=== PATIENT | female | born 1970 | race Caucasian/White ===

== ENCOUNTER 2020-05-24 06:12 | Outpatient (REF) | payer OTHER, SELFPAY ==
[2020-05-24 07:44] LABS: Thyroid Stimulating Hormone 0.57 mIU/mL (0.32-4.0)
== END 2020-05-24 06:13 | disposition home or self-care (01) ==
LOC: HO.LAB 06:12
PROVIDERS: PCP Internal Medicine; Visit Provider Internal Medicine
DX: F32.89 Other specified depressive episodes (principal); M15.1 Heberden's nodes (with arthropathy); M79.652 Pain in left thigh; Z68.25 Body mass index [BMI] 25.0-25.9, adult
CPT/HCPCS: 84443

== ENCOUNTER 2020-05-30 08:22 | Outpatient (REF) | payer OTHER, SELFPAY ==
[2020-05-30 15:56] LABS: CT PCR NOT DETECTED (Not Detect.); NG PCR NOT DETECTED (Not Detect.)
[2020-05-31 09:30] LABS: BV Int Neg Control Negative (Negative); BV Int Pos Control Positive (Positive)
== END 2020-05-30 08:23 | disposition home or self-care (01) ==
LOC: HO.LNP 08:22
PROVIDERS: PCP Internal Medicine; Referring Provider Internal Medicine; Visit Provider Obstetrics & Gynecology
DX: Z01.419 Encounter for gynecological examination (general) (routine) without abnormal findings (principal); Z11.3 Encounter for screening for infections with a predominantly sexual mode of transmission
CPT/HCPCS: 87480; 87491; 87510; 87591; 87660

== ENCOUNTER 2020-05-31 05:59 | Outpatient (REF) | payer OTHER, SELFPAY ==
[2020-05-31 08:39] LABS: HBsAGNum1 0.16 S/CO (0.00-0.99); HIV AB/AG Nonreactive (Nonreactive); HIV Num 1 0.06 S/CO (0.00-0.99); Hepatitis B Surface Antigen Negative (Negative); ~HepC Num1 0.13 S/CO (0.00-0.79); ~Hepatitis C Antibody Nonreactive (Nonreactive)
[2020-06-01 08:18] LABS: Syphilis Screen Nonreactive (Nonreactive)
== END 2020-05-31 06:00 | disposition home or self-care (01) ==
LOC: HO.LAB 05:59
PROVIDERS: PCP Internal Medicine; Visit Provider Obstetrics & Gynecology
DX: Z11.3 Encounter for screening for infections with a predominantly sexual mode of transmission (principal)
CPT/HCPCS: 86780; 86803; 87340; 87389

== ENCOUNTER → 2020-06-02 11:16 | Outpatient (BNVA) | payer OTHER, SELFPAY | PROVIDERS: PCP Internal Medicine; Visit Provider Surgery Vascular Surgery | DX: Z76.89 Persons encountering health services in other specified circumstances (principal) ==

== ENCOUNTER 2020-06-08 07:48 | Outpatient (REF) | payer OTHER, SELFPAY ==
--- NOTE | 2020-06-08 07:59 | US_ITS ---
EXAMINATION: BILATERAL LOWER EXTREMITY VENOUS ULTRASOUND (Reflux Exam) CLINICAL INDICATION: This is a 50-year-old female with venous insufficiency and varicose veins. COMPARISON: None. TECHNIQUE: Color flow triplex imaging and compression Doppler was performed to evaluate both the deep and the superficial systems bilaterally. To evaluate the superficial system, the examination was performed in the upright position. Color-flow Doppler ultrasound and compression ultrasound were utilized. In addition, maneuvers were utilized to demonstrate reflux. FINDINGS: 1. DEEP VENOUS ULTRASOUND OF THE RIGHT LOWER EXTREMITY: Common Femoral Vein: Compressible, normal respiratory variation and augmented flow. Femoral vein: Compressible, normal color flow and augmentation. Popliteal Vein: Compressible, normal augmentation. Deep Reflux: There is no evidence of reflux in the deep system in either the common femoral vein or the popliteal vein. . There is no evidence of a Negrete's cyst. 2. SUPERFICIAL ULTRASOUND WITH DOPPLER OF RIGHT LOWER EXTREMITY GREAT SAPHENOUS VEIN: Saphenofemoral junction: 0.6 cm. There is no reflux at the saphenofemoral junction. Mid thigh: 0.5 cm. There is reflux of 3500 ms. Above knee: 0.5 cm. There is reflux of 3004 and 72 ms. Below knee: 0.4 cm. There is no reflux at this level. Mid calf: 0.3 cm. There is no reflux at this level and below Ankle: 0.3 cm GSV REFLUX: There is reflux in the great saphenous vein but not at the saphenofemoral junction. DUPLICATED GREAT SAPHENOUS VEIN: None SMALL SAPHENOUS VEIN: Upper: 0.4 cm Lower: 0.4 cm SSV REFLUX: No evidence of reflux. VEIN OF GIACOMINI: None Imaged. PERFORATORS: There is a 0.2 cm proximal thigh lieutenant fire fighter with 784 ms of reflux. There is a proximal calf lieutenant fire fighter measuring 0.3 cm without reflux. VARICOSITIES: There are varicose veins seen in the proximal thigh measures 0.4 cm without reflux. There are varicose veins in the proximal calf measuring 0.3 cm with a reflux time of 3152 ms. 3. DEEP VENOUS ULTRASOUND OF THE LEFT LOWER EXTREMITY: Common Femoral Vein: Compressible, normal respiratory variation and augmented flow. Femoral vein: Compressible, normal color flow and augmentation. Popliteal Vein: Compressible, normal augmentation. Deep Reflux: There is no evidence of reflux in the deep system in either the common femoral vein or the popliteal vein. There is no evidence of a Negrete's cyst. 4. SUPERFICIAL ULTRASOUND WITH DOPPLER OF LEFT LOWER EXTREMITY GREAT SAPHENOUS VEIN: Saphenofemoral junction: 0.6 cm. There is no reflux at the saphenofemoral junction. Mid thigh: 0.3 cm. There is a reflux time of 1636 ms at this level. Above knee: 0.4 cm. There is reflux of 2700 ms at this level. Below knee: 0.2 cm there is no reflux at this level. Mid calf: 0.2 cm. There is reflux of 2012 ms at this level. Ankle: 0 point cm. There is no reflux at this level. GSV REFLUX: There are isolated areas of reflux as noted. DUPLICATED GREAT SAPHENOUS VEIN: There is a 0.4 cm lateral duplicated great saphenous vein without reflux. SMALL SAPHENOUS VEIN: Upper: 0.2 cm Lower: 0.3 cm SSV REFLUX: No evidence of reflux. VEIN OF GIACOMINI: None Imaged. PERFORATORS: There is a 0.3 cm lieutenant fire fighter in the proximal calf without reflux. VARICOSITIES: There is a 0.5 cm varicose vein in the distal thigh with reflux time of 2936 ms. There is a 0.4 cm varicose vein in the in the region with a reflux time of 3080 ms. US/US venous duplex LE BI IMPRESSION: 1. There is a patent right great saphenous vein without reflux at the saphenofemoral junction. However, there is reflux of the proximal thigh downward. 2. There is a patent right small saphenous vein without reflux. 3. There are perforators and varicose veins in the right leg as described. 4. There is a patent left great saphenous vein without reflux at the saphenofemoral junction. However, reflux is seen from the mid thigh down. 5. There is a patent lateral duplicated great saphenous vein without reflux. 6. There is a patent left small saphenous vein without reflux. 7. There are perforators and varicose veins as noted in the left leg.
== END 2020-06-08 07:49 | disposition home or self-care (01) ==
LOC: HO.US 07:48
PROVIDERS: PCP Internal Medicine; Visit Provider Surgery Vascular Surgery
DX: I83.813 Varicose veins of bilateral lower extremities with pain (principal); I83.12 Varicose veins of left lower extremity with inflammation
CPT/HCPCS: 93970

== ENCOUNTER → 2020-06-30 08:45 | Outpatient (BNVA) | payer OTHER, SELFPAY | PROVIDERS: PCP Internal Medicine; Visit Provider Surgery Vascular Surgery | DX: Z76.89 Persons encountering health services in other specified circumstances (principal) ==

== ENCOUNTER → 2020-07-08 08:46 | Outpatient (BNVA) | payer OTHER, SELFPAY | PROVIDERS: PCP Internal Medicine; Referring Provider Internal Medicine; Visit Provider Surgery Vascular Surgery | DX: I83.11 Varicose veins of right lower extremity with inflammation (principal) | CPT/HCPCS: 36482 ==

== ENCOUNTER 2020-07-11 14:45 | Outpatient (REF) | payer OTHER, SELFPAY ==
--- NOTE | 2020-07-11 | US_ITS ---
EXAMINATION: US VENOUS ULTRASOUND WITH DOPPLER LOWER EXTREMITY, RIGHT CLINICAL INFORMATION: Status post right leg venous serial. COMPARISON: None TECHNIQUE: Ultrasound of the deep veins is performed from the hip to the calf with compression sonography and color and pulse Doppler assessment. Spectral analysis with color-flow imaging is performed. FINDINGS: There is normal venous compression and respiratory variation and augmented flow. The visualized common femoral vein, superficial femoral vein, profunda femoral vein, popliteal vein, and the trifurcation region shows no evidence of deep venous thrombosis. There is no significant popliteal fossa cyst. There is venaseal in greater saphenous vein approximately 3.5 cm away from special femoral venous junction. If the patient's symptoms persist, followup ultrasound in 5 days 7 days might be of value to exclude proximal propagation from a non-visualized calf vein. US/US venous duplex LE RT IMPRESSION: No DVT demonstrated in the right lower extremity. Right greater saphenous vein Venaseal appears 3.5 cm away from the superficial femoral venous junction.
== END 2020-07-11 14:46 | disposition home or self-care (01) ==
LOC: HO.US 14:45
PROVIDERS: Visit Provider Surgery Vascular Surgery
DX: M79.604 Pain in right leg (principal)
CPT/HCPCS: 93971

== ENCOUNTER → 2020-07-21 08:56 | Outpatient (BNVA) | payer OTHER, SELFPAY | PROVIDERS: PCP Internal Medicine; Visit Provider Surgery Vascular Surgery | DX: Z76.89 Persons encountering health services in other specified circumstances (principal) ==

== ENCOUNTER → 2020-08-12 09:25 | Outpatient (BNVA) | payer OTHER, SELFPAY | PROVIDERS: PCP Internal Medicine; Visit Provider Surgery Vascular Surgery | DX: I83.12 Varicose veins of left lower extremity with inflammation (principal) | CPT/HCPCS: 36482 ==

== ENCOUNTER 2020-08-15 12:43 | Outpatient (REF) | payer OTHER, SELFPAY ==
--- NOTE | 2020-08-15 | US_ITS ---
EXAMINATION: US VENOUS ULTRASOUND WITH DOPPLER LOWER EXTREMITY, LEFT CLINICAL INFORMATION: Status post left leg RFA. Pain COMPARISON: None TECHNIQUE: Ultrasound of the deep veins is performed from the hip to the calf with compression sonography and color and pulse Doppler assessment. Spectral analysis with color-flow imaging is performed. FINDINGS: There is normal venous compression and respiratory variation and augmented flow. The visualized common femoral vein, superficial femoral vein, profunda femoral vein, popliteal vein, and the trifurcation region shows no evidence of deep venous thrombosis. There is no significant popliteal fossa cyst. There is veno seal in greater saphenous vein approximately 1.8 cm common femoral venous junction. No evidence of Negrete's cyst. The soft tissues are unremarkable. US/US venous duplex LE LT IMPRESSION: No DVT demonstrated in the left lower extremity. Left greater saphenous veno seal seen following RF ablation procedure
== END 2020-08-15 12:44 | disposition home or self-care (01) ==
LOC: HO.HMGCX 12:43
PROVIDERS: PCP Internal Medicine; Visit Provider Surgery Vascular Surgery
DX: M79.605 Pain in left leg (principal)
CPT/HCPCS: 93971

== ENCOUNTER → 2020-08-25 09:55 | Outpatient (BNVA) | payer OTHER, SELFPAY | PROVIDERS: PCP Internal Medicine; Visit Provider Surgery Vascular Surgery ==

== ENCOUNTER 2020-10-07 11:44 | Emergency (ER) | payer OTHER, SELFPAY ==
--- NOTE | ~2020-10-07 | US_ITS ---
EXAMINATION: US VENOUS ULTRASOUND WITH DOPPLER LOWER EXTREMITY, BILATERAL CLINICAL INFORMATION: History of bilateral greater saphenous vein veno seal. Swelling. COMPARISON: None TECHNIQUE: Ultrasound of the deep veins is performed from the hip to the calf with compression sonography and color and pulse Doppler assessment. Spectral analysis with color-flow imaging is performed. FINDINGS: RIGHT: There is normal venous compression and respiratory variation and augmented flow. The visualized common femoral vein, superficial femoral vein, profunda femoral vein, popliteal vein, and the trifurcation region shows no evidence of deep venous thrombosis. There is no significant popliteal fossa cyst. LEFT: There is normal venous compression and respiratory variation and augmented flow. The visualized common femoral vein, superficial femoral vein, profunda femoral vein, popliteal vein, and the trifurcation region shows no evidence of deep venous thrombosis. There is no significant popliteal fossa cyst. If the patient's symptoms persist, followup ultrasound in 5 days 7 days might be of value to exclude proximal propagation from a non-visualized calf vein. US/US venous duplex LE BI IMPRESSION: No DVT demonstrated in the bilateral lower extremity.
--- NOTE | ~2020-10-07 | CT_ITS ---
EXAMINATION: CTA OF THE CHEST, ABDOMEN AND PELVIS CLINICAL INFORMATION: Abdominal pain radiating to back. History of abdominal aortic aneurysm. COMPARISON: Previous chest CTA July [address] of the abdomen and pelvis SeptemberSeptember 2017 TECHNIQUE: Axial images through the chest, abdomen and pelvis following 85 mL Omnipaque 370 intravenous contrast. Patient dose 6 6 6 mg/cm. Sagittal and coronal and 3-D reconstructions were obtained. This CT examination was performed using dose optimization techniques as appropriate, variously including the following: *Automated exposure control *Adjustment of mA and/or kV according to patient size (this includes techniques or standardized protocols for targeted exams where dose is matched to indication/reason for exam; i.e. extremities or head) *Use of iterative reconstruction technique FINDINGS: Chest: The ascending thoracic aorta is slightly dilated measuring 4.3 cm. Similar to previous exam. The aortic arch and descending thoracic aorta are normal appearing. The aortic arch measures 2.4 and the descending thoracic aorta 2.2 cm in diameter. The heart does not appear enlarged. There is no pericardial effusion. Great vessel origins appear patent and normal in caliber. The pulmonary arteries are patent. There is a small 2 mm peripheral left upper lobe nodule that is stable. The lungs are otherwise clear. No hilar or mediastinal lymphadenopathy is seen. There is no pleural effusion or pleural thickening. There are bilateral breast implants. There are surgical clips seen in both axilla. No chest wall mass or enlarged axillary lymph nodes are seen. Abdomen and pelvis: The abdominal aorta is normal in caliber. The common internal and external iliac, common femoral and femoral bifurcation arteries are patent and normal in caliber. There are single patent renal arteries. The celiac axis, SMA and CAROL are patent. The liver is upper normal in size. The right lobe the liver measures 18 cm in length. The liver is normal in contour. No focal liver lesion or biliary duct dilatation is seen. The gallbladder is normal. The spleen, pancreas, adrenal glands and kidneys are normal. Bladder is normal. The uterus and adnexa are normal. The cecum is located low in the pelvis. Small and large bowel is otherwise normal. The appendix is normal. The stomach is normal. There is trace ascites in the pelvis. There are no enlarged lymph nodes. There is a small umbilical hernia containing fat. There are mild T12 and L4 vertebral body compression fractures versus Schmorl's nodes. This is unchanged from previous exams There is mild curvature of the lower lumbar spine to the left. CT/CT angio abdomen pelvis IMPRESSION: Chest: Slightly dilated ascending thoracic aorta measuring maximum 4.3 cm. This is unchanged from previous exam. Otherwise unremarkable CTA of the chest. Small stable left upper lobe nodule. Abdomen and pelvis: Normal CTA of the abdomen and pelvis.
[2020-10-07 12:08] VITALS: BP 187/109; PULSE 56; RESP 16; TEMP 36.5; O2SAT 99; BMI 28.3
--- NOTE | 2020-10-07 12:46 | ECG_ITS ---
Test Reason : CHEST PAIN Blood Pressure : / mmHG Vent. Rate : 056 BPM Atrial Rate : 056 BPM P-R Int : 134 ms QRS Dur : 090 ms QT Int : 458 ms P-R-T Axes : 069 053 047 degrees QTc Int : 441 ms Sinus bradycardia with Sinus Arrhythmia Possible Left atrial enlargement Borderline ECG No previous ECGs available Referred By: Marimar Kwan Electronically Signed By:RODOLFO CALLAHAN MD
[2020-10-07 13:14] LABS: MANUAL DIFF FLAG NO
[2020-10-07 13:16] VITALS: BP 187/109; PULSE 56; RESP 16; TEMP 36.5; O2SAT 99
[2020-10-07 13:21] LABS: Basophils Percent Auto 0.6 % (0-2); Eosinophils Absolute Auto 0.1 X10*3/uL (0.0-0.4); Eosinophils Percent Auto 1.9 % (0-4); Hematocrit 42.9 % (37-47); Hemoglobin 13.8 g/dl (12.0-16.0); Imm Gran Abs Auto 0.01 X10*3/uL (0.00-0.03); Imm Gran Pct Auto 0.2 % (0.0-0.4); Lymphocytes Absolute Auto 1.6 X10*3/uL (1.2-4.9); Mean Corpuscular HGB Conc 32.2 g/dl (31.0-35.0); Mean Corpuscular Hemoglobin 30.5 pg (27.0-33.0); Mean Corpuscular Volume 94.7 fL (80-98); Mean Platelet Volume 10.2 fL (9.4-12.3); Monocytes Absolute Auto 0.4 X10*3/uL (0.1-1.2); Monocytes Percent Auto 8.2 % (2-11); Neutrophils Percent Auto 58.1 % (45-73); Platelet Count 212 X10*3/uL (160-400); Red Blood Count 4.53 X10*6/uL (4.20-5.50); Red Cell Distribution Width 12.7 % (11.0-16.0); White Blood Count 5.2 X10*3/uL (4.8-10.8)
[2020-10-07 13:27] LABS: INTERNATIONAL NORM RATIO 0.9 (0.9-1.1)
[2020-10-07 13:29] LABS: Partial Thromboplastin Time 39.1 SEC (24.1-38.0)
[2020-10-07 13:39] LABS: Alanine Aminotransferase 14 U/L (0-31); Albumin Level 4.5 g/dL (3.5-5.0); Alkaline Phosphatase 87 U/L (39-117); Anion Gap 11 (12-20); Aspartate Amino Transferase 21 U/L (5-31); Bilirubin Direct 0.2 mg/dL (0.0-0.5); Bilirubin Total 0.5 mg/dL (0.0-1.0); Blood Urea Nitrogen 23 mg/dL (9-16); Calcium 9.3 mg/dL (8.4-10.2); Carbon Dioxide 29 mmol/L (22-29); Chloride 103 mmol/L (96-108); Creatinine Clr Calc Pharmacy 91.5; Estimated Glomerular Filt Rate > 60; Glucose Random 107 mg/dL (60-115); Magnesium 2.2 mg/dL (1.6-2.6); Potassium 3.7 mmol/L (3.3-5.1); Sodium 139 mmol/L (135-145); Total Protein 7.3 g/dL (6.5-8.0)
[2020-10-07 13:45] LABS: B Type Natriuretic Peptide 67 pg/mL (<100); Troponin-I High Sensitivity 5.9 ng/L (<3.5-17.0)
[2020-10-07 13:59] LABS: Influenza A PCR NEGATIVE (Negative); Influenza B PCR NEGATIVE (Negative); Resp Syncy Virus RNA Qual PCR NEGATIVE (Negative); SARS COV2 PCR INHOUSE NEGATIVE (Negative)
--- NOTE | 2020-10-07 14:14 | ED_ITS ---
HPI - Abdominal Pain General Chief Complaint: Abdominal Pain Stated Complaint: ABD PAIN Time Seen by Provider: 10/07/20 12:46 Source: patient Mode of arrival: ambulatory Limitations: no limitations History of Present Illness HPI narrative: 50-year-old female with a past medical history of a AAA, hypertension, hypothyroidism, cervical intraepithelial neoplasm I, squamous cell carcinoma, tongue cancer, breast cancer who had surgery and chemo/radiation who is in remission presenting to the ED with complaints of bilateral lower abdominal pain radiating to her bilateral lower back pain since last night with associated nausea. Also reports that she coughed yesterday and noted to have blood-tinged sputum a small amount although no further episodes. Also reports intermittent left-sided chest discomfort unsure if this is due to her breast implants. Patient also concern for bilateral lower extremity edema. Denies any fevers, chills, vomiting, shortness of breath, dyspnea on exertion, orthopnea, palpitations, diarrhea, constipation, bloody stools or dark stools, hematuria, dysuria or any other symptoms complaints or concerns at this time. MD elicited complaint: abdominal pain Pertinent past history: other (AAA) Onset (ago): day(s) (Since last night) Pain Consistency: constant Location: RLQ and LLQ Severity: moderate Quality: aching Radiation: back Migration to: no migration Exacerbating factors: movement Relieving factors: nothing Associated symptoms: nausea Related Data Home Medications Medication Instructions Recorded Confirmed ibuprofen 600 mg tablet 600 mg PO TID 05/30/20 05/30/20 levothyroxine 137 mcg tablet 137 mcg PO DAILY 05/30/20 05/30/20 sertraline 50 mg tablet 50 mg PO DAILY 05/30/20 05/30/20 Previous Rx's Medication Instructions Recorded lisinopril 10 mg PO DAILY #30 tab 10/07/20 Allergies Allergy/AdvReac Type Severity Reaction Status Date / Time No Known Allergies Allergy Verified 10/07/20 10:54 [No Known Allergies*] Review of Systems Review of Systems Constitutional : No Weight loss, No Fever, No Chills, No Night Sweats, No Fatigue, NoMalaise ENT/Mouth: No ear pain, No sore throat, No Difficulty swallowing Cardiovascular : + Chest Pain, No SOB, No Dyspnea on Exertion, No Orthopnea, NoEdema, No Palpitations Respiratory : + Cough, No Sputum, No Wheezing, No Dyspnea Gastrointestinal : + Nausea, + Abdominal pain, No Vomiting, No Diarrhea, No Hematochezia, No Melena Genitourinary : No irregular bleeding, No Dysuria, No Urinary Frequency, No Hematuria,No Urinary Incontinence, No Urgency, No Flank Pain Musculoskeletal : + Back pain, No joint pain, No Myalgias, No Joint Swelling Skin : No Skin Lesions, No rash Neuro : No Weakness, No Numbness, No Paresthesias, No Loss of Consciousness, No Dizziness, No Headache Psych : No Social Issues, Heme/Lymph: + Lower extremity edeam, No Bruising, No Bleeding,No Lymphadenopathy Endocrine : No Polyuria, No Polydipsia, No Temperature Intolerance Yes all other systems are reviewed and are negative Physical Exam Vital Signs: Vital Signs: Last Vital Signs Temp 97.7 F 10/07/20 13:16 Pulse 57 10/07/20 18:48 Resp 16 10/07/20 18:48 BP 152/79 H 10/07/20 18:48 Pulse Ox 99 10/07/20 18:48 Body Mass Index 28.3 vital signs have been reviewed as normal and appeared to be correct. Blood pressure hypertensive at 187/109. Heart rate bradycardic at 56. Respiration rate normal. Temperature normal. Oxygen saturation normal. Appearance: Alert. Oriented X3. No acute distress. Head: Normal external exam. Normocephalic. Atraumatic. Eyes: PERRLA. EOMI. Conjunctiva and sclera normal. Eyelids normal. ENT: Pharynx normal. Uvula midline. Moist mucous membranes. Neck: Normal inspection. Neck supple. FROM. No adenopathy. Thyroid Normal. No meningeal signs. No neck mass noted. CVS: Normal heart rate and rhythm. Heart sound normal. No murmurs noted. Pulses normal throughout. Respiratory: No respiratory distress. Painless inspiration. Breath sounds normal. No wheezes/rales/rhonchi noted. Chest nontender. No accessory muscle usage noted or decreased air movement noted. Abdomen: Soft and mild tenderness to palpation to bilateral lower abdomen. Nondistended. No guarding. No rigidity. Bowel sounds normal in all 4 quadrants. No distention noted. No organomegaly noted. No visible injury noted. No re bound tenderness. Negative Rovsing sign. Negative obturator's sign. Negative psoas sign. Negative Pino sign. Back: No CVA tenderness. Full range of motion noted. No obvious deformities, or edema. Mild para-spinal muscular tenderness from lumbar region to coccyx. Full ROM in back and lower extremities. 5/5 strength hip extension/flexion, abduction, adduction. Mild Lumbar pain with hip flexion against resistance. Straight leg raise test negative on right; Straight leg raise test negative on left; Reflexes normal ankle and knee bilaterally; EHL motor strength normal bilaterally Skin: Skin warm and dry. Normal skin color. Normal skin turgor. No rashes/lesions/lacerations noted. Extremities: +1 bilateral lower extremity pitting edema. No calf tenderness noted. Extremities exhibit normal range of motion. Extremities nontender. Neuro: Oriented X 3. No motor deficit. No sensory deficit. Reflexes normal. Course Course Course Narrative: 12:45pm - 50-year-old female with a past medical history of a AAA, hypertension, hypothyroidism, cervical intraepithelial neoplasm I, squamous cell carcinoma, tongue cancer, breast cancer who had surgery and chemo/radiation who is in remission presenting to the ED with complaints of bilateral lower abdominal pain radiating to her bilateral lower back pain since last night with associated nausea. + Cough. + Intermittent chest pain. + Bilateral lower extremity edema. - Concern for aortic dissection vs diverticulitis vs appendicitis vs kidney stones vs UTI/pyelonephritis - Plan: Labs, CXR, CT angio of chest and abdomen, venous duplex ultrasound, UA provide a L of IV fluids then re-evaluate. Reevaluation(s) Reevaluation #1: - labs reviewed and patient mild elevation in BUN at 23 and mild elevation in troponin at 5.9 otherwise all other labs are within normal limits - CT angio of chest and abdomen negative for dissection or any other acute processes such as diverticulitis/appendicitis/kidney stones or any other acute processes. - will repeat troponin, still awaiting a UA - patient still hypertensive therefore will give 10 mg of lisinopril then re-evaluate. Time: 15:51 Reevaluation #2: - venous duplex ultrasound negative for any DVT or any other acute processes. - Repeat troponin negative delta. - UA within normal limits no evidence of UTI. - patient's repeat blood pressure now 152/79. Will DC home with blood pressure medication along with instructions return if any new or worsening symptoms to follow up with primary care provider next week. Patient understands agrees with this plan. Time: 19:26 MDM - Abdominal Pain Differential Diagnosis Differential diagnosis: Likely aortic dissection, acute appendicitis, bowel perforation, calculus of kidney, constipation, diverticulitis, mesenteric ischemia, renal colic and small bowel obstruction Medical Records Attestation: I reviewed the patient's medical records. Lab Data Attestation: I reviewed the patient's lab results. Result diagrams: 10/07/20 13:10 10/07/20 13:10 Labs: Lab Results 10/07/20 10/07/20 10/07/20 Range/Units 13:10 13:10 13:10 WBC 5.2 (4.8-10.8) X10*3/uL RBC 4.53 (4.20-5.50) X10*6/uL Hgb 13.8 (12.0-16.0) g/dl Hct 42.9 (37-47) % MCV 94.7 (80-98) fL MCH 30.5 (27.0-33.0) pg MCHC 32.2 (31.0-35.0) g/dl RDW 12.7 (11.0-16.0) % Plt Count 212 (160-400) X10*3/uL MPV 10.2 (9.4-12.3) fL Immature Gran % (Auto) 0.2 (0.0-0.4) % Neut % (Auto) 58.1 (45-73) % Lymph % (Auto) 31.0 (20-40) % [place] % (Auto) 8.2 (2-11) % Eos % (Auto) 1.9 (0-4) % Baso % (Auto) 0.6 (0-2) % Lymph # (Auto) 1.6 (1.2-4.9) X10*3/uL [place] # (Auto) 0.4 (0.1-1.2) X10*3/uL Eos # (Auto) 0.1 (0.0-0.4) X10*3/uL Baso # (Auto) 0.0 (0.0-0.2) X10*3/uL Abs Immat Gran (auto) 0.01 (0.00-0.03) X10*3/uL Absolute Neuts (auto) 3.0 (2.0-8.3) X10*3/uL Absolute Nucleated RBC 0.000 (0.0-0.012) X10*3/uL Nucleated RBC % (auto) 0.0 (0.0-0.2) /100WBC PT 11.0 (10.8-13.0) SEC INR 0.9 (0.9-1.1) APTT 39.1 H (24.1-38.0) SEC Sodium 139 (135-145) mmol/L Potassium 3.7 (3.3-5.1) mmol/L Chloride 103 (96-108) mmol/L Carbon Dioxide 29 (22-29) mmol/L Anion Gap 11 L (12-20) BUN 23 H (9-16) mg/dL Creatinine 0.81 (0.5-1.4) mg/dL Estim Creat Clear Calc 91.5 Estimated GFR > 60 Random Glucose 107 (60-115) mg/dL Calcium 9.3 (8.4-10.2) mg/dL Magnesium 2.2 (1.6-2.6) mg/dL Total Bilirubin 0.5 (0.0-1.0) mg/dL Direct Bilirubin 0.2 (0.0-0.5) mg/dL AST 21 (5-31) U/L ALT 14 (0-31) U/L Alkaline Phosphatase 87 (39-117) U/L Troponin I High Sens (<3.5-17.0) ng/L B-Natriuretic Peptide (<100) pg/mL Total Protein 7.3 (6.5-8.0) g/dL Albumin 4.5 (3.5-5.0) g/dL Urine Color Urine Appearance Urine pH (5.0-8.0) Ur Specific [place] (1.005-1.025) Urine Protein (NEG-TRACE) MG/DL Urine Glucose (UA) (NEG) MG/DL Urine Ketones (NEG) MG/DL Urine Blood (NEG) Urine Nitrite (NEG) Ur Leukocyte Esterase (NEG) Urine RBC (0) /HPF Urine WBC (0-4) /HPF Ur Squamous Epith Cells /LPF Urine Bacteria /LPF Coronavirus (PCR) (Negative) Influenza Type A (PCR) (Negative) Influenza Type B (PCR) (Negative) RSV RNA Qual (PCR) (Negative) 10/07/20 10/07/20 10/07/20 Range/Units 13:10 16:16 16:16 WBC (4.8-10.8) X10*3/uL RBC (4.20-5.50) X10*6/uL Hgb (12.0-16.0) g/dl Hct (37-47) % MCV (80-98) fL MCH (27.0-33.0) pg MCHC (31.0-35.0) g/dl RDW (11.0-16.0) % Plt Count (160-400) X10*3/uL MPV (9.4-12.3) fL Immature Gran % (Auto) (0.0-0.4) % Neut % (Auto) (45-73) % Lymph % (Auto) (20-40) % [place] % (Auto) (2-11) % Eos % (Auto) (0-4) % Baso % (Auto) (0-2) % Lymph # (Auto) (1.2-4.9) X10*3/uL [place] # (Auto) (0.1-1.2) X10*3/uL Eos # (Auto) (0.0-0.4) X10*3/uL Baso # (Auto) (0.0-0.2) X10*3/uL Abs Immat Gran (auto) (0.00-0.03) X10*3/uL Absolute Neuts (auto) (2.0-8.3) X10*3/uL Absolute Nucleated RBC (0.0-0.012) X10*3/uL Nucleated RBC % (auto) (0.0-0.2) /100WBC PT (10.8-13.0) SEC INR (0.9-1.1) APTT (24.1-38.0) SEC Sodium (135-145) mmol/L Potassium (3.3-5.1) mmol/L Chloride (96-108) mmol/L Carbon Dioxide (22-29) mmol/L Anion Gap (12-20) BUN (9-16) mg/dL Creatinine (0.5-1.4) mg/dL Estim Creat Clear Calc Estimated GFR Random Glucose (60-115) mg/dL Calcium (8.4-10.2) mg/dL Magnesium (1.6-2.6) mg/dL Total Bilirubin (0.0-1.0) mg/dL Direct Bilirubin (0.0-0.5) mg/dL AST (5-31) U/L ALT (0-31) U/L Alkaline Phosphatase (39-117) U/L Troponin I High Sens 9.6 D (<3.5-17.0) ng/L B-Natriuretic Peptide (<100) pg/mL Total Protein (6.5-8.0) g/dL Albumin (3.5-5.0) g/dL Urine Color YELLOW Urine Appearance CLEAR Urine pH 6.0 (5.0-8.0) Ur Specific [place] 1.010 (1.005-1.025) Urine Protein NEG (NEG-TRACE) MG/DL Urine Glucose (UA) NEG (NEG) MG/DL Urine Ketones NEG (NEG) MG/DL Urine Blood TRACE (NEG) Urine Nitrite NEG (NEG) Ur Leukocyte Esterase NEG (NEG) Urine RBC 1-4 (0) /HPF Urine WBC 0 (0-4) /HPF Ur Squamous Epith Cells TRACE /LPF Urine Bacteria NONE /LPF Coronavirus (PCR) NEGATIVE (Negative) Influenza Type A (PCR) NEGATIVE (Negative) Influenza Type B (PCR) NEGATIVE (Negative) RSV RNA Qual (PCR) NEGATIVE (Negative) 10/07/20 Range/Units Unknown WBC (4.8-10.8) X10*3/uL RBC (4.20-5.50) X10*6/uL Hgb (12.0-16.0) g/dl Hct (37-47) % MCV (80-98) fL MCH (27.0-33.0) pg MCHC (31.0-35.0) g/dl RDW (11.0-16.0) % Plt Count (160-400) X10*3/uL MPV (9.4-12.3) fL Immature Gran % (Auto) (0.0-0.4) % Neut % (Auto) (45-73) % Lymph % (Auto) (20-40) % [place] % (Auto) (2-11) % Eos % (Auto) (0-4) % Baso % (Auto) (0-2) % Lymph # (Auto) (1.2-4.9) X10*3/uL [place] # (Auto) (0.1-1.2) X10*3/uL Eos # (Auto) (0.0-0.4) X10*3/uL Baso # (Auto) (0.0-0.2) X10*3/uL Abs Immat Gran (auto) (0.00-0.03) X10*3/uL Absolute Neuts (auto) (2.0-8.3) X10*3/uL Absolute Nucleated RBC (0.0-0.012) X10*3/uL Nucleated RBC % (auto) (0.0-0.2) /100WBC PT (10.8-13.0) SEC INR (0.9-1.1) APTT (24.1-38.0) SEC Sodium (135-145) mmol/L Potassium (3.3-5.1) mmol/L Chloride (96-108) mmol/L Carbon Dioxide (22-29) mmol/L Anion Gap (12-20) BUN (9-16) mg/dL Creatinine (0.5-1.4) mg/dL Estim Creat Clear Calc Estimated GFR Random Glucose (60-115) mg/dL Calcium (8.4-10.2) mg/dL Magnesium (1.6-2.6) mg/dL Total Bilirubin (0.0-1.0) mg/dL Direct Bilirubin (0.0-0.5) mg/dL AST (5-31) U/L ALT (0-31) U/L Alkaline Phosphatase (39-117) U/L Troponin I High Sens 5.9 (<3.5-17.0) ng/L B-Natriuretic Peptide 67 (<100) pg/mL Total Protein (6.5-8.0) g/dL Albumin (3.5-5.0) g/dL Urine Color Urine Appearance Urine pH (5.0-8.0) Ur Specific [place] (1.005-1.025) Urine Protein (NEG-TRACE) MG/DL Urine Glucose (UA) (NEG) MG/DL Urine Ketones (NEG) MG/DL Urine Blood (NEG) Urine Nitrite (NEG) Ur Leukocyte Esterase (NEG) Urine RBC (0) /HPF Urine WBC (0-4) /HPF Ur Squamous Epith Cells /LPF Urine Bacteria /LPF Coronavirus (PCR) (Negative) Influenza Type A (PCR) (Negative) Influenza Type B (PCR) (Negative) RSV RNA Qual (PCR) (Negative) Imaging Data CT angio of chest and abdomen: Attestation: I personally reviewed and interpreted this imaging study as follows: Radiologist's impression: FINDINGS: Chest: The ascending thoracic aorta is slightly dilated measuring 4.3 cm. Similar to previous exam. The aortic arch and descending thoracic aorta are normal appearing. The aortic arch measures 2.4 and the descending thoracic aorta 2.2 cm in diameter. The heart does not appear enlarged. There is no pericardial effusion. Great vessel origins appear patent and normal in caliber. The pulmonary arteries are patent. There is a small 2 mm peripheral left upper lobe nodule that is stable. The lungs are otherwise clear. No hilar or mediastinal lymphadenopathy is seen. There is no pleural effusion or pleural thickening. There are bilateral breast implants. There are surgical clips seen in both axilla. No chest wall mass or enlarged axillary lymph nodes are seen. Abdomen and pelvis: The abdominal aorta is normal in caliber. The common internal and external iliac, common femoral and femoral bifurcation arteries are patent and normal in caliber. There are single patent renal arteries. The celiac axis, SMA and CAROL are patent. The liver is upper normal in size. The right lobe the liver measures 18 cm in length. The liver is normal in contour. No focal liver lesion or biliary duct dilatation is seen. The gallbladder is normal. The spleen, pancreas, adrenal glands and kidneys are normal. Bladder is normal. The uterus and adnexa are normal. The cecum is located low in the pelvis. Small and large bowel is otherwise normal. The appendix is normal. The stomach is normal. There is trace ascites in the pelvis. There are no enlarged lymph nodes. There is a small umbilical hernia containing fat. There are mild T12 and L4 vertebral body compression fractures versus Schmorl's nodes. This is unchanged from previous exams There is mild curvature of the lower lumbar spine to the left. CT/CT angio chest IMPRESSION: Chest: Slightly dilated ascending thoracic aorta measuring maximum 4.3 cm. This is unchanged from previous exam. Otherwise unremarkable CTA of the chest. Small stable left upper lobe nodule. Abdomen and pelvis: Normal CTA of the abdomen and pelvis. Bilateral venous duplex ultrasound: Attestation: I personally reviewed and interpreted this imaging study as follows: Radiologist's impression: FINDINGS: RIGHT: There is normal venous compression and respiratory variation and augmented flow. The visualized common femoral vein, superficial femoral vein, profunda femoral vein, popliteal vein, and the trifurcation region shows no evidence of deep venous thrombosis. There is no significant popliteal fossa cyst. LEFT: There is normal venous compression and respiratory variation and augmented flow. The visualized common femoral vein, superficial femoral vein, profunda femoral vein, popliteal vein, and the trifurcation region shows no evidence of deep venous thrombosis. There is no significant popliteal fossa cyst. If the patient's symptoms persist, followup ultrasound in 5 days 7 days might be of value to exclude proximal propagation from a non-visualized calf vein. US/US venous duplex LE BI IMPRESSION: No DVT demonstrated in the bilateral lower extremity. ECG Data Attestation: I personally reviewed and interpreted this ECG as follows: ECG interpretation date: 10/07/20 ECG interpretation time: 13:00 Interpretation: Sinus bradycardia with premature atrial complexes with a ventricular rate of 56 with left atrial enlargement no acute ischemic changes noted. No prior EKGs and system to compare to at this time. Critical Care Time Critical Care Time Critical Care Time: Yes Total Critical Care Time: 60 Attestation: I personally attest to this time spent taking care of the patient Discharge Plan Discharge Clinical Impression: Abdominal pain, Atypical chest pain, Hypertensive urgency Patient Disposition: Home, Self-Care Instructions: Chest Pain (ED), Abdominal Pain (ED), Hypertension (ED) Prescriptions: New lisinopril 10 mg tablet 10 mg PO DAILY Qty: 30 RF: 0 No Action levothyroxine 137 mcg tablet 137 mcg PO DAILY RF: 0 sertraline 50 mg tablet 50 mg PO DAILY RF: 0 ibuprofen 600 mg tablet 600 mg PO TID RF: 0 Referrals: Zamzam Bauer MD [Primary Care Provider] - 3 days (Blood pressure monitoring and refilled her blood pressure medication lisinopril) Print Language: Bengali [facility] Past Medical History Attestation statement: The following information was validated with the patient. Medical History Abdominal pain with radiation to back AV I (cervical intraepithelial neoplasia I) History of breast cancer History of tongue cancer Surgical History History of bilateral mastectomy History of bilateral salpingo-oophorectomy Hx of breast implants, bilateral Family History Family History Mother Liver cancer Pancreatic cancer Social History Social History Alcohol intake: never Smoking Status: Never smoker Smoked in Last 30 Days: No Use of substances other than those prescribed or required for medical reasons: No Advance Directives: Yes Advance Directives Information Provided: Yes Advance Directives on File: No Sexual orientation: Straight/Heterosexual
[2020-10-07 16:32] LABS: Glucose Urine UA NEG (NEG); Leukocyte Esterase Urine NEG (NEG); Nitrite Urine NEG (NEG); Urine Blood TRACE (NEG); Urine Ketones NEG (NEG); Urine Protein NEG (NEG-TRACE)
[2020-10-07 16:38] LABS: Appearance Urine CLEAR; Color Urine YELLOW
[2020-10-07 16:49] LABS: Squamous Epithelial Cell Urine TRACE /LPF; WBC Urine 0 /HPF (0-4)
[2020-10-07 16:59] LABS: Troponin-I High Sensitivity 9.6 ng/L (<3.5-17.0)
[2020-10-07 17:33] VITALS: BP 144/79; PULSE 64
[2020-10-07] MEDS: lisinopriL 10 MG TABLET PO (17:33)
[2020-10-07 17:35] VITALS: BP 144/79; PULSE 63; RESP 15; O2SAT 99
[2020-10-07 18:48] VITALS: BP 152/79; PULSE 57; RESP 16; O2SAT 99
== END 2020-10-07 19:46 | disposition home or self-care (01) ==
PROVIDERS: Physician Assistant Medical; Emergency Provider Emergency Medicine Emergency Medical Services; PCP Internal Medicine
DX: R10.30 Lower abdominal pain, unspecified (principal); R07.89 Other chest pain; I16.0 Hypertensive urgency; Z20.822 Contact with and (suspected) exposure to COVID-19; I71.4 Abdominal aortic aneurysm, without rupture; I10 Essential (primary) hypertension; Z85.41 Personal history of malignant neoplasm of cervix uteri; Z85.3 Personal history of malignant neoplasm of breast; Z85.810 Personal history of malignant neoplasm of tongue
CPT/HCPCS: 0241U; 36415; 71275; 74174; 80048; 80076; 81001; 83735; 83880; 84484; 85025; 85610; 85730; 93005; 93970; 96374; 99284; 99291; Q9967

== ENCOUNTER 2020-10-18 06:05 | Outpatient (REF) | payer OTHER, SELFPAY ==
[2020-10-18 07:30] LABS: Alanine Aminotransferase 14 U/L (0-31); Alkaline Phosphatase 88 U/L (39-117); Anion Gap 12 (12-20); Aspartate Amino Transferase 16 U/L (5-31); Bilirubin Total 0.6 mg/dL (0.0-1.0); Blood Urea Nitrogen 39 mg/dL (9-16); Calcium 9.1 mg/dL (8.4-10.2); Carbon Dioxide 26 mmol/L (22-29); Chloride 105 mmol/L (96-108); Estimated Glomerular Filt Rate > 60; Glucose Random 83 mg/dL (60-115); Potassium 4.1 mmol/L (3.3-5.1); Sodium 139 mmol/L (135-145); Total Protein 6.7 g/dL (6.5-8.0)
[2020-10-18 07:49] LABS: Thyroid Stimulating Hormone 0.87 uIU/mL (0.32-4.0)
== END 2020-10-18 06:06 | disposition home or self-care (01) ==
LOC: HO.LAB 06:05
PROVIDERS: PCP Internal Medicine; Visit Provider Internal Medicine
DX: E03.9 Hypothyroidism, unspecified (principal); F32.89 Other specified depressive episodes
CPT/HCPCS: 36415; 80053; 84443

== ENCOUNTER 2020-12-06 13:21 | Outpatient (REF) | payer OTHER, SELFPAY ==
--- NOTE | ~2020-12-06 | US_ITS ---
EXAMINATION: US THYROID CLINICAL INFORMATION: Hyperthyroidism. COMPARISON: CT soft tissue neck 08/30/2014. TECHNIQUE: Linear transducer mullins-scale and color Doppler examination with attention to the region of the thyroid. FINDINGS: SIZE: Measurements of the thyroid lobes and nodules are given in sagittal, anteroposterior and transverse dimensions respectively. Right Thyroid Lobe: 4.3 x 1.0 x 1.2 cm, volume 2.7 mL. Parenchyma: The gland echotexture is heterogeneous. Thyroid vascularity is increased. Left Thyroid Lobe: 3.2 x 0.9 x 0.9 cm, volume 1.4 mL. Parenchyma: The gland echotexture is heterogeneous. Thyroid vascularity is increased. Isthmus: 0.2 cm in maximum AP dimension. No focal thyroid nodule is seen. NODES: There is a small benign lymph node superior to the isthmus measuring 0.9 x 0.2 x 0.4 cm. US/US thyroid IMPRESSION: Small thyroid gland with no nodules seen. ACR TI-RADS RECOMMENDATION REFERENCE: Ultrasound-guided fine-needle aspiration, followup ultrasound, no further follow up. * TR1 (0 point) and TR 2 (2 points): No FNA or follow up * TR3 (3 points): FNA if more than or equal to 2.5 cm in maximum dimension, followup ultrasound in 1, 3 and 5 years if 1.5 to 2.4 cm in maximum dimension. * TR4 (4-6 points): FNA if more than or equal to 1.5 cm in maximum dimension, followup ultrasound in 1, 2, 3 and 5 years if 1 to 1.4 cm in maximum dimension. * TR5 (more than or equal to 7 points): FNA if more than or equal to 1 cm in maximum dimension, followup ultrasound every year for 5 years if 0.5 to 0.9 cm in maximum dimension. * TR3, TR4 or TR5 nodules that are below the size threshold for follow up receive no follow up.
== END 2020-12-06 13:22 | disposition home or self-care (01) ==
LOC: HO.US 13:21
PROVIDERS: PCP Internal Medicine; Visit Provider Otolaryngology
DX: E03.9 Hypothyroidism, unspecified (principal)
CPT/HCPCS: 76536

== ENCOUNTER 2021-01-19 06:08 | Outpatient (REF) | payer OTHER, SELFPAY ==
[2021-01-19 07:03] LABS: MANUAL DIFF FLAG NO
[2021-01-19 07:07] LABS: Basophils Percent Auto 0.6 % (0-2); Eosinophils Absolute Auto 0.1 X10*3/uL (0.0-0.4); Eosinophils Percent Auto 2.6 % (0-4); Hematocrit 39.5 % (37-47); Imm Gran Abs Auto 0.02 X10*3/uL (0.00-0.03); Imm Gran Pct Auto 0.4 % (0.0-0.4); Lymphocytes Absolute Auto 1.5 X10*3/uL (1.2-4.9); Lymphocytes Percent Auto 26.9 % (20-40); Mean Corpuscular HGB Conc 32.9 g/dl (31.0-35.0); Mean Platelet Volume 10.6 fL (9.4-12.3); Monocytes Absolute Auto 0.5 X10*3/uL (0.1-1.2); Neutrophils Absolute Auto 3.2 X10*3/uL (2.0-8.3); Neutrophils Percent Auto 59.5 % (45-73); Platelet Count 213 X10*3/uL (160-400); Red Cell Distribution Width 13.3 % (11.0-16.0); White Blood Count 5.4 X10*3/uL (4.8-10.8)
[2021-01-19 07:48] LABS: Alanine Aminotransferase 10 U/L (0-31); Albumin Level 4.2 g/dL (3.5-5.0); Alkaline Phosphatase 74 U/L (39-117); Anion Gap 10 (12-20); Aspartate Amino Transferase 18 U/L (5-31); Bilirubin Total 0.6 mg/dL (0.0-1.0); Blood Urea Nitrogen 23 mg/dL (9-16); Calcium 9.6 mg/dL (8.4-10.2); Carbon Dioxide 29 mmol/L (22-29); Chloride 108 mmol/L (96-108); Cholesterol 200 mg/dL; Estimated Glomerular Filt Rate > 60; Glucose Random 97 mg/dL (60-115); HDL Cholesterol 68 mg/dL; LDL Cholesterol Calculated 107 mg/dl; Potassium 4.2 mmol/L (3.3-5.1); Sodium 143 mmol/L (135-145); Total Protein 6.8 g/dL (6.5-8.0); Triglycerides 129 mg/dL
[2021-01-19 07:54] LABS: Thyroid Stimulating Hormone 0.86 uIU/mL (0.32-4.0)
== END 2021-01-19 06:09 | disposition home or self-care (01) ==
LOC: HO.LAB 06:08
PROVIDERS: PCP Internal Medicine; Visit Provider Internal Medicine
DX: E03.9 Hypothyroidism, unspecified (principal); I10 Essential (primary) hypertension; R53.83 Other fatigue; Z85.810 Personal history of malignant neoplasm of tongue
CPT/HCPCS: 36415; 80053; 80061; 84443; 85025

== ENCOUNTER → 2021-06-05 08:43 | Outpatient (BNVA) | payer OTHER, SELFPAY | PROVIDERS: PCP Internal Medicine; Visit Provider Obstetrics & Gynecology ==

== ENCOUNTER 2021-07-17 05:57 | Outpatient (REF) | payer OTHER, SELFPAY ==
[2021-07-17 07:55] LABS: Alanine Aminotransferase 14 U/L (0-31); Albumin Level 4.1 g/dL (3.5-5.0); Alkaline Phosphatase 92 U/L (39-117); Anion Gap 10 (12-20); Aspartate Amino Transferase 19 U/L (5-31); Bilirubin Total 0.5 mg/dL (0.0-1.0); Blood Urea Nitrogen 25 mg/dL (9-16); Calcium 9.6 mg/dL (8.4-10.2); Carbon Dioxide 30 mmol/L (22-29); Chloride 106 mmol/L (96-108); Estimated Glomerular Filt Rate > 60; Glucose Random 86 mg/dL (60-115); Sodium 142 mmol/L (135-145); Total Protein 6.8 g/dL (6.5-8.0)
[2021-07-17 08:09] LABS: Thyroid Stimulating Hormone 0.78 uIU/mL (0.32-4.0)
== END 2021-07-17 05:58 | disposition home or self-care (01) ==
LOC: HO.LAB 05:57
PROVIDERS: PCP Internal Medicine; Visit Provider Internal Medicine
DX: Z00.00 Encounter for general adult medical examination without abnormal findings (principal); E03.9 Hypothyroidism, unspecified; F32.9 Major depressive disorder, single episode, unspecified; I87.2 Venous insufficiency (chronic) (peripheral)
CPT/HCPCS: 36415; 80053; 84443

== ENCOUNTER 2021-08-03 14:16 | Outpatient (REF) | payer OTHER, SELFPAY | END 2021-08-03 14:17 | disposition home or self-care (01) | LOC: HO.LAB 14:16 | PROVIDERS: PCP Internal Medicine; Visit Provider Internal Medicine | DX: E03.9 Hypothyroidism, unspecified (principal); F32.5 Major depressive disorder, single episode, in full remission; I10 Essential (primary) hypertension; R21 Rash and other nonspecific skin eruption; G47.33 Obstructive sleep apnea (adult) (pediatric) | CPT/HCPCS: 87086; 87088; 87186 ==

== ENCOUNTER 2021-10-13 09:28 | Day surgery (SDC) | payer OTHER, SELFPAY ==
[2021-10-09 11:58] VITALS: BMI 27.7
[2021-10-09 12:34] VITALS: BMI 27.8
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
[2021-10-13 09:50] VITALS: BP 132/84; PULSE 69; RESP 16; TEMP 36.4; O2SAT 100
[2021-10-13] MEDS: Lactated Ringers 1,000 ML 100 ML IVCONT (10:04)
--- NOTE | 2021-10-13 10:16 | MHC.SHP ---
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 Relevant Family History (Specify if Yes): No Relevant Social History: None Present Medications: see Short Stay Collaborative assessment Medical History: No relevant PMH History of Previous Operations: No relevant previous surgery Allergies: Allergies Allergy/AdvReac Type Severity Reaction Status Date / Time No Known Allergies Allergy Verified 10/09/21 12:24 [No Known Allergies*] Review of Systems Sugical H&P ROS: Negative: Constitution, Cardiovascular, Respiratory, Neurological, Psychiatric, Hem-Onc, Allergic/Immunologic, Gastrointestinal, Genitourinary, Musculoskeletal, Integumentary, Endocrine and Eyes/Ears/Nose/Throat Exam Surgical H&P Exam: Normal: HEENT, Normal: Heart, Normal: Lungs, Normal: Extremities, Normal: Abdomen, Normal: Skin and Normal: Neurological Plan Diagnosis/Plan: Unchanged I have reviewed the history and physical and performed a pertinent physical examination on my patient. No changes have occurred unless specified.
--- NOTE | 2021-10-13 10:50 | PM.OP ---
Brief Operative Note Date of Service: 10/13/21 Pre-op diagnosis: screening Post-op diagnosis: same Procedure: colonscopy Surgeon: Lewis Jiménez Anesthesia: MAC Was an Automobile Mechanic Supervisor used for this Procedure?: No Estimated blood loss (mL): 0 Pathology: none sent Condition: stable Disposition: PACU
[2021-10-13 10:54] VITALS: BP 116/75; PULSE 63; RESP 12; TEMP 36.2; O2SAT 100
[2021-10-13 11:14] VITALS: BP 120/78; PULSE 62; RESP 18; TEMP 36.2; O2SAT 100
--- NOTE | 2021-10-13 11:59 | OP_ITS ---
SURGEON: Lewis Jiménez MD INDICATIONS: Colon cancer screening and family history of colon cancer. PREOPERATIVE DIAGNOSIS: POSTOPERATIVE DIAGNOSIS: PROCEDURE PERFORMED: Colonoscopy to the terminal ileum. ESTIMATED BLOOD LOSS: COMPLICATIONS: ANESTHESIA: ASSISTANTS: SPECIMENS: MEDICATIONS: Monitored anesthesia care. DESCRIPTION OF PROCEDURE: History and physical were performed. The risks and benefits of the procedure were explained to the patient. An informed consent was obtained. The patient was placed in the left lateral decubitus position. A digital rectal exam was performed and was found to be normal. The Olympus pediatric video colonoscope was introduced into the rectum and advanced to the cecum without difficulty. The cecum was identified by transillumination, palpation, and identification of ileocecal valve. Examination was performed. The scope was removed. She tolerated the procedure well and was transferred to recovery area in stable condition. FINDINGS: The terminal ileum was normal. The visualized colonic mucosa was within normal limits without evidence of masses, ulcers, or polyps. The quality of the prep was good. Retroflexed examination was normal. IMPRESSION: Normal colonoscopy. RECOMMENDATION: 1. Follow up as needed. 2. Repeat colonoscopy is recommended in 5 years because of family history. MD JEFFRY Zheng/JOHANNA / [phone]
== END 2021-10-13 11:47 | disposition home or self-care (01) ==
PROVIDERS: PCP Internal Medicine; Visit Provider Internal Medicine Gastroenterology
PROC: 0DJD8ZZ Inspection of Lower Intestinal Tract, Via Natural or Artificial Opening Endoscopic (ICD-10-PCS; CPT 45378; principal; 2021-10-13 10:50)
DX: Z12.11 Encounter for screening for malignant neoplasm of colon (principal); Z86.010 Personal history of colon polyps; Z80.0 Family history of malignant neoplasm of digestive organs; R19.7 Diarrhea, unspecified; I10 Essential (primary) hypertension; E06.3 Autoimmune thyroiditis; M85.80 Other specified disorders of bone density and structure, unspecified site; H40.20X0 Unspecified primary angle-closure glaucoma, stage unspecified; Z79.899 Other long term (current) drug therapy; Z85.810 Personal history of malignant neoplasm of tongue; Z85.3 Personal history of malignant neoplasm of breast; Z98.82 Breast implant status
CPT/HCPCS: 45378

== ENCOUNTER 2021-10-27 10:20 | Outpatient (REF) | payer OTHER, SELFPAY ==
--- NOTE | ~2021-10-27 | FL_ITS ---
EXAMINATION: XR FLUOROSCOPY UPPER GI WITH AIR CLINICAL INFORMATION: Dysphagia COMPARISON: None TECHNIQUE: Upper GI was performed using thin and thick barium and effervescent granules FINDINGS: There is significant gastroesophageal reflux. No hiatal hernia is seen. The stomach and duodenum are normal-appearing. No fold thickening, mass, ulcer or stricture is seen. FLUOROSCOPY TIME: 0.7 DOSE AREA PRODUCT: 5.7 mullins per centimeter squared. 24 saved fluoroscopic images. FL/FL upper GI w air IMPRESSION: Gastroesophageal reflux.
[2021-10-27 11:48] LABS: MANUAL DIFF FLAG NO
[2021-10-27 12:09] LABS: Basophils Percent Auto 0.3 % (0-2); Eosinophils Percent Auto 0.3 % (0-4); Hematocrit 39.9 % (37.0-47.0); Imm Gran Abs Auto 0.04 X10*3/uL (0.00-0.03); Imm Gran Pct Auto 0.4 % (0.0-0.4); Lymphocytes Absolute Auto 0.9 X10*3/uL (1.2-4.9); Lymphocytes Percent Auto 8.7 % (20-40); Mean Corpuscular HGB Conc 32.6 g/dl (31.0-35.0); Mean Corpuscular Hemoglobin 30.2 pg (27.0-33.0); Mean Corpuscular Volume 92.6 fL (80.0-98.0); Mean Platelet Volume 10.3 fL (9.4-12.3); Monocytes Absolute Auto 1.1 X10*3/uL (0.1-1.2); Monocytes Percent Auto 10.4 % (2-11); Neutrophils Absolute Auto 8.5 x10*3/uL (2.0-8.3); Neutrophils Percent Auto 79.9 % (45-73); Platelet Count 277 X10*3/uL (160-400); Red Blood Count 4.31 X10*6/uL (4.20-5.50); Red Cell Distribution Width 12.5 % (11.0-16.0); White Blood Count 10.6 X10*3/uL (4.8-10.8)
[2021-10-27 12:42] LABS: Alanine Aminotransferase 12 U/L (0-31); Albumin Level 3.7 g/dL (3.5-5.0); Alkaline Phosphatase 59 U/L (39-117); Aspartate Amino Transferase 14 U/L (5-31); Bilirubin Direct 0.2 mg/dL (0.0-0.5); Bilirubin Total 0.5 mg/dL (0.0-1.0); Blood Urea Nitrogen 22 mg/dL (9-16); Estimated Glomerular Filt Rate > 60; Lipase < 4 U/L (8-78); Total Protein 6.4 g/dL (6.5-8.0)
[2021-10-27 12:50] LABS: TSH reflex Free T4 0.78 uIU/mL (0.32-4.0)
== END 2021-10-27 10:21 | disposition home or self-care (01) ==
LOC: HO.XRAY 10:20
PROVIDERS: PCP Internal Medicine; Visit Provider Internal Medicine Gastroenterology
DX: R10.30 Lower abdominal pain, unspecified (principal); R19.7 Diarrhea, unspecified; R13.19 Other dysphagia
CPT/HCPCS: 36415; 74246; 80076; 82565; 83690; 84443; 84520; 85025

== ENCOUNTER 2021-10-27 19:00 | Outpatient (REF) | payer OTHER, SELFPAY ==
[2021-10-28 11:11] LABS: Leukocytes Stool Qualitative MOD: 3-9/OIF (NEGATIVE)
[2021-10-28 11:57] LABS: CDiff Gene PCR POSITIVE (Negative)
[2021-10-28 14:28] LABS: CDiff Toxin Positive (Negative)
[2021-10-28 14:29] LABS: CDIFF Internal ctrl Dots and bkg OK (V)
== END 2021-10-27 19:01 | disposition home or self-care (01) ==
LOC: HO.LNP 19:00
PROVIDERS: Visit Provider Internal Medicine Gastroenterology
DX: R10.30 Lower abdominal pain, unspecified (principal); R19.7 Diarrhea, unspecified; R13.19 Other dysphagia
CPT/HCPCS: 87045; 87046; 87177; 87209; 87324; 87493; 89055

== ENCOUNTER 2021-11-07 07:54 | Outpatient (REF) | payer OTHER, SELFPAY ==
--- NOTE | ~2021-11-07 | US_ITS ---
EXAMINATION: US LOWER EXTREMITY VENOUS (REFLUX EXAM), BILATERAL CLINICAL INDICATION: This is a 51-year-old female with venous insufficiency. Varicose veins. Status post treatment. COMPARISON: Comparison is made to the previous study dated 06/08/2020 which demonstrated bilateral patent great saphenous veins. TECHNIQUE: Color flow triplex imaging and compression Doppler was performed to evaluate both the deep and the superficial systems bilaterally. To evaluate the superficial system, the examination was performed in the upright position. Color-flow Doppler ultrasound and compression ultrasound were utilized. In addition, maneuvers were utilized to demonstrate reflux. FINDINGS: 1. DEEP VENOUS ULTRASOUND OF THE RIGHT LOWER EXTREMITY: Common Femoral Vein: Compressible, normal respiratory variation and augmented flow. Femoral vein: Compressible, normal color flow and augmentation. Popliteal Vein: Compressible, normal augmentation. Deep Reflux: There is no evidence of reflux in the deep system in either the common femoral vein or the popliteal vein. There is no evidence of a Negrete's cyst. 2. SUPERFICIAL ULTRASOUND WITH DOPPLER OF RIGHT LOWER EXTREMITY: GREAT SAPHENOUS VEIN: Saphenofemoral Junction: 0.5 cm. There is no reflux. Mid Thigh: Now occluded. Above Knee: Now occluded. Below Knee: 0.2 cm. There is no reflux. Mid Calf: 0.2 cm. There is no reflux. Ankle: 0.2 cm. There is no reflux. GSV REFLUX: The patient is status post successful treatment with no significant reflux. DUPLICATED GREAT SAPHENOUS VEIN: There is a 0.2 cm duplicated lateral great saphenous vein without reflux. SMALL SAPHENOUS VEIN: Proximal: 0.3 cm Distal: 0.3 cm SSV REFLUX: No evidence of reflux. VEIN OF GIACOMINI: None Imaged. PERFORATORS: None Imaged VARICOSITIES: There is a 0.3 cm in the proximal calf. 3. DEEP VENOUS ULTRASOUND OF THE LEFT LOWER EXTREMITY: Common Femoral Vein: Compressible, normal respiratory variation and augmented flow. Femoral Vein: Compressible, normal color flow and augmentation. Popliteal Vein: Compressible, normal augmentation. Deep Reflux: There is no evidence of reflux in the deep system in either the common femoral vein or the popliteal vein. There is no evidence of a Negrete's cyst. 4. SUPERFICIAL ULTRASOUND WITH DOPPLER OF LEFT LOWER EXTREMITY: GREAT SAPHENOUS VEIN: Saphenofemoral Junction: 0.6 cm. There is no reflux. Mid Thigh: Occluded consistent with previous treatment. Above Knee: Occluded consistent with successful treatment. Below Knee: 0.3 cm. There is no reflux. Mid Calf: 0.2 cm. There is no reflux. Ankle: 0.2 cm. There is no reflux. GSV REFLUX: The patient is status post successful treatment with no significant reflux. DUPLICATED GREAT SAPHENOUS VEIN: None SMALL SAPHENOUS VEIN: Proximal: 0.3 cm Distal: 0.2 cm SSV REFLUX: No evidence of reflux. VEIN OF GIACOMINI: None Imaged. PERFORATORS: None Imaged VARICOSITIES: None Imaged US/US venous duplex LE BI IMPRESSION: 1. There are bilateral occluded great saphenous veins beginning in the proximal thigh, respectively, consistent with successful treatment. No reflux is present. 2. There are bilateral patent small saphenous veins without reflux. 3. No significant varicose veins are seen.
== END 2021-11-07 07:55 | disposition home or self-care (01) ==
LOC: HO.US 07:54
PROVIDERS: PCP Internal Medicine; Visit Provider Surgery Vascular Surgery
DX: I83.12 Varicose veins of left lower extremity with inflammation (principal); I83.11 Varicose veins of right lower extremity with inflammation
CPT/HCPCS: 93970

== ENCOUNTER 2021-11-08 06:41 | Outpatient (REF) | payer OTHER, SELFPAY ==
--- NOTE | ~2021-11-08 | CT_ITS ---
EXAMINATION: CT ABDOMEN AND PELVIS WITH CONTRAST CLINICAL INFORMATION: Lower abdominal pain. COMPARISON: CT of the chest abdomen and pelvis done on 10/07/2020. TECHNIQUE: Multidetector volumetric images were obtained from the superior aspect of the liver through the pubic symphysis following administration 85 mL of Omnipaque 350 intravenous contrast. Sagittal and coronal reformatted images were obtained on the technologist's workstation. Oral contrast: Yes This CT examination was performed using dose optimization techniques as appropriate, variously including the following: *Automated exposure control *Adjustment of mA and/or kV according to patient size (this includes techniques or standardized protocols for targeted exams where dose is matched to indication/reason for exam; i.e. extremities or head) *Use of iterative reconstruction technique DLP: 465 mGy-cm FINDINGS: LUNG BASES: The visualized lung bases are unremarkable. LIVER, GALLBLADDER, AND BILIARY TREE: The liver is normal in size, shape, and attenuation. No focal hepatic lesion or biliary ductal dilatation is present. The gallbladder is unremarkable with no evidence of radiopaque gallstones, gallbladder wall thickening, or obvious pericholecystic inflammatory changes. PANCREAS: Unremarkable. SPLEEN: Unremarkable. ADRENAL GLANDS: Unremarkable. KIDNEYS AND URETERS: The kidneys are normal in size, shape, and attenuation. Mild fullness of both renal pelvicalyceal system is noted. Both ureters appear decompressed. BLADDER: Unremarkable. GASTROINTESTINAL TRACT: The cecum is very low-lying located at midline anterior to the sacrum within the lower pelvis. The appendix is visualized also located within the presacral space superiorly and is unremarkable. Extensive fecal residual is noted throughout the entire large bowel. No evidence of any bowel wall thickening or inflammatory changes present. The stomach is decompressed. The small bowel loops are decompressed. ABDOMINAL WALL: No significant hernia is appreciated. Partially visualized bilateral breast implants are intact. LYMPH NODES: There are no pathologically enlarged retroperitoneal, mesenteric, pelvic and/or groin lymphadenopathy present. VASCULAR: Unremarkable. PELVIC VISCERA: There is no pelvic mass present. No evidence of any free fluid and/or free air present. OSSEOUS STRUCTURES: Small Schmorl related endplate changes are present, similar to prior study. CT/CT abdomen pelvis w con IMPRESSION: 1. Extensive fecal residual is noted throughout the entire large bowel with low-lying cecum which is located within the deep lower pelvis anterior to the sacrum. 2. Mild fullness of both renal pelvicalyceal system with normal-appearing ureters. Fleischner guidelines were followed.
[2021-11-08] MEDS: iohexoL 350 MG/ML 100 ML INFUS..BTL 85 ML IV (09:26)
[2021-11-08] MEDS: Barium Sulfate Oral (Berry) 450 ML ORAL.SUSP 900 ML PO (11:14)
== END 2021-11-08 06:42 | disposition home or self-care (01) ==
LOC: HO.CT 06:41
PROVIDERS: PCP Internal Medicine; Visit Provider Internal Medicine Gastroenterology
DX: R10.30 Lower abdominal pain, unspecified (principal); R19.7 Diarrhea, unspecified
CPT/HCPCS: 74177; Q9967

== ENCOUNTER 2021-11-27 12:45 | Outpatient (REF) | payer OTHER, SELFPAY ==
[2021-11-28 10:24] LABS: CDiff Gene PCR POSITIVE (Negative)
[2021-11-28 13:46] LABS: CDiff Toxin Positive (Negative)
[2021-11-28 13:47] LABS: CDIFF Internal ctrl Dots and bkg OK (V)
== END 2021-11-27 12:46 | disposition home or self-care (01) ==
LOC: HO.LNP 12:45
PROVIDERS: Visit Provider Internal Medicine Gastroenterology
DX: R19.7 Diarrhea, unspecified (principal)
CPT/HCPCS: 87324; 87493

== ENCOUNTER → 2021-12-21 14:36 | Outpatient (BNVA) | payer OTHER, SELFPAY | PROVIDERS: PCP Internal Medicine; Visit Provider Surgery Vascular Surgery | DX: Z13.89 Encounter for screening for other disorder (principal) ==

== ENCOUNTER → 2021-12-28 19:33 | Outpatient (REF) | payer OTHER, SELFPAY | LOC: HO.SL 19:33 | PROVIDERS: PCP Internal Medicine; Visit Provider Internal Medicine | DX: G47.33 Obstructive sleep apnea (adult) (pediatric) (principal) | CPT/HCPCS: 95810 ==

== ENCOUNTER 2022-01-01 06:12 | Outpatient (REF) | payer OTHER, SELFPAY ==
[2022-01-01 06:27] LABS: MANUAL DIFF FLAG NO
[2022-01-01 07:34] LABS: Basophils Absolute Auto 0.1 X10*3/uL (0.0-0.2); Basophils Percent Auto 1.2 % (0-2); Eosinophils Absolute Auto 0.1 X10*3/uL (0.0-0.4); Eosinophils Percent Auto 2.9 % (0-4); Hematocrit 40.2 % (37.0-47.0); Hemoglobin 12.8 g/dl (12.0-16.0); Imm Gran Abs Auto 0.02 X10*3/uL (0.00-0.03); Imm Gran Pct Auto 0.5 % (0.0-0.4); Lymphocytes Absolute Auto 1.4 X10*3/uL (1.2-4.9); Lymphocytes Percent Auto 34.5 % (20-40); Mean Corpuscular HGB Conc 31.8 g/dl (31.0-35.0); Mean Corpuscular Hemoglobin 29.9 pg (27.0-33.0); Mean Corpuscular Volume 93.9 fL (80.0-98.0); Mean Platelet Volume 10.7 fL (9.4-12.3); Monocytes Absolute Auto 0.4 X10*3/uL (0.1-1.2); Monocytes Percent Auto 9.7 % (2-11); Neutrophils Absolute Auto 2.1 x10*3/uL (2.0-8.3); Neutrophils Percent Auto 51.2 % (45-73); Platelet Count 248 X10*3/uL (160-400); Red Blood Count 4.28 X10*6/uL (4.20-5.50); Red Cell Distribution Width 13.2 % (11.0-16.0); White Blood Count 4.1 X10*3/uL (4.8-10.8)
[2022-01-01 07:56] LABS: Alanine Aminotransferase 13 U/L (0-31); Albumin Level 4.2 g/dL (3.5-5.0); Alkaline Phosphatase 75 U/L (39-117); Anion Gap 13 (12-20); Aspartate Amino Transferase 19 U/L (5-31); Bilirubin Total 0.5 mg/dL (0.0-1.0); Blood Urea Nitrogen 24 mg/dL (9-16); Calcium 9.2 mg/dL (8.4-10.2); Carbon Dioxide 27 mmol/L (22-29); Chloride 106 mmol/L (96-108); Cholesterol 217 mg/dL; Estimated Glomerular Filt Rate > 60; Glucose Random 105 mg/dL (60-115); HDL Cholesterol 72 mg/dL; LDL Cholesterol Calculated 132 mg/dl; Potassium 4.9 mmol/L (3.3-5.1); Sodium 141 mmol/L (135-145); Total Protein 6.9 g/dL (6.5-8.0); Triglycerides 69 mg/dL
[2022-01-01 08:20] LABS: Thyroid Stimulating Hormone 0.08 uIU/mL (0.32-4.0)
[2022-01-01 09:04] LABS: Vitamin B12 358 pg/mL (200-900)
== END 2022-01-01 06:13 | disposition home or self-care (01) ==
LOC: HO.LAB 06:12
PROVIDERS: PCP Internal Medicine; Visit Provider Internal Medicine
DX: E03.9 Hypothyroidism, unspecified (principal); F32.5 Major depressive disorder, single episode, in full remission; G47.33 Obstructive sleep apnea (adult) (pediatric); I10 Essential (primary) hypertension; R53.83 Other fatigue
CPT/HCPCS: 36415; 80053; 80061; 82607; 84443; 85025

== ENCOUNTER 2022-01-15 19:30 | Outpatient (REF) | payer OTHER, SELFPAY ==
[2022-01-16 09:48] LABS: CDiff Gene PCR POSITIVE (Negative)
[2022-01-16 11:14] LABS: CDiff Toxin Positive (Negative)
[2022-01-16 11:16] LABS: CDIFF Internal ctrl Dots and bkg OK (V)
== END 2022-01-15 19:31 | disposition home or self-care (01) ==
LOC: HO.LNP 19:30
PROVIDERS: Visit Provider Internal Medicine Gastroenterology
DX: R19.7 Diarrhea, unspecified (principal)
CPT/HCPCS: 87324; 87493

== ENCOUNTER 2022-02-08 14:30 | Outpatient (REF) | payer OTHER, SELFPAY ==
--- NOTE | ~2022-02-08 | MM_ITS ---
EXAMINATION: BONE DENSITOMETRY CLINICAL INDICATION: Osteoporosis. COMPARISON: Previous BD dated 01/17/2018 and baseline BD dated 05/11/2010. TECHNIQUE: Using a [employer] DXA System (software version: 13.1) manufactured by [email or web address], dual-energy x-ray absorptiometry was performed of the lumbar spine and left hip. The images are of good technical quality. Summary results are attached. FINDINGS: AP SPINE L1-L4: Current: BMD 0.791 g/cm2, Z-score -2.7, T-score -3.2, osteoporosis, 5.5% decrease from previous, 16.0% decrease from baseline (<5% change is not significant). Prior: BMD 0.837 g/cm2. Baseline: BMD 0.942 g/cm2. LEFT FEMUR, NECK: Current: BMD 0.774 g/cm2, Z-score -1.0, T-score -1.9, osteopenia. Prior: BMD 0.719 g/cm2. Baseline: BMD 0.862 g/cm2. LEFT FEMUR, TOTAL: Current: BMD 0.824 g/cm2, Z-score -0.9, T-score -1.5, osteopenia, 2.2% increase from previous, 7.1% decrease from baseline (<5% change is not significant). Prior: BMD 0.806 g/cm2. Baseline: BMD 0.887 g/cm2. IDENTIFIED RISK FACTORS: Osteoporosis. Early menopause, secondary osteoporosis, bilateral oophorectomy. HISTORY OF FRACTURE: None listed. MEDICATIONS: Calcium supplements or multivitamin, vitamin D. MM/XR DEXA axial skeleton IMPRESSION: 1. DIAGNOSIS: Osteoporosis based on the lowest T-score value of -3.2 in the lumbar spine applying World Health Organization criteria. 2. 10-YEAR FRACTURE RISK PREDICTION, FRAX: Major osteoporotic fracture (clinical spine, forearm, hip or shoulder) 5.7%. Hip fracture 0.7%. 3. Treatment Recommendations: NOF guidelines recommend consideration for treatment in postmenopausal women and men age 50 and older presenting with the following: -A hip or vertebral (clinical or morphometric) fracture. -T-score less than or equal to -2.5 at the femoral neck or spine after appropriate evaluation to exclude secondary causes. -Low bone mass at the hip or spine and a 10-year fracture probability by FRAX of greater than or equal to 3% for hip fracture or greater than or equal to 20% for major osteoporotic fracture based on the [place] adapted WHO algorithm. 4. Other Recommendations: All treatment decisions require clinical judgment and consideration of individual patient factors, including patient preferences, comorbidities, previous drug use, risk factors not captured in the FRAX model (e.g. frailty, falls, vitamin D deficiency, increased bone turnover, interval significant decline in bone density) and possible under or overestimation of fracture risk by FRAX. Additional medical evaluation for secondary cause of low bone mineral density may be appropriate. FUTURE SCAN RECOMMENDATION: People with diagnosed cases of osteoporosis or at high risk for fracture should have regular bone mineral density tests. For patients eligible for Medicare, routine testing is allowed once every 2 years. The testing frequency can be increased to one year for patients who have rapidly progressing disease, those who are receiving or discontinuing medical therapy to restore bone mass, or have additional risk factors.
== END 2022-02-08 14:31 | disposition home or self-care (01) ==
LOC: HO.MAMMO 14:30
PROVIDERS: PCP Internal Medicine; Visit Provider Internal Medicine
DX: Z13.820 Encounter for screening for osteoporosis (principal); Z78.0 Asymptomatic menopausal state
CPT/HCPCS: 77080

== ENCOUNTER 2022-03-27 06:10 | Outpatient (REF) | payer OTHER, SELFPAY ==
[2022-03-27 08:13] LABS: Vitamin D 25-OH Total 35.5 ng/mL (>30)
== END 2022-03-27 06:11 | disposition home or self-care (01) ==
LOC: HO.LAB 06:10
PROVIDERS: PCP Internal Medicine; Visit Provider Internal Medicine
DX: Z00.00 Encounter for general adult medical examination without abnormal findings (principal); E03.8 Other specified hypothyroidism; F32.5 Major depressive disorder, single episode, in full remission; R19.7 Diarrhea, unspecified
CPT/HCPCS: 36415; 82306; 84443

== ENCOUNTER 2022-08-01 08:16 | Outpatient (REF) | payer OTHER, SELFPAY ==
[2022-08-02 01:35] LABS: CT PCR NOT DETECTED (Not Detect.); NG PCR NOT DETECTED (Not Detect.)
[2022-08-02 09:19] LABS: BV Int Neg Control Negative (Negative); BV Int Pos Control Positive (Positive)
[2022-08-06 21:34] LABS: HPV mRNA E6/E7 rflx Not Detected (Not Detected)
== END 2022-08-01 08:17 | disposition home or self-care (01) ==
LOC: HO.LNP 08:16
PROVIDERS: PCP Internal Medicine; Visit Provider Obstetrics & Gynecology
DX: Z01.419 Encounter for gynecological examination (general) (routine) without abnormal findings (principal); Z11.3 Encounter for screening for infections with a predominantly sexual mode of transmission; Z90.13 Acquired absence of bilateral breasts and nipples
CPT/HCPCS: 0353U; 87480; 87510; 87624; 87660; 88142

== ENCOUNTER 2022-08-30 07:05 | Outpatient (REF) | payer OTHER, SELFPAY ==
[2022-08-30 08:51] LABS: Alanine Aminotransferase 12 U/L (0-31); Albumin Level 4.4 g/dL (3.5-5.0); Alkaline Phosphatase 68 U/L (39-117); Anion Gap 17 (12-20); Aspartate Amino Transferase 20 U/L (5-31); Bilirubin Total 0.7 mg/dL (0.0-1.0); Blood Urea Nitrogen 29 mg/dL (9-16); Carbon Dioxide 23 mmol/L (22-29); Chloride 104 mmol/L (96-108); Estimated Glomerular Filt Rate > 60; Glucose Random 95 mg/dL (60-115); Potassium 4.1 mmol/L (3.3-5.1); Sodium 140 mmol/L (135-145); Thyroid Stimulating Hormone 3.55 uIU/mL (0.32-4.0); Total Protein 7.1 g/dL (6.5-8.0)
[2022-08-30 09:14] LABS: Calcium 9.5 mg/dL (8.4-10.2)
[2022-08-31 04:44] LABS: Syphilis Screen Nonreactive (Nonreactive)
[2022-08-31 07:29] LABS: HBsAGNum1 0.23 S/CO (0.00-0.99); HIV AB/AG Nonreactive (Nonreactive); HIV Num 1 0.07 S/CO (0.00-0.99); Hepatitis B Surface Antigen Negative (Negative); ~HepC Num1 0.12 S/CO (0.00-0.79); ~Hepatitis C Antibody Nonreactive (Nonreactive)
== END 2022-08-30 07:06 | disposition home or self-care (01) ==
LOC: HO.LAB 07:05
PROVIDERS: Absent Provider Obstetrics & Gynecology; PCP Internal Medicine; Visit Provider Internal Medicine
DX: Z11.3 Encounter for screening for infections with a predominantly sexual mode of transmission (principal); Z11.4 Encounter for screening for human immunodeficiency virus [HIV]; E03.8 Other specified hypothyroidism; F32.5 Major depressive disorder, single episode, in full remission; I10 Essential (primary) hypertension
CPT/HCPCS: 36415; 80053; 84443; 86780; 86803; 87340; 87389

== ENCOUNTER 2022-10-29 06:15 | Outpatient (REF) | payer OTHER, SELFPAY ==
[2022-10-29 08:46] LABS: Thyroid Stimulating Hormone 0.66 uIU/mL (0.32-4.0)
== END 2022-10-29 06:16 | disposition home or self-care (01) ==
LOC: HO.LAB 06:15
PROVIDERS: PCP Internal Medicine; Visit Provider Internal Medicine
DX: E03.8 Other specified hypothyroidism (principal); F32.4 Major depressive disorder, single episode, in partial remission; I10 Essential (primary) hypertension; I71.20 Thoracic aortic aneurysm, without rupture, unspecified
CPT/HCPCS: 36415; 84443

== ENCOUNTER 2022-11-09 08:04 | Outpatient (REF) | payer OTHER, SELFPAY ==
--- NOTE | ~2022-11-09 | CT_ITS ---
EXAMINATION: CT CHEST WITH CONTRAST CLINICAL INFORMATION: Thoracic aneurysm COMPARISON: Previous chest CTA September 2020 TECHNIQUE: Multidetector volumetric CT imaging of the chest was obtained after the administration of 65 mL of Omnipaque 350 intravenous contrast without immediate adverse reactions. Axial MIP volume rendering provided. Sagittal and coronal reformatted images were obtained. This CT examination was performed using dose optimization techniques as appropriate, variously including the following: *Automated exposure control *Adjustment of mA and/or kV according to patient size (this includes techniques or standardized protocols for targeted exams where dose is matched to indication/reason for exam; i.e. extremities or head) *Use of iterative reconstruction technique DLP: 111 mGy-cm FINDINGS: LUNGS: 3 mm calcified left upper lobe nodule axial image 107 series 5 is stable. The lungs are otherwise clear. MEDIASTINUM: The ascending thoracic aorta is slightly dilated measuring 4.2 cm. This is not appreciably changed from previous exam when it measured 4.3 cm. Aortic arch and descending thoracic aorta are normal in caliber. There is aortic valve calcification. Heart size is normal. No coronary artery calcification. No enlarged hilar or mediastinal lymph nodes. No hilar or mediastinal lymphadenopathy. PLEURA: There is no pleural effusion. No pleural mass or thickening. AXILLA: Bilateral breast implants. No chest wall mass or enlarged axillary lymph nodes. UPPER ABDOMEN: Fatty infiltration of the liver. Small stone in the upper pole of the right kidney. OSSEOUS STRUCTURES: Mild degenerative changes of the spine. Schmorl's nodes versus mild compression fracture T12 vertebral body. CT/CT chest w IV con IMPRESSION: Stable mild dilatation of the ascending thoracic aorta measuring 4.2 cm. Aortic valve calcification. Fleischner guidelines were followed.
[2022-11-09] MEDS: iohexoL 350 MG/ML 100 ML INFUS..BTL IV (09:08)
[2022-11-09 10:27] LABS: Creatinine POC 0.6 mg/dL (0.5-1.4); GFR POC > 60
== END 2022-11-09 08:05 | disposition home or self-care (01) ==
LOC: HO.CT 08:04
PROVIDERS: PCP Internal Medicine; Visit Provider Internal Medicine
DX: I71.20 Thoracic aortic aneurysm, without rupture, unspecified (principal)
CPT/HCPCS: 71260; 82565; Q9967

== ENCOUNTER 2023-01-30 11:20 | Outpatient (REF) | payer OTHER, SELFPAY ==
[2023-01-30 11:42] LABS: MANUAL DIFF FLAG NO
[2023-01-30 12:55] LABS: Eosinophils Absolute Auto 0.1 X10*3/uL (0.0-0.4); Eosinophils Percent Auto 1.3 % (0-4); Hematocrit 38.9 % (37.0-47.0); Hemoglobin 12.7 g/dl (12.0-16.0); Imm Gran Abs Auto 0.01 X10*3/uL (0.00-0.03); Imm Gran Pct Auto 0.3 % (0.0-0.4); Lymphocytes Absolute Auto 1.1 X10*3/uL (1.2-4.9); Lymphocytes Percent Auto 28.6 % (20-40); Mean Corpuscular HGB Conc 32.6 g/dl (31.0-35.0); Mean Corpuscular Hemoglobin 30.8 pg (27.0-33.0); Mean Corpuscular Volume 94.2 fL (80.0-98.0); Mean Platelet Volume 10.6 fL (9.4-12.3); Monocytes Absolute Auto 0.3 X10*3/uL (0.1-1.2); Monocytes Percent Auto 8.3 % (2-11); Neutrophils Absolute Auto 2.4 x10*3/uL (2.0-8.3); Neutrophils Percent Auto 60.5 % (45-73); Platelet Count 247 X10*3/uL (160-400); Red Blood Count 4.13 X10*6/uL (4.20-5.50); Red Cell Distribution Width 13.2 % (11.0-16.0)
[2023-01-30 14:17] LABS: Alanine Aminotransferase 15 U/L (0-31); Albumin Level 4.2 g/dL (3.5-5.0); Alkaline Phosphatase 60 U/L (39-117); Anion Gap 15 (12-20); Aspartate Amino Transferase 20 U/L (5-31); Bilirubin Total 0.8 mg/dL (0.0-1.0); Blood Urea Nitrogen 25 mg/dL (9-16); Calcium 9.8 mg/dL (8.4-10.2); Carbon Dioxide 25 mmol/L (22-29); Chloride 105 mmol/L (96-108); Cholesterol 221 mg/dL; Estimated Glomerular Filt Rate > 60; Glucose Random 93 mg/dL (60-115); HDL Cholesterol 85 mg/dL; LDL Cholesterol Calculated 126 mg/dl; Potassium 4.5 mmol/L (3.3-5.1); Sodium 140 mmol/L (135-145); Total Protein 7.2 g/dL (6.5-8.0); Triglycerides 53 mg/dL
== END 2023-01-30 11:21 | disposition home or self-care (01) ==
LOC: HO.LAB 11:20
PROVIDERS: PCP Internal Medicine; Visit Provider Internal Medicine
DX: E03.8 Other specified hypothyroidism (principal); F32.4 Major depressive disorder, single episode, in partial remission; I10 Essential (primary) hypertension; I71.20 Thoracic aortic aneurysm, without rupture, unspecified; R05.9 Cough, unspecified
CPT/HCPCS: 36415; 80053; 80061; 85025

== ENCOUNTER 2023-05-02 11:53 | Outpatient (REF) | payer OTHER, SELFPAY ==
[2023-05-02 13:21] LABS: Thyroid Stimulating Hormone 1.41 uIU/mL (0.32-4.0)
== END 2023-05-02 11:54 | disposition home or self-care (01) ==
LOC: HO.LAB 11:53
PROVIDERS: PCP Internal Medicine; Visit Provider Internal Medicine
DX: Z00.00 Encounter for general adult medical examination without abnormal findings (principal); E03.8 Other specified hypothyroidism; F32.5 Major depressive disorder, single episode, in full remission; I10 Essential (primary) hypertension; I35.0 Nonrheumatic aortic (valve) stenosis; I71.20 Thoracic aortic aneurysm, without rupture, unspecified; Q23.8 Other congenital malformations of aortic and mitral valves
CPT/HCPCS: 36415; 84443

== ENCOUNTER → 2023-07-26 13:50 | Outpatient (REF) | payer OTHER, SELFPAY | LOC: HO.CARD 13:50 | PROVIDERS: PCP Internal Medicine; Visit Provider Internal Medicine | DX: I35.1 Nonrheumatic aortic (valve) insufficiency (principal) | CPT/HCPCS: 93306; Q9957 ==

== ENCOUNTER → 2023-07-26 13:54 | Outpatient (BNV) | payer OTHER, SELFPAY | PROVIDERS: PCP Internal Medicine; Visit Provider Internal Medicine Cardiovascular Disease | DX: I35.8 Other nonrheumatic aortic valve disorders (principal) | CPT/HCPCS: 93306 ==

== ENCOUNTER 2023-08-05 08:03 | Outpatient (AMB) | payer OTHER, SELFPAY ==
--- NOTE | 2023-08-05 08:11 | MHC.OFFVIS ---
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 No complaints. Last Pap/HPV was in 08/13 was negative, patient had AV 1 in 03/08, and a negative co testing in 2018 The patient had a history of bilateral mastectomy Last colonoscopy was in 10/10, the recommendation was to repeat screening colonoscopy in 5 years Last DEXA scan was in 02/09 showed a T-score of-3.2 at the spine level, the patient is not on any medication [facility] Medical History (Updated 08/05/23 @ 08:18 by Quan Fowler MD) Glaucoma, narrow-angle Heart burn Loose, teeth Hx of varicose veins Abdominal pain with radiation to back VA I (cervical intraepithelial neoplasia I) History of tongue cancer History of breast cancer Surgical History Hx of tooth extraction History of bunionectomy of left great toe Hx of bilateral breast biopsy Hx of colonoscopy History of bilateral salpingo-oophorectomy Hx of breast implants, bilateral History of bilateral mastectomy Family History Mother Liver cancer Pancreatic cancer Colon cancer Social History Alcohol intake: never Patient Tobacco Use Status: Never used Tobacco Sexual orientation: Straight/Heterosexual Female Reproductive History Menstrual Age of Menarche: 11 Total pregnancies: 0 Date of last pap smear: 08/01/22 (neg pap and hpv) History of abnormal pap smear: Yes History of abnormal mammogram: Yes Review of Systems Const All systems reviewed & are unremarkable except as noted in HPI and below Card Reports as per HPI Resp Reports as per HPI GI Reports as per HPI and Reports no additional complaints Reports as per HPI Physical Exam Vital Signs: BMI result Body Mass Index 24.7 Const General: cooperative, healthy appearing and comfortable Chest Chest palpation & inspection: normal inspection of the chest, normal palpation of entire chest wall and other (The patient is status post double mastectomy) Breast/axilla palpation: normal palpation of the axillae and no axillary lymphadenopathy Resp Effort & Inspection: normal respiratory effort Auscultation: clear to auscultation bilaterally Percussion: percussion normal Cardio Palpation: normal PMI Rate: regular rate Rhythm: regular rhythm Heart sounds: no murmurs and no rubs Peripheral pulses: Peripheral pulses 2+ throughout GI Inspection: Yes normal to inspection Palpation (GI): Soft to palpation, nontender, no guarding, not rigid and No hepatosplenomegaly present Percussion: Yes normal to percussion Auscultation: normal bowel sounds Rectal Exam - Female: deferred General: Yes bladder normal to palpation External Female Exam: No lesion Speculum Exam - Vagina: normal appearance of the vagina, normal palpation, normal vaginal discharge and not erythematous Speculum Exam - Cervix: normal appearance of the cervix and normal palpation Bimanual exam- vagina & uterus: normal bimanual exam, normal palpation, uterine size normal, bladder normal to palpation, consistency normal and normal palpation Bimanual Exam- Adnexa, other: normal adnexae, no masses and no tenderness Assessment & Plan Assessment & Plan (1) Well woman exam: Comment: AV I in 2018, negative cotest in Code(s): Z01.419 - Encounter for gynecological examination (general) (routine) without abnormal findings Plan: Co testing not indicated this year. Counseled the patient about the recommended dietary allowance of 1200 mg of Calcium & 600 IU of vitamin D. The patient was instructed to schedule annual exam in a year. All questions answered and the patient verbalized understanding. (2) Osteoporosis: Code(s): M81.0 - Age-related osteoporosis without current pathological fracture Plan: Will order DEXA scan, instructions given the patient to schedule DEXA scan follow-up appointment Orders: Orders XR DEXA axial skeleton Today Z78.0 - Asymptomatic menopausal state Coding Level of Care Code Est Pt Prev Care 40-64y(46877) Diagnoses Well woman exam Z01.419 Osteoporosis M81.0
[2023-08-05 08:12] VITALS: BP 112/70; BMI 24.7
== END 2023-08-05 08:35 | disposition home or self-care (01) ==
LOC: HO.HWS 08:03
PROVIDERS: PCP Internal Medicine; Visit Provider Obstetrics & Gynecology
DX: Z01.419 Encounter for gynecological examination (general) (routine) without abnormal findings (principal); M81.0 Age-related osteoporosis without current pathological fracture
CPT/HCPCS: 99396

== ENCOUNTER → 2023-08-05 08:03 | Outpatient (BNVA) | payer OTHER, SELFPAY | PROVIDERS: PCP Internal Medicine; Visit Provider Obstetrics & Gynecology ==

== ENCOUNTER 2023-09-10 10:42 | Outpatient (AMB) | payer OTHER, SELFPAY ==
[2023-09-10 10:56] VITALS: BP 138/72; PULSE 53; BMI 24.0
--- NOTE | 2023-09-10 10:56 | A.OFFVIS_ITS ---
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 Recent echocardiogram done because of cardiac murmur had shown bicuspid aortic valve. She also has a history of ascending aortic aneurysm but previously has not seen Cardiology. Otherwise, no known cardiovascular issues. She states she has had breast cancer and underwent bilateral mastectomy, radiation as well as chemotherapy in the past. Also has history of oral cancer but never smoked. She has had some nonexertional chest pains in the past but nothing recently. Per patient, father had suspected fatal myocardial infarction in his late 40s. [facility] Medical History (Updated 09/10/23 @ 11:31 by Nestor Sanchez MD) Ascending aortic aneurysm Bicuspid aortic valve Glaucoma, narrow-angle Heart burn Loose, teeth Hx of varicose veins Abdominal pain with radiation to back AV I (cervical intraepithelial neoplasia I) History of tongue cancer History of breast cancer Surgical History Hx of tooth extraction History of bunionectomy of left great toe Hx of bilateral breast biopsy Hx of colonoscopy History of bilateral salpingo-oophorectomy Hx of breast implants, bilateral History of bilateral mastectomy Family History (Updated 09/10/23 @ 11:51 by Nestor Sanchez MD) Mother Liver cancer Pancreatic cancer Colon cancer Father Myocardial infarction Social History Alcohol intake: never Patient Tobacco Use Status: Never used Tobacco Sexual orientation: Straight/Heterosexual Female Reproductive History Menstrual Age of Menarche: 11 Review of Systems Const Denies chills, Denies daytime sleepiness, Denies fatigue, Denies fever(s), Denies frequent falls, Denies night sweats, Denies snoring, Denies weakness, Denies weight gain and Denies weight loss Eyes Denies loss of vision ENT Denies dizziness and Denies hearing loss Card Denies chest pain, Denies chest pain with activity, Denies syncope, Denies rapid heart rate, Denies edema, Denies claudication, Denies leg edema, Denies lightheadedness, Denies palpitations, Reports dyspnea, Denies dyspnea on exertion and Denies orthopnea Resp Denies cough, Denies excessive phlegm production, Reports dyspnea, Denies dyspnea on exertion, Denies snoring and Denies wheezing GI Denies abdominal pain, Denies hematochezia, Denies change in bowel habits, Denies change in stool character, Denies heartburn, Denies nausea and Denies vomiting Denies hematuria, Denies urinary frequency and Denies dysuria Musc Denies arthralgias, Denies muscle weakness, Denies numbness and Denies tingling Skin/Breast Denies nail changes and Denies rash Neuro Denies Abnormal speech present, Denies dizziness, Denies syncope, Denies frequent falls, Denies loss of vision, Denies memory loss, Denies numbness, Denies tingling and Denies weakness Psych Denies depression and Denies memory loss Endo Denies fatigue and Denies palpitations Aller/Immun Denies wheezing Physical Exam Vital Signs: Last Vital Signs Pulse 53 09/10/23 10:56 BP 138/72 09/10/23 10:56 BMI result Body Mass Index 24.0 Const General: comfortable and no acute distress Orientation/consciousness: patient oriented x3 HEENT Other: Unremarkable Head: Yes normal to inspection Neck Neck: Yes normal visual inspection Chest Chest palpation & inspection: normal inspection of the chest Resp Auscultation: clear to auscultation bilaterally Cardio Palpation: normal PMI Heart sounds: S1 normal heart sound present, S2 normal heart sound present, no gallops, Murmur heart sound present systolic II/ and at the right sternal border and no rubs GI Palpation (GI): Soft to palpation Back/Spine/Pelvis Other: unremarkable Skin General skin exam: no rashes or lesions noted Neuro General: patient oriented x3 Speech: No Abnormal speech present Extrem General: Yes normal to inspection Psych Mental Status: mental status grossly normal Office Procedures EKG Details: EKG with sinus bradycardia at 53/Min; possible left atrial enlargement but otherwise unremarkable. [id number], Complete Assessment & Plan Assessment & Plan (1) Bicuspid aortic valve: Code(s): Q23.1 - Congenital insufficiency of aortic valve (2) Ascending aortic aneurysm: Code(s): I71.21 - Aneurysm of the ascending aorta, without rupture Plan In the recent echocardiogram, evidence of bicuspid aortic valve but no significant valvular dysfunction. We discussed about the pathophysiology of this. Will need periodic follow-up to assess for any valvular dysfunction. With regard ascending aortic size, 4.1 cm on echocardiogram. In chest CTA is, as much as 4.3 cm. Again will need periodic follow-up. Due to history of malignancy/chemotherapy as well as strong family history of suspected myocardial infarction in father, we will get a coronary CTA for further assessment. Follow-up after the above. Orders: Orders CT Cardiac Coronary Angio Today I25.10 - Atherosclerotic heart disease of [place] coronary artery without angina pectoris, I71.21 - Aneurysm of the ascending aorta, without rupture, Q23.1 - Congenital insufficiency of aortic valve Basic Metabolic Panel Today I71.21 - Aneurysm of the ascending aorta, without rupture, Q23.1 - Congenital insufficiency of aortic valve Coding Level of Care Code New Pt Level 4 (09390) Diagnoses Bicuspid aortic valve Q23.1 Ascending aortic aneurysm I71.21 CPT Codes EKG - CPT: 89209-[id number], Complete ([id number])
== END 2023-09-10 11:27 | disposition home or self-care (01) ==
PROVIDERS: PCP Internal Medicine; Visit Provider Internal Medicine
DX: Q23.1 Congenital insufficiency of aortic valve (principal); I71.21 Aneurysm of the ascending aorta, without rupture
CPT/HCPCS: 93010; 99204

== ENCOUNTER → 2023-09-10 10:42 | Outpatient (BNVA) | payer OTHER, SELFPAY | PROVIDERS: PCP Internal Medicine; Visit Provider Internal Medicine | DX: I71.21 Aneurysm of the ascending aorta, without rupture (principal); Q23.1 Congenital insufficiency of aortic valve | CPT/HCPCS: 93005 ==

== ENCOUNTER 2023-11-02 09:07 | Outpatient (REF) | payer OTHER, SELFPAY ==
[2023-11-02 09:22] LABS: MANUAL DIFF FLAG NO
[2023-11-02 09:35] LABS: Basophils Percent Auto 0.9 % (0-2); Eosinophils Absolute Auto 0.1 X10*3/uL (0.0-0.4); Eosinophils Percent Auto 2.9 % (0-4); Hematocrit 40.1 % (37.0-47.0); Hemoglobin 13.2 g/dl (12.0-16.0); Imm Gran Abs Auto 0.01 X10*3/uL (0.00-0.03); Imm Gran Pct Auto 0.2 % (0.0-0.4); Lymphocytes Absolute Auto 1.7 X10*3/uL (1.2-4.9); Lymphocytes Percent Auto 37.5 % (20-40); Mean Corpuscular HGB Conc 32.9 g/dl (31.0-35.0); Mean Corpuscular Hemoglobin 29.3 pg (27.0-33.0); Mean Corpuscular Volume 89.1 fL (80.0-98.0); Mean Platelet Volume 9.8 fL (9.4-12.3); Monocytes Absolute Auto 0.4 X10*3/uL (0.1-1.2); Monocytes Percent Auto 7.7 % (2-11); Neutrophils Absolute Auto 2.3 x10*3/uL (2.0-8.3); Neutrophils Percent Auto 50.8 % (45-73); Platelet Count 250 X10*3/uL (160-400); Red Cell Distribution Width 13.7 % (11.0-16.0); White Blood Count 4.5 X10*3/uL (4.8-10.8)
[2023-11-02 10:01] LABS: Alanine Aminotransferase 15 U/L (0-31); Albumin Level 4.3 g/dL (3.5-5.0); Alkaline Phosphatase 62 U/L (39-117); Anion Gap 13 (12-20); Aspartate Amino Transferase 22 U/L (5-31); Bilirubin Total 0.7 mg/dL (0.0-1.0); Blood Urea Nitrogen 27 mg/dL (9-16); Calcium 9.4 mg/dL (8.4-10.2); Carbon Dioxide 27 mmol/L (22-29); Chloride 105 mmol/L (96-108); Estimated Glomerular Filt Rate > 60; Glucose Random 92 mg/dL (60-115); Potassium 3.6 mmol/L (3.3-5.1); Sodium 141 mmol/L (135-145); Total Protein 7.4 g/dL (6.5-8.0)
[2023-11-02 10:19] LABS: Thyroid Stimulating Hormone 0.48 uIU/mL (0.32-4.0)
== END 2023-11-02 09:08 | disposition home or self-care (01) ==
LOC: HO.LAB 09:07
PROVIDERS: PCP Internal Medicine; Visit Provider Internal Medicine
DX: E03.8 Other specified hypothyroidism (principal); F32.5 Major depressive disorder, single episode, in full remission; I10 Essential (primary) hypertension
CPT/HCPCS: 36415; 80053; 84443; 85025

== ENCOUNTER 2024-01-07 08:34 | Outpatient (AMB) | payer OTHER, SELFPAY ==
[2024-01-07 08:35] VITALS: BP 132/70; PULSE 56; BMI 22.9
--- NOTE | 2024-01-07 08:35 | MHC.OFFVIS ---
Vital Signs 01/07/24 08:35 Height 5 ft 7 in Weight 146 lb 6.191 oz BMI 22.9 BP 132/70 Blood Pressure Location Rt brachial Position Sitting Pulse 56 Pulse Source Pulse Oximeter Intake Visit Reasons: f/up CTA Management Technician Required: No Allergies No Known Allergies [No Known Allergies*] Allergy (Verified 01/07/24 08:36) Medication List - Last Reconciled 01/07/24 by Nestor Sanchez MD levothyroxine 112 mcg PO DAILY losartan-hydrochlorothiazide 100-12.5 mg 1 tab PO DAILY HPI Comments Details: Sommer returns for follow-up. Recently seen in consultation regarding bicuspid aortic valve. Echocardiogram was performed because of cardiac murmur and that showed a bicuspid aortic valve. She also has a history of ascending aortic aneurysm. Not previously seen Cardiology. Otherwise, no known cardiovascular issues. She states she has had breast cancer and underwent bilateral mastectomy, radiation as well as chemotherapy in the past. Also has history of oral cancer but never smoked. She has had some nonexertional chest pains in the past but nothing recently. Brother- valve replacement at 40 but she states she is not in touch with him. Per patient, father had suspected fatal myocardial infarction in his late 40s. Overall, she feels fine. [facility] Medical History (Updated 09/10/23 @ 11:31 by Nestor Sanchez MD) Ascending aortic aneurysm Bicuspid aortic valve Glaucoma, narrow-angle Heart burn Loose, teeth Hx of varicose veins Abdominal pain with radiation to back AV I (cervical intraepithelial neoplasia I) History of tongue cancer History of breast cancer Surgical History Hx of tooth extraction History of bunionectomy of left great toe Hx of bilateral breast biopsy Hx of colonoscopy History of bilateral salpingo-oophorectomy Hx of breast implants, bilateral History of bilateral mastectomy Family History Mother Liver cancer Pancreatic cancer Colon cancer Father Myocardial infarction Social History Alcohol intake: never Patient Tobacco Use Status: Never used Tobacco Sexual orientation: Straight/Heterosexual Female Reproductive History Menstrual Age of Menarche: 11 Review of Systems ENT Reports dizziness Card Denies chest pain, Denies chest pain at rest, Denies chest pain with activity, Denies rapid heart rate, Denies pedal edema, Denies edema, Denies leg edema, Denies lightheadedness, Denies palpitations, Denies dyspnea, Denies dyspnea on exertion and Denies orthopnea Resp Denies cough, Denies dyspnea and Denies dyspnea on exertion GI Denies hematochezia and Denies change in stool character Musc Denies abnormal gait, Reports limited range of motion, Reports muscle cramps, Denies muscle weakness, Denies numbness, Denies radiating pain into limb, Denies stiffness and Denies tingling Neuro Denies abnormal gait, Reports dizziness, Denies numbness and Denies tingling Endo Denies palpitations Physical Exam Vital Signs: Last Vital Signs Pulse 56 01/07/24 08:35 BP 132/70 01/07/24 08:35 BMI result Body Mass Index 22.9 Const General: comfortable and no acute distress Orientation/consciousness: patient oriented x3 HEENT Other: Unremarkable Head: Yes normal to inspection Neck Neck: Yes normal visual inspection Chest Chest palpation & inspection: normal inspection of the chest Resp Auscultation: clear to auscultation bilaterally Cardio Palpation: normal PMI Heart sounds: S1 normal heart sound present, S2 normal heart sound present, no gallops, Murmur heart sound present systolic I/ and at the right sternal border and no rubs GI Palpation (GI): Soft to palpation Back/Spine/Pelvis Other: unremarkable Skin General skin exam: no rashes or lesions noted Neuro General: patient oriented x3 Extrem General: Yes normal to inspection Psych Mental Status: mental status grossly normal Assessment & Plan Assessment & Plan (1) Bicuspid aortic valve: Code(s): Q23.1 - Congenital insufficiency of aortic valve Category: Medical (2) Ascending aortic aneurysm: Code(s): I71.21 - Aneurysm of the ascending aorta, without rupture Category: Medical (3) Hypertension: Code(s): I10 - Essential (primary) hypertension Category: Medical Plan Cardiac studies reviewed. In the echocardiogram, LVEF is 65-70%. Bicuspid aortic valve but no valvular dysfunction. Ascending aortic size 4.1 cm. In the coronary CTA, no significant CAD. Ascending aortic size again 4.1 cm. Findings discussed with patient. At this time, no specific management. Mainly blood pressure management. That seems to be well controlled. We will follow-up on the ascending aortic size in 1 year with another echocardiogram. Follow-up at that time. Orders: Orders CA echo transthoracic complete 1 Year Q23.1 - Congenital insufficiency of aortic valve Coding Level of Care Code Est Pt Level 4 (32560) Diagnoses Bicuspid aortic valve Q23.1 Ascending aortic aneurysm I71.21 Hypertension I10
== END 2024-01-07 08:52 | disposition home or self-care (01) ==
PROVIDERS: PCP Internal Medicine; Visit Provider Internal Medicine
DX: Q23.1 Congenital insufficiency of aortic valve (principal); I71.21 Aneurysm of the ascending aorta, without rupture; I10 Essential (primary) hypertension
CPT/HCPCS: 99214

== ENCOUNTER → 2024-01-07 08:34 | Outpatient (BNVA) | payer OTHER, SELFPAY | PROVIDERS: PCP Internal Medicine; Visit Provider Internal Medicine ==

== ENCOUNTER 2024-02-11 08:11 | Outpatient (REF) | payer OTHER, SELFPAY ==
--- NOTE | ~2024-02-11 | MM_ITS ---
EXAMINATION: BONE DENSITOMETRY CLINICAL INDICATION: Asymptomatic menopausal state. COMPARISON: Previous BD dated 02/08/2022 and baseline BD dated 05/11/2010. TECHNIQUE: Using a [employer] DXA System (software version: 13.1) manufactured by [employer], dual-energy x-ray absorptiometry was performed of the lumbar spine and left hip. The images are of good technical quality. Summary results are attached. FINDINGS: LEFT FEMUR, NECK: Current: BMD 0.726 g/cm2, Z-score -1.3, T-score -2.2, osteopenia. Prior: BMD 0.774 g/cm2. Baseline: BMD 0.862 g/cm2. LEFT FEMUR, TOTAL: Current: BMD 0.824 g/cm2, Z-score -0.8, T-score -1.5, osteopenia, 0.0% no change from previous, 7.1% decrease from baseline (<5% change is not significant). Prior: BMD 0.824 g/cm2. Baseline: BMD 0.887 g/cm2. AP SPINE L1-L4: Current: BMD 0.808 g/cm2, Z-score -2.4, T-score -3.1, osteoporosis, 2.1% increase from previous, 14.2% decrease from baseline (<5% change is not significant). Prior: BMD 0.791 g/cm2. Baseline: BMD 0.942 g/cm2. IDENTIFIED RISK FACTORS: Early menopause, secondary osteoporosis, bilateral oophorectomy, recurrent falls, osteoporosis. HISTORY OF FRACTURE: None listed. MEDICATIONS: Calcium supplements or multivitamin, vitamin D. MM/XR DEXA axial skeleton IMPRESSION: 1. DIAGNOSIS: Osteoporosis based on the lowest T-score value of -3.1 in the lumbar spine applying World Health Organization criteria. 2. 10-YEAR FRACTURE RISK PREDICTION, FRAX: According to the guidelines, FRAX calculation should only be performed on patients in the osteopenia bone density category. Therefore, FRAX was not performed on this patient. 3. Treatment Recommendations: NOF guidelines recommend consideration for treatment in postmenopausal women and men age 50 and older presenting with the following: -A hip or vertebral (clinical or morphometric) fracture. -T-score less than or equal to -2.5 at the femoral neck or spine after appropriate evaluation to exclude secondary causes. -Low bone mass at the hip or spine and a 10-year fracture probability by FRAX of greater than or equal to 3% for hip fracture or greater than or equal to 20% for major osteoporotic fracture based on the [place] adapted WHO algorithm. 4. Other Recommendations: All treatment decisions require clinical judgment and consideration of individual patient factors, including patient preferences, comorbidities, previous drug use, risk factors not captured in the FRAX model (e.g. frailty, falls, vitamin D deficiency, increased bone turnover, interval significant decline in bone density) and possible under or overestimation of fracture risk by FRAX. Additional medical evaluation for secondary cause of low bone mineral density may be appropriate. FUTURE SCAN RECOMMENDATION: People with diagnosed cases of osteoporosis or at high risk for fracture should have regular bone mineral density tests. For patients eligible for Medicare, routine testing is allowed once every 2 years. The testing frequency can be increased to one year for patients who have rapidly progressing disease, those who are receiving or discontinuing medical therapy to restore bone mass, or have additional risk factors.
== END 2024-02-11 08:12 | disposition home or self-care (01) ==
LOC: HO.MAMMO 08:11
PROVIDERS: PCP Internal Medicine; Visit Provider Obstetrics & Gynecology
DX: Z13.820 Encounter for screening for osteoporosis (principal); Z78.0 Asymptomatic menopausal state
CPT/HCPCS: 77080

== ENCOUNTER 2024-02-24 08:14 | Outpatient (AMB) | payer OTHER, SELFPAY ==
--- NOTE | 2024-02-24 08:15 | A.OFFVIS_ITS ---
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 T score @ spine and femoral Neck respectively were=-3.1 /-2.2. [facility] Medical History Ascending aortic aneurysm Bicuspid aortic valve Glaucoma, narrow-angle Heart burn Loose, teeth Hx of varicose veins Abdominal pain with radiation to back AV I (cervical intraepithelial neoplasia I) History of tongue cancer History of breast cancer Surgical History Hx of tooth extraction History of bunionectomy of left great toe Hx of bilateral breast biopsy Hx of colonoscopy History of bilateral salpingo-oophorectomy Hx of breast implants, bilateral History of bilateral mastectomy Family History Mother Liver cancer Pancreatic cancer Colon cancer Father Myocardial infarction Social History Alcohol intake: never Patient Tobacco Use Status: Never used Tobacco Sexual orientation: Straight/Heterosexual Female Reproductive History Menstrual Age of Menarche: 11 Review of Systems Const All systems reviewed & are unremarkable except as noted in HPI and below Reports as per HPI and Reports no additional complaints GI Reports no additional complaints Reports no additional complaints Physical Exam Vital Signs: Last Vital Signs BP 140/80 H 02/24/24 08:16 BMI result Body Mass Index 22.8 Assessment & Plan Assessment & Plan (1) Osteoporosis: Comment: Very high fracture risk Code(s): M81.0 - Age-related osteoporosis without current pathological fracture Category: Medical Plan: Discussed with the patient the results of her DEXA scan T-score is-3.1 indicating a very high-risk for fracture the patient is a candidate for anabolics instead of anti resorptive medications, will refer to dermatology for further management Orders: Referrals Rheumatology Referral M81.0 - Age-related osteoporosis without current pathological fracture Coding Level of Care Code Est Pt Level 3 (42665) Diagnoses Osteoporosis M81.0
[2024-02-24 08:16] VITALS: BP 140/80; BMI 22.8
== END 2024-02-24 08:37 | disposition home or self-care (01) ==
PROVIDERS: PCP Internal Medicine; Visit Provider Obstetrics & Gynecology
DX: M81.0 Age-related osteoporosis without current pathological fracture (principal)
CPT/HCPCS: 99213

== ENCOUNTER → 2024-02-24 08:14 | Outpatient (BNVA) | payer OTHER, SELFPAY | PROVIDERS: PCP Internal Medicine; Visit Provider Obstetrics & Gynecology ==

== ENCOUNTER 2024-02-24 15:11 | Outpatient (REF) | payer OTHER, SELFPAY | END 2024-02-24 15:12 | disposition home or self-care (01) | LOC: HO.LNP 15:11 | PROVIDERS: Visit Provider Internal Medicine | DX: N30.00 Acute cystitis without hematuria (principal) | CPT/HCPCS: 87086 ==

== ENCOUNTER 2024-05-28 08:43 | Outpatient (REF) | payer OTHER, SELFPAY ==
--- NOTE | ~2024-05-28 | XR_ITS ---
EXAMINATION: XR LUMBOSACRAL SPINE CLINICAL INFORMATION: Age-related osteoporosis COMPARISON: None available. TECHNIQUE: Five views of the lumbosacral spine. FINDINGS: Small spondylitic changes observed. Sacrum grossly intact. There is a mild eccentric wedge deformity identified at L4 which is of uncertain age. Similarly, slight wedge deformity at T12 of uncertain age. No other lumbar compressions are identified. Slight eccentric disc space narrowing seen posteriorly at L3-4. There is facet arthrosis. No evidence for spondylolysis. SI joints are maintained. Large rectal fecal material. XR/XR lumbar spine 4V min IMPRESSION: 1. Mild eccentric wedge deformity at L4 of uncertain age. Slight wedge deformity at T12 of uncertain age. 2. Slight eccentric disc space narrowing posteriorly at L3-4. 3. Facet arthrosis. Electronically signed by: Guille Pavon MD 05/28/2024 03:00 PM [facility]
--- NOTE | ~2024-05-28 | XR_ITS ---
EXAMINATION: XR THORACIC SPINE CLINICAL INFORMATION: Age-related osteoarthritis COMPARISON: None available. TECHNIQUE: 3 views of the thoracic spine were obtained. FINDINGS: Vertebral bodies are well aligned and intervertebral disks are preserved. There is mild wedge-shaped deformity of T12 vertebral body with Schmorl's hernia. No spondylolysis or listhesis. There is mild dextroscoliosis of thoracic spine. Soft tissues unremarkable pedicles are preserved. XR/XR thoracic spine 3V IMPRESSION: Mild wedge-shaped deformity of T12 vertebral body and Schmorl's hernia. Electronically signed by: Arash Jerez MD 05/28/2024 02:27 PM [facility]
[2024-05-28 11:22] LABS: Alanine Aminotransferase 18 U/L (0-31); Albumin Level 4.2 g/dL (3.5-5.0); Alkaline Phosphatase 80 U/L (39-117); Anion Gap 11 (12-20); Aspartate Amino Transferase 25 U/L (5-31); Bilirubin Total 0.3 mg/dL (0.0-1.0); Blood Urea Nitrogen 28 mg/dL (9-16); Calcium 9.8 mg/dL (8.4-10.2); Carbon Dioxide 29 mmol/L (22-29); Chloride 106 mmol/L (96-108); Estimated Glomerular Filt Rate > 60; Glucose Random 113 mg/dL (60-115); Phosphorus 2.8 mg/dL (2.7-4.5); Potassium 4.1 mmol/L (3.3-5.1); Sodium 142 mmol/L (135-145); Total Protein 7.3 g/dL (6.5-8.0)
[2024-05-28 11:36] LABS: Vitamin D 25-OH Total 47.4 ng/mL (>30)
[2024-05-29 12:37] LABS: Prot Elec - Albumin 4.3 g/dL (3.8-4.8); Prot Elec - Alpha1 0.2 g/dL (0.2-0.3); Prot Elec - Alpha2 0.6 g/dL (0.5-0.9); Prot Elec - Beta 1 0.4 g/dL (0.4-0.6); Prot Elec - Beta 2 0.3 g/dL (0.2-0.5); Prot Elec - Gamma 1.2 g/dL (0.8-1.7)
[2024-05-29 15:52] LABS: Calcium, Ionized 5.2 mg/dL (4.7-5.5)
[2024-06-02 22:28] LABS: Collagen Type I C-Telopeptide 275 pg/mL (see note)
== END 2024-05-28 08:44 | disposition home or self-care (01) ==
LOC: HO.LAB 08:43
PROVIDERS: PCP Internal Medicine; Visit Provider Student in an Organized Health Care Education/Training Program
DX: M81.0 Age-related osteoporosis without current pathological fracture (principal); E55.9 Vitamin D deficiency, unspecified
CPT/HCPCS: 36415; 72072; 72110; 80053; 82306; 82330; 82523; 83970; 84100; 84165

== ENCOUNTER 2024-05-28 08:43 | Outpatient (AMB) | payer OTHER, SELFPAY ==
--- NOTE | 2024-05-28 08:49 | A.OFFVIS_ITS ---
Vital Signs 05/28/24 08:56 Height 5 ft 7 in Weight 144 lb 6.444 oz BMI 22.6 BP 112/64 Blood Pressure Location Rt brachial Position Sitting Pulse 64 Pulse Source Pulse Oximeter Pulse Oximetry (%) 94 Oxygen Delivery Method Room Air Intake Visit Reasons: Osteoporosis/cm Intake Note: Patient presents for Osteoporosis. Allergies No Known Allergies [No Known Allergies*] Allergy (Verified 05/28/24 08:52) Medication List - Last Reconciled 05/28/24 by Brinda Barger MD amoxicillin 875 mg PO BID clotrimazole 1% 1 appl topical TID levothyroxine 125 mcg PO DAILY losartan-hydrochlorothiazide 100-12.5 mg 1 tab PO DAILY HPI Comments Details: This is a 54-year-old female with osteoporosis who presents for follow-up. Patient has history of multiple cancers. She has had recurrent breast cancers, in 2017 she had bilateral salpingo-oophorectomy. Received radiation when she was 37. This was around the time she had menopause. Menopause was attributed to chemotherapy at that time. She also has history of tongue cancer treated with surgery and radiation. She has a family history of pancreatic cancer. She denies any history of falls or fractures recently. She states that she broke her arm when she was a child. Patient also has loose teeth. Her gums are receding and believes that she will need multiple dental extractions done in the near future. [facility], [facility] Medical History Ascending aortic aneurysm Bicuspid aortic valve Glaucoma, narrow-angle Heart burn Loose, teeth Hx of varicose veins Abdominal pain with radiation to back AV I (cervical intraepithelial neoplasia I) History of tongue cancer History of breast cancer Surgical History Hx of tooth extraction History of bunionectomy of left great toe Hx of bilateral breast biopsy Hx of colonoscopy History of bilateral salpingo-oophorectomy Hx of breast implants, bilateral History of bilateral mastectomy Family History Mother Liver cancer Pancreatic cancer Colon cancer Father Myocardial infarction Social History Alcohol intake: never Patient Tobacco Use Status: Never used Tobacco Sexual orientation: Straight/Heterosexual Female Reproductive History Menstrual Age of Menarche: 11 Review of Systems Const Reports weight loss Musc Reports back pain and Reports arthralgias Physical Exam Vital Signs: Last Vital Signs Pulse 64 05/28/24 08:56 BP 112/64 05/28/24 08:56 Pulse Ox 94 05/28/24 08:56 Oxygen Delivery Method Room Air 05/28/24 08:56 BMI result Body Mass Index 22.6 Const General: cooperative, healthy appearing and comfortable Nutritional Appearance: average body habitus Orientation/consciousness: patient oriented x3 Limitations: no limitations HEENT Head: Yes normocephalic and Yes atraumatic Mouth: moist mucous membranes Resp Effort & Inspection: normal respiratory effort and able to speak in complete sentences Auscultation: clear to auscultation bilaterally Cardio Rate: regular rate Rhythm: regular rhythm Skin General skin exam: no rashes or lesions noted Neuro General: patient oriented x3 Extrem Other: Osteoarthritic changes of both hands with no active synovitis Normal nailfold capillaroscopy Assessment & Plan Assessment & Plan (1) Osteoporosis: Comment: Very high fracture risk Code(s): M81.0 - Age-related osteoporosis without current pathological fracture Category: Medical Qualifiers: Osteoporosis type: age-related Presence of current pathological fracture: without current pathological fracture Qualified Code(s): M81.0 - Age- related osteoporosis without current pathological fracture Plan: This is a 54-year-old female who presents for evaluation of osteoporosis. Patient reached menopause around age 37, this was attributed to chemotherapy for her breast cancer. She has history of recurrent breast cancer s/p bilateral mastectomy and salpingo oophorectomy. She also has history of tongue cancer s/p surgery and radiation therapy. Strong family history of cancers. I will order blood work to evaluate for secondary causes of osteoporosis. Abdominal CT scans in the past showed Schmorl's nodes versus compression fractures. I will check T and L-spine x-rays to evaluate for compression fractures. She denies history of kidney stones. There is no evidence of nephrolithiasis at least based on abdominal CT scans from 2020 and 2021. Discussed different treatment options. I think in her case a Evenity would be might top joints. Follow-up after workup is completed Plan I spent 47 minutes reviewing patient's chart, evaluating patient, ordering diagnostic workup, counseling patient and documenting in the chart Orders: Orders Collagen Type I C-Telopeptide Today M81.0 - Age-related osteoporosis without current pathological fracture Phosphorus Today M81.0 - Age-related osteoporosis without current pathological fracture Vitamin D 25-OH Total Today E55.9 - Vitamin D deficiency, unspecified Comprehensive Met. Panel Today M81.0 - Age-related osteoporosis without current pathological fracture XR lumbar spine 4V min Today M81.0 - Age-related osteoporosis without current pathological fracture XR thoracic spine 3V Today M81.0 - Age-related osteoporosis without current pathological fracture Calcium, Ionized Today M81.0 - Age-related osteoporosis without current pathological fracture Parathyroid Hormone Intact Today M81.0 - Age-related osteoporosis without current pathological fracture Protein Electrophoresis, Serum Today M81.0 - Age-related osteoporosis without current pathological fracture Coding Level of Care Code New Pt Level 4 (45307) Diagnoses Age-related osteoporosis without current pathological fracture M81.0 Osteoporosis type: age-related Presence of current pathological fracture: without current pathological fracture
[2024-05-28 08:56] VITALS: BP 112/64; PULSE 64; O2SAT 94; BMI 22.6
== END 2024-05-28 09:28 | disposition home or self-care (01) ==
LOC: HO.RHE 08:43
PROVIDERS: PCP Internal Medicine; Visit Provider Student in an Organized Health Care Education/Training Program
DX: M81.0 Age-related osteoporosis without current pathological fracture (principal)
CPT/HCPCS: 99204

== ENCOUNTER 2024-07-01 15:03 | Outpatient (AMB) | payer OTHER, SELFPAY ==
--- NOTE | 2024-07-01 15:06 | A.OFFVIS_ITS ---
Vital Signs 07/01/24 15:09 Height 5 ft 7 in Weight 141 lb 5.061 oz BMI 22.1 BP 120/70 Blood Pressure Location Lt brachial Position Sitting Pulse 58 Pulse Source Pulse Oximeter Pulse Oximetry (%) 98 Oxygen Delivery Method Room Air Intake Visit Reasons: Osteoporosis/cm Intake Note: Patient presents for Osteoporosis. Allergies No Known Allergies [No Known Allergies*] Allergy (Verified 07/01/24 15:08) Medication List - Last Reconciled 07/01/24 by Brinda Barger MD amoxicillin 875 mg PO BID clotrimazole 1% 1 appl topical TID levothyroxine 125 mcg PO DAILY losartan-hydrochlorothiazide 100-12.5 mg 1 tab PO DAILY HPI Comments Details: Patient returns for follow-up after completion of her diagnostic workup. Initial history: This is a 54-year-old female with osteoporosis who presents for follow-up. Patient has history of multiple cancers. She has had recurrent breast cancers, in 2017 she had bilateral salpingo-oophorectomy. Received radiation when she was 37. This was around the time she had menopause. Menopause was attributed to chemotherapy at that time. She also has history of tongue cancer treated with surgery and radiation. She has a family history of pancreatic cancer. She denies any history of falls or fractures recently. She states that she broke her arm when she was a child. Patient also has loose teeth. Her gums are receding and believes that she will need multiple dental extractions done in the near future. [facility] Medical History Ascending aortic aneurysm Bicuspid aortic valve Glaucoma, narrow-angle Heart burn Loose, teeth Hx of varicose veins Abdominal pain with radiation to back AV I (cervical intraepithelial neoplasia I) History of tongue cancer History of breast cancer Surgical History Hx of tooth extraction History of bunionectomy of left great toe Hx of bilateral breast biopsy Hx of colonoscopy History of bilateral salpingo-oophorectomy Hx of breast implants, bilateral History of bilateral mastectomy Family History Mother Liver cancer Pancreatic cancer Colon cancer Father Myocardial infarction Social History Alcohol intake: never Patient Tobacco Use Status: Never used Tobacco Sexual orientation: Straight/Heterosexual Female Reproductive History Menstrual Age of Menarche: 11 Review of Systems [facility] Reports back pain and Reports arthralgias Physical Exam Vital Signs: Last Vital Signs Pulse 58 07/01/24 15:09 BP 120/70 07/01/24 15:09 Pulse Ox 98 07/01/24 15:09 Oxygen Delivery Method Room Air 07/01/24 15:09 BMI result Body Mass Index 22.1 Const General: cooperative, healthy appearing and comfortable Nutritional Appearance: average body habitus Orientation/consciousness: patient oriented x3 Limitations: no limitations HEENT Head: Yes normocephalic and Yes atraumatic Resp Effort & Inspection: normal respiratory effort and able to speak in complete sentences Neuro General: patient oriented x3 Extrem Other: Osteoarthritic changes of both hands with no active synovitis Normal nailfold capillaroscopy Assessment & Plan Assessment & Plan (1) Osteoporosis: Comment: T12 compression fracture Code(s): M81.0 - Age-related osteoporosis without current pathological fracture Category: Medical Qualifiers: Osteoporosis type: age-related Presence of current pathological fracture: without current pathological fracture Qualified Code(s): M81.0 - Age- related osteoporosis without current pathological fracture Plan: This is a 54-year-old female who presents for evaluation of osteoporosis. 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 She has history of recurrent breast cancer s/p bilateral mastectomy and salpingo oophorectomy. She also has history of tongue cancer s/p surgery and radiation therapy. Strong family history of cancers. Her DEXA scan shows osteoporosis, lowest T-score is-3.1 at the L-spine. She is up with high-risk of subsequent fractures. Needs treatment for osteoporosis. It would be best if we start with an anabolic agent such as Romosuzumab for about a year and consolidate with an antiresorptive agents such as Reclast. Discussed risks and benefits of Romosuzumab, including the black box warning regarding the association with cardiovascular events. In her case likely the benefit outweighs risk. Patient agreed to proceed. Will start prior authorization for Romosuzumab Labs before next visit in 6 months Plan I spent 17 minutes reviewing patient's chart, evaluating patient, ordering diagnostic workup, counseling patient and documenting in the chart Orders: Orders Vitamin D 25-OH Total 6 Months M81.0 - Age-related osteoporosis without current pathological fracture Basic Metabolic Panel 6 Months M81.0 - Age-related osteoporosis without current pathological fracture Coding Level of Care Code Est Pt Level 3 (31594) Diagnoses Age-related osteoporosis without current pathological fracture M81.0 Osteoporosis type: age-related Presence of current pathological fracture: without current pathological fracture
[2024-07-01 15:09] VITALS: BP 120/70; PULSE 58; O2SAT 98; BMI 22.1
--- OUTSIDE RECORDS SUMMARY | 2024-07-02 02:59 | XMS_ITS | Data Portability ---
Author Organization [place] - [facility], Allergy Address [address] [address] Care Team Providers Care Roll Plugger Name Role Phone PHILLIP CHIANG Primary Care Provider Assessment Encounter Date Assessment Date Assessment LastModified by Organization Details LastModified Time 06/05/2024 06/05/2024 No evidence of disease on examination today. Fiberoptic examination of nasopharynx, hypopharynx and larynx was stable. Cancer surveillance in 12 months was recommended. 3mm midline submental LN is benign. Likely more prominent with her infected tooth of mandible. [email or web address] Not available 06/05/2024 09:27:31 Plan of Treatment Reminders Order Date Submit Date Provider Last Modified By Organization Details Last Modified Time Details Appointments Establish ed 15 2024 09:00A M CHAZ PIPER MD Not available Not available Not available Lab None recorded. Referral None recorded. Procedures None recorded. Surgeries None recorded. Imaging None recorded. Medication Orders None recorded. Patient TargetsNo targets recorded. Patient InstructionsNo instructions recorded. Reason for Referral None Reported. Problems Name Problem SNOMED Code Status Onset Date Resolution Date Notes Provider Name and Address Organization Details Recorded Time Respirato ry finding 955624595 Active 2020 Feeling of foreign body in throat; Note: Date Diagnosed : 09/16/2015 1:43 PM (R09.89) Not Available [facility] 4 02:54:36 Cardiovas cular finding 544858996 Active 2020 Feeling of foreign body in throat; Note: Date Diagnosed : 09/16/2015 1:43 PM (R09.89) Not Available [facility] 4 02:54:36 Follow-up visit Active 2018 Encounter for follow-up examinati on after completed treatment for malignant neoplasm; Note: Date Diagnosed : 05/27/2019 3:07 PM (Z08) Not Available [facility] 4 02:54:34 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 92081682078 07 Active 2015 Leukoplak ia of oral mucosa, including tongue; Note: Date Diagnosed : 02/10/2016 4:29 PM (K13.21) Not Available [facility] 4 02:54:38 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 Active 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 Ragland/Laurie PIPER MD [address] [place] [address], [facility] [place], [address] , [facility] - [facility] 4 21:32:55 Dysphonia 28395639 Active 2021 Dysphonia ; Note: Date Diagnosed : 05/25/2022 10:11 AM (R49.0) Not Available [facility] 4 02:54:36 Bilateral tinnitus 53523452516 02 Active 2018 Tinnitus, bilateral ; Note: Date Diagnosed : 05/25/2019 3:44 PM (H93.13) Not Available [facility] 4 02:54:37 [place] ce of salivary secretion 03651187 Active 2018 Xerostomi a; Note: Date Diagnosed : 01/29/2019 4:14 PM (K11.7) Not Available [facility] 4 02:54:34 Primary malignant neoplasm of ventral surface of tongue 81995942 Active 2015 Malignant neoplasm of tongue: Ventral surface of tongue; Note: dx with Dr Terrazas 08/19/14. T1N0 suspected . excised at [facility] 10/13/14 12/15/14 elective neck dsxn and re-resect ion of tongue 0/22LN, negative residual in tongue. Dr Ragland to give XRT ; Start Date : 5 Maligna nt neoplasm of anterior two-third s of tongue, ventral surface; Note: Date Diagnosed : 07/25/2015 5:14 PM (C02.2) Not Available [facility] 4 02:54:35 Problem Notes None recorded. Procedures Surgical History Date Name Laterality Status Provider Name and Address Organization Details Recorded Time 06/05/2024 FOL_DP completed CHAZ PIPER MD [address] [place] [address], [id number] 06/04/2024 21:35:13 Imaging Results None recorded. Procedure Notes None recorded. Medical Equipment None Reported. Medications Name Sig Start Date Stop Date Status Note LastModified by Organization Details LastModified Time Prescript ion - Prior Authoriza tion Request active Script Copy/Sandra or Auth^Scr ipt Copy/Sandra or Auth_201 [id number] Not Available Not Available Not Available nystatin 100,000 unit/mL oral suspensio n active Medicati on ID: [id number] P rescribe d By Name: Chaz Piper M.D. Bra nd Name: nystatin Send Method: E-Prescr ibed Sub s Allowed: subs OK Speci al Instruct ion: 5 ml swish and swallow four times daily x 2-4 weeks Me dication GenericN fannie: nystatin Not Available Not Available Not Available venlafaxi ne ER 75 mg capsule,e xtended release 24 hr active Medicati on ID: [id number] B rand Name: venlafax ine Send Method: E-Prescr ibed Sub s Allowed: subs OK Medic ationGen ericName : venlafax ine Not Available Not Available Not Available lisinopri l 20 mg-hydroc hlorothia zide 12.5 mg tablet active Medicati on ID: [id number] B rand Name: lisinopr il-hydro chloroth iazide S end Method: E-Prescr ibed Sub s Allowed: subs OK Medic ationGen ericName : lisinopr il-hydro chloroth iazide Not Available Not Available Not Available lisinopri l 20 mg tablet active Medicati on ID: [id number] B rand Name: lisinopr il Send Method: E-Prescr ibed Sub s Allowed: subs OK Medic ationGen ericName : lisinopr il Not Available Not Available Not Available Peridex 0.12 % mouthwash 02/09 completed Medicati on ID: [id number] Pr escribed By Name: Joel Chand nd Name: Peridex Send Method: E-Prescr ibed Sub s Allowed: subs OK Speci al Instruct ion: 10 ml swish and spit after meals for 2 week Med icationG enericNa me: Peridex Not Available Not Available Not Available oxycodone 5 mg/5 mL oral solution 5-10 ml by mouth 12/20 completed Medicati on ID: [id number] Du ration Value: 7 Prescri bed By Name: Joel Chand nd Name: oxycodon e Send Method: E-Prescr ibed Sub s Allowed: subs OK Medic ationGen ericName : oxycodon e Not Available Not Available Not Available sulfameth oxazole 800 mg-trimet hoprim 160 mg tablet active Not Available Not Available Not Available amoxicill in 875 mg tablet active Not Available Not Available Not Available calcitoni n (salmon) 200 unit/actu ation nasal spray 02/09 completed Medicati on ID: [id number] Du ration Value: 30 Reason: () Brand Name: calciton in (salmon) Send Method: E-Prescr ibed Sub s Allowed: subs OK Speci al Instruct ion: INHALE 1 SPRAY ALTERNAT ING NOSTRILS ONCE A DAY Medi cationGe nericNam e: calciton in (salmon) Not Available Not Available Not Available benzonata te 100 mg capsule active Not Available Not Available Not Available levothyro xine 125 mcg tablet active Not Available Not Available Not Available betametha sone dipropion ate 0.05 % topical cream active Not Available Not Available Not Available omeprazol e 20 mg capsule,d elayed release 1 capsule by mouth 2018 active Medicati on ID: [id number] D uration Value: 30 Prescri bed By Name: Joel Chand nd Name: omeprazo le Send Method: E-Prescr ibed Sub s Allowed: subs OK Medic ationGen ericName : omeprazo le Not Available Not Available Not Available diclofena c sodium 75 mg tablet,de layed release 05/30 completed Medicati on ID: [id number] D uration Value: 30 Brand Name: diclofen ac sodium S end Method: E-Prescr ibed Sub s Allowed: subs OK Medic ationGen ericName : diclofen ac sodium Not Available Not Available Not Available mupirocin 2 % topical ointment 05/30 completed Medicati on ID: [id number] D uration Value: 5 Brand Name: mupiroci n Send Method: E-Prescr ibed Sub s Allowed: subs OK Medic ationGen ericName : mupiroci n Not Available Not Available Not Available Percocet 5 mg-325 mg tablet 2014 active Medicati on ID: [id number] Du ration Value: 10 Prescri bed By Name: Joel Chand nd Name: Percocet Send Method: E-Prescr ibed Sub s Allowed: subs OK Speci al Instruct ion: 1-2 tablet PO every 4-6 hour PRN pain Med icationG enericNa me: Percocet Not Available Not Available Not Available clotrimaz ole 1 % topical cream active Not Available Not Available Not Available sertralin e 50 mg tablet active Medicati on ID: [id number] B rand Name: sertrali ne Send Method: E-Prescr ibed Sub s Allowed: subs OK Medic ationGen ericName : sertrali ne Not Available Not Available Not Available lisinopri l 2.5 mg tablet 05/30 completed Medicati on ID: [id number] Du ration Value: 30 Brand Name: lisinopr il Send Method: E-Prescr ibed Sub s Allowed: subs OK Speci al Instruct ion: TAKE 1 TABLET BY MOUTH DAILY. Haider Almanza Name: lisinopr il Not Available Not Available Not Available doxycycli ne hyclate 100 mg tablet 05/30 completed Medicati on ID: [id number] D uration Value: 10 Brand Name: doxycycl ine hyclate Send Method: E-Prescr ibed Sub s Allowed: subs OK Speci al Instruct ion: TAKE 1 TABLET BY MOUTH EVERY 12 HOURS FOR 10 DAYS Med icationG enericNa me: doxycycl ine hyclate Not Available Not Available Not Available levothyro xine 112 mcg tablet 05/30 completed Medicati on ID: [id number] Du ration Value: 30 Brand Name: levothyr oxine Se nd Method: E-Prescr ibed Sub s Allowed: subs OK Speci al Instruct ion: TAKE 1 TABLET EVERY DAY Medi cationGe nericNam e: levothyr oxine Not Available Not Available Not Available losartan 100 mg-hydroc hlorothia zide 12.5 mg tablet active Not Available Not Available No t Available Sodium Fluoride 5000 Plus 1.1 % dental cream active Not Available Not Available Not Available Vitals Date Recorded Body height Body mass index (BMI) Body weight Provider Name and Address Organization Details Last Updated DateTime 06/05/2024 170.18 cm 22.7 kg/m2 25075.89 g Tara Hernandez [place] - [facility] 06/05/2024 09:11:23 Social History None recorded. Functional Status None recorded. Mental Status None recorded. Family History Nothing Reported. Medical History No medical history recorded. Gynecological HistoryNo gynecological history recorded. Obstetrics History GPAL:G 0 P 0 0 0 0 Past Encounters Encounter ID Performer Location Encounter Start Date Encounter Closed Date Diagnosis/Indication Diagnosis SNOMED-CT Code Diagnosis ICD10 Code [id number] CHAZ PIPER MD [facility] [address] [address] 06/05/2024 08:57:41 06/05/2024 09:29:44 History of malignant neoplasm of tongue 437227516 Z85.810 Health Concerns Section Related Observation LastModified by Organization Detai ls LastModified Time None Recorded Concern Status LastModified by Organization Details LastModified Time None Recorded Advance Directives Directive None Recorded Payers Encounter Date Sequence Insurance Name Policy Number Policy Rhoades Covered Member ID Rhoades Member ID Guarantor Name 06/05/2024 1 [employer] [place]) [id number] Rosalie Cervonayco [id number] [address] A Cervonayco Notes Date Note Type Note Provider Name and Address Organization Details Recorded Time 06/05/2024 text/html Tumor Location: Left tongueTumor staging: T1N0 SCCATreatment: excision @ [facility] 10/13/14, elective neck dsxn & re-resection of tongue LN 12/15/14, XRTDate of treatment completion: 05/15/15Oncology team: Dr. Ragland/Feliz staying busy with a second job at [employer] another tooth extraction early Dec CHAZ PIPER MD [address] [place] [address],[place] [address], [place], [address], [facility] - [facility] 06/05/2024 09:27:49 OBGyn Episode No OBEpisode recorded.
--- OUTSIDE RECORDS SUMMARY | 2024-07-02 02:59 | XMS_ITS | Patient Health Record ---
Author Organization [facility] Address [address] [place] [address] Care Team Providers Care Drivability Technician Name Role Phone Zamzam Bauer Primary Care Provider UnavailLewis Quesada Jr Unavailable ALLERGIES No Known Allergies REASON FOR REFERRAL No Information MEDICATIONS Medication SIG (Take, Route, Frequency, Duration) Notes Start Date End Date Status Sertraline HCl 50 MG Oral for 90 Active MiraLax (colon prep) 17 GM/SCOOP mixed with Gatorade or Crystal Light Orally begin at 5:00 p.m. the day before the procedure for 1 day 09/08/2021 Active Multi Vitamin/Minerals Orally Active Vancocin 125 MG 1 capsule 4 times da dmitriy for 10 days, twice daily for 7 days, once daily for 7 days, then once every other day for 14 days Orally for 38 days 11/28/2021 Active Fidaxomicin 200 MG 1 tablet Orally Twic e a day for 10 day(s) 01/16/2022 Active Lisinopril 10 MG Oral for 90 A ctive B50 Complex TR - as directed Orally h ig folic acid Active Tupman 150 MG as directed Orally aerial xtract Active Levothyroxine Sodium 137 MCG 1 tablet Or ally Once a day Active Rufino-Mag 500-250 MG 1 tablet Orally Once a day/citrate Active IMMUNIZATIONS Vaccine Route Administration Date Status Comme nts Influenza Unknown 04/21/2021 Administered SOCIAL HISTORY Sex Assigned At : Social History Observation Description Sex Assigned At Unknown Alcohol Screen Question Answer Notes Did you have a drink contain ing alcohol in the past year? Yes How often did you have a dri nk containing alcohol in the past year? Monthly or less (1 point) How many drinks did you have on a typical day when you were drinking in the past year? 1 or 2 drinks (0 point) How often did you have 6 or more drinks on one occasion in the past year? Never (0 point) Points 1 Interpretation Negative PROBLEMS Problem Type ICD Code Onset Dates Problem Status W/U Status Risk SNOMED Code Notes Problem Family history of colon cancer (Z80.0) Active confirmed 967083750 Problem Dysphagia, unspecified type (R13.10) Active confirmed 24549729 Problem Diarrhea, unspecified type (R19.7) Active confirmed 15205539 Problem Colon cancer screening (Z12.11) Active confirmed 869503841 PLAN OF TREATMENT Pending Test Test Name Order Date BUN 10/25/2021 LIVER PROFILE 10/25/2021 LIPASE 10/25/2021 CBC w DIFF 10/25/2021 OVA & PARASITES (O&P) 10/25/2021 CT ABD & PELVIS WITH CONTRAST 10/25/2021 XR GI SERIES 10/25/2021 STOOL WBC 10/25/2021 C DIFFICILE RFLX PCR 11/24/2021 C DIFFICILE RFLX PCR 01/15/2022 C DIFFICILE RFLX PCR 10/25/2021 Future Test Test Name Order Date UPPER GI ENDOSCOPY 04/26/2016 COLONOSCOPY 04/26/2016 COLONOSCOPY 09/08/2021 Insurance Providers Payer Name Payer Address Payer Phone Subscriber Number Group Number Insured Name Patient Relationship to Insured Coverage Start Date Coverage End Date [employer] [place] [address] [address] [place] [address] [id number] GENESIS MCKEON Self - patient is the insured MEDICAL (GENERAL) HISTORY Medical History History ICD Code colonoscopy 07/20/16, benign polyps x2, five-year followup because of family history. left breast cancer in 2002 t reatd with lumpectomy, lymph nodes were all negative breast cancer on the right i n 2005 lumpectomy and lymph node disection showing one posiitve node. Hypertension osteopenia hashimotos Abdominal aortic aneurysm Surgical History Surgery Date(Month/Year) bilateral salpingooophorectomy in 2006 lumpectomy in both breast oral cancer on tongue T1, N0 - jul 2014 was dx (2) surggemma-Dr. Chaz Piper 2015 radiation head and neck - [facility] april 2015 tooth extraction future eye surgery aug
--- OUTSIDE RECORDS SUMMARY | 2024-07-02 02:59 | XMS_ITS | Continuity of Care Document ---
Author Organization [place] - [facility], [facility] Address [address] [place] [address] Care Team Providers Care Sow Farm Technician Name Role Phone PHILLIP CHIANG Primary Care [...] Organization Details Recorded Time Respirato ry finding [id number] Active 2020 Feeling of foreign body in throat; Note: Date Diagnosed : 09/16/2015 1:43 PM (R09.89) Not Available [facility] 4 02:54:36 Cardiovas cular finding 020015631 Active 2020 Feeling of foreign body in throat; Note: Date Diagnosed : 09/16/2015 1:43 PM (R09.89) Not Available [facility] 4 02:54:36 Follow-up visit Active 2018 Encounter for follow-up examinati on after completed treatment for malignant neoplasm; Note: Date Diagnosed : 05/27/2019 3:07 PM (Z08) Not Available [facility] 4 02:54:34 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 64670160630 07 Active 2015 Leukoplak ia of oral mucosa, including tongue; Note: Date Diagnosed : 02/10/2016 4:29 PM (K13.21) Not Available [facility] 4 02:54:38 Hypothyro idism 40084077 Active 2020 Hypothyro idism, unspecifi ed; Note: Date Diagnosed : 11/17/2020 10:12 AM (E03.9) Not Available [facility] 4 02:54:39 Postopera tive follow-up visit Active 2014 Post op; Note: Date Diagnosed : 10/22/2014 2:49 PM (V67.00) Not Available [facility] 4 02:54:37 History of malignant neoplasm of tongue 938131198 Active 2018 Tumor Location: Left tongue Tumor staging: T1N0 SCCA Treatment : excision @ [facility] 10/13/14, elective neck dsxn & re-resect ion of tongue LN 12/15/14, XRT Date of treatment completio n: 05/15/15 Oncology team: Dr. Ragland/Laurie PIPER MD [address] [place] [address], [place], [address] , [facility] 4 21:32:55 Dysphonia 34836753 Active 2021 Dysphonia ; Note: Date Diagnosed : 05/25/2022 10:11 AM (R49.0) Not Available [facility] 4 02:54:36 Bilateral tinnitus 50676360342 02 Active 2018 Tinnitus, bilateral ; Note: Date Diagnosed : 05/25/2019 3:44 PM (H93.13) Not Available [facility] 4 02:54:37 Disturban ce of salivary secretion 75093502 Active 2018 Xerostomi a; Note: Date Diagnosed : 01/29/2019 4:14 PM (K11.7) Not Available [facility] 4 02:54:34 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 T1N0 suspected . excised at [facility] 10/13/14 12/15/14 elective neck dsxn and re-resect ion of tongue 0/22LN, negative residual in tongue. Dr Ragland to give XRT ; Start Date : 5 Maligna nt neoplasm of anterior two-third s of tongue, ventral surface; Note: Date Diagnosed : 07/25/2015 5:14 PM (C02.2) Not Available [facility] 4 02:54:35 Problem Notes None recorded. Procedures Surgical History Date Name Laterality Status Provider Name and Address Organization Details Recorded Time 06/05/2024 FOL_DP completed CHAZ PIPER MD [address] [place] [address], [address] - [facility] 06/04/2024 21:35:13 Imaging Results None recorded. Procedure Notes None recorded. Medical Equipment None Reported. Medications Name Sig Start Date Stop Date Status Note LastModified by Organization Details LastModified Time Prescript ion - Prior Authoriza tion Request active Script Copy/Sandra or Auth^Scr ipt Copy/Sandra or Auth_201 [id number] Not Available Not Available Not Available nystatin 100,000 unit/mL oral suspensio n active Medicati on ID: [id number] P rescribe d By Name: Chaz Piper M.D. Bra nd Name: nystatin Send Method: E-Prescr ibed Sub s Allowed: subs OK Speci al Instruct ion: 5 ml swish and swallow four times daily x 2-4 weeks Me dication GenericN fannie: nystatin Not Available Not Available Not Available venlafaxi ne ER 75 mg capsule,e xtended release 24 hr active Medicati on ID: [id number] B rand Name: venlafax ine Send Method: E-Prescr ibed Sub s Allowed: subs OK Medic ationGen ericName : venlafax ine Not Available Not Available Not Available lisinopri l 20 mg-hydroc hlorothia zide 12.5 mg tablet active Medicati on ID: [id number] B rand Name: lisinopr il-hydro chloroth iazide S end Method: E-Prescr ibed Sub s Allowed: subs OK Medic ationGen ericName : lisinopr il-hydro chloroth iazide Not Available Not Available Not Available lisinopri l 20 mg tablet active Medicati on ID: [id number] B rand Name: lisinopr il Send Method: E-Prescr ibed Sub s Allowed: subs OK Medic ationGen ericName : lisinopr il Not Available Not Available Not Available Peridex 0.12 % mouthwash 02/09 completed Medicati on ID: [id number] Pr escribed By Name: Joel Chand nd Name: Peridex Send Method: E-Prescr ibed Sub s Allowed: subs OK Speci al Instruct ion: 10 ml swish and spit after meals for 2 week Med icationG enericNa me: Peridex Not Available Not Available Not Available oxycodone 5 mg/5 mL oral solution 5-10 ml by mouth 12/20 completed Medicati on ID: [id number] Du ration Value: 7 Prescri bed By [...] nasal spray 02/09 completed Medicati on ID: [id number] Du ration Value: 30 Reason: () Brand [...] by mouth 2018 active Medicati on ID: [id number] D uration Value: 30 Prescri bed By Name: Joel Chand nd Name: omeprazo le Send Method: E-Prescr ibed Sub s Allowed: subs OK Medic ationGen ericName : omeprazo le Not Available Not Available Not Available diclofena c sodium 75 mg tablet,de layed release 05/30 completed Medicati on ID: [id number] D uration Value: 30 Brand Name: diclofen ac sodium S end Method: E-Prescr ibed Sub s Allowed: subs OK Medic ationGen ericName : diclofen ac sodium Not Available Not Available Not Available mupirocin 2 % topical ointment 05/30 completed Medicati on ID: [id number] D uration Value: 5 Brand Name: mupiroci n Send Method: E-Prescr ibed Sub s Allowed: subs OK Medic ationGen ericName : mupiroci n Not Available Not Available Not Available Percocet 5 mg-325 mg tablet 2014 [place]: [id number] Du ration Value: 10 Prescri bed By [...] 50 mg tablet active Medicati on ID: [id number] B rand Name: sertrali ne Send Method: E-Prescr ibed Sub s Allowed: subs OK Medic ationGen ericName : sertrali ne Not Available Not Available Not Available lisinopri l 2.5 mg tablet 05/30 completed Medicati on ID: [id number] Du ration Value: 30 Brand Name: lisinopr il Send Method: E-Prescr ibed Sub s Allowed: subs OK Speci al Instruct ion: TAKE 1 TABLET BY MOUTH DAILY. Haider Almanza Name: lisinopr il Not Available Not Available Not Available doxycycli ne hyclate 100 mg tablet 05/30 completed Medicati on ID: [id number] D uration Value: 10 Brand Name: doxycycl ine hyclate Send Method: E-Prescr ibed Sub s Allowed: subs OK Speci al Instruct ion: TAKE 1 TABLET BY MOUTH EVERY 12 HOURS FOR 10 DAYS Med icationG enericNa me: doxycycl ine hyclate Not Available Not Available Not Available levothyro xine 112 mcg tablet 05/30 completed Medicati on ID: [id number] Du ration Value: 30 Brand Name: levothyr [...] Updated DateTime 06/05/2024 170.18 cm 22.7 kg/m2 02510.89 g Tara Hernandez [place] - [facility] 06/05/2024 09:11:23 Social History None recorded. Functional Status None recorded. Mental Status None recorded. Family History Nothing Reported. Medical History No medical history recorded. Gynecological HistoryNo gynecological history recorded. Obstetrics History GPAL:G 0 P 0 0 0 0 Past Encounters Encounter ID Performer Location Encounter Start Date Encounter Closed Date Diagnosis/Indication Diagnosis SNOMED-CT Code Diagnosis ICD10 Code [id number] CHAZ PIPER MD [facility] [address] [address] 06/05/2024 08:57:41 06/05/2024 09:29:44 History of malignant neoplasm of tongue 626961604 Z85.810 Health Concerns Section Related Observation LastModified by Organization Detai ls LastModified Time None Recorded Concern Status LastModified by Organization Details LastModified Time None Recorded Payers Encounter Date Sequence Insurance Name Policy Number Policy Rhoades Covered Member ID Rhoades Member ID Guarantor Name 06/05/2024 1 [employer] [place]) [id number] Sommer A Cervonayco [id number] Sommer Rosalie Cervonayco Notes Date Note Type Note Provider Name and Address Organization Details Recorded Time 06/05/2024 text/html Tumor Location: Left tongueTumor staging: T1N0 SCCATreatment: excision @ [facility] 10/13/14, elective neck dsxn & re-resection of tongue LN 12/15/14, XRTDate of treatment completion: 05/15/15Oncology team: Dr. Ragland/Feliz staying busy with a second job at [employer] another tooth extraction early Dec CHAZ PIPER MD [address] [place] [address], [place], [address], [facility] - [facility] 06/05/2024 09:27:49 OBGyn Episode No OBEpisode recorded.
== END 2024-07-01 15:24 | disposition home or self-care (01) ==
PROVIDERS: PCP Internal Medicine; Visit Provider Student in an Organized Health Care Education/Training Program
DX: M81.0 Age-related osteoporosis without current pathological fracture (principal)
CPT/HCPCS: 99213

== ENCOUNTER → 2024-07-01 15:03 | Outpatient (BNVA) | payer OTHER, SELFPAY | PROVIDERS: PCP Internal Medicine; Visit Provider Student in an Organized Health Care Education/Training Program ==

== ENCOUNTER 2024-07-07 10:33 | Outpatient (AMB) | payer OTHER, SELFPAY ==
--- OUTSIDE RECORDS SUMMARY | 2024-07-07 10:35 | XMS_ITS | Patient Health Record ---
Author Organization [facility] Address [address] [place] [address] Care Team Providers Care Tool Machine Setup Operator Name Role Phone Zamzam Bauer Primary Care Provider UnavailLewis Quesada Jr Unavailable [phone] ALLERGIES No Known Allergies REASON FOR REFERRAL [...] directed Orally h ig folic acid Active [place] 150 MG as directed Orally aerial xtract [...] history of colon cancer (Z80.0) Active confirmed 554080665 Problem Dysphagia, unspecified type (R13.10) Active confirmed 87290810 Problem Diarrhea, unspecified type (R19.7) Active confirmed 31808452 Problem Colon cancer screening (Z12.11) Active confirmed 075453609 PLAN OF TREATMENT Pending Test Test Name [...] Coverage Start Date Coverage End Date 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
--- OUTSIDE RECORDS SUMMARY | 2024-07-07 10:36 | XMS_ITS | Data Portability ---
Author Organization [place] - [facility], [facility] Address [address] [address] Care Team Providers Care Plumbing Designer Name Role Phone PHILLIP HCIANG Primary Care Provider Assessment Encounter Date Assessment [...] Organization Details Recorded Time Respirato ry finding 463725765 Active 2020 Feeling of foreign body in throat; Note: Date Diagnosed : 09/16/2015 1:43 PM (R09.89) Not Available [facility] 4 02:54:36 Cardiovas cular finding 673160961 Active 2020 Feeling of foreign body in throat; Note: Date Diagnosed : 09/16/2015 1:43 PM (R09.89) Not Available [facility] 4 02:54:36 Follow-up visit Active 2018 Encounter for follow-up examinati on after completed treatment for malignant neoplasm; Note: Date Diagnosed : 05/27/2019 3:07 PM (Z08) Not Available [facility] 4 02:54:34 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 86493172480 07 Active 2015 Leukoplak ia of oral mucosa, including tongue; Note: Date Diagnosed : 02/10/2016 4:29 PM (K13.21) Not Available [facility] 4 02:54:38 Hypothyro idism 17582618 Active 2020 Hypothyro idism, unspecifi ed; Note: Date Diagnosed : 11/17/2020 10:12 AM (E03.9) Not Available [facility] 4 02:54:39 Postopera tive follow-up visit Active 2014 Post op; Note: Date Diagnosed : 10/22/2014 2:49 PM (V67.00) Not Available [facility] 4 02:54:37 History of malignant neoplasm of tongue 898164960 Active 2018 Tumor Location: Left tongue Tumor staging: T1N0 SCCA Treatment : excision @ [facility] 10/13/14, elective neck dsxn & re-resect ion of tongue LN 12/15/14, XRT Date of treatment completio n: 05/15/15 Oncology team: Dr. Ragland/Laurie PIPER MD [address] [place] [address], [facility] [place], [address] , [facility] - [facility] 4 21:32:55 Dysphonia 55942993 Active 2021 Dysphonia ; Note: Date Diagnosed : 05/25/2022 10:11 AM (R49.0) Not Available [facility] 4 02:54:36 Bilateral tinnitus 07755892768 02 Active 2018 Tinnitus, bilateral ; Note: Date Diagnosed : 05/25/2019 3:44 PM (H93.13) Not Available [facility] 4 02:54:37 Disturban ce of salivary secretion 86616640 Active 2018 Xerostomi a; Note: Date Diagnosed : 01/29/2019 4:14 PM (K11.7) Not Available [facility] 4 02:54:34 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 T1N0 suspected . excised at [facility] 10/13/14 12/15/14 elective neck dsxn and re-resect ion of tongue 0/22LN, negative residual in tongue. Dr Ragland to give XRT ; Start Date : 5 Maligna nt neoplasm of anterior two-third s of tongue, ventral surface; Note: Date Diagnosed : 07/25/2015 5:14 PM (C02.2) Not Available [facility] 4 02:54:35 Problem Notes None recorded. Procedures Surgical History Date Name Laterality Status Provider Name and Address Organization Details Recorded Time 06/05/2024 FOL_DP completed CHAZ PIPER MD [address] [place] [address], [id number] 06/04/2024 21:35:13 Imaging Results None recorded. Procedure Notes None recorded. Medical Equipment None Reported. Medications Name Sig Start Date Stop Date Status Note LastModified by Organization Details LastModified Time Prescript ion - Prior Authoriza tion Request active Script Copy/Sandra or Auth^Scr ipt Copy/Sandra or Auth_201 [id number] Not Available Not Available Not Available nystatin 100,000 unit/mL oral suspensio n active Medicati on ID: [id number] P rescribe d By Name: Chaz Piper M.D. Bra nd Name: nystatin Send Method: E-Prescr ibed Sub s Allowed: subs OK Speci al Instruct ion: 5 ml swish and swallow four times daily x 2-4 weeks Me dication GenericN fannie: nystatin Not Available Not Available Not Available venlafaxi ne ER 75 mg capsule,e xtended release 24 hr active Medicati on ID: [id number] B rand Name: venlafax ine Send Method: E-Prescr ibed Sub s Allowed: subs OK Medic ationGen ericName : venlafax ine Not Available Not Available Not Available lisinopri l 20 mg-hydroc hlorothia zide 12.5 mg tablet active Medicati on ID: [id number] B rand Name: lisinopr il-hydro chloroth iazide S end Method: E-Prescr ibed Sub s Allowed: subs OK Medic ationGen ericName : lisinopr il-hydro chloroth iazide Not Available Not Available Not Available lisinopri l 20 mg tablet active Medicati on ID: [id number] B rand Name: lisinopr il Send Method: E-Prescr ibed Sub s Allowed: subs OK Medic ationGen ericName : lisinopr il Not Available Not Available Not Available Peridex 0.12 % mouthwash 02/09 completed Medicati on ID: [id number] Pr escribed By Name: Joel Chand nd Name: Peridex Send Method: E-Prescr ibed Sub s Allowed: subs OK Speci al Instruct ion: 10 ml swish and spit after meals for 2 week Med icationG enericNa me: Peridex Not Available Not Available Not Available oxycodone 5 mg/5 mL oral solution 5-10 ml by mouth 12/20 completed Medicati on ID: [id number] Du ration Value: 7 Prescri bed By [...] nasal spray 02/09 completed Medicati on ID: [id number] Du ration Value: 30 Reason: () Brand [...] by mouth 2018 active Medicati on ID: [id number] D uration Value: 30 Prescri bed By Name: Joel Chand nd Name: omeprazo le Send Method: E-Prescr ibed Sub s Allowed: subs OK Medic ationGen ericName : omeprazo le Not Available Not Available Not Available diclofena c sodium 75 mg tablet,de layed release 05/30 completed Medicati on ID: [id number] D uration Value: 30 Brand Name: diclofen ac sodium S end Method: E-Prescr ibed Sub s Allowed: subs OK Medic ationGen ericName : diclofen ac sodium Not Available Not Available Not Available mupirocin 2 % topical ointment 05/30 completed Medicati on ID: [id number] D uration Value: 5 Brand Name: mupiroci n Send Method: E-Prescr ibed Sub s Allowed: subs OK Medic ationGen ericName : mupiroci n Not Available Not Available Not Available Percocet 5 mg-325 mg tablet 2014 active Medicati on ID: [id number] Du ration Value: 10 Prescri bed By [...] 50 mg tablet active Medicati on ID: [id number] B rand Name: sertrali ne Send Method: E-Prescr ibed Sub s Allowed: subs OK Medic ationGen ericName : sertrali ne Not Available Not Available Not Available lisinopri l 2.5 mg tablet 05/30 completed Medicati on ID: [id number] Du ration Value: 30 Brand Name: lisinopr il Send Method: E-Prescr ibed Sub s Allowed: subs OK Speci al Instruct ion: TAKE 1 TABLET BY MOUTH DAILY. Haider Almanza Name: lisinopr il Not Available Not Available Not Available doxycycli ne hyclate 100 mg tablet 05/30 completed Medicati on ID: [id number] D uration Value: 10 Brand Name: doxycycl ine hyclate Send Method: E-Prescr ibed Sub s Allowed: subs OK Speci al Instruct ion: TAKE 1 TABLET BY MOUTH EVERY 12 HOURS FOR 10 DAYS Med icationG enericNa me: doxycycl ine hyclate Not Available Not Available Not Available levothyro xine 112 mcg tablet 05/30 completed Medicati on ID: [id number] Du ration Value: 30 Brand Name: levothyr [...] Updated DateTime 06/05/2024 170.18 cm 22.7 kg/m2 36631.89 g Tara Hernandez [place] - [facility] 06/05/2024 09:11:23 Social History None recorded. Functional Status None recorded. Mental Status None recorded. Family History Nothing Reported. Medical History No medical history recorded. Gynecological HistoryNo gynecological history recorded. Obstetrics History GPAL:G 0 P 0 0 0 0 Past Encounters Encounter ID Performer Location Encounter Start Date Encounter Closed Date Diagnosis/Indication Diagnosis SNOMED-CT Code Diagnosis ICD10 Code [id number] CHAZ PIPER MD [facility] [address] [address] 06/05/2024 08:57:41 06/05/2024 09:29:44 History of malignant neoplasm of tongue 283399718 Z85.810 Health Concerns Section Related Observation LastModified by Organization Detai ls LastModified Time None Recorded Concern Status LastModified by Organization Details LastModified Time None Recorded Advance Directives Directive None Recorded Payers Encounter Date Sequence Insurance Name Policy Number Policy Rhoades Covered Member ID Rhoades Member ID Guarantor Name 06/05/2024 1 [employer] [place]) [id number] Sommer Rosalie Cervonayco [id number] Sommer A Cervonayco Notes Date Note Type Note Provider Name and Address Organization Details Recorded Time 06/05/2024 text/html Tumor Location: Left tongueTumor staging: T1N0 SCCATreatment: excision @ [facility] 10/13/14, elective neck dsxn & re-resection of tongue LN 12/15/14, XRTDate of treatment completion: 05/15/15Oncology team: Dr. Ragland/Feliz staying busy with a second job at [employer] another tooth extraction early Dec CHAZ PIPER MD [address] [place] [address],[place] [address], [place], [address], [facility] - [facility] 06/05/2024 09:27:49 OBGyn Episode No OBEpisode recorded.
--- OUTSIDE RECORDS SUMMARY | 2024-07-07 10:36 | XMS_ITS | Continuity of Care Document ---
Author Organization [place] - [facility], [facility] Address [address] [place] [address] Care Team Providers Care Stone And Plate Preparer Apprentice Name Role Phone PHILLIP CHIANG Primary Care [...] Organization Details Recorded Time Respirato ry finding [id number] Active 2020 Feeling of foreign body in throat; Note: Date Diagnosed : 09/16/2015 1:43 PM (R09.89) Not Available [facility] 4 02:54:36 Cardiovas cular finding 409455418 Active 2020 Feeling of foreign body in throat; Note: Date Diagnosed : 09/16/2015 1:43 PM (R09.89) Not Available [facility] 4 02:54:36 Follow-up visit Active 2018 Encounter for follow-up examinati on after completed treatment for malignant neoplasm; Note: Date Diagnosed : 05/27/2019 3:07 PM (Z08) Not Available [facility] 4 02:54:34 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 93061059835 07 Active 2015 Leukoplak ia of oral mucosa, including tongue; Note: Date Diagnosed : 02/10/2016 4:29 PM (K13.21) Not Available [facility] 4 02:54:38 Hypothyro idism 28499132 Active 2020 Hypothyro idism, unspecifi ed; Note: Date Diagnosed : 11/17/2020 10:12 AM (E03.9) Not Available [facility] 4 02:54:39 Postopera tive follow-up visit Active 2014 Post op; Note: Date Diagnosed : 10/22/2014 2:49 PM (V67.00) Not Available [facility] 4 02:54:37 History of malignant neoplasm of tongue 163107895 Active 2018 Tumor Location: Left tongue Tumor staging: T1N0 SCCA Treatment : excision @ [facility] 10/13/14, elective neck dsxn & re-resect ion of tongue LN 12/15/14, XRT Date of treatment completio n: 05/15/15 Oncology team: Dr. Ragland/Laurie PIPER MD [address] [place] [address], [facility] [place], [address] , [facility] 4 21:32:55 Dysphonia 37758081 Active 2021 Dysphonia ; Note: Date Diagnosed : 05/25/2022 10:11 AM (R49.0) Not Available [facility] 4 02:54:36 Bilateral tinnitus 12452987939 02 Active 2018 Tinnitus, bilateral ; Note: Date Diagnosed : 05/25/2019 3:44 PM (H93.13) Not Available [facility] 4 02:54:37 Disturban ce of salivary secretion 02642803 Active 2018 Xerostomi a; Note: Date Diagnosed : 01/29/2019 4:14 PM (K11.7) Not Available [facility] 4 02:54:34 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 T1N0 suspected . excised at [facility] 10/13/14 12/15/14 elective neck dsxn and re-resect ion of tongue 0/22LN, negative residual in tongue. Dr Ragland to give XRT ; Start Date : 5 Maligna nt neoplasm of anterior two-third s of tongue, ventral surface; Note: Date Diagnosed : 07/25/2015 5:14 PM (C02.2) Not Available [facility] 4 02:54:35 Problem Notes None recorded. Procedures Surgical History Date Name Laterality Status Provider Name and Address Organization Details Recorded Time 06/05/2024 FOL_DP completed CHAZ PIPER MD [address] [place] [address], [id number] - [facility] 06/04/2024 21:35:13 Imaging Results None recorded. Procedure Notes None recorded. Medical Equipment None Reported. Medications Name Sig Start Date Stop Date Status Note LastModified by Organization Details LastModified Time Prescript ion - Prior Authoriza tion Request active Script Copy/Sandra or Auth^Scr ipt Copy/Sandra or Auth_201 31605 Not Available Not Available Not Available nystatin 100,000 unit/mL oral suspensio n active Medicati on ID: [id number] P rescribe d By Name: Chaz Piper M.D. Bra nd Name: nystatin Send Method: E-Prescr ibed Sub s Allowed: subs OK Speci al Instruct ion: 5 ml swish and swallow four times daily x 2-4 weeks Me dication GenericN fannie: nystatin Not Available Not Available Not Available venlafaxi ne ER 75 mg capsule,e xtended release 24 hr active Medicati on ID: [id number] B rand Name: venlafax ine Send Method: E-Prescr ibed Sub s Allowed: subs OK Medic ationGen ericName : venlafax ine Not Available Not Available Not Available lisinopri l 20 mg-hydroc hlorothia zide 12.5 mg tablet active Medicati on ID: [id number] B rand Name: lisinopr il-hydro chloroth iazide S end Method: E-Prescr ibed Sub s Allowed: subs OK Medic ationGen ericName : lisinopr il-hydro chloroth iazide Not Available Not Available Not Available lisinopri l 20 mg tablet active Medicati on ID: [id number] B rand Name: lisinopr il Send Method: E-Prescr ibed Sub s Allowed: subs OK Medic ationGen ericName : lisinopr il Not Available Not Available Not Available Peridex 0.12 % mouthwash 02/09 completed Medicati on ID: [id number] Pr escribed By Name: Joel Chand nd Name: Peridex Send Method: E-Prescr ibed Sub s Allowed: subs OK Speci al Instruct ion: 10 ml swish and spit after meals for 2 week Med icationG enericNa me: Peridex Not Available Not Available Not Available oxycodone 5 mg/5 mL oral solution 5-10 ml by mouth 12/20 completed Medicati on ID: [id number] Du ration Value: 7 Prescri bed By [...] nasal spray 02/09 completed Medicati on ID: [id number] Du ration Value: 30 Reason: () Brand [...] by mouth 2018 active Medicati on ID: [id number] D uration Value: 30 Prescri bed By Name: Joel Chand nd Name: omeprazo le Send Method: E-Prescr ibed Sub s Allowed: subs OK Medic ationGen ericName : omeprazo le Not Available Not Available Not Available diclofena c sodium 75 mg tablet,de layed release 05/30 completed Medicati on ID: [id number] D uration Value: 30 Brand Name: diclofen ac sodium S end Method: E-Prescr ibed Sub s Allowed: subs OK Medic ationGen ericName : diclofen ac sodium Not Available Not Available Not Available mupirocin 2 % topical ointment 05/30 completed Medicati on ID: [id number] D uration Value: 5 Brand Name: mupiroci n Send Method: E-Prescr ibed Sub s Allowed: subs OK Medic ationGen ericName : mupiroci n Not Available Not Available Not Available Percocet 5 mg-325 mg tablet 2014 [place]: [id number] Du ration Value: 10 Prescri bed By [...] 50 mg tablet active Medicati on ID: [id number] B rand Name: sertrali ne Send Method: E-Prescr ibed Sub s Allowed: subs OK Medic ationGen ericName : sertrali ne Not Available Not Available Not Available lisinopri l 2.5 mg tablet 05/30 completed Medicati on ID: [id number] Du ration Value: 30 Brand Name: lisinopr il Send Method: E-Prescr ibed Sub s Allowed: subs OK Speci al Instruct ion: TAKE 1 TABLET BY MOUTH DAILY. Haider Almanza Name: lisinopr il Not Available Not Available Not Available doxycycli ne hyclate 100 mg tablet 05/30 completed Medicati on ID: [id number] D uration Value: 10 Brand Name: doxycycl ine hyclate Send Method: E-Prescr ibed Sub s Allowed: subs OK Speci al Instruct ion: TAKE 1 TABLET BY MOUTH EVERY 12 HOURS FOR 10 DAYS Med icationG enericNa me: doxycycl ine hyclate Not Available Not Available Not Available levothyro xine 112 mcg tablet 05/30 completed Medicati on ID: [id number] Du ration Value: 30 Brand Name: levothyr [...] Updated DateTime 06/05/2024 170.18 cm 22.7 kg/m2 35900.89 g Tara Hernandez [place] - [facility] 06/05/2024 09:11:23 Social History None recorded. Functional Status None recorded. Mental Status None recorded. Family History Nothing Reported. Medical History No medical history recorded. Gynecological HistoryNo gynecological history recorded. Obstetrics History GPAL:G 0 P 0 0 0 0 Past Encounters Encounter ID Performer Location Encounter Start Date Encounter Closed Date Diagnosis/Indication Diagnosis SNOMED-CT Code Diagnosis ICD10 Code [id number] CHAZ PIPER MD [facility] [address] [address] 06/05/2024 08:57:41 06/05/2024 09:29:44 History of malignant neoplasm of tongue 887035828 Z85.810 Health Concerns Section Related Observation LastModified by Organization Detai ls LastModified Time None Recorded Concern Status LastModified by Organization Details LastModified Time None Recorded Payers Encounter Date Sequence Insurance Name Policy Number Policy Rhoades Covered Member ID Rhoades Member ID Guarantor Name 06/05/2024 1 [employer] [place]) [id number] Sommer A Cervonayco [id number] Sommer Rosalie Cervonayco Notes Date Note Type Note Provider Name and Address Organization Details Recorded Time 06/05/2024 text/html Tumor Location: Left tongueTumor staging: T1N0 SCCATreatment: excision @ [facility] 10/13/14, elective neck dsxn & re-resection of tongue LN 12/15/14, XRTDate of treatment completion: 05/15/15Oncology team: Dr. Ragland/Feliz staying busy with a second job at [employer] another tooth extraction early Dec CHAZ PIPER MD [address] [place] [address], [place], [address], [facility] - [facility] 06/05/2024 09:27:49 OBGyn Episode No OBEpisode recorded.
--- NOTE | 2024-07-07 10:53 | AM.OFFVISNUR ---
Intake Visit Reasons: osteoporosis/evenity inj Allergies No Known Allergies [No Known Allergies*] Allergy (Verified 07/01/24 15:08) Office Meds romosozumab-aqqg 210 mg/2.34 mL(105 mg/1.17 mL x2)subcutaneous syringe Performing Provider: Brinda Barger MD Performing Location[place] [facility] Administered by: Natalee Winter RN on 07/07/24 10:53 Dose Route Admin Location Dispensed Lot Number Expiration Date [facility] [employer] 210 mg subcut bilateral upper arms 2.34 mL [id number] 04/20/26 60117-076-57 AMGEN Comments: Consent form signed by patient. Pt tolerated injections well. Pt observed for 15 minutes following injections without adverse reactions. Pt aware to watch for signs/symptoms of site reactions and to call with any increasing redness, warmth or swelling. Assessment & Plan Assessment & Plan Orders: Orders AMB Romosozumab Injection Patient Supplied Today M81.0 - Age-related osteoporosis without current pathological fracture Medications: New romosozumab-aqqg 210 mg (2.34 mL) subcut ONCE 2.34 mL 0RF M81.0 - Age-related osteoporosis without current pathological fracture
== END 2024-07-07 11:04 | disposition home or self-care (01) ==
PROVIDERS: PCP Internal Medicine; Visit Provider Student in an Organized Health Care Education/Training Program
DX: M81.0 Age-related osteoporosis without current pathological fracture (principal)

== ENCOUNTER → 2024-07-07 10:33 | Outpatient (BNVA) | payer OTHER, SELFPAY | PROVIDERS: PCP Internal Medicine; Visit Provider Student in an Organized Health Care Education/Training Program | DX: M81.0 Age-related osteoporosis without current pathological fracture (principal) | CPT/HCPCS: 96372; J3111 ==

== ENCOUNTER 2024-08-04 08:26 | Outpatient (AMB) | payer OTHER, SELFPAY ==
--- OUTSIDE RECORDS SUMMARY | 2024-08-04 08:46 | XMS_ITS | Continuity of Care Document ---
Author Organization [place] - [facility], [facility] Address [address] [place] [address] Care Team Providers Care Bank Vault Custodian Name Role Phone PHILLIP CHIANG Primary Care Provider [phone] Assessment Encounter Date Assessment Date Assessment LastModified [...] Organization Details Recorded Time Respirato ry finding 070438585 Active 2020 Feeling of foreign body in throat; Note: Date Diagnosed : 09/16/2015 1:43 PM (R09.89) Not Available [facility] 4 02:54:36 Cardiovas cular finding 107755668 Active 2020 Feeling of foreign body in throat; Note: Date Diagnosed : 09/16/2015 1:43 PM (R09.89) Not Available [facility] 4 02:54:36 Follow-up visit Active 2018 Encounter for follow-up examinati on after completed treatment for malignant neoplasm; Note: Date Diagnosed : 05/27/2019 3:07 PM (Z08) Not Available [facility] 4 02:54:34 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 74644363711 07 Active 2015 Leukoplak ia of oral mucosa, including tongue; Note: Date Diagnosed : 02/10/2016 4:29 PM (K13.21) Not Available [facility] 4 02:54:38 Hypothyro idism 42098305 Active 2020 Hypothyro idism, unspecifi ed; Note: Date Diagnosed : 11/17/2020 10:12 AM (E03.9) Not Available [facility] 4 02:54:39 Postopera tive follow-up visit Active 2014 Post op; Note: Date Diagnosed : 10/22/2014 2:49 PM (V67.00) Not Available [facility] 4 02:54:37 History of malignant neoplasm of tongue 603822872 Active 2018 Tumor Location: Left tongue Tumor staging: T1N0 SCCA Treatment : excision @ [facility] 10/13/14, elective neck dsxn & re-resect ion of tongue LN 12/15/14, XRT Date of treatment completio n: 05/15/15 Oncology team: Dr. Ragland/Laurie PIPER MD [address] [place] [address], [facility] [place], [address] , [facility] 4 21:32:55 Dysphonia 14187048 Active 2021 Dysphonia ; Note: Date Diagnosed : 05/25/2022 10:11 AM (R49.0) Not Available [facility] 4 02:54:36 Bilateral tinnitus 08936523056 02 Active 2018 Tinnitus, bilateral ; Note: Date Diagnosed : 05/25/2019 3:44 PM (H93.13) Not Available [facility] 4 02:54:37 Disturban ce of salivary secretion 04960938 Active 2018 Xerostomi a; Note: Date Diagnosed : 01/29/2019 4:14 PM (K11.7) Not Available [facility] 4 02:54:34 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 T1N0 suspected . excised at [facility] 10/13/14 12/15/14 elective neck dsxn and re-resect ion of tongue 0/22LN, negative residual in tongue. Dr Ragland to give XRT ; Start Date : 5 Maligna nt neoplasm of anterior two-third s of tongue, ventral surface; Note: Date Diagnosed : 07/25/2015 5:14 PM (C02.2) Not Available [facility] 4 02:54:35 Problem Notes None recorded. Procedures Surgical History Date Name Laterality Status Provider Name and Address Organization Details Recorded Time 06/05/2024 FOL_DP completed CHAZ PIPER MD [address] [place] [address], [phone] - [facility] 06/04/2024 21:35:13 Imaging Results None recorded. Procedure Notes None recorded. Medical Equipment None Reported. Medications Name Sig Start Date Stop Date Status Note LastModified by Organization Details LastModified Time Prescript ion - Prior Authoriza tion Request active Script Copy/Sandra or Auth^Scr ipt Copy/Sandra or Auth_201 60721 Not Available Not Available Not Available nystatin 100,000 unit/mL oral suspensio n active Medicati on ID: [id number] P rescribe d By Name: Chaz Piper M.D. Bra nd Name: nystatin Send Method: E-Prescr ibed Sub s Allowed: subs OK Speci al Instruct ion: 5 ml swish and swallow four times daily x 2-4 weeks Me dication GenericN fannie: nystatin Not Available Not Available Not Available venlafaxi ne ER 75 mg capsule,e xtended release 24 hr active Medicati on ID: [id number] B rand Name: venlafax ine Send Method: E-Prescr ibed Sub s Allowed: subs OK Medic ationGen ericName : venlafax ine Not Available Not Available Not Available lisinopri l 20 mg-hydroc hlorothia zide 12.5 mg tablet active Medicati on ID: [id number] B rand Name: lisinopr il-hydro chloroth iazide S end Method: E-Prescr ibed Sub s Allowed: subs OK Medic ationGen ericName : lisinopr il-hydro chloroth iazide Not Available Not Available Not Available lisinopri l 20 mg tablet active Medicati on ID: [id number] B rand Name: lisinopr il Send Method: E-Prescr ibed Sub s Allowed: subs OK Medic ationGen ericName : lisinopr il Not Available Not Available Not Available Peridex 0.12 % mouthwash 02/09 completed Medicati on ID: [id number] Pr escribed By Name: Joel Chand nd Name: Peridex Send Method: E-Prescr ibed Sub s Allowed: subs OK Speci al Instruct ion: 10 ml swish and spit after meals for 2 week Med icationG enericNa me: Peridex Not Available Not Available Not Available oxycodone 5 mg/5 mL oral solution 5-10 ml by mouth 12/20 [place]: [id number] Du ration Value: 7 Prescri bed By [...] nasal spray 02/09 completed Medicati on ID: [id number] Du ration Value: 30 Reason: () Brand [...] by mouth 2018 active Medicati on ID: [id number] D uration Value: 30 Prescri bed By Name: Joel Chand nd Name: omeprazo le Send Method: E-Prescr ibed Sub s Allowed: subs OK Medic ationGen ericName : omeprazo le Not Available Not Available Not Available diclofena c sodium 75 mg tablet,de layed release 05/30 completed Medicati on ID: [id number] D uration Value: 30 Brand Name: diclofen ac sodium S end Method: E-Prescr ibed Sub s Allowed: subs OK Medic ationGen ericName : diclofen ac sodium Not Available Not Available Not Available mupirocin 2 % topical ointment 05/30 completed Medicati on ID: [id number] D uration Value: 5 Brand Name: mupiroci n Send Method: E-Prescr ibed Sub s Allowed: subs OK Medic ationGen ericName : mupiroci n Not Available Not Available Not Available Percocet 5 mg-325 mg tablet 2014 active Medicati on ID: [id number] Du ration Value: 10 Prescri bed By [...] 50 mg tablet active Medicati on ID: [id number] B rand Name: sertrali ne Send Method: E-Prescr ibed Sub s Allowed: subs OK Medic ationGen ericName : sertrali ne Not Available Not Available Not Available lisinopri l 2.5 mg tablet 05/30 completed Medicati on ID: [id number] Du ration Value: 30 Brand Name: lisinopr il Send Method: E-Prescr ibed Sub s Allowed: subs OK Speci al Instruct ion: TAKE 1 TABLET BY MOUTH DAILY. Haider Almanza Name: lisinopr il Not Available Not Available Not Available doxycycli ne hyclate 100 mg tablet 05/30 completed Medicati on ID: [id number] D uration Value: 10 Brand Name: doxycycl ine hyclate Send Method: E-Prescr ibed Sub s Allowed: subs OK Speci al Instruct ion: TAKE 1 TABLET BY MOUTH EVERY 12 HOURS FOR 10 DAYS Med icationG enericNa me: doxycycl ine hyclate Not Available Not Available Not Available levothyro xine 112 mcg tablet 05/30 completed Medicati on ID: [id number] Du ration Value: 30 Brand Name: levothyr [...] Updated DateTime 06/05/2024 170.18 cm 22.7 kg/m2 48172.89 g Tara Hernandez [place] - [facility] 06/05/2024 09:11:23 Social History None recorded. Functional Status None recorded. Mental Status None recorded. Family History Nothing Reported. Medical History No medical history recorded. Gynecological HistoryNo gynecological history recorded. Obstetrics History GPAL:G 0 P 0 0 0 0 Past Encounters Encounter ID Performer Location Encounter Start Date Encounter Closed Date Diagnosis/Indication Diagnosis SNOMED-CT Code Diagnosis ICD10 Code Diagnosis Note [id number] CHAZ PIPER MD [facility] of [address] [address] 06/05/2024 08:57:41 06/05/2024 09:29:44 History of malignant neoplasm of tongue 760871278 Z85.810 Health Concerns Section Related Observation LastModified by Organization Detai ls LastModified Time None Recorded Concern Status LastModified by Organization Details LastModified Time None Recorded Payers Encounter Date Sequence Insurance Name Policy Number Policy Rhoades Covered Member ID Rhoades Member ID Guarantor Name 06/05/2024 1 [employer] [place]) [id number] Sommer Sorensononayco [id number] Sommer Sorensononayco Notes Date Note Type Note Provider Name and Address Organization Details Recorded Time 06/05/2024 text/html Tumor Location: Left tongueTumor staging: T1N0 SCCATreatment: excision @ [facility] [place]13[place]14, elective neck dsxn & re-resection of tongue LN 12/15/14, XRTDate of treatment completion: 05/15/15Oncology team: Dr. Ragland/Feliz staying busy with a second job at [employer] another tooth extraction early Dec CHAZ PIPER MD [address] [place] [address], [place], [address], [facility] - [facility] 06/05/2024 09:27:49 OBGyn Episode No OBEpisode recorded.
--- OUTSIDE RECORDS SUMMARY | 2024-08-04 08:46 | XMS_ITS | Patient Health Record ---
Author Organization [facility] Address [address] [place] [address] Care Team Providers Care Bottom Crane Operator Name Role Phone Zamzam Bauer Primary Care Provider UnavailLewis Quesada Jr Unavailable [phone] ALLERGIES No Known Allergies REASON FOR REFERRAL [...] directed Orally h ig folic acid Active [place] 150 MG as directed Orally aerial xtract [...] history of colon cancer (Z80.0) Active confirmed [id number] Problem Dysphagia, unspecified type (R13.10) Active confirmed 24560376 Problem Diarrhea, unspecified type (R19.7) Active confirmed 00869754 Problem Colon cancer screening (Z12.11) Active confirmed 930607598 PLAN OF TREATMENT Pending Test Test Name [...] Coverage Start Date Coverage End Date [employer] [place] [address] [address] [place] [address] [id number] GENESIS MCKEON Self - patient is [...] Piper 2015 radiation head and neck - [facility] april 2015 tooth extraction future eye surgery aug
--- OUTSIDE RECORDS SUMMARY | 2024-08-04 08:46 | XMS_ITS | Data Portability ---
Author Organization [place] [facility] Formerly [facility], Allergy Address [address] [address] Care Team Providers Care Diagram Clerk Name Role Phone PHILLIP CHIANG Primary Care Provider [phone] Assessment Encounter Date Assessment Date Assessment LastModified [...] Organization Details Recorded Time Respirato ry finding 443329618 Active 2020 Feeling of foreign body in throat; Note: Date Diagnosed : 09/16/2015 1:43 PM (R09.89) Not Available [facility] 4 02:54:36 Cardiovas cular finding 397490064 Active 2020 Feeling of foreign body in throat; Note: Date Diagnosed : 09/16/2015 1:43 PM (R09.89) Not Available [facility] 4 02:54:36 Follow-up visit Active 2018 Encounter for follow-up examinati on after completed treatment for malignant neoplasm; Note: Date Diagnosed : 05/27/2019 3:07 PM (Z08) Not Available [facility]ly [facility], [facility] 4 02:54:34 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 80391347250 07 Active 2015 Leukoplak ia of oral mucosa, including tongue; Note: Date Diagnosed : 02/10/2016 4:29 PM (K13.21) Not Available [facility], [facility] 4 02:54:38 Hypothyro idism 69678149 Active 2020 Hypothyro idism, unspecifi ed; Note: Date Diagnosed : 11/17/2020 10:12 AM (E03.9) Not Available [facility] 4 02:54:39 Postopera tive follow-up visit Active 2014 Post op; Note: Date Diagnosed : 10/22/2014 2:49 PM (V67.00) Not Available [facility], [facility] 4 02:54:37 History of malignant neoplasm of tongue 746444895 Active 2018 Tumor Location: Left tongue Tumor staging: T1N0 SCCA Treatment : excision @ [facility] 10/13/14, elective neck dsxn & re-resect ion of tongue LN 12/15/14, XRT Date of treatment completio n: 05/15/15 Oncology team: Dr. Ragland/Laurie PIPER MD [address] [place] [address], [facility] [place], [address] , [facility] - [facility] Formerly [facility] 4 21:32:55 Dysphonia 83052041 Active 2021 Dysphonia ; Note: Date Diagnosed : 05/25/2022 10:11 AM (R49.0) Not Available [facility] 4 02:54:36 Bilateral tinnitus 68667738996 02 Active 2018 Tinnitus, bilateral ; Note: Date Diagnosed : 05/25/2019 3:44 PM (H93.13) Not Available [facility] 4 02:54:37 Disturban ce of salivary secretion 53978426 Active 2018 Xerostomi a; Note: Date Diagnosed : 01/29/2019 4:14 PM (K11.7) Not Available [facility] 4 02:54:34 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 T1N0 suspected . excised at [facility] 10/13/14 12/15/14 elective neck dsxn and re-resect ion of tongue 0/22LN, negative residual in tongue. Dr Ragland to give XRT ; Start Date : 5 Maligna nt neoplasm of anterior two-third s of tongue, ventral surface; Note: Date Diagnosed : 07/25/2015 5:14 PM (C02.2) Not Available [facility] 4 02:54:35 Problem Notes None recorded. Procedures Surgical History Date Name Laterality Status Provider Name and Address Organization Details Recorded Time 06/05/2024 FOL_DP completed CHAZ PIPER MD [address] [place] [address], [phone] 06/04/2024 21:35:13 Imaging Results None recorded. Procedure Notes None recorded. Medical Equipment None Reported. Medications Name Sig Start Date Stop Date Status Note LastModified by Organization Details LastModified Time Prescript ion - Prior Authoriza tion Request active Script Copy/Sandra or Auth^Scr ipt Copy/Sandra or Auth_201 [id number] Not Available Not Available Not Available nystatin 100,000 unit/mL oral suspensio n active Medicati on ID: [id number] P rescribe d By Name: Chaz Piper M.D. Bra nd Name: nystatin Send Method: E-Prescr ibed Sub s Allowed: subs OK Speci al Instruct ion: 5 ml swish and swallow four times daily x 2-4 weeks Me dication GenericN fannie: nystatin Not Available Not Available Not Available venlafaxi ne ER 75 mg capsule,e xtended release 24 hr active Medicati on ID: [id number] B rand Name: venlafax ine Send Method: E-Prescr ibed Sub s Allowed: subs OK Medic ationGen ericName : venlafax ine Not Available Not Available Not Available lisinopri l 20 mg-hydroc hlorothia zide 12.5 mg tablet active Medicati on ID: [id number] B rand Name: lisinopr il-hydro chloroth iazide S end Method: E-Prescr ibed Sub s Allowed: subs OK Medic ationGen ericName : lisinopr il-hydro chloroth iazide Not Available Not Available Not Available lisinopri l 20 mg tablet active Medicati on ID: [id number] B rand Name: lisinopr il Send Method: E-Prescr ibed Sub s Allowed: subs OK Medic ationGen ericName : lisinopr il Not Available Not Available Not Available Peridex 0.12 % mouthwash 02/09 completed Medicati on ID: [id number] Pr escribed By Name: Joel Chand nd Name: Peridex Send Method: E-Prescr ibed Sub s Allowed: subs OK Speci al Instruct ion: 10 ml swish and spit after meals for 2 week Med icationG enericNa me: Peridex Not Available Not Available Not Available oxycodone 5 mg/5 mL oral solution 5-10 ml by mouth 12/20 completed Medicati on ID: [id number] Du ration Value: 7 Prescri bed By [...] nasal spray 02/09 completed Medicati on ID: [id number] Du ration Value: 30 Reason: () Brand [...] by mouth 2018 active Medicati on ID: [id number] D uration Value: 30 Prescri bed By Name: Joel Chand nd Name: omeprazo le Send Method: E-Prescr ibed Sub s Allowed: subs OK Medic ationGen ericName : omeprazo le Not Available Not Available Not Available diclofena c sodium 75 mg tablet,de layed release 05/30 completed Medicati on ID: [id number] D uration Value: 30 Brand Name: diclofen ac sodium S end Method: E-Prescr ibed Sub s Allowed: subs OK Medic ationGen ericName : diclofen ac sodium Not Available Not Available Not Available mupirocin 2 % topical ointment 05/30 completed Medicati on ID: [id number] D uration Value: 5 Brand Name: mupiroci n Send Method: E-Prescr ibed Sub s Allowed: subs OK Medic ationGen ericName : mupiroci n Not Available Not Available Not Available Percocet 5 mg-325 mg tablet 2014 active Medicati on ID: [id number] Du ration Value: 10 Prescri bed By [...] 50 mg tablet active Medicati on ID: [id number] B rand Name: sertrali ne Send Method: E-Prescr ibed Sub s Allowed: subs OK Medic ationGen ericName : sertrali ne Not Available Not Available Not Available lisinopri l 2.5 mg tablet 05/30 completed Medicati on ID: [id number] Du ration Value: 30 Brand Name: lisinopr il Send Method: E-Prescr ibed Sub s Allowed: subs OK Speci al Instruct ion: TAKE 1 TABLET BY MOUTH DAILY. Haider Almanza Name: lisinopr il Not Available Not Available Not Available doxycycli ne hyclate 100 mg tablet 05/30 completed Medicati on ID: [id number] D uration Value: 10 Brand Name: doxycycl ine hyclate Send Method: E-Prescr ibed Sub s Allowed: subs OK Speci al Instruct ion: TAKE 1 TABLET BY MOUTH EVERY 12 HOURS FOR 10 DAYS Med icationG enericNa me: doxycycl ine hyclate Not Available Not Available Not Available levothyro xine 112 mcg tablet 05/30 completed Medicati on ID: [id number] Du ration Value: 30 Brand Name: levothyr [...] Updated DateTime 06/05/2024 170.18 cm 22.7 kg/m2 14123.89 g Tara Hernandez [place] - [facility] [...] SNOMED-CT Code Diagnosis ICD10 Code Diagnosis Note [id number] CHAZ PIPER MD [facility] [address] [address] 06/05/2024 08:57:41 06/05/2024 09:29:44 History of malignant neoplasm of tongue 868869275 Z85.810 Health Concerns Section Related Observation LastModified by Organization Detai ls LastModified Time None Recorded Concern Status LastModified by Organization Details LastModified Time None Recorded Advance Directives Directive None Recorded Payers Encounter Date Sequence Insurance Name Policy Number Policy Rhoades Covered Member ID Rhoades Member ID Guarantor Name 06/05/2024 1 [employer] [place]) [id number] Som[address] Rosalie Cervonayco [id number] Sommer A Cervonayco Notes Date Note Type Note Provider Name and Address Organization Details Recorded Time 06/05/2024 text/html Tumor Location: Left tongueTumor staging: T1N0 SCCATreatment[facility], elective neck dsxn & re-resection of tongue LN 12/15/14, XRTDate of treatment completion: 05/15/15Oncology team: Dr. Ragland/Feliz staying busy with a second job at [employer] another tooth extraction early Dec CHAZ PIPER MD [address] [place] [address], [place], [address], [facility] - [facility] Former[facility] 06/05/2024 09:27:49 OBGyn Episode No OBEpisode recorded.
--- NOTE | 2024-08-04 08:54 | AM.OFFVISNUR ---
Intake Visit Reasons: evenity #2 Allergies No Known Allergies [No Known Allergies*] Allergy (Verified 07/01/24 15:08) Office Meds romosozumab-aqqg 210 mg/2.34 mL(105 mg/1.17 mL x2)subcutaneous syringe Performing Provider: Brinda Barger MD Performing Location: [facility] [place] Rheumatology Administered by: Stephanie Ross RN on 08/04/24 08:54 Dose Route Admin Location Dispensed Lot Number Expiration Date [facility] Box Sealing Inspector 210 mg subcut bilateral upper arms 2.34 mL [id number] 10/19/26 11731-877-85 AMGEN Comments: Evenity injection #2 given.pt tolerated procedure w/o issue or concern. Observed pt/site per order. Pt educated on s/s to look for e.g. redness, tenderness, swelling, pain, warmth etc. and advised to call office with any concerns Assessment & Plan Assessment & Plan Orders: Orders AMB Romosozumab Injection Patient Supplied Today M81.0 - Age-related osteoporosis without current pathological fracture
== END 2024-08-04 08:47 | disposition home or self-care (01) ==
PROVIDERS: PCP Internal Medicine
DX: M81.0 Age-related osteoporosis without current pathological fracture (principal)

== ENCOUNTER 2024-08-04 08:26 | Outpatient (REF) | payer OTHER, SELFPAY ==
[2024-08-04 10:53] LABS: Thyroid Stimulating Hormone 1.61 uIU/mL (0.32-4.0)
== END 2024-08-04 08:27 | disposition home or self-care (01) ==
LOC: HO.LAB 08:26
PROVIDERS: PCP Internal Medicine
DX: M81.0 Age-related osteoporosis without current pathological fracture (principal); Z00.00 Encounter for general adult medical examination without abnormal findings; E03.9 Hypothyroidism, unspecified; I10 Essential (primary) hypertension; R87.612 Low grade squamous intraepithelial lesion on cytologic smear of cervix (LGSIL); Z79.899 Other long term (current) drug therapy
CPT/HCPCS: 36415; 84443; 96372; J3111

== ENCOUNTER 2024-09-01 14:04 | Outpatient (AMB) | payer OTHER, SELFPAY ==
--- NOTE | 2024-09-01 14:40 | AM.OFFVISNUR ---
Intake Visit Reasons: Evenity #3 Allergies No Known Allergies [No Known Allergies*] Allergy (Verified 07/01/24 15:08) Nursing Note Patient arrived for Evenity (romosozumab-aqqg) #3, 210 mg/2.34 mL (105mg/1/17 mL each) subcutaneous injection. Evenity injected subcutaneously into left and right posterior upper arms. Patient tolerated the procedure well. Patient observed x 15 minutes. No adverse reactions noted. Patient reminded to observe sites for any adverse reactions e.g.redness, swelling, tenderness, rash and/or increased pain at the injection site; fever, chills, SOB, or dyspnea and to seek immediate medical attention. Office Meds romosozumab-aqqg 210 mg/2.34 mL(105 mg/1.17 mL x2)subcutaneous syringe Performing Provider: Anny Stephens MD [place] [facility] [place] Administered by: Stephanie Ross RN on 09/01/24 14:52 Dose Route Admin Location Dispensed Lot Number Expiration Date [facility] Child Protective Investigator 210 mg subcut bilat posterior upper arm 2.34 mL [id number] 10/19/26 74463-503-10 AMGEN Assessment & Plan Assessment & Plan Orders: Orders AMB Romosozumab Injection Patient Supplied Today M81.0 - Age-related osteoporosis without current pathological fracture Coding
== END 2024-09-01 14:38 | disposition home or self-care (01) ==
PROVIDERS: PCP Internal Medicine
DX: M81.0 Age-related osteoporosis without current pathological fracture (principal)

== ENCOUNTER → 2024-09-01 14:04 | Outpatient (BNVA) | payer OTHER, SELFPAY | PROVIDERS: PCP Internal Medicine | DX: M81.0 Age-related osteoporosis without current pathological fracture (principal) | CPT/HCPCS: 96372; J3111 ==

== ENCOUNTER 2024-09-29 08:19 | Outpatient (AMB) | payer OTHER, SELFPAY ==
--- NOTE | 2024-09-29 08:33 | AM.OFFVISNUR ---
Intake Visit Reasons: Evenity #4 Allergies No Known Allergies [No Known Allergies*] Allergy (Verified 07/01/24 15:08) Office Meds romosozumab-aqqg 210 mg/2.34 mL(105 mg/1.17 mL x2)subcutaneous syringe Performing Provider: Anny Stephens MD Performing Location: [facility] [place] [place] Endocrinology Administered by: Natalee Winter RN on 09/29/24 08:34 Dose Route Admin Location Dispensed Lot Number Expiration Date [facility] Treasurer 210 mg subcut bilateral upper arms 2.34 mL [id number] 10/19/26 47705-531-62 AMGEN Comments: Consent form signed by patient. Pt denies any adverse reactions with previous injections. Pt tolerated injections well. Assessment & Plan Assessment & Plan Orders: Orders AMB Romosozumab Injection Patient Supplied Today M81.0 - Age-related osteoporosis without current pathological fracture Medications: New romosozumab-aqqg 210 mg (2.34 mL) subcut ONCE 2.34 mL 0RF M81.0 - Age-related osteoporosis without current pathological fracture Coding
--- OUTSIDE RECORDS SUMMARY | 2024-09-29 08:53 | XMS_ITS | Patient Health Record ---
Author Organization [facility] Address [address] [place] [address] Care Team Providers Care Dress Finisher Name Role Phone Zamzam Bauer Primary Care Provider Melissa Evans Unavailable [phone] Allergies No Known Allergies Reason For Referral No Information Medications Medication SIG (Take, Route, Frequency, Duration) Notes Start Date End Date Status Miacalcin Not-Taking Cephalexin 500 MG 1 capsule Orally shaunna ry 12 hrs for 10 day(s) Not-Taking Lisinopril Active Levothyroxine Sodium Active Sertraline HCl Activ e Social History Tobacco use other than smoking: Question Answer Notes Are you an other tobacco user? No Problems Problem Type SNOMED Code ICD Code Onset Dates Problem Status W/U Status Risk Notes Problem Ingrowing nail (126937270) Ingrowing nail (L60.0) Active confirmed Problem Acquired hallux valgus (73103831) Hallux valgus (acquired), right foot (M20.11) Active confirmed Plan Of Treatment Pending Test Test Name Order Date X ray : Foot, left 3V 03/21/2011 98769-Yjezsers Plate 12/27/2015 33945-Fwifpbai Plate 08/13/2016 91537- Debride <25 sq cm 09/03/2016 50514- Debride <25 sq cm 01/13/2016 61741 I&D ABSCESS- SIMPLE,SINGLE 016 Insurance Providers Payer Name Payer Address Payer Phone Subscriber Number Group Number Insured Name Patient Relationship to Insured Coverage Start Date Coverage End Date Blue Benefits [address] [address] [place] [address] [id number] Sommer Erazo Self - patient is the insured Medical (General) History Medical History History ICD Code cancer thyroid disorder chicken pox hypertension headaches/migraines broken bones Anxiety Glaucoma Surgical History Surgery Date(Month/Year) dilatation and curettage lumpectomy 2003 + 2006 ovarian cyst resection colonoscopy 2009 bunionectomy 12/2010 salpingo-oophorectomy 2006 lymph node resection 2014
--- OUTSIDE RECORDS SUMMARY | 2024-09-29 08:53 | XMS_ITS | Patient Health Record ---
Author Organization [facility] Address [address] [place] [address] Care Team Providers Care Employee Health Nurse Name Role Phone Zamzam Bauer Primary Care Provider UnavailLewis Quesada Jr Unavailable [phone] Allergies No Known Allergies Reason For Referral [...] directed Orally h ig folic acid Active [place] 150 MG as directed Orally aerial xtract Active Levothyroxine Sodium 137 MCG 1 tablet Or ally Once a day Active Rufino-Mag 500-250 MG 1 tablet Orally Once a day/citrate Active Immunizations Vaccine Route Administration Date Status Comme nts Influenza Unknown 04/21/2021 Administered Social History Alcohol Screen Question Answer Notes Did you [...] Never (0 point) Points 1 Interpretation Negative Problems Problem Type SNOMED Code ICD Code Onset Dates Problem Status W/U Status Risk Notes Problem 328126879 Colon cancer screening (Z12.11) Active confirmed Problem 767066251 Family history of colon cancer (Z80.0) Active confirmed Problem 52517012 Dysphagia, unspecified type (R13.10) Active confirmed Problem 98388372 Diarrhea, unspecified type (R19.7) Active confirmed Plan Of Treatment Pending Test Test Name Order Date BUN 10/25/2021 LIVER PROFILE 10/25/2021 LIPASE 10/25/2021 CBC w DIFF 10/25/2021 OVA & PARASITES (O&P) 10/25/2021 CT ABD & PELVIS WITH CONTRAST 10/25/2021 XR GI SERIES 10/25/2021 STOOL WBC 10/25/2021 C DIFFICILE RFLX PCR 10/25/2021 C DIFFICILE RFLX PCR 11/24/2021 C DIFFICILE RFLX PCR 01/15/2022 Future Test Test Name Order Date UPPER GI ENDOSCOPY 04/26/2016 COLONOSCOPY 04/26/2016 COLONOSCOPY 09/08/2021 Insurance Providers Payer Name Payer Address Payer Phone Subscriber Number Group Number Insured Name Patient Relationship to Insured Coverage Start Date Coverage End Date [employer] [address] [address] [place] [address] [id number] GENESIS MCKEON Self - patient is the insured Medical (General) History Medical History History ICD Code colonoscopy 07/20/16, [...] N0 - jul 2014 was dx (2) surguries-Dr. Chaz Piper 2015 radiation head and neck - [facility] april 2015 tooth extraction future eye surgery aug
== END 2024-09-29 08:35 | disposition home or self-care (01) ==
LOC: HO.RHE 08:20
PROVIDERS: PCP Internal Medicine
DX: M81.0 Age-related osteoporosis without current pathological fracture (principal)

== ENCOUNTER → 2024-09-29 08:19 | Outpatient (BNVA) | payer OTHER, SELFPAY | PROVIDERS: PCP Internal Medicine | DX: M81.0 Age-related osteoporosis without current pathological fracture (principal) | CPT/HCPCS: 96372; J3111 ==

== ENCOUNTER 2024-11-04 08:34 | Outpatient (AMB) | payer OTHER, SELFPAY ==
--- OUTSIDE RECORDS SUMMARY | 2024-11-04 08:53 | XMS_ITS | Patient Health Record ---
Author Organization [facility] Address [address] [place] [address] Care Team Providers Care Sales Forecast Analyst Name Role Phone Zamzam Bauer Primary Care Provider UnavailLewis Quesada Jr Unavailable Allergies No Known Allergies Reason For Referral No Information Medications Medication SIG (Take, Route, Frequency, Duration) Notes Start Date End Date Status MiraLax (colon prep) 17 GM/SCOOP mixed with Gatorade or Crystal Light Orally begin at 5:00 p.m. the day before the procedure for 1 day 09/08/2021 Active Levothyroxine Sodium 137 MCG 1 tablet Or ally Once a day Active Multi Vitamin/Minerals Orally Active Sertraline HCl 50 MG Oral for 90 Active Lisinopril 10 MG Oral for 90 A ctive [place] 150 MG as directed Orally aerial xtract Active B50 Complex TR - as directed Orally h ig folic acid Active Rufino-Mag 500-250 MG 1 tablet Orally Once a day/citrate Active Vancocin 125 MG 1 capsule 4 times da dmitriy for 10 days, twice daily for 7 days, once daily for 7 days, then once every other day for 14 days Orally for 38 days 11/28/2021 Active Fidaxomicin 200 MG 1 tablet Orally Twic e a day for 10 day(s) 01/16/2022 Active Immunizations Vaccine Route Administration Date Status [...] Problem Status W/U Status Risk Notes Problem [id number] Colon cancer screening (Z12.11) Active confirmed Problem 676486124 Family history of colon cancer (Z80.0) Active confirmed Problem 79951534 Dysphagia, unspecified type (R13.10) Active confirmed Problem 69086829 Diarrhea, unspecified type (R19.7) Active confirmed Encounters Encounter Location Date Provider Diagnosis [facility] [address] [place] [address] 10/26/2024 Lewis Jiménez Jr Plan Of Treatment Pending Test Test Name [...] GI ENDOSCOPY 04/26/2016 COLONOSCOPY 04/26/2016 COLONOSCOPY 09/08/2021 Next Appt Details Provider Name:Lewis bae Jr, 11/04/2024 09:00:00 AM, [address], [address], [place], [address], Insurance Providers Payer Name Payer Address Payer Phone Subscriber Number Group Number Insured Name Patient Relationship to Insured Coverage Start Date Coverage End Date [employer] [address] [address] [place] [address] [id number] GENESIS MCKEON Self - patient is [...] 2014 was dx (2) surguries-Dr. Chaz Piper 2016 radiation head and neck - [facility] april 2015 tooth extraction future eye surgery aug
--- OUTSIDE RECORDS SUMMARY | 2024-11-04 08:53 | XMS_ITS ---
Author Organization [facility] Address [address] [place] [address] Care Team Providers Care Sales And Service Advisor Name Role Phone Zamzam Bauer Primary Care Provider Unavailab laquita Jiménez Jr, Lewis Renee REASON FOR VISIT Patient presents today for a Pancreatic screening Medications Medication SIG (Take, Route, Frequency, Duration) Notes Start Date End Date Status MiraLax (colon prep) 17 GM/SCOOP mixed with Gatorade or Crystal Light Orally begin at 5:00 p.m. the day before the procedure for 1 day 09/08/2021 Active Sertraline HCl 50 MG Oral for 90 Active Lisinopril 10 MG Oral for 90 A ctive Vancocin 125 MG 1 capsule 4 times da dmitriy for 10 days, twice daily for 7 days, once daily for 7 days, then once every other day for 14 days Orally for 38 days 11/28/2021 Active Fidaxomicin 200 MG 1 tablet Orally Twic e a day for 10 day(s) 01/16/2022 Active Levothyroxine Sodium 137 MCG 1 tablet Or ally Once a day Active Multi Vitamin/Minerals Orally Active Blue Eye 150 MG as directed Orally aerial xtract Active B50 Complex TR - as directed Orally h ig folic acid Active Rufino-Mag 500-250 MG 1 tablet Orally Once a day/citrate Active Encounters Encounter Location Date Provider Diagnosis [facility] [address] [place] [address] [address] [place] [address] 11/04/2024 Lewis Jiménez Jr Plan Of Treatment Next Appt Details Provider Name:Lewis bae Jr, 11/04/2024 09:00:00 AM, [address] [place] [address], [address], [place], [address], Progress Notes * GENESIS WILKS ADOB: (54 yo F)Acc No.[id number]:11/04/2024 Progress Notes Patient:NAILA MARION Provider:?Lewis Jiménez MD :1970???Age:54 Y???Sex:Female D ate:11/04/2024 Address:[address] [place], [place] [address] Pcp:Zamzam Bauer Subjective: * Chief Complaints: * ???1. Patient presents today for a Pancreatic screening. * Medical History:? * Medications:?Taking Blue Eye 150 MG Capsule as directed Orally aerial xtract , Taking B50 Complex TR - Tablet Extended Release as directed Orally hig folic acid , Taking Rufino-Mag 500-250 MG Tablet 1 tablet Orally Once a day/citrate , Taking Levothyroxine Sodium 137 MCG Tablet 1 tablet Orally Once a day , Taking Multi Vitamin/Minerals Tablet Orally , Taking Sertraline HCl 50 MG Tablet Oral , Taking Lisinopril 10 MG Tablet Oral , Taking MiraLax (colon prep) 17 GM/SCOOP Powder mixed with Gatorade or Crystal Light Orally begin at 5:00 p.m. the day before the procedure , Taking Vancocin 125 MG Capsule 1 capsule 4 times daily for 10 days, twice daily for 7 days, once daily for 7 days, then once every other day for 14 days Orally , Taking Fidaxomicin 200 MG Tablet 1 tablet Orally Twice a day Objective: * Vitals:? Assessment: Plan: * Treatment: * * The named appointment provid er may or may not be the originator of this progress note, and it is not deemed complete until electronically signed by the appointment provider. Sign off status: Pending * Provider:?Lewis Jiménez MD Date:?0 11/04/2024 Generated for Liberty farias/Lizzette/Robbitting on:?11/04/2024 08:53 AM EDT
--- OUTSIDE RECORDS SUMMARY | 2024-11-04 08:53 | XMS_ITS | Patient Health Record ---
Author Organization [facility] Address [address] [place] [address] Care Team Providers Care Button Sewer Name Role Phone Zamzam Bauer Primary Care Provider Melissa Evans Unavailable [phone] Allergies No Known Allergies Reason For Referral [...] W/U Status Risk Notes Problem Ingrowing nail (695243693) Ingrowing nail (L60.0) Active confirmed Problem Acquired hallux valgus (96368800) Hallux valgus (acquired), right foot (M20.11) Active confirmed Plan Of Treatment Pending Test Test Name Order Date X ray : Foot, left 3V 03/21/2011 25282-Dfjzmdab Plate 12/27/2015 19789-Cfyxjame Plate 08/13/2016 80565- Debride <25 sq cm 09/03/2016 74120- Debride <25 sq cm 01/13/2016 57608 I&D ABSCESS- SIMPLE,SINGLE 016 Insurance Providers Payer Name Payer Address Payer Phone Subscriber Number Group Number Insured Name Patient Relationship to Insured Coverage Start Date Coverage End Date [employer] Benefits [address] [address] [place] [address] [phone] [id number] Sommer Erazo Self - patient is the insured Medical (General) History Medical History History ICD Code cancer thyroid disorder chicken pox hypertension headaches/migraines broken bones Anxiety Glaucoma Surgical History Surgery Date(Month/Year) dilatation and curettage lumpectomy 2003 + 2006 ovarian cyst resection colonoscopy 2009 bunionectomy 12/2010 salpingo-oophorectomy 2006 lymph node resection 2014
--- OUTSIDE RECORDS SUMMARY | 2024-11-04 08:54 | XMS_ITS ---
Author Organization [facility] Address [address] [place] [address] Care Team Providers Care Iphone Developer Name Role Phone Zamzam Bauer Primary Care Provider Unavailab laquita Jiménez Jr, Lewis Renee Encounters Encounter Location Date Provider Diagnosis [facility] [address] [place] [address] 10/26/2024 Lewis Jiménez Jr Plan Of Treatment Next Appt Details Provider Name:Lewis bae Jr, 11/04/2024 09:00:00 AM, [address], [address], [place], [address], Progress Notes * GENESIS WILKS ADOB: (54 yo F)Acc No.[id number]:10/26/2024 Patient:?LASHAUN LUPILLOSultana Wiggins :1970???Age:54 Y???Sex:Female Address:[address] [place] [address] * true * Date:? Generated for Printi dinora/Lizzette/eTransmitting on:?11/04/2024 08:53 AM EDT
--- OUTSIDE RECORDS SUMMARY | 2024-11-04 08:54 | XMS_ITS | Data Portability ---
Author Organization [place] - [facility], Allergy Address [address] [address] Care Team Providers Care Reading Professor Name Role Phone PHILLIP CHIANG Primary Care [...] Organization Details Recorded Time Respirato ry finding 173424660 Active 2020 Feeling of foreign body in throat; Note: Date Diagnosed : 09/16/2015 1:43 PM (R09.89) Not Available [facility] 4 02:54:36 Cardiovas cular finding 877718871 Active 2020 Feeling of foreign body in throat; Note: Date Diagnosed : 09/16/2015 1:43 PM (R09.89) Not Available [facility] 4 02:54:36 Follow-up visit Active 2018 Encounter for follow-up examinati on after completed treatment for malignant neoplasm; Note: Date Diagnosed : 05/27/2019 3:07 PM (Z08) Not Available [facility] 4 02:54:34 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 50136291642 07 Active 2015 Leukoplak ia of oral mucosa, including tongue; Note: Date Diagnosed : 02/10/2016 4:29 PM (K13.21) Not Available [facility] 4 02:54:38 Hypothyro idism 72532445 Active 2020 Hypothyro idism, unspecifi ed; Note: Date Diagnosed : 11/17/2020 10:12 AM (E03.9) Not Available [facility] 4 02:54:39 Postopera tive follow-up visit Active 2014 Post op; Note: Date Diagnosed : 10/22/2014 2:49 PM (V67.00) Not Available [facility] 4 02:54:37 History of malignant neoplasm of tongue 863123041 Active 2018 Tumor Location: Left tongue Tumor staging: T1N0 SCCA Treatment : excision @ [facility] 10/13/14, elective neck dsxn & re-resect ion of tongue LN 12/15/14, XRT Date of treatment completio n: 05/15/15 Oncology team: Dr. Ragland/Laurie PIPER MD [address] [place] [address], [place], [address] , [facility] 4 21:32:55 Dysphonia 95464702 Active 2021 Dysphonia ; Note: Date Diagnosed : 05/25/2022 10:11 AM (R49.0) Not Available [facility] 4 02:54:36 Bilateral tinnitus 74488775646 02 Active 2018 Tinnitus, bilateral ; Note: Date Diagnosed : 05/25/2019 3:44 PM (H93.13) Not Available [facility] 4 02:54:37 Disturban ce of salivary secretion 74539807 Active 2018 Xerostomi a; Note: Date Diagnosed : 01/29/2019 4:14 PM (K11.7) Not Available [facility] 4 02:54:34 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 T1N0 suspected . excised at [facility] 10/13/14 12/15/14 elective neck dsxn and re-resect ion of tongue 0/22LN, negative residual in tongue. Dr Ragland to give XRT ; Start Date : 5 Maligna nt neoplasm of anterior two-third s of tongue, ventral surface; Note: Date Diagnosed : 07/25/2015 5:14 PM (C02.2) Not Available [facility] 4 02:54:35 Problem Notes None recorded. Procedures Surgical History Date Name Laterality Status Provider Name and Address Organization Details Recorded Time 06/05/2024 FOL_DP completed CHAZ PIPER MD [address] [place] [address], [phone] 06/04/2024 21:35:13 Imaging Results None recorded. Procedure Notes None recorded. Medical Equipment None Reported. Medications Name Sig Start Date Stop Date Status Note LastModified by Organization Details LastModified Time Prescript ion - Prior Authoriza tion Request active Script Copy/Sandra or Auth^Scr ipt Copy/Sandra or Auth_201 13030 Not Available Not Available Not Available nystatin 100,000 unit/mL oral suspensio n active Medicati on ID: [id number] P rescribe d By Name: Chaz Piper M.D. Bra nd Name: nystatin Send Method: E-Prescr ibed Sub s Allowed: subs OK Speci al Instruct ion: 5 ml swish and swallow four times daily x 2-4 weeks Me dication GenericN fannie: nystatin Not Available Not Available Not Available venlafaxi ne ER 75 mg capsule,e xtended release 24 hr active Medicati on ID: [id number] B rand Name: venlafax ine Send Method: E-Prescr ibed Sub s Allowed: subs OK Medic ationGen ericName : venlafax ine Not Available Not Available Not Available lisinopri l 20 mg-hydroc hlorothia zide 12.5 mg tablet active Medicati on ID: [id number] B rand Name: lisinopr il-hydro chloroth iazide S end Method: E-Prescr ibed Sub s Allowed: subs OK Medic ationGen ericName : lisinopr il-hydro chloroth iazide Not Available Not Available Not Available lisinopri l 20 mg tablet active Medicati on ID: [id number] B rand Name: lisinopr il Send Method: E-Prescr ibed Sub s Allowed: subs OK Medic ationGen ericName : lisinopr il Not Available Not Available Not Available Peridex 0.12 % mouthwash 02/09 completed Medicati on ID: [id number] Pr escribed By Name: Joel Chand nd Name: Peridex Send Method: E-Prescr ibed Sub s Allowed: subs OK Speci al Instruct ion: 10 ml swish and spit after meals for 2 week Med icationG enericNa me: Peridex Not Available Not Available Not Available oxycodone 5 mg/5 mL oral solution 5-10 ml by mouth 12/20 completed Medicati on ID: [id number] Du ration Value: 7 Prescri bed By [...] nasal spray 02/09 completed Medicati on ID: [id number] Du ration Value: 30 Reason: () Brand [...] by mouth 2018 active Medicati on ID: [id number] D uration Value: 30 Prescri bed By Name: Joel hCand nd Name: omeprazo le Send Method: E-Prescr ibed Sub s Allowed: subs OK Medic ationGen ericName : omeprazo le Not Available Not Available Not Available diclofena c sodium 75 mg tablet,de layed release 05/30 completed Medicati on ID: [id number] D uration Value: 30 Brand Name: diclofen ac sodium S end Method: E-Prescr ibed Sub s Allowed: subs OK Medic ationGen ericName : diclofen ac sodium Not Available Not Available Not Available mupirocin 2 % topical ointment 05/30 completed Medicati on ID: [id number] D uration Value: 5 Brand Name: mupiroci n Send Method: E-Prescr ibed Sub s Allowed: subs OK Medic ationGen ericName : mupiroci n Not Available Not Available Not Available Percocet 5 mg-325 mg tablet 2014 active Medicati on ID: [id number] Du ration Value: 10 Prescri bed By [...] 50 mg tablet active Medicati on ID: [id number] B rand Name: sertrali ne Send Method: E-Prescr ibed Sub s Allowed: subs OK Medic ationGen ericName : sertrali ne Not Available Not Available Not Available lisinopri l 2.5 mg tablet 05/30 completed Medicati on ID: [id number] Du ration Value: 30 Brand Name: lisinopr il Send Method: E-Prescr ibed Sub s Allowed: subs OK Speci al Instruct ion: TAKE 1 TABLET BY MOUTH DAILY. Haider Almanza Name: lisinopr il Not Available Not Available Not Available doxycycli ne hyclate 100 mg tablet 05/30 completed Medicati on ID: [id number] D uration Value: 10 Brand Name: doxycycl ine hyclate Send Method: E-Prescr ibed Sub s Allowed: subs OK Speci al Instruct ion: TAKE 1 TABLET BY MOUTH EVERY 12 HOURS FOR 10 DAYS Med icationG enericNa me: doxycycl ine hyclate Not Available Not Available Not Available levothyro xine 112 mcg tablet 05/30 completed Medicati on ID: [id number] Du ration Value: 30 Brand Name: levothyr [...] Updated DateTime 06/05/2024 170.18 cm 22.7 kg/m2 71747.89 g Tara Hernandez [place] - [facility] 06/05/2024 09:11:23 Social History None recorded. Functional Status None recorded. Mental Status None recorded. Family History Nothing Reported. Medical History No medical history recorded. Gynecological HistoryNo gynecological history recorded. Obstetrics History GPAL:G 0 P 0 0 0 0 Past Encounters Encounter ID Performer Location Encounter Start Date Encounter Closed Date Diagnosis/Indication Diagnosis SNOMED-CT Code Diagnosis ICD10 Code Diagnosis Note [id number] CHAZ PIPER MD [facility] [address] [address] 06/05/2024 08:57:41 06/05/2024 09:29:44 History of malignant neoplasm of tongue 474961470 Z85.810 Health Concerns Section Related Observation LastModified by Organization Detai ls LastModified Time None Recorded Concern Status LastModified by Organization Details LastModified Time None Recorded Advance Directives Directive None Recorded Payers Encounter Date Sequence Insurance Name Policy Number Policy Rhoades Covered Member ID Rhoades Member ID Guarantor Name 06/05/2024 1 [employer] [place] [id number] Sommer A Cervonayco [id number] Sommer A Cervonayco Notes Date Note Type Note Provider Name and Address Organization Details Recorded Time 06/05/2024 text/html Tumor Location: Left tongueTumor staging: T1N0 SCCATreatment: excision @ [facility] 10/13/14, elective neck dsxn & re-resection of tongue LN 12/15/14, XRTDate of treatment completion: 05/15/15Oncology team: Dr. Ragland/Feliz staying busy with a second job at [employer] another tooth extraction early Dec CHAZ PIPER MD [address] [place] [address], [place], [address], [facility] - [facility] 06/05/2024 09:27:49 OBGyn Episode No OBEpisode recorded.
--- NOTE | 2024-11-04 09:03 | AM.OFFVISNUR ---
Intake Visit Reasons: Evenity #5 Allergies No Known Allergies [No Known Allergies*] Allergy (Verified 07/01/24 15:08) Office Meds romosozumab-aqqg 210 mg/2.34 mL(105 mg/1.17 mL x2)subcutaneous syringe Performing Provider: Anny Stephens MD Performing Location: [facility] Rheumatology Administered by: Stephanie Ross RN on 11/04/24 08:30 Dose Route Admin Location Dispensed Lot Number Expiration Date ND Circular Knitter Helper 105 mg subcut right posterior forearm 1.17 mL [id number] 10/19/26 64116-414-53 [facility] 105 mg subcut left posterior forearm 1.17 mL [id number] 10/19/26 48185-900-54 [facility] Comments: Sommer Bosch presents today for Evenity (romosozumab) 2 x 105 mg/1.17mL subcutaneous injection for the treatment of osteoporosis. The patient has not had any recent fever or illness. The injection site to be used is without erythema, edema, and is clean, dry and intact. Evenity 2 x 105 mg/1.17 mL [facility] 75691-315-29 Lot # [id number] Expiration 10/19/2026 given in the Left and Right posterior forearm. The patient tolerated the procedure well. We discussed follow-up precautions including but not limited to injection site soreness, redness, itching or swelling. The patient can call the office for consideration of treatment recommendations e.g., medication to reduce pain (e.g., Tylenol) or itching (e.g., Benadryl) if needed. Skin and mucosal symptoms such as generalized hives, itching, or flushing; swelling of lips, face, throat, or eyes. Respiratory symptoms such as nasal congestion, change in voice, sensation of throat closing, stridor, shortness of breath, wheeze, or cough. Gastrointestinal symptoms such as nausea, vomiting, diarrhea, cramping abdominal pain. Cardiovascular symptoms such as collapse, dizziness, tachycardia, hypotension are considered medical emergencies and the patient verbalizes that urgent medical attention (call 911) should be sought. The patient was observed for 30 minutes. No injection site reactions noted. The patient was discharged from the practice. Assessment & Plan Assessment & Plan Orders: Orders AMB Romosozumab Injection Patient Supplied Today M81.0 - Age-related osteoporosis without current pathological fracture Medications: New romosozumab-aqqg 210 mg (2.34 mL) subcut ONCE 2.34 mL 0RF M81.0 - Age-related osteoporosis without current pathological fracture Coding
--- NOTE | 2024-11-04 12:09 | AM.OFFVISNUR ---
Intake Visit Reasons: Evenity #5 Allergies No Known Allergies [No Known Allergies*] Allergy (Verified 07/01/24 15:08) Nursing Note Sommer Bosch presents today? for? Evenity (romosozumab) 2 x 105 mg/1.17mL subcutaneous injection for the treatment of osteoporosis. The patient has not had any recent fever or illness. The injection site to be used is without erythema, edema, and is clean, dry and intact. Evenity 2 x 105 mg/1.17 mL [facility] 77401-240-45? Lot # [id number]? Expiration 10/19/2026? given in the Left and Right posterior forearm. The patient tolerated the procedure well.? We discussed follow-up? precautions including but not limited to injection site soreness, redness, itching or swelling. The patient can call the office for consideration of treatment recommendations e.g., medication to reduce pain (e.g., Tylenol) or itching (e.g., Benadryl) if needed. Skin and mucosal symptoms such as generalized hives, itching, or flushing; swelling of lips, face, throat, or eyes. ?Respiratory symptoms such as nasal congestion, change in voice, sensation of throat closing, stridor, shortness of breath, wheeze, or cough. Gastrointestinal symptoms such as nausea, vomiting, diarrhea, cramping abdominal pain. Cardiovascular symptoms such as collapse, dizziness, tachycardia, hypotension are considered medical emergencies and the patient verbalizes that urgent medical attention (call 911) should be sought.? The patient was observed for 30 minutes. No injection site reactions noted. The patient was discharged from the practice. Office Meds romosozumab-aqqg 210 mg/2.34 mL(105 mg/1.17 mL x2)subcutaneous syringe Performing Provider: Anny Stephens MD Performing Location: [facility] Administered by: Stephanie Ross RN on 11/04/24 08:30 Dose Route Admin Location Dispensed Lot Number Expiration Date [facility] Tongue And Groove Machine Operator 105 mg subcut right posterior forearm 1.17 mL [id number] 10/19/26 44033-625-80 [facility] 105 mg subcut left posterior forearm 1.17 mL [id number] 10/19/26 74926-215-27 [facility] Comments: Sommer Bosch presents today for Evenity (romosozumab) 2 x 105 mg/1.17mL subcutaneous injection for the treatment of osteoporosis. The patient has not had any recent fever or illness. The injection site to be used is without erythema, edema, and is clean, dry and intact. Evenity 2 x 105 mg/1.17 mL [facility] 97639-368-65 Lot # [id number] Expiration 10/19/2026 given in the Left and Right posterior forearm. The patient tolerated the procedure well. We discussed follow-up precautions including but not limited to injection site soreness, redness, itching or swelling. The patient can call the office for consideration of treatment recommendations e.g., medication to reduce pain (e.g., Tylenol) or itching (e.g., Benadryl) if needed. Skin and mucosal symptoms such as generalized hives, itching, or flushing; swelling of lips, face, throat, or eyes. Respiratory symptoms such as nasal congestion, change in voice, sensation of throat closing, stridor, shortness of breath, wheeze, or cough. Gastrointestinal symptoms such as nausea, vomiting, diarrhea, cramping abdominal pain. Cardiovascular symptoms such as collapse, dizziness, tachycardia, hypotension are considered medical emergencies and the patient verbalizes that urgent medical attention (call 911) should be sought. The patient was observed for 30 minutes. No injection site reactions noted. The patient was discharged from the practice. Assessment & Plan Assessment & Plan Orders: Orders AMB Romosozumab Injection Patient Supplied Today M81.0 - Age-related osteoporosis without current pathological fracture Coding
== END 2024-11-04 08:47 | disposition home or self-care (01) ==
LOC: HO.RHE 08:34
PROVIDERS: PCP Internal Medicine; Visit Provider Student in an Organized Health Care Education/Training Program
DX: M81.0 Age-related osteoporosis without current pathological fracture (principal)

== ENCOUNTER → 2024-11-04 08:34 | Outpatient (BNVA) | payer OTHER, SELFPAY | PROVIDERS: PCP Internal Medicine; Visit Provider Student in an Organized Health Care Education/Training Program | DX: M81.0 Age-related osteoporosis without current pathological fracture (principal) | CPT/HCPCS: 96372; J3111 ==

== ENCOUNTER 2024-11-12 08:23 | Outpatient (REF) | payer OTHER, SELFPAY ==
--- NOTE | ~2024-11-12 | MR_ITS ---
CLINICAL HISTORY: GENETIC SUSCEPTIBILITY TO OTHER MALIGNANT NEOPLASM MRI of the abdomen with and without IV contrast. COMPARISON: None FINDINGS: Bilateral breast implants partially visualized. Visualized portions of the lung bases are clear. No focal hepatic lesion. Diminutive gallbladder. Uniform splenic signal. Normal adrenal glands. Symmetric renal size and enhancement. Left renal simple cyst of the inferior pole measuring 7 mm. No hydronephrosis. Uniform pancreatic signal. Pancreatic duct is not dilated. No abnormal pancreatic enhancement. No pancreatic mass or fluid collection. No retroperitoneal or mesenteric lymphadenopathy identified. Normal enhancement of the aorta SMA and SMV. Visualized portions of the bowel in the abdomen are unremarkable. Normal vertebral body alignment. No vertebral body height loss. No suspicious bone lesion. IMPRESSION: 1. Unremarkable abdominal MRI. No enhancing mass or mass effect. No lymphadenopathy. No pancreatic mass. 2. Simple left renal cyst measuring 7 mm. This document has been electronically signed by: Kodi Steiner MD on 11/12/2024 14:50:56
--- OUTSIDE RECORDS SUMMARY | 2024-11-12 08:44 | XMS_ITS ---
Author Organization [facility] Address [address] [place] [address] Care Team Providers Care Scrap Drop Crane Operator Name Role Phone Zamzam Bauer Primary Care Provider Unavailab Lewis Bustillos Jr [phone] Encounters Encounter Location Date Provider Diagnosis [facility] [address] [place] [address] 10/26/2024 Lewis Jiménez Jr Plan Of Treatment Next Appt Details Provider Name:Lewis bae Jr, 11/03/2025 09:00:00 AM, [address], [address], [place], [address], Progress Notes * GENESIS WILKS ADOB: (54 yo F)Acc No.[id number]:10/26/2024 Patient:?NAILA WILKS Guilherme Wiggins :1970???Age:54 Y???Sex:Female Address:[address] [place] [id number] * true * Date:? Generated for Lathai dinora/Lizzette/eTransmitting on:?11/12/2024 08:44 AM EDT
--- OUTSIDE RECORDS SUMMARY | 2024-11-12 08:44 | XMS_ITS | Patient Health Record ---
Author Organization [facility] Address [address] [place] [address] Care Team Providers Care Gas Shovel Operator Name Role Phone Zamzam Bauer Primary Care Provider UnavailLewis Quesada Jr Unavailable Allergies No Known Allergies Reason For Referral No Information Medications Medication SIG (Take, Route, Frequency, Duration) Notes Start Date End Date Status Multi Vitamin/Minerals Orally not taking regularly Active Losartan Potassium-HCTZ 100-12.5 MG Oral for 90 Days Active Levothyroxine Sodium 125 MCG Oral for 90 Days Active Rufino-Mag 500-250 MG 1 tablet Orally Once a day/citrate not taking regularly Active Levothyroxine Sodium 137 MCG 1 tablet Orally Once a day Active Evenity 105 MG/1.17ML Subcutaneous for 2 8 Days Active Immunizations Vaccine Route Administration Date Status Comme nts Influenza Unknown 04/21/2021 Administered Influenza Unknown 03/10/2024 Administered Social History Alcohol Screen Question Answer [...] Problem Status W/U Status Risk Notes Problem 282606112 Colon cancer screening (Z12.11) Active confirmed Problem 291287179 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) Active confirmed Problem 11402841396384 Genetic susceptibility to other malignant neoplasm (Z15.09) Active confirmed Problem 868060242 Family history o f colon cancer (Z80.0) Active confirmed Problem 35401805 Dysphagia, unspecified type (R13.10) Active confirmed Problem 11291377 Diarrhea, unspecified type (R19.7) Active confirmed Problem 580719796 FH: pancreatic cancer (Z80.0) Active confirmed Vital Signs Temperature 96.9 degrees Fahrenheit 11/04/2024 Blood pressure diastolic 01 mm Hg 11/04/2024 Height 67 in 11/04/2024 Blood pressure systolic 001 mm Hg 11/04/2024 Weight 147.2 lbs 11/04/2024 BMI 23.05 kg/m2 11/04/2024 Encounters Encounter Location Date Provider Diagnosis [facility] [address] [place] [address] 11/04/2024 Lewis Jiménez Jr Genetic susceptibility to other malignant neoplasm Z15.09 ; Genetic susceptibility to malignant neoplasm of breast Z15.01 and FH: pancreatic cancer Z80.0 [facility] [address] [place] [address] 10/26/2024 Lewis Jiménez Jr Assessments Encounter Date Diagnosis (ICD Code) Assessment Notes Treatment Notes Treatment Clinical Notes Section Notes 11/04/2024 Genetic susceptibility to malignant neoplasm of breast (ICD-10 - Z15.01) 11/04/2024 Genetic susceptibility to other malignant neoplasm (ICD-10 - Z15.09) 11/04/2024 FH: pancreatic cancer (ICD-10 - Z80.0) Plan Of Treatment Pending Test Test Name Order Date BUN 10/25/2021 LIVER PROFILE 10/25/2021 LIPASE 10/25/2021 CBC w DIFF 10/25/2021 OVA & PARASITES (O&P) 10/25/2021 CT ABD & PELVIS WITH CONTRAST 10/25/2021 MRI ABD W&WO CONTRAST 11/04/2024 XR GI SERIES 10/25/2021 STOOL WBC 10/25/2021 C DIFFICILE RFLX PCR 01/15/2022 C DIFFICILE RFLX PCR 10/25/2021 C DIFFICILE RFLX PCR 11/24/2021 Future Test Test Name Order Date UPPER GI ENDOSCOPY 04/26/2016 COLONOSCOPY 04/26/2016 COLONOSCOPY 09/08/2021 Next Appt Details Provider Name:Lewis bae , 11/03/2025 09:00:00 AM, [address], [address], [place], [address], Insurance Providers Payer Name Payer Address Payer Phone Subscriber Number Group Number Insured Name Patient Relationship to Insured Coverage Start Date Coverage End Date [employer] [address] [address] [place] [address] [id number] GENESIS MCKEON Self - patient is [...] node. Hypertension osteopenia hashimotos Abdominal aortic aneurysm triple a aortic aneyrysm Surgical History Surgery Date(Month/Year) future eye surgery aug tooth extraction radiation head and neck - [facility] april 2015 oral cancer on tongue T1, N0 - jul 2014 was dx (2) surguries-Dr. Chaz Piper 2015 lumpectomy in both breast bilateral salpingooophorectomy in 2006
--- OUTSIDE RECORDS SUMMARY | 2024-11-12 08:44 | XMS_ITS | Patient Health Record ---
Author Organization [facility] Address [address] [place] [address] Care Team Providers Care Landscape Nurseryman Name Role Phone Zamzam Bauer Primary Care Provider Melissa Evans Unavailable [phone] Allergies No Known Allergies Reason For Referral [...] W/U Status Risk Notes Problem Ingrowing nail (770381718) Ingrowing nail (L60.0) Active confirmed Problem Acquired hallux valgus (73564121) Hallux valgus (acquired), right foot (M20.11) Active confirmed Plan Of Treatment Pending Test Test Name Order Date X ray : Foot, left 3V 03/21/2011 13154-Hwbljiuv Plate 12/27/2015 80294-Ralxrwvu Plate 08/13/2016 02230- Debride <25 sq cm 09/03/2016 00363- Debride <25 sq cm 01/13/2016 31689 I&D ABSCESS- SIMPLE,SINGLE 016 Insurance Providers Payer Name Payer Address Payer Phone Subscriber Number Group Number Insured Name Patient Relationship to Insured Coverage Start Date Coverage End Date [employer] Benefits [address] [address] [place] [address] [id number] Sommer Erazo Self - patient is the insured Medical (General) History Medical History History ICD Code cancer thyroid disorder chicken pox hypertension headaches/migraines broken bones Anxiety Glaucoma Surgical History Surgery Date(Month/Year) dilatation and curettage lumpectomy 2003 + 2006 ovarian cyst resection colonoscopy 2009 bunionectomy 12/2010 salpingo-oophorectomy 2006 lymph node resection 2014
--- OUTSIDE RECORDS SUMMARY | 2024-11-12 08:44 | XMS_ITS | Data Portability ---
Author Organization [place] - [facility], Allergy Address [address] [address] Care Team Providers Care English Tutor Name Role Phone PHILLIP CHIANG Primary Care [...] Organization Details Recorded Time Respirato ry finding [id number] Active 2020 Feeling of foreign body in throat; Note: Date Diagnosed : 09/16/2015 1:43 PM (R09.89) Not Available [facility] 4 02:54:36 Cardiovas cular finding 978702861 Active 2020 Feeling of foreign body in throat; Note: Date Diagnosed : 09/16/2015 1:43 PM (R09.89) Not Available [facility] 4 02:54:36 Follow-up visit Active 2018 Encounter for follow-up examinati on after completed treatment for malignant neoplasm; Note: Date Diagnosed : 05/27/2019 3:07 PM (Z08) Not Available [facility] 4 02:54:34 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 71766589113 07 Active 2015 Leukoplak ia of oral mucosa, including tongue; Note: Date Diagnosed : 02/10/2016 4:29 PM (K13.21) Not Available [facility] 4 02:54:38 Hypothyro idism 38393262 Active 2020 Hypothyro idism, unspecifi ed; Note: Date Diagnosed : 11/17/2020 10:12 AM (E03.9) Not Available [facility] 4 02:54:39 Postopera tive follow-up visit Active 2014 Post op; Note: Date Diagnosed : 10/22/2014 2:49 PM (V67.00) Not Available [facility] 4 02:54:37 History of malignant neoplasm of tongue 601956881 Active 2018 Tumor Location: Left tongue Tumor staging: T1N0 SCCA Treatment : excision @ [facility] 10/13/14, elective neck dsxn & re-resect ion of tongue LN 12/15/14, XRT Date of treatment completio n: 05/15/15 Oncology team: Dr. Ragland/Laurie PIPER MD [address] [place] [address], [place], [address] , [facility] 4 21:32:55 Dysphonia 78152689 Active 2021 Dysphonia ; Note: Date Diagnosed : 05/25/2022 10:11 AM (R49.0) Not Available [facility] 4 02:54:36 Bilateral tinnitus 38658112510 02 Active 2018 Tinnitus, bilateral ; Note: Date Diagnosed : 05/25/2019 3:44 PM (H93.13) Not Available [facility] 4 02:54:37 Disturban ce of salivary secretion 19018489 Active 2018 Xerostomi a; Note: Date Diagnosed : 01/29/2019 4:14 PM (K11.7) Not Available [facility] 4 02:54:34 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 T1N0 suspected . excised at [facility] 10/13/14 12/15/14 elective neck dsxn and re-resect ion of tongue 0/22LN, negative residual in tongue. Dr Ragland to give XRT ; Start Date : 5 Maligna nt neoplasm of anterior two-third s of tongue, ventral surface; Note: Date Diagnosed : 07/25/2015 5:14 PM (C02.2) Not Available [facility] 4 02:54:35 Problem Notes None recorded. Procedures Surgical History Date Name Laterality Status Provider Name and Address Organization Details Recorded Time 06/05/2024 FOL_DP completed CHAZ PIPER MD [address] [place] [address], [id number] 06/04/2024 21:35:13 Imaging Results None recorded. Procedure Notes None recorded. Medical Equipment None Reported. Medications Name Sig Start Date Stop Date Status Note LastModified by Organization Details LastModified Time Prescript ion - Prior Authoriza tion Request active Script Copy/Sandra or Auth^Scr ipt Copy/Sandra or Auth_201 [id number] Not Available Not Available Not Available nystatin 100,000 unit/mL oral suspensio n active Medicati on ID: [id number] P rescribe d By Name: Chaz Piper M.D. Bra nd Name: nystatin Send Method: E-Prescr ibed Sub s Allowed: subs OK Speci al Instruct ion: 5 ml swish and swallow four times daily x 2-4 weeks Me dication GenericN fannie: nystatin Not Available Not Available Not Available venlafaxi ne ER 75 mg capsule,e xtended release 24 hr active Medicati on ID: [id number] B rand Name: venlafax ine Send Method: E-Prescr ibed Sub s Allowed: subs OK Medic ationGen ericName : venlafax ine Not Available Not Available Not Available lisinopri l 20 mg-hydroc hlorothia zide 12.5 mg tablet active Medicati on ID: [id number] B rand Name: lisinopr il-hydro chloroth iazide S end Method: E-Prescr ibed Sub s Allowed: subs OK Medic ationGen ericName : lisinopr il-hydro chloroth iazide Not Available Not Available Not Available lisinopri l 20 mg tablet active Medicati on ID: [id number] B rand Name: lisinopr il Send Method: E-Prescr ibed Sub s Allowed: subs OK Medic ationGen ericName : lisinopr il Not Available Not Available Not Available Peridex 0.12 % mouthwash 02/09 completed Medicati on ID: [id number] Pr escribed By Name: Joel Chand nd Name: Peridex Send Method: E-Prescr ibed Sub s Allowed: subs OK Speci al Instruct ion: 10 ml swish and spit after meals for 2 week Med icationG enericNa me: Peridex Not Available Not Available Not Available oxycodone 5 mg/5 mL oral solution 5-10 ml by mouth 12/20 completed Medicati on ID: [id number] Du ration Value: 7 Prescri bed By [...] nasal spray 02/09 completed Medicati on ID: [id number] Du ration Value: 30 Reason: () Brand [...] by mouth 2018 active Medicati on ID: [id number] D uration Value: 30 Prescri bed By Name: Joel Chand nd Name: omeprazo le Send Method: E-Prescr ibed Sub s Allowed: subs OK Medic ationGen ericName : omeprazo le Not Available Not Available Not Available diclofena c sodium 75 mg tablet,de layed release 05/30 completed Medicati on ID: [id number] D uration Value: 30 Brand Name: diclofen ac sodium S end Method: E-Prescr ibed Sub s Allowed: subs OK Medic ationGen ericName : diclofen ac sodium Not Available Not Available Not Available mupirocin 2 % topical ointment 05/30 completed Medicati on ID: [id number] D uration Value: 5 Brand Name: mupiroci n Send Method: E-Prescr ibed Sub s Allowed: subs OK Medic ationGen ericName : mupiroci n Not Available Not Available Not Available Percocet 5 mg-325 mg tablet 2014 [place]: [id number] Du ration Value: 10 Prescri bed By [...] 50 mg tablet active Medicati on ID: [id number] B rand Name: sertrali ne Send Method: E-Prescr ibed Sub s Allowed: subs OK Medic ationGen ericName : sertrali ne Not Available Not Available Not Available lisinopri l 2.5 mg tablet 05/30 completed Medicati on ID: [id number] Du ration Value: 30 Brand Name: lisinopr il Send Method: E-Prescr ibed Sub s Allowed: subs OK Speci al Instruct ion: TAKE 1 TABLET BY MOUTH DAILY. Haider Almanza Name: lisinopr il Not Available Not Available Not Available doxycycli ne hyclate 100 mg tablet 05/30 completed Medicati on ID: [id number] D uration Value: 10 Brand Name: doxycycl ine hyclate Send Method: E-Prescr ibed Sub s Allowed: subs OK Speci al Instruct ion: TAKE 1 TABLET BY MOUTH EVERY 12 HOURS FOR 10 DAYS Med icationG enericNa me: doxycycl ine hyclate Not Available Not Available Not Available levothyro xine 112 mcg tablet 05/30 completed Medicati on ID: [id number] Du ration Value: 30 Brand Name: levothyr [...] Updated DateTime 06/05/2024 170.18 cm 22.7 kg/m2 33717.89 g Tara Hernandez [place] - [facility] 06/05/2024 09:11:23 Social History None recorded. Functional Status None recorded. Mental Status None recorded. Family History Nothing Reported. Medical History No medical history recorded. Gynecological HistoryNo gynecological history recorded. Obstetrics History GPAL:G 0 P 0 0 0 0 Past Encounters Encounter ID Performer Location Encounter Start Date Encounter Closed Date Diagnosis/Indication Diagnosis SNOMED-CT Code Diagnosis ICD10 Code Diagnosis Note [id number] CHAZ PIPER MD [facility] [address] [address] 06/05/2024 08:57:41 06/05/2024 09:29:44 History of malignant neoplasm of tongue 637590659 Z85.810 Health Concerns Section Related Observation LastModified by Organization Detai ls LastModified Time None Recorded Concern Status LastModified by Organization Details LastModified Time None Recorded Advance Directives Directive None Recorded Payers Encounter Date Sequence Insurance Name Policy Number Policy Rhoades Covered Member ID Rhoades Member ID Guarantor Name 06/05/2024 1 [employer] [place] [id number] Sommer A Cervonayco [id number] 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 Ragland/Feliz staying busy with a second job at [employer] another tooth extraction early Dec CHAZ PIPER MD [address] [place] [address], [place], [address], [facility] - [facility] 06/05/2024 09:27:49 OBGyn Episode No OBEpisode recorded.
--- OUTSIDE RECORDS SUMMARY | 2024-11-12 08:44 | XMS_ITS ---
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 Problem 62014707030485 Genetic susceptibility to other malignant neoplasm (Z15.09) Active confirmed Problem 454255283 FH: pancreatic cancer (Z80.0) Active confirmed Vital Signs Temperature 96.9 degrees Fahrenheit 11/05/19 25 Blood pressure systolic 001 mm Hg 11/05/19 25 Blood pressure diastolic 01 mm Hg 025 Height 67 in 11/04/2024 Weight 147.2 lbs 11/04/2024 BMI 23.05 kg/m2 11/04/2024 Encounters Encounter Location Date Provider Diagnosis [facility] [address] [place] [address] 11/04/2024 Lewis Jiménez Jr Genetic susceptibility to other malignant neoplasm Z15.09 ; Genetic susceptibility to malignant neoplasm of breast Z15.01 and FH: pancreatic cancer Z80.0 Assessments Encounter Date Diagnosis (ICD Code) Assessment Notes Treatment Notes Treatment Clinical Notes Section Notes 11/04/2024 Genetic susceptibility to other malignant neoplasm (ICD-10 - Z15.09) 11/04/2024 Genetic susceptibility to malignant neoplasm of breast (ICD-10 - Z15.01) 11/04/2024 FH: pancreatic cancer (ICD-10 - Z80.0) Plan Of Treatment Pending Test Test Name Order Date MRI ABD W&WO CONTRAST 11/04/2024 Next Appt Details Provider Name:Lewis bae Jr, 11/03/2025 09:00:00 AM, [address], [address], [place], [address], Progress Notes * GENESIS WILKS ADOB: (54 yo F)Acc No.[id number]:11/04/2024 Progress Notes Patient:?SERAMaria De JesusNAILA Provider:?Lewis Jiménez MD :1970???Age:54 Y???Sex:Female D ate:11/04/2024 Address:[address] [place], [place] [id number] Pcp:Zamzam Bauer Subjective: * Chief Complaints: * ???1. Patient presents today for a Pancreatic screening. * Medical History:?Colonoscopy 07/20/16, benign polyps x2, five-year followup because of family history., Left breast cancer in 2002 treatd with lumpectomy, lymph nodes were all negative, Breast cancer on the right in 2005 lumpectomy and lymph node disection showing one posiitve node., Hypertension, Osteopenia, Hashimotos, Abdominal aortic aneurysm, Triple a aortic aneyrysm. 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 Chaz Piper 2015, radiation head and neck - [facility] april 2015, tooth extraction , future eye surgery aug . * Family History:?Father: dece ased, diagnosed with Heart disease.?Mother: .? The patient's mother of pancreatic and liver cancer. Possible colon primary as well. brother had heart valve replacement living. * Social History:?Tobacco Use:?Tobacco Use/Smoking?Patient is a: nonsmoker.?Drugs/Alcohol:?Alcohol Screen?Did you have a drink containing alcohol in the past year??Yes,?How often did you have a drink containing alcohol in the past year??Monthly or less (1 point), How many drinks did you have on a typical day when you were drinking in the past year??1 or 2 drinks (0 point),?How often did you have 6 or more drinks on one occasion in the past year??Never (0 point),?Points?1,?Interpretation?Negative.?Miscellaneous:?Marital status: . 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 * Medications:?Taking Rufino-Mag 500-250 MG Tablet 1 tablet Orally [...] Sodium 125 MCG Tablet Oral , Discontinued Agency 150 MG Capsule as directed Orally aerial [...] 1 tablet Orally Twice a day * Allergies:?N.K.D.A. Objective: * Vitals:?Wt: 147.2 lbs, Ht: 6 7 in, BMI:23.05Index, BP: 001/01 mm Hg, Temp: 96.9, Wt-k.77. Assessment: * Assessment: 1.?Genetic susceptibility to other malignant neoplasm - Z15.09 (Primary)???2.?Genetic susceptibility to malignant neoplasm of breast - Z15.01???3.?FH: pancreatic cancer - Z80.0??? Plan: * Treatment: * 2.?Genetic susceptibility to malignant neoplasm of breast?Imaging: MRI ABD W&WO CONTRAST* Katie Clarke 11/04/2024 09: 45:18 AM EDT > faxed to for booking * 3.?FH: pancreatic cancer?Imaging: MRI ABD W&WO CONTRAST* Bárbara Clarken 11/04/2024 09: 45:18 AM EDT > faxed to for booking * * * The named appointment provid er may or may not be the originator of this progress note, and it is not deemed complete until electronically signed by the appointment provider. Sign off status: Pending * Provider:?Lewis Jiménez MD Date:?0 11/04/2024 Generated for Liberty farias/Lizzette/Robbitting on:?11/12/2024 08:44 AM EDT
[2024-11-12] MEDS: gadobutroL 7.5 ML VIAL IVPUSH (09:21)
== END 2024-11-12 08:24 | disposition home or self-care (01) ==
LOC: HO.MRI 08:23
PROVIDERS: PCP Internal Medicine; Visit Provider Internal Medicine Gastroenterology
DX: Z15.09 Genetic susceptibility to other malignant neoplasm (principal); Z15.01 Genetic susceptibility to malignant neoplasm of breast; Z80.0 Family history of malignant neoplasm of digestive organs
CPT/HCPCS: 74183; A9585

== ENCOUNTER → 2024-11-12 08:40 | Outpatient (BNV) | payer OTHER, SELFPAY | PROVIDERS: PCP Internal Medicine; Visit Provider Radiology Diagnostic Radiology | DX: N28.1 Cyst of kidney, acquired (principal) | CPT/HCPCS: 74183 ==

== ENCOUNTER 2024-11-13 10:49 | Outpatient (REF) | payer OTHER, SELFPAY ==
[2024-11-13 13:09] LABS: HBsAGNum1 0.27 S/CO (0.00-0.99); HIV AB/AG Nonreactive (Nonreactive); HIV Num 1 0.07 S/CO (0.00-0.99); Hepatitis B Surface Antigen Negative (Negative); ~HepC Num1 0.16 S/CO (0.00-0.79); ~Hepatitis C Antibody Nonreactive (Nonreactive)
[2024-11-13 13:25] LABS: Syphilis Screen Nonreactive (Nonreactive)
[2024-11-13 18:16] LABS: Bacterial Vaginosis PCR NEGATIVE (Negative); Candida Group PCR NOT DETECTED (Not Detect); Candida glab krusei PCR NOT DETECTED (Not Detect); Trichomonas vaginalis PCR NOT DETECTED (Not Detect)
[2024-11-14 05:30] LABS: CT PCR NOT DETECTED (Not Detect.); NG PCR NOT DETECTED (Not Detect.)
== END 2024-11-13 10:50 | disposition home or self-care (01) ==
LOC: HO.LAB 10:49
PROVIDERS: PCP Internal Medicine; Visit Provider Obstetrics & Gynecology
DX: Z20.2 Contact with and (suspected) exposure to infections with a predominantly sexual mode of transmission (principal); Z11.3 Encounter for screening for infections with a predominantly sexual mode of transmission; Z72.89 Other problems related to lifestyle
CPT/HCPCS: 36415; 81515; 86780; 86803; 87340; 87389; 87491; 87591

== ENCOUNTER 2024-11-13 10:49 | Outpatient (AMB) | payer OTHER, SELFPAY ==
[2024-11-13 10:50] VITALS: BP 126/74; BMI 22.4
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
--- OUTSIDE RECORDS SUMMARY | 2024-11-13 11:33 | XMS_ITS | Data Portability ---
Author Organization [place] - [facility], Allergy Address [address] [address] Care Team Providers Care Electrician Journeyman Wireman Name Role Phone PHILLIP CHIANG Primary Care [...] Organization Details Recorded Time Respirato ry finding 059357855 Active 2020 Feeling of foreign body in throat; Note: Date Diagnosed : 09/16/2015 1:43 PM (R09.89) Not Available [facility] 4 02:54:36 Cardiovas cular finding 179954934 Active 2020 Feeling of foreign body in throat; Note: Date Diagnosed : 09/16/2015 1:43 PM (R09.89) Not Available [facility] 4 02:54:36 Follow-up visit Active 2018 Encounter for follow-up examinati on after completed treatment for malignant neoplasm; Note: Date Diagnosed : 05/27/2019 3:07 PM (Z08) Not Available [facility] 4 02:54:34 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 54758577548 07 Active 2015 Leukoplak ia of oral mucosa, including tongue; Note: Date Diagnosed : 02/10/2016 4:29 PM (K13.21) Not Available [facility] 4 02:54:38 Hypothyro idism 13438392 Active 2020 Hypothyro idism, unspecifi ed; Note: Date Diagnosed : 11/17/2020 10:12 AM (E03.9) Not Available [facility] 4 02:54:39 Postopera tive follow-up visit Active 2014 Post op; Note: Date Diagnosed : 10/22/2014 2:49 PM (V67.00) Not Available [facility] 4 02:54:37 History of malignant neoplasm of tongue 111543082 Active 2018 Tumor Location: Left tongue Tumor staging: T1N0 SCCA Treatment : excision @ [facility] 10/13/14, elective neck dsxn & re-resect ion of tongue LN 12/15/14, XRT Date of treatment completio n: 05/15/15 Oncology team: Dr. Ragland/Laurie PIPER MD [address] [place] [address], [place], [address] , [facility] 4 21:32:55 Dysphonia 57928949 Active 2021 Dysphonia ; Note: Date Diagnosed : 05/25/2022 10:11 AM (R49.0) Not Available [facility] 4 02:54:36 Bilateral tinnitus 26746696670 02 Active 2018 Tinnitus, bilateral ; Note: Date Diagnosed : 05/25/2019 3:44 PM (H93.13) Not Available [facility] 4 02:54:37 Disturban ce of salivary secretion 01064387 Active 2018 Xerostomi a; Note: Date Diagnosed : 01/29/2019 4:14 PM (K11.7) Not Available [facility] 4 02:54:34 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 T1N0 suspected . excised at [facility] 10/13/14 12/15/14 elective neck dsxn and re-resect ion of tongue 0/22LN, negative residual in tongue. Dr Ragland to give XRT ; Start Date : 5 Maligna nt neoplasm of anterior two-third s of tongue, ventral surface; Note: Date Diagnosed : 07/25/2015 5:14 PM (C02.2) Not Available [facility] 4 02:54:35 Problem Notes None recorded. Procedures Surgical History Date Name Laterality Status Provider Name and Address Organization Details Recorded Time 06/05/2024 FOL_DP completed CHAZ PIPER MD [address] [place] [address], [id number] 06/04/2024 21:35:13 Imaging Results None recorded. Procedure Notes None recorded. Medical Equipment None Reported. Medications Name Sig Start Date Stop Date Status Note LastModified by Organization Details LastModified Time Prescript ion - Prior Authoriza tion Request active Script Copy/Sandra or Auth^Scr ipt Copy/Sandra or Auth_201 [id number] Not Available Not Available Not Available nystatin 100,000 unit/mL oral suspensio n active Medicati on ID: [id number] P rescribe d By Name: Chaz Piper M.D. Bra nd Name: nystatin Send Method: E-Prescr ibed Sub s Allowed: subs OK Speci al Instruct ion: 5 ml swish and swallow four times daily x 2-4 weeks Me dication GenericN fannie: nystatin Not Available Not Available Not Available venlafaxi ne ER 75 mg capsule,e xtended release 24 hr active Medicati on ID: [id number] B rand Name: venlafax ine Send Method: E-Prescr ibed Sub s Allowed: subs OK Medic ationGen ericName : venlafax ine Not Available Not Available Not Available lisinopri l 20 mg-hydroc hlorothia zide 12.5 mg tablet active Medicati on ID: [id number] B rand Name: lisinopr il-hydro chloroth iazide S end Method: E-Prescr ibed Sub s Allowed: subs OK Medic ationGen ericName : lisinopr il-hydro chloroth iazide Not Available Not Available Not Available lisinopri l 20 mg tablet active Medicati on ID: [id number] B rand Name: lisinopr il Send Method: E-Prescr ibed Sub s Allowed: subs OK Medic ationGen ericName : lisinopr il Not Available Not Available Not Available Peridex 0.12 % mouthwash 02/09 completed Medicati on ID: [id number] Pr escribed By Name: Joel Chand nd Name: Peridex Send Method: E-Prescr ibed Sub s Allowed: subs OK Speci al Instruct ion: 10 ml swish and spit after meals for 2 week Med icationG enericNa me: Peridex Not Available Not Available Not Available oxycodone 5 mg/5 mL oral solution 5-10 ml by mouth 12/20 completed Medicati on ID: [id number] Du ration Value: 7 Prescri bed By [...] nasal spray 02/09 completed Medicati on ID: [id number] Du ration Value: 30 Reason: () Brand [...] by mouth 2018 active Medicati on ID: [id number] D uration Value: 30 Prescri bed By Name: Joel Chand nd Name: omeprazo le Send Method: E-Prescr ibed Sub s Allowed: subs OK Medic ationGen ericName : omeprazo le Not Available Not Available Not Available diclofena c sodium 75 mg tablet,de layed release 05/30 completed Medicati on ID: [id number] D uration Value: 30 Brand Name: diclofen ac sodium S end Method: E-Prescr ibed Sub s Allowed: subs OK Medic ationGen ericName : diclofen ac sodium Not Available Not Available Not Available mupirocin 2 % topical ointment 05/30 completed Medicati on ID: [id number] D uration Value: 5 Brand Name: mupiroci n Send Method: E-Prescr ibed Sub s Allowed: subs OK Medic ationGen ericName : mupiroci n Not Available Not Available Not Available Percocet 5 mg-325 mg tablet 2014 active Medicati on ID: 37845 Du ration Value: 10 Prescri bed By [...] 50 mg tablet active Medicati on ID: [id number] B rand Name: sertrali ne Send Method: E-Prescr ibed Sub s Allowed: subs OK Medic ationGen ericName : sertrali ne Not Available Not Available Not Available lisinopri l 2.5 mg tablet 05/30 completed Medicati on ID: [id number] Du ration Value: 30 Brand Name: lisinopr il Send Method: E-Prescr ibed Sub s Allowed: subs OK Speci al Instruct ion: TAKE 1 TABLET BY MOUTH DAILY. Haider Almanza Name: lisinopr il Not Available Not Available Not Available doxycycli ne hyclate 100 mg tablet 05/30 completed Medicati on ID: [id number] D uration Value: 10 Brand Name: doxycycl ine hyclate Send Method: E-Prescr ibed Sub s Allowed: subs OK Speci al Instruct ion: TAKE 1 TABLET BY MOUTH EVERY 12 HOURS FOR 10 DAYS Med icationG enericNa me: doxycycl ine hyclate Not Available Not Available Not Available levothyro xine 112 mcg tablet 05/30 completed Medicati on ID: [id number] Du ration Value: 30 Brand Name: levothyr [...] Updated DateTime 06/05/2024 170.18 cm 22.7 kg/m2 02056.89 g Tara Hernandez [place] - [facility] 06/05/2024 09:11:23 Social History None recorded. Functional Status None recorded. Mental Status None recorded. Family History Nothing Reported. Medical History No medical history recorded. Gynecological HistoryNo gynecological history recorded. Obstetrics History GPAL:G 0 P 0 0 0 0 Past Encounters Encounter ID Performer Location Encounter Start Date Encounter Closed Date Diagnosis/Indication Diagnosis SNOMED-CT Code Diagnosis ICD10 Code Diagnosis Note [id number] CHAZ PIPER MD [facility] [address] [address] 06/05/2024 08:57:41 06/05/2024 09:29:44 History of malignant neoplasm of tongue 018178642 Z85.810 Health Concerns Section Related Observation LastModified by Organization Detai ls LastModified Time None Recorded Concern Status LastModified by Organization Details LastModified Time None Recorded Advance Directives Directive None Recorded Payers Encounter Date Sequence Insurance Name Policy Number Policy Rhoades Covered Member ID Rhoades Member ID Guarantor Name 06/05/2024 1 [employer]UE [employer]EFIT AD[employer]ISTR[employer] [place] [id number] Sommer A Cervonayco [id number] Sommer A Cervonayco Notes Date Note Type Note Provider Name and Address Organization Details Recorded Time 06/05/2024 text/html Tumor Location: Left tongueTumor staging: T1N0 SCCATreatment: excision @ [facility] 10/13/14, elective neck dsxn & re-resection of tongue LN 12/15/14, XRTDate of treatment completion: 05/15/15Oncology team: Dr. Ragland/Feliz staying busy with a second job at [employer] another tooth extraction early Dec CHAZ PIPER MD [address] [place] [address], [place], [address], [facility] - [facility] 06/05/2024 09:27:49 OBGyn Episode No OBEpisode recorded.
--- OUTSIDE RECORDS SUMMARY | 2024-11-13 11:33 | XMS_ITS | Patient Health Record ---
Author Organization [facility] Address [address] [place] [address] Care Team Providers Care Safety And Health Manager Name Role Phone Zamzam Bauer Primary Care Provider Melissa Evans Unavailable [phone] Allergies No Known Allergies Reason For Referral [...] W/U Status Risk Notes Problem Ingrowing nail (792800231) Ingrowing nail (L60.0) Active confirmed Problem Acquired hallux valgus (07159335) Hallux valgus (acquired), right foot (M20.11) Active confirmed Plan Of Treatment Pending Test Test Name Order Date X ray : Foot, left 3V 03/21/2011 05556-Iuahiyio Plate 12/27/2015 95628-Fpgztsaa Plate 08/13/2016 45293- Debride <25 sq cm 09/03/2016 36213- Debride <25 sq cm 01/13/2016 51094 I&D ABSCESS- SIMPLE,SINGLE 016 Insurance Providers Payer Name Payer Address Payer Phone Subscriber Number Group Number Insured Name Patient Relationship to Insured Coverage Start Date Coverage End Date Blue Benefits [address] [address] [place] [address] [id number] Sommer Erazo Self - patient is the insured Medical (General) History Medical History History ICD Code cancer thyroid disorder chicken pox hypertension headaches/migraines broken bones Anxiety Glaucoma Surgical History Surgery Date(Month/Year) dilatation and curettage lumpectomy 2003 + 2006 ovarian cyst resection colonoscopy 2009 bunionectomy 12/2010 salpingo-oophorectomy 2006 lymph node resection 2014
== END 2024-11-13 11:09 | disposition home or self-care (01) ==
LOC: HO.HWS 10:49
PROVIDERS: PCP Internal Medicine; Visit Provider Obstetrics & Gynecology
DX: Z01.419 Encounter for gynecological examination (general) (routine) without abnormal findings (principal)
CPT/HCPCS: 99396; 99459

== ENCOUNTER 2024-12-02 08:22 | Outpatient (AMB) | payer OTHER, SELFPAY ==
--- OUTSIDE RECORDS SUMMARY | 2024-12-02 08:34 | XMS_ITS | Patient Health Record ---
Author Organization [facility] Address [address] [place] [address] Care Team Providers Care Membership Coordinator Name Role Phone Zamzam Bauer Primary Care Provider Unavailab Lewis Bustillos Jr Unavailable Allergies No Known Allergies Results Component Value Reference Range Notes MR abdomen wo/w con Reviewed date:11/16/2024 08:01:27 AM Interpretation: Performing Lab: Notes/Report: [address] [address] Magnetic Resonance Report Signed Patient: Genesis Wilks MR#: [id number] : 1970 Acct:[id number] Age/Sex: 54 / F ADM Date: 11/12/24 Loc: .MRI Attending Dr: Lewis Jiménez MD Ordering Physician: Lewis Jiménez MD Date of Service: 11/12/24 Procedure(s): MR abdomen wo/w con Accession Number(s): [id number] cc: Zamzam Bauer MD; Lewis Jiménez MD CLINICAL HISTORY: GENETIC SUSCEPTIBILITY TO OTHER MALIGNANT NEOPLASM MRI of the abdomen with and without IV contrast. COMPARISON: None FINDINGS: Bilateral breast implants partially visualized. Visualized portions of the lung bases are clear. No focal hepatic lesion. Diminutive gallbladder. Uniform splenic signal. Normal adrenal glands. Symmetric renal size and enhancement. Left renal simple cyst of the inferior pole measuring 7 mm. No hydronephrosis. Uniform pancreatic signal. Pancreatic duct is not dilated. No abnormal pancreatic enhancement. No pancreatic mass or fluid collection. No retroperitoneal or mesenteric lymphadenopathy identified. Normal enhancement of the aorta SMA and SMV. Visualized portions of the bowel in the abdomen are unremarkable. Normal vertebral body alignment. No vertebral body height loss. No suspicious bone lesion. IMPRESSION: 1. Unremarkable abdominal MRI. No enhancing mass or mass effect. No lymphadenopathy. No pancreatic mass. 2. Simple left renal cyst measuring 7 mm. This document has been electronically signed by: Kodi Steiner MD on 11/12/2024 14:50:56 Dictated By: Kodi Steiner MD Signed By: <Electronically signed by Kodi Steiner MD in OV> 11/12/24 1451 DD/ 1450 TD/TT: 11/12/24 145 Pathology Secretary: [place] [id number] Magnetic Resonance Report Signed Patient: Genesis Wilks MR#: [id number] : 1970 Acct:[id number] Age/Sex: 54 / F ADM Date: 11/12/24 Loc: HO.MRI Attending Dr: Musa Jiménez MD Ordering Physician: Lewis Jiménez MD Date of Service: 11/12/24 Procedure(s): MR kme omen wo/w con Accession Number(s): [id number] cc: Zamzam Bauer MD; Lewis Jiménez MD CLINICAL HISTORY: GE NETIC SUSCEPTIBILITY TO OTHER MALIGNANT NEOPLASM MRI of the abdomen w ith and without IV contrast. COMPARISON: None FINDINGS: Bilateral breast imp lants partially visualized. Visualized portions of the lung bases are clear. No focal hepatic les ion. Diminutive gallbladder. Uniform splenic signal. Normal adrenal glands. Symmetric renal size and enhancement. Left renal simple cyst of the inferior pole measur ing 7 mm. No hydronephrosis. Uniform pancreatic s ignal. Pancreatic duct is not dilated. No abnormal pancreatic enhanceme nt. No pancreatic mass or fluid collection. No retroperitoneal o r mesenteric lymphadenopathy identified. Normal enhancement o f the aorta SMA and SMV. Visualized portions of the bowel in the abdomen are unremarkable. Normal vertebral bod y alignment. No vertebral body height loss. No suspicious bone lesion. IMPRESSION: 1. Unremarkable abdo tamera MRI. No enhancing mass or mass effect. No lymphadenopathy. No pancreatic mass. 2. Simple left renal cyst measuring 7 mm. 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) Active confirmed Problem 62020418907732 Genetic susceptibility to other malignant neoplasm (Z15.09) Active confirmed Problem 498070993 Family history o f colon cancer (Z80.0) Active confirmed Problem 74016365 Dysphagia, unspecified type (R13.10) Active confirmed Problem 24342449 Diarrhea, unspecified type (R19.7) Active confirmed Problem 959334087 FH: pancreatic cancer (Z80.0) Active confirmed Vital Signs Temperature 96.9 degrees Fahrenheit 11/04/2024 Blood pressure diastolic 01 mm Hg 11/04/2024 Height 67 in 11/04/2024 Blood pressure systolic 001 mm Hg 11/04/2024 Weight 147.2 lbs 11/04/2024 BMI 23.05 kg/m2 11/04/2024 Encounters Encounter Location Date Provider Diagnosis [facility] [address] [place] [address] 11/04/2024 Lewis Jiménez Jr Genetic susceptibility to other malignant neoplasm Z15.09 ; Genetic susceptibility to malignant neoplasm of breast Z15.01 and FH: pancreatic cancer Z80.0 [facility] [address] [place] [address] 10/26/2024 Lewis Jiménez Jr [facility] [address] [place] [address] 11/16/2024 Lewis Jiménez Jr Assessments Encounter Date Diagnosis [...] Name:Lewis bae Jr, 11/03/2025 09:00:00 AM, [address], [address], [place], [address], Insurance Providers Payer Name Payer Address Payer Phone Subscriber Number Group Number Insured Name Patient Relationship to Insured Coverage Start Date Coverage End Date 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 Chaz Piper 2015 lumpectomy in both breast bilateral salpingooophorectomy in 2006
--- OUTSIDE RECORDS SUMMARY | 2024-12-02 08:34 | XMS_ITS | Patient Health Record ---
Author Organization [facility] Address [address] [place] [address] Care Team Providers Care Target Aircraft Technician Name Role Phone Zamzam Bauer Primary Care Provider Melissa Evans Unavailable [phone] Allergies No Known Allergies Reason For Referral [...] W/U Status Risk Notes Problem Ingrowing nail (068834433) Ingrowing nail (L60.0) Active confirmed Problem Hallux valgus (acquired), right foot (M20.11) Active confirmed Plan Of Treatment Pending Test Test Name Order Date X ray : Foot, left 3V 03/21/2011 40653-Yzabaepn Plate 12/27/2015 46847-Viehrsyb Plate 08/13/2016 07475- Debride <25 sq cm 09/03/2016 64425- Debride <25 sq cm 01/13/2016 69422 I&D ABSCESS- SIMPLE,SINGLE 016 Insurance Providers Payer Name Payer Address Payer Phone Subscriber Number Group Number Insured Name Patient Relationship to Insured Coverage Start Date Coverage End Date Blue Benefits [address] [address] [place] [address] [id number] Sommer Erazo Self - patient is the insured Medical (General) History Medical History History ICD Code cancer thyroid disorder chicken pox hypertension headaches/migraines broken bones Anxiety Glaucoma Surgical History Surgery Date(Month/Year) dilatation and curettage lumpectomy 2003 + 2006 ovarian cyst resection colonoscopy 2009 bunionectomy 12/2010 salpingo-oophorectomy 2006 lymph node resection 2014
--- OUTSIDE RECORDS SUMMARY | 2024-12-02 08:34 | XMS_ITS ---
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) Active confirmed Problem 94601130352526 Genetic susceptibility to other malignant neoplasm (Z15.09) Active confirmed Problem 878073757 FH: pancreatic cancer (Z80.0) Active confirmed Vital Signs Temperature 96.9 degrees Fahrenheit 11/05/19 25 Blood pressure systolic 001 mm Hg 11/05/19 25 Blood pressure diastolic 01 mm Hg 025 Height 67 in 11/04/2024 Weight 147.2 lbs 11/04/2024 BMI 23.05 kg/m2 11/04/2024 Encounters Encounter Location Date Provider Diagnosis [facility] [address] [place] [address] 11/04/2024 Lewis Jiménez Jr Genetic susceptibility to [...] 09:00:00 AM, [address], [address], [place], [address], Progress Notes * GENESIS WILKS ADOB: (54 yo F)Acc No.[id number]:11/04/2024 Progress Notes Patient:?SERAMaria De JesusNAILA Provider:?Lewis Jiménez MD :1970???Age:54 Y???Sex:Female D ate:11/04/2024 Address:[address] [place], [place] [id number] Pcp:Zamzam Bauer Subjective: * Chief Complaints: * [...] Piper 2015, radiation head and neck - [facility] april 2015, tooth extraction , future eye [...] past year??Never (0 point),?Points?1,?Interpretation?Negative.?Miscellaneous:?Marital status: . 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 * Medications:?Taking Rufino-Mag 500-250 MG Tablet 1 [...] Sodium 125 MCG Tablet Oral , Discontinued [place] 150 MG Capsule as directed Orally aerial [...] MD Date:?0 11/04/2024 Generated for Liberty farias/Lizzette/Robbitting on:?12/02/2024 08:33 AM EDT
--- OUTSIDE RECORDS SUMMARY | 2024-12-02 08:34 | XMS_ITS ---
Author Organization [facility] Address [address] [place] [address] Care Team Providers Care Distribution Center Assistant Name Role Phone Zamzam Bauer Primary Care Provider Unavailab Lewis Bustillos Jr Encounters Encounter Location Date Provider Diagnosis [facility] [address] [place] [address] 10/26/2024 Lewis Jiménez Jr Plan Of Treatment Next Appt Details Provider Name:Lewis bae Jr, 11/03/2025 09:00:00 AM, [address], [address], [place], [address], Progress Notes * GENESIS WILKS ADOB: (54 yo F)Acc No.[id number]:10/26/2024 Patient:?NAILA WILKS Guilherme Wiggins :1970???Age:54 Y???Sex:Female Address:[address] [place] [address] * true * Date:? Generated for Liberty farias/Lizzette/eTransmitting on:?12/02/2024 08:34 AM EDT
--- OUTSIDE RECORDS SUMMARY | 2024-12-02 08:34 | XMS_ITS ---
Author Organization [facility] Address [address] [place] [address] Care Team Providers Care Seat Covers Trimmer Name Role Phone Zamzam Bauer Primary Care Provider Unavailab Lewis Bustillos Jr [phone] REASON FOR VISIT MRI Encounters Encounter Location Date Provider Diagnosis [facility] [address] [place] [address] 11/16/2024 Lewis Jiménez Jr Plan Of Treatment Next Appt Details Provider Name:Lewis bae Jr, 11/03/2025 09:00:00 AM, [address], [address], [place], [address], Progress Notes * GENESIS WILKS ADOB: (54 yo F)Acc No.[id number]:11/16/2024 Patient:?NAILA WILKS Guilherme Wiggins :1970???Age:54 Y???Sex:Female Address:[address] [place] [address] * true * Date:? Generated for Liberty farias/Lizzette/eTransmitting on:?12/02/2024 08:34 AM EDT
--- OUTSIDE RECORDS SUMMARY | 2024-12-02 08:34 | XMS_ITS | Data Portability ---
Author Organization [place] - [facility], Allergy Address [address] [address] Care Team Providers Care Treasury Director Name Role Phone PHILLIP CHIANG Primary Care Provider [phone] Assessment Encounter Date Assessment Date Assessment LastModified [...] Organization Details Recorded Time Respirato ry finding [id number] Active 2020 Feeling of foreign body in throat; Note: Date Diagnosed : 09/16/2015 1:43 PM (R09.89) Not Available [facility] 4 02:54:36 Cardiovas cular finding [id number] Active 2020 Feeling of foreign body in throat; Note: Date Diagnosed : 09/16/2015 1:43 PM (R09.89) Not Available [facility] 4 02:54:36 Follow-up visit Active 2018 Encounter for follow-up examinati on after completed treatment for malignant neoplasm; Note: Date Diagnosed : 05/27/2019 3:07 PM (Z08) Not Available [facility] 4 02:54:34 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 22561999134 07 Active 2015 Leukoplak ia of oral mucosa, including tongue; Note: Date Diagnosed : 02/10/2016 4:29 PM (K13.21) Not Available [facility] 4 02:54:38 Hypothyro idism 89056396 Active 2020 Hypothyro idism, unspecifi ed; Note: Date Diagnosed : 11/17/2020 10:12 AM (E03.9) Not Available [facility] 4 02:54:39 Postopera tive follow-up visit Active 2014 Post op; Note: Date Diagnosed : 10/22/2014 2:49 PM (V67.00) Not Available [facility] 4 02:54:37 History of malignant neoplasm of tongue 222937821 Active 2018 Tumor Location: Left tongue Tumor staging: T1N0 SCCA Treatment : excision @ [facility] 10/13/14, elective neck dsxn & re-resect ion of tongue LN 12/15/14, XRT Date of treatment completio n: 05/15/15 Oncology team: Dr. Ragland/Laurie PIPER MD [address] [place] [address], [place], [address] , [facility] 4 21:32:55 Dysphonia 06371155 Active 2021 Dysphonia ; Note: Date Diagnosed : 05/25/2022 10:11 AM (R49.0) Not Available [facility] 4 02:54:36 Bilateral tinnitus 02013464367 02 Active 2018 Tinnitus, bilateral ; Note: Date Diagnosed : 05/25/2019 3:44 PM (H93.13) Not Available [facility] 4 02:54:37 Disturban ce of salivary secretion 71795512 Active 2018 Xerostomi a; Note: Date Diagnosed : 01/29/2019 4:14 PM (K11.7) Not Available [facility] 4 02:54:34 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 T1N0 suspected . excised [place] [facility] 10/13/14 12/15/14 elective neck dsxn and re-resect ion of tongue 0/22LN, negative residual in tongue. Dr Ragland to give XRT ; Start Date : 5 Maligna nt neoplasm of anterior two-third s of tongue, ventral surface; Note: Date Diagnosed : 07/25/2015 5:14 PM (C02.2) Not Available [facility] 4 02:54:35 Problem Notes None recorded. Procedures Surgical History Date Name Laterality Status Provider Name and Address Organization Details Recorded Time 06/05/2024 FOL_DP completed CHAZ PIPER MD [address] [place] [address], [id number] 06/04/2024 21:35:13 Imaging Results None recorded. Procedure Notes None recorded. Medical Equipment None Reported. Medications Name Sig Start Date Stop Date Status Note LastModified by Organization Details LastModified Time Prescript ion - Prior Authoriza tion Request active Script Copy/Sandra or Auth^Scr ipt Copy/Sandra or Auth_201 [id number] Not Available Not Available Not Available nystatin 100,000 unit/mL oral suspensio n active Medicati on ID: [id number] P rescribe d By Name: Chaz Piper M.D. Bra nd Name: nystatin Send Method: E-Prescr ibed Sub s Allowed: subs OK Speci al Instruct ion: 5 ml swish and swallow four times daily x 2-4 weeks Me dication GenericN fannie: nystatin Not Available Not Available Not Available venlafaxi ne ER 75 mg capsule,e xtended release 24 hr active Medicati on ID: [id number] B rand Name: venlafax ine Send Method: E-Prescr ibed Sub s Allowed: subs OK Medic ationGen ericName : venlafax ine Not Available Not Available Not Available lisinopri l 20 mg-hydroc hlorothia zide 12.5 mg tablet active Medicati on ID: [id number] B rand Name: lisinopr il-hydro chloroth iazide S end Method: E-Prescr ibed Sub s Allowed: subs OK Medic ationGen ericName : lisinopr il-hydro chloroth iazide Not Available Not Available Not Available lisinopri l 20 mg tablet active Medicati on ID: [id number] B rand Name: lisinopr il Send Method: E-Prescr ibed Sub s Allowed: subs OK Medic ationGen ericName : lisinopr il Not Available Not Available Not Available Peridex 0.12 % mouthwash 02/09 completed Medicati on ID: [id number] Pr escribed By Name: Joel Chand nd Name: Peridex Send Method: E-Prescr ibed Sub s Allowed: subs OK Speci al Instruct ion: 10 ml swish and spit after meals for 2 week Med icationG enericNa me: Peridex Not Available Not Available Not Available oxycodone 5 mg/5 mL oral solution 5-10 ml by mouth 12/20 [place]: [id number] Du ration Value: 7 Prescri bed By [...] nasal spray 02/09 completed Medicati on ID: [id number] Du ration Value: 30 Reason: () Brand [...] by mouth 2018 active Medicati on ID: [id number] D uration Value: 30 Prescri bed By Name: Joel Chand nd Name: omeprazo le Send Method: E-Prescr ibed Sub s Allowed: subs OK Medic ationGen ericName : omeprazo le Not Available Not Available Not Available diclofena c sodium 75 mg tablet,de layed release 05/30 completed Medicati on ID: [id number] D uration Value: 30 Brand Name: diclofen ac sodium S end Method: E-Prescr ibed Sub s Allowed: subs OK Medic ationGen ericName : diclofen ac sodium Not Available Not Available Not Available mupirocin 2 % topical ointment 05/30 completed Medicati on ID: [id number] D uration Value: 5 Brand Name: mupiroci n Send Method: E-Prescr ibed Sub s Allowed: subs OK Medic ationGen ericName : mupiroci n Not Available Not Available Not Available Percocet 5 mg-325 mg tablet 2014 [place]: [id number] Du ration Value: 10 Prescri bed By [...] 50 mg tablet active Medicati on ID: [id number] B rand Name: sertrali ne Send Method: E-Prescr ibed Sub s Allowed: subs OK Medic ationGen ericName : sertrali ne Not Available Not Available Not Available lisinopri l 2.5 mg tablet 05/30 completed Medicati on ID: [id number] Du ration Value: 30 Brand Name: lisinopr il Send Method: E-Prescr ibed Sub s Allowed: subs OK Speci al Instruct ion: TAKE 1 TABLET BY MOUTH DAILY. Haider Almanza Name: lisinopr il Not Available Not Available Not Available doxycycli ne hyclate 100 mg tablet 05/30 completed Medicati on ID: [id number] D uration Value: 10 Brand Name: doxycycl ine hyclate Send Method: E-Prescr ibed Sub s Allowed: subs OK Speci al Instruct ion: TAKE 1 TABLET BY MOUTH EVERY 12 HOURS FOR 10 DAYS Med icationG enericNa me: doxycycl ine hyclate Not Available Not Available Not Available levothyro xine 112 mcg tablet 05/30 completed Medicati on ID: [id number] Du ration Value: 30 Brand Name: levothyr [...] Updated DateTime 06/05/2024 170.18 cm 22.7 kg/m2 00331.89 g Tara Hernandez [place] - [facility] 06/05/2024 09:11:23 Social History None recorded. Functional Status None recorded. Mental Status None recorded. Family History Nothing Reported. Medical History No medical history recorded. Gynecological HistoryNo gynecological history recorded. Obstetrics History GPAL:G 0 P 0 0 0 0 Past Encounters Encounter ID Performer Location Encounter Start Date Encounter Closed Date Diagnosis/Indication Diagnosis SNOMED-CT Code Diagnosis ICD10 Code Diagnosis Note [id number] CHAZ PIPER MD [facility] [address] [address] 06/05/2024 08:57:41 06/05/2024 09:29:44 History of malignant neoplasm of tongue [id number] Z85.810 Health Concerns Section Related Observation LastModified by Organization Detai ls LastModified Time None Recorded Concern Status LastModified by Organization Details LastModified Time None Recorded Advance Directives Directive None Recorded Payers Insurance Date Sequence Insurance Name Policy Number Policy Rhoades Covered Member ID Rhoades Member ID Guarantor Name 06/05/2024 1 [employer] [place] [id number] Sommer A [employer] [id number] Sommer A [employer] Notes Date Note Type Note Provider Name and Address Organization Details Recorded Time 06/05/2024 text/html Tumor Location: Left tongueTumor staging: T1N0 SCCATreatment: excision @ [facility] 10[place]13/14, elective neck dsxn & re-resection of tongue LN 12/15/14, XRTDate of treatment completion: 05/15/15Oncology team: Dr. Ragland/Feliz staying busy with a second job at [employer] another tooth extraction early Dec CHAZ PIPER MD [address] [place] [address], [place], [address], [facility] - [facility] 06/05/2024 09:27:49 OBGyn Episode No OBEpisode recorded.
--- NOTE | 2024-12-02 08:44 | AM.OFFVISNUR ---
Intake Visit Reasons: Evenity #6 Allergies No Known Allergies [No Known Allergies*] Allergy (Verified 11/13/24 10:56) Office Meds romosozumab-aqqg 210 mg/2.34 mL(105 mg/1.17 mL x2)subcutaneous syringe Performing Provider: Anny Stephens MD Performing Location: [facility] Rheumatology Administered by: Tawana Alfaro RN on 12/02/24 08:44 Dose Route Admin Location Dispensed Lot Number Expiration Date [facility] [employer]ice 210 mg subcut bilateral upper arms 2.34 mL [id number] 11/18/26 10172-134-19 AMGEN 210 mg subcut 2.34 mL Comments: Patient tolerated injection well. Denies any reactions to previous injections. Assessment & Plan Assessment & Plan Orders: Orders AMB Romosozumab Injection Patient Supplied Today M81.0 - Age-related osteoporosis without current pathological fracture Medications: New romosozumab-aqqg 210 mg (2.34 mL) subcut ONCE 2.34 mL 0RF M81.0 - Age-related osteoporosis without current pathological fracture Coding
== END 2024-12-02 08:37 | disposition home or self-care (01) ==
LOC: HO.RHE 08:23
PROVIDERS: PCP Internal Medicine; Visit Provider Student in an Organized Health Care Education/Training Program
DX: M81.0 Age-related osteoporosis without current pathological fracture (principal)

== ENCOUNTER → 2024-12-02 08:22 | Outpatient (BNVA) | payer OTHER, SELFPAY | PROVIDERS: PCP Internal Medicine; Visit Provider Student in an Organized Health Care Education/Training Program | DX: M81.0 Age-related osteoporosis without current pathological fracture (principal) | CPT/HCPCS: 96372; J3111 ==

== ENCOUNTER 2024-12-30 07:35 | Outpatient (AMB) | payer OTHER, SELFPAY ==
--- NOTE | 2024-12-30 07:36 | A.OFFVIS_ITS ---
Vital Signs 12/30/24 07:41 Height 5 ft 7 in Weight 145 lb 4.554 oz BMI 22.8 BP 120/74 Blood Pressure Location Lt brachial Position Sitting Pulse 62 Pulse Source Pulse Oximeter Pulse Oximetry (%) 98 Oxygen Delivery Method Room Air Intake Visit Reasons: Osteoprosis/ evenity #7 Intake Note: Patient presents for Osteoporosis and Evenity #7 follow up. Allergies No Known Allergies [No Known Allergies*] Allergy (Verified 12/30/24 07:40) Medication List - Last Reconciled 12/30/24 by Anny Stephens MD clotrimazole 1% 1 appl topical TID levothyroxine 125 mcg PO DAILY losartan-hydrochlorothiazide 100-12.5 mg 1 tab PO DAILY romosozumab-aqqg (Evenity) 210 mg (2.34 mL) subcut Q30D HPI Comments Details: Patient is a 54-year-old female with history of breast cancer history of tongue cancer,, hypertension, hyperlipidemia complicated by ascending aortic aneurysm, hypothyroidism and osteoporosis here today for follow up Interval History: Patient last seen 07/01/[address] Barger. At that time she was following up after rotation and diagnostic workup. She was started on Evenity based on her age, significant osteoporosis risk factors and hx of T12 compression fracture. Today she is due for her 6th Evenity shot. Doing well overall without any side effects. No falls or fractures since the last visit. Currently being evaluated for dental work Rheumatologic History: Started Evenity 06/2024 Initial history: This is a 54-year-old female with osteoporosis who presents for follow-up. Patient has history of multiple cancers. She has had recurrent breast cancers, in 2017 she had bilateral salpingo-oophorectomy. Received radiation when she was 37. This was around the time she had menopause. Menopause was attributed to chemotherapy at that time. She also has history of tongue cancer treated with surgery and radiation. She has a family history of pancreatic cancer. She denies any history of falls or fractures recently. She states that she broke her arm when she was a child. Patient also has loose teeth. Her gums are receding and believes that she will need multiple dental extractions done in the near future. 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 She has history of recurrent breast cancer s/p bilateral mastectomy and salpingo oophorectomy. She also has history of tongue cancer s/p surgery and radiation therapy. Strong family history of cancers. Her DEXA scan shows osteoporosis, lowest T-score is-3.1 at the L-spine. She is up with high-risk of subsequent fractures. Needs treatment for osteoporosis. It would be best if we start with an anabolic agent such as Romosuzumab for about a year and consolidate with an antiresorptive agents such as Reclast. Current Rheumatology Medication(s): Evenity 210mg SC every 30 days [facility] Medical History Ascending aortic aneurysm Bicuspid aortic valve Glaucoma, narrow-angle Heart burn Loose, teeth Hx of varicose veins Abdominal pain with radiation to back AV I (cervical intraepithelial neoplasia I) History of tongue cancer History of breast cancer Surgical History Hx of tooth extraction History of bunionectomy of left great toe Hx of bilateral breast biopsy Hx of colonoscopy History of bilateral salpingo-oophorectomy Hx of breast implants, bilateral History of bilateral mastectomy Family History Mother Liver cancer Pancreatic cancer Colon cancer Father Myocardial infarction Social History Alcohol intake: never Patient Tobacco Use Status: Never used Tobacco Sexual orientation: Straight/Heterosexual Female Reproductive History Menstrual Age of Menarche: 11 Review of Systems Const Details: Review of Systems Constitutional: Denies fever, chills, weight loss ENT: Denies vision changes, eye pain or eye redness, dental caries, dry mouth GI: Denies nausea, vomiting, diarrhea, abdominal pain, change in BM Pulm: Denies SOB, SANCHEZ, hemoptysis, wheezing Cards: Denies chest pain, palpitations Skin: Denies Raynaud's, rash, nail changes, photosensitivity, HOT DIE PICKER: Denies headaches, weakness, paresthesias, recurrent falls MSK: as per HPI All other systems reviewed and are unremarkable except noted above Physical Exam Vital Signs: Last Vital Signs Pulse 62 12/30/24 07:41 BP 120/74 12/30/24 07:41 Pulse Ox 98 12/30/24 07:41 Oxygen Delivery Method Room Air 12/30/24 07:41 BMI result Body Mass Index 22.8 Vital signs reviewed Physical Examination CONSTITUITIONAL Patient alert and cooperative. Well appearing and in no apparent painful distress HEENT Conjunctiva and sclera clear. ?Pupils equal round and reactive to light. ?No lymphadenopathy. ? CHEST/RESPIRATORY SYSTEM Normal respiratory effort and able to speak in complete sentences. ?Clear to auscultation bilaterally. ?No crackles, rales, rhonchi, wheezes heard. CARDIAC SYSTEM Regular rate and rhythm. ?S1 and S2 heard no murmurs. ?Radial pulses intact bilaterally MSK Hands: ?Able to make a fist. No synovitis noted to the MCPs, PIPs or DIPs. ?No tenderness to palpation of these joints. No deformities noted. ? Wrists: ?Full range of motion at the wrists without pain. ?No tenderness to palpation or synovitis noted to the wrists. Elbows: Full range of motion without pain. No tenderness, weakness, swelling, increased warmth or erythema. Shoulders: Full range of active range of motion without pain. No tenderness, weakness, swelling, increased warmth or erythema. Hips: Full range of motion without pain. Hip bursa: No tenderness to palpation Knees: ?Full range of motion. ?No tenderness, swelling, increased warmth or erythema.?No effusion or crepitations Ankles: Full range of motion. ?No tenderness, swelling, increased warmth or erythema.? Feet: ?Negative squeeze test. ?No tenderness to palpation or swelling of the MTPs. Tender points:?No tenderness to palpation of the bilateral trapezius, supraspinatus, greater trochanters, anterior costochondral junctions, bilateral gluteal areas, bilateral suboccipital muscle insertions SKIN Skin intact without rashes. Results Reviewed Results Reviewed: Laboratory Tests 05/28/24 09:50 Sodium 142 Potassium 4.1 Chloride 106 Carbon Dioxide 29 BUN 28 H Creatinine 0.77 AST 25 ALT 18 Alkaline Phosphatase 80 25-OH Vitamin D Total 47.4 DEXA 01/2024 FINDINGS: LEFT FEMUR, NECK: Current: BMD 0.726 g/cm2, Z-score -1.3, T-score -2.2, osteopenia. Prior: BMD 0.774 g/cm2. Baseline: BMD 0.862 g/cm2. LEFT FEMUR, TOTAL: Current: BMD 0.824 g/cm2, Z-score -0.8, T-score -1.5, osteopenia, 0.0% no change from previous, 7.1% decrease from baseline (<5% change is not significant). Prior: BMD 0.824 g/cm2. Baseline: BMD 0.887 g/cm2. AP SPINE L1-L4: Current: BMD 0.808 g/cm2, Z-score -2.4, T-score -3.1, osteoporosis, 2.1% increase from previous, 14.2% decrease from baseline (<5% change is not significant). Prior: BMD 0.791 g/cm2. Baseline: BMD 0.942 g/cm2. Assessment & Plan Assessment & Plan (1) Osteoporosis: Comment: DEXA 01/2024: AP Spine -3.1, Left femur neck -2.2, Left femur total -1.5 T12 compression fracture Code(s): M81.0 - Age-related osteoporosis without current pathological fracture Category: Medical Qualifiers: Osteoporosis type: age-related Presence of current pathological fractur e: without current pathological fracture Qualified Code(s): M81.0 - Age-related osteoporosis without current pathological fracture Plan: #Osteoporosis Patient is a 54-year-old female with osteoporosis. Risk factors include early menopause secondary to bilateral salpingo- oophorectomy and radiation treatment at 37 for oral cancer. Due to T12 compression fracture and her young age she was started on evenity for anabolic agent 06/2024 Doing well on Evenity. No falls or fractures. No drug reactions Plan - Evenity 210mg SC every 30days x 12 doses - Vit D 2000-5000U daily (OTC) - Labs today: CMP and Vit D - RTC 6 months - Labs prior to visit: CMP and Vit D (2) Encounter for ongoing osteoporosis non-bisphosphonate therapy: Code(s): M81.0 - Age-related osteoporosis without current pathological fracture; Z79.899 - Other intermission coordinator (current) drug therapy Plan: #Long-term Use of Evenity Risks and benefits of romosuzumab in the management of osteoporosis Benefits include improved bone density, decreased fracture risk Risks include atypical femoral fractures, osteonecrosis of the jaw, injection site reactions, joint pain and headache Advised that patient should time any major dental work to 30 days after last injection and hold the injection for another 30 days Keep vitamin-D at least 35 ng/mL Plan I spent 25 minutes reviewing the record and labs, taking a history, examining the patient, discussing the treatment plan, ordering diagnostic work up and documenting in the medical record Orders: Orders Comprehensive Met. Panel 6 Months M81.0 - Age-related osteoporosis without current pathological fracture Vitamin D 25-OH Total 6 Months E55.9 - Vitamin D deficiency, unspecified Vitamin D 25-OH Total Today E55.9 - Vitamin D deficiency, unspecified, M81.0 - Age-related osteoporosis without current pathological fracture Comprehensive Met. Panel Today E55.9 - Vitamin D deficiency, unspecified, M81.0 - Age-related osteoporosis without current pathological fracture Coding Level of Care Code Est Pt Level 3 (10923) Complex EM visit Add On G2211 Diagnoses Age-related osteoporosis without current pathological fracture M81.0 Osteoporosis type: age-related Presence of current pathological fracture: without current pathological fracture Encounter for ongoing osteoporosis non-bisphosphonate therapy M81.0; Z79.899
[2024-12-30 07:41] VITALS: BP 120/74; PULSE 62; O2SAT 98; BMI 22.8
== END 2024-12-30 09:18 | disposition home or self-care (01) ==
LOC: HO.RHE 07:35
PROVIDERS: PCP Internal Medicine; Visit Provider Student in an Organized Health Care Education/Training Program
DX: M81.0 Age-related osteoporosis without current pathological fracture (principal); Z79.899 Other long term (current) drug therapy
CPT/HCPCS: 99213

== ENCOUNTER 2024-12-30 07:35 | Outpatient (REF) | payer OTHER, SELFPAY ==
[2024-12-30 10:37] LABS: Alanine Aminotransferase 19 U/L (0-31); Albumin Level 4.4 g/dL (3.5-5.0); Alkaline Phosphatase 75 U/L (39-117); Anion Gap 8 (12-20); Aspartate Amino Transferase 29 U/L (5-31); Bilirubin Total 0.2 mg/dL (0.0-1.0); Blood Urea Nitrogen 33 mg/dL (9-16); Calcium 9.4 mg/dL (8.4-10.2); Carbon Dioxide 31 mmol/L (22-29); Chloride 105 mmol/L (96-108); Estimated Glomerular Filt Rate > 60; Glucose Random 114 mg/dL (60-115); Potassium 3.9 mmol/L (3.3-5.1); Sodium 140 mmol/L (135-145); Total Protein 7.3 g/dL (6.5-8.0)
[2024-12-30 10:55] LABS: Vitamin D 25-OH Total 40.8 ng/mL (>30)
== END 2024-12-30 07:36 | disposition home or self-care (01) ==
LOC: HO.LAB 07:35
PROVIDERS: PCP Internal Medicine; Visit Provider Student in an Organized Health Care Education/Training Program
DX: M81.0 Age-related osteoporosis without current pathological fracture (principal); E55.9 Vitamin D deficiency, unspecified; Z85.3 Personal history of malignant neoplasm of breast; Z85.810 Personal history of malignant neoplasm of tongue; Z87.310 Personal history of (healed) osteoporosis fracture
CPT/HCPCS: 36415; 80053; 82306; 96372; J3111

== ENCOUNTER → 2025-01-04 07:58 | Outpatient (REF) | payer OTHER, SELFPAY ==
--- NOTE | 2025-01-04 08:02 | CA_ITS ---
Transthoracic Echocardiogram Patient (Last, First, Middle): Sommer Bosch A Gender: Female Date of : 1970 Age: 54 Procedure Date: 01/04/2025 Procedure Type: Transthoracic Echocardiogram Location: OP Height: 170. cm Weight: 64.87 kg BSA: 1.75 m2 Heart Rate: 45 bpm BP: 145 / 75 mmHg Vulcanizer: MILLY Referring MD: Nestor Sanchez MD Symptoms: Q23.1 - Congenital insufficiency of aortic valve Study Quality: Fair w/Contrast/ Breast implants ECG Rhythm: Bradycardia Conclusions: - The left ventricular systolic function is normal. The calculated ejection fraction is 64% by biplane method. - Bicuspid aortic valve without any significant stenosis or regurgitation. - There is mild dilatation of the ascending aorta measuring 4.30 cm. Findings Procedure Information Contrast agent, definity, is being given per protocol without apparent complications. Left Ventricle Normal left ventricular cavity size. There is normal left ventricular wall thickness. The left ventricular systolic function is normal. The calculated ejection fraction is 64% by biplane method. There is no evidence of regional wall motion abnormalities. Diastolic function is normal for age. Right Ventricle Normal right ventricular cavity size and systolic function. Atria The left atrium is moderately dilated. The right atrium is normal in size. Aortic Valve There is a bicuspid aortic valve. There is mild thickening of the aortic valve. There is no aortic valve stenosis. There is trace (trivial) aortic valve regurgitation. Left and right cusps were fused. Mitral Valve There is mild anterior and posterior mitral leaflet thickening. There is trace mitral valve regurgitation. There is no mitral valve stenosis. Pulmonic Valve The pulmonic valve is likely normal. Tricuspid Valve There is trace tricuspid valve regurgitation. There is no evidence of pulmonary hypertension. Great Vessels The aortic arch is normal in size. There is mild dilatation of the ascending aorta measuring 4.30 cm. Venous The inferior vena cava is mildly dilated and collapses less than 50% with inspiration. Pericardium/Pleural There is no evidence of pericardial effusion. Prior Study Comparison Changes noted compared to prior study dated: 07/26/2023. Increase in ascending aortic size. Measurements 2D Linear Measurements IVSd: 0.91 0.6-0.9/0.6-1.0 cm LVIDd: 4.88 3.9-5.3/4.2-5.9 cm LVIDd Index: 2.79 2.4-3.2/2.2-3.1 cm/m2 LVIDs: 3.14 2.0-3.6 cm LVPWd: 0.97 0.7-1.1 cm LA Diam: 3.30 2.7-3.8/3.0-4.0 cm LAIDs Index: 1.89 1.5-2.3 cm/m2 LV Mass: 199.70 67-162/88-224 g LV Mass Index: 114.11 43-95/49-115 g/m2 LVOT Diam: 2.00 3.0+(-)1.3 cm 2D Systolic Function EF 4C: 68.10 >55% EF 2C: 59.20 >55% EF BiP: 64.20 >55% Mitral Valve MV Pk E: 0.93 MV PK A: 0.52 MV Decel Time: 244.00 E/A: 1.80 E'Lateral: 10.40 E'Medial: 7.94 E/E' Med: 11.80 E/E' Lat: 9.00 PHT: 72.00 MVA PHT: 3.06 Decel [place]: 3.83 Aortic Valve AoV Pk Ricardo: 1.71 AoV Mn Ricardo: 1.22 AoV VTI: 0.45 AoV Pk Grad: 12.00 Aov Mn Grad: 7.00 LAZARUS Cont.VTI: 1.69 LVOT LVOT Pk Ricardo: 0.84 LVOT Mn Ricardo: 0.61 LVOT VTI: 0.24 LVOT Pk Grad: 3.00 LVOT Mn Grad: 2.00 LVOT Diam: 2.00 LVOT Area: 3.14 Diastolic Function MV Pk E: 0.93 MV Pk A: 0.52 E/A: 1.80 E'Medial: 7.94 E/E' Med: 11.80 E' Laterial: 10.40 E/E' Lat: 9.00 Right Ventricle TAPSE (mm): 25.20 TVS' Ricardo: 10.60 Tricuspid Valve TR Pk Ricardo: 1.83 TR Pk Grad: 13.00 RA Press: 15.00 RVSP: 28.00 Great Vessels Aorta Sinus of Valsalva: 3.40 2.0-3.5 cm Ao Asc: 4.30 2.1-3.4 cm Ao Arch: 3.10 Pulmonary Valve PV Pk Ricardo: 0.57 Peak PV Grad: 1.00 Updated in Other Vendor System with Status of Final Nestor Sanchez MD electronically signed on 01/04/2025 3:50:29 PM with status of Final
--- OUTSIDE RECORDS SUMMARY | 2025-01-04 08:02 | XMS_ITS ---
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) Active confirmed Problem 45891571048707 Genetic susceptibility to other malignant neoplasm (Z15.09) Active confirmed Problem 540907353 FH: pancreatic cancer (Z80.0) Active confirmed Vital Signs Temperature 96.9 degrees Fahrenheit 11/05/19 25 Blood pressure systolic 001 mm Hg 11/05/19 25 Blood pressure diastolic 01 mm Hg 025 Height 67 in 11/04/2024 Weight 147.2 lbs 11/04/2024 BMI 23.05 kg/m2 11/04/2024 Encounters Encounter Location Date Provider Diagnosis [facility] [address] [place] [address] 11/04/2024 Lewis Jiménez Jr Genetic susceptibility to [...] Up: 1 Year, Reason: Provider Name:Lewis bae Jr, 11/03/2025 09:00:00 AM, [address], [address], [place], [address], Progress Notes * GENESIS WILKS ADOB: (54 yo F)Acc No.[id number]:11/04/2024 Progress Notes Patient:?NAILA WILKS Provider:?Lewis Jiménez MD :1970???Age:54 Y???Sex:Female D ate:11/04/2024 Address:[address] [place], [place] [id number] Pcp:Zamzam Bauer Subjective: * Chief Complaints: * ???1. Patient presents today for a Pancreatic screening. * HPI: ???New symptom(s):? Genesis is a pleasant 54-year-old woman seen [...] at this time. 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 * Medical History:?Colonoscopy 10/10, normal, 5-year follow-up for family history, Left breast cancer in 2002, lumpectomy negative nodes, Breast cancer on the right in 2005 lumpectomy and lymph node disection showing one posiitve node., Hypertension, Osteopenia, Jessika's thyroiditis, Abdominal aortic aneurysm, Bicuspid aortic valve with ascending aortic aneurysm. 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 Chaz Piper 2015, radiation head and neck - [facility] april 2015, tooth extraction , future [...] past year??Never (0 point),?Points?1,?Interpretation?Negative.?Miscellaneous:?Marital status: . 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 * Medications:?Taking Rufino-Mag 500-250 MG Tablet 1 [...] Sodium 125 MCG Tablet Oral , Discontinued [place] 150 MG Capsule as directed Orally aerial [...] mm Hg, Temp: 96.9, Wt-k.77. * Examination: ???General Examination: ???On examination today, she presents as a thin female in no acute distress. Skin is anicteric. Lungs are clear. Heart shows a regular rate and rhythm. Abdomen is soft without focal masses or tenderness. Extremities are without edema. Assessment: * Assessment: 1.?Genetic susceptibility to other malignant neoplasm - Z15.09 (Primary)???2.?Genetic susceptibility to malignant neoplasm of breast - Z15.01???3.?FH: pancreatic cancer - Z80.0??? We discussed pancreatic canc er today. We [...] neoplasm of breast?Imaging: MRI ABD W&WO CONTRAST* Colon, Katie 11/04/2024 09: 45:18 AM EDT > faxed to CS for booking * 3.?FH: pancreatic cancer?Imaging: MRI ABD W&WO CONTRAST* Colon, Katie 11/04/2024 09: 45:18 AM EDT > faxed to CS for booking * * Procedure Codes:?3017F COLOR ECTAL CA SCREEN DOC REV, G9903 Pt scrn tbco id as non user, G8785 BP SCR NOT PRFRM REC REASON NOS * Follow Up:?1 Year * * Sign off status: Completed true * Provider:?Lewis Jiménez MD Date:?0 11/04/2024 Generated for Lathai dinora/Lizzette/eTransmitting on:?01/04/2025 08:02 AM EDT History and Physical Notes * [...] at this time. 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 Examination Category Sub-Category Detail Notes Category Not es General Examination On exami nation today, she presents as a thin female in no acute distress. Skin is anicteric. Lungs are clear. Heart shows a regular rate and rhythm. Abdomen is soft without focal masses or tenderness. Extremities are without edema.
== END ==
LOC: HO.CARD 07:58
PROVIDERS: PCP Internal Medicine; Visit Provider Internal Medicine
DX: Q23.1 Congenital insufficiency of aortic valve (principal)
CPT/HCPCS: 93306; Q9957

== ENCOUNTER → 2025-01-04 08:02 | Outpatient (BNV) | payer OTHER, SELFPAY | PROVIDERS: PCP Internal Medicine; Visit Provider Internal Medicine | DX: Q23.1 Congenital insufficiency of aortic valve (principal); Q23.81 Bicuspid aortic valve; I51.7 Cardiomegaly | CPT/HCPCS: 93303; 93325 ==

== ENCOUNTER 2025-01-06 08:10 | Outpatient (AMB) | payer OTHER, SELFPAY ==
--- OUTSIDE RECORDS SUMMARY | 2024-11-04 05:00 | XMS_ITS ---
Author Organization [facility] Address [address] [place] [address] Care Team Providers Care Conical Mixer Name Role Phone Zamzam Bauer Primary Care Provider UnavailLewis Quesada Jr Unavailable [phone] Allergies No Known Allergies REASON FOR VISIT Patient presents today for a Pancreatic screening Medications Medication SIG (Take, Route, Frequency, Duration) Notes Start Date End Date Status Losartan Potassium-HCTZ 100-12.5 MG Oral for 90 Days Active Levothyroxine Sodium 125 MCG Oral for 90 Days Active Evenity 105 MG/1.17ML Subcutaneous for 2 8 Days Active Multi Vitamin/Minerals Orally not taking regularly Active Rufino-Mag 500-250 MG 1 tablet Orally Once a day/citrate not taking regularly Active Levothyroxine Sodium 137 MCG 1 tablet Orally Once a day Active Social History Alcohol Screen Question Answer Notes [...] Problem Status W/U Status Risk Notes Problem 440656355 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) Active confirmed Problem 18160294586381 Genetic susceptibility to other malignant neoplasm (Z15.09) Active confirmed Problem 626487020 FH: pancreatic cancer (Z80.0) Active confirmed Vital Signs Temperature 96.9 degrees Fahrenheit 11/05/19 25 Blood pressure systolic 001 mm Hg 11/05/19 25 Blood pressure diastolic 01 mm Hg 025 Height 67 in 11/04/2024 Weight 147.2 lbs 11/04/2024 BMI 23.05 kg/m2 11/04/2024 Encounters Encounter Location Date Provider Diagnosis [facility] [address] [place] [address] 11/04/2024 Lewis Jiménez Jr Genetic susceptibility to other malignant neoplasm Z15.09 ; Genetic susceptibility to malignant neoplasm of breast Z15.01 and FH: pancreatic cancer Z80.0 Assessments Encounter Date Diagnosis (ICD Code) Assessment Notes Treatment Notes Treatment Clinical Notes Section Notes 11/04/2024 Genetic susceptibility to other malignant neoplasm (ICD-10 - Z15.09) We discussed pancreatic cancer today. We discussed various screening methods including MRI/MRCP versus invasive methods such as EUS. We discussed pros and cons of both today. We discussed false positives that may be seen on EUS and/or MRI. After shared decision making we recommended she undergo MRI initially and we will proceed from there. She will follow-up in 1 year. Today's visit was 30 minutes. 11/04/2024 Genetic susceptibility to malignant neoplasm of breast (ICD-10 - Z15.01) We discussed pancreatic cancer today. We discussed various screening methods including MRI/MRCP versus invasive methods such as EUS. We discussed pros and cons of both today. We discussed false positives that may be seen on EUS and/or MRI. After shared decision making we recommended she undergo MRI initially and we will proceed from there. She will follow-up in 1 year. Today's visit was 30 minutes. 11/04/2024 FH: pancreatic cancer (ICD-10 - Z80.0) We discussed pancreatic cancer today. We discussed various screening methods including MRI/MRCP versus invasive methods such as EUS. We discussed pros and cons of both today. We discussed false positives that may be seen on EUS and/or MRI. After shared decision making we recommended she undergo MRI initially and we will proceed from there. She will follow-up in 1 year. Today's visit was 30 minutes. Plan Of Treatment Pending Test Test Name Order Date MRI ABD W&WO CONTRAST 11/04/2024 Next Appt Details Follow Up: 1 Year, Reason: Provider Name:Lewis bae , 11/03/2025 09:00:00 AM, [address], [address], [place], [address], Progress Notes * GENESIS WILKS ADOB: (54 yo F)Acc No.[id number]:11/04/2024 Progress Notes Patient: GENESIS PIERRE A Provider: Cristian Jiménez MD :1970 A ge:54 Y S ex:Female Date:11/04/2024 Address:[address] [place], [place] [id number] Pcp:Zamzam Bauer Subjective: * Chief Complaints: * 1 . Patient presents today for a Pancreatic screening. * HPI: N ew symptom(s): Genesis is a pleasant 54-year-old woman seen today in follow-up. She has a history of a BRCA1 gene mutation. This puts her at increased risk for multiple cancers including breast cancer. The major concern she is referred for today is because of pancreatic cancer increased risk. She has a family history of this in her mother who was diagnosed at age 61 and at age 63. Shelli has no symptoms of breast cancer, and denies jaundice, epigastric pain, or back pain at this time. 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 * Medical History: C olonoscopy 10/10, normal, 5-year follow-up for family history, Left breast cancer in 2002, lumpectomy negative nodes, Breast cancer on the right in 2005 lumpectomy and lymph node disection showing one posiitve node., Hypertension, Osteopenia, Jessika's thyroiditis, Abdominal aortic aneurysm, Bicuspid aortic valve with ascending aortic aneurysm. 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 Chaz Piper 2015, radiation head and neck - [facility] [place] april 2015, tooth extraction , future eye surgery aug . * Family History: F ather: , diagnosed with Heart disease. M other: . The patient's mother of pancreatic and liver cancer. Possible colon primary as well. brother had heart valve replacement living. * Social History: T obacco Use: T obacco Use/Smoking P atient is a: nonsmoker. D rugs/Alcohol: A lcohol Screen D id you have a drink containing alcohol in the past year? Y es, H ow often did you have a drink containing alcohol in the past year? M onthly or less (1 point), How many drinks did you have on a typical day when you were drinking in the past year? 1 or 2 drinks (0 point), H ow often did you have 6 or more drinks on one occasion in the past year??Never (0 point), P oints 1 , I nterpretation N egative. M iscellaneous: M arital status: . Occupation: geographic information system analyst at [employer]. * Medications: T aking Rufino-Mag 500-250 MG Tablet 1 tablet Orally Once a day/citrate , Notes to Pharmacist: not taking regularly, Taking Levothyroxine Sodium 137 MCG Tablet 1 tablet Orally Once a day , Taking Multi Vitamin/Minerals Tablet Orally , Notes to Pharmacist: not taking regularly, Taking Evenity 105 MG/1.17ML Solution Prefilled Syringe Subcutaneous , Taking Losartan Potassium-HCTZ 100-12.5 MG Tablet Oral , Taking Levothyroxine Sodium 125 MCG Tablet Oral , Discontinued Sumrall 150 MG Capsule as directed Orally aerial xtract , Discontinued B50 Complex TR - Tablet Extended Release as directed Orally hig folic acid , Discontinued Sertraline HCl 50 MG Tablet Oral , Discontinued Lisinopril 10 MG Tablet Oral , Discontinued MiraLax (colon prep) 17 GM/SCOOP Powder mixed with Gatorade or Crystal Light Orally begin at 5:00 p.m. the day before the procedure , Discontinued Vancocin 125 MG Capsule 1 capsule 4 times daily for 10 days, twice daily for 7 days, once daily for 7 days, then once every other day for 14 days Orally , Discontinued Fidaxomicin 200 MG Tablet 1 tablet Orally Twice a day * Allergies: N .K.D.A. Objective: * Vitals: W t: 147.2 lbs, Ht: 67 in, BMI:23.05Index, BP: 001/01 mm Hg, Temp: 96.9, Wt-k.77. * Examination: G eneral Examination: O n examination today, she presents as a thin female in no acute distress. Skin is anicteric. Lungs are clear. Heart shows a regular rate and rhythm. Abdomen is soft without focal masses or tenderness. Extremities are without edema. Assessment: * Assessment: 1. G enetic susceptibility to other malignant neoplasm - Z15.09 (Primary) 2 .?Genetic susceptibility to malignant neoplasm of breast - Z15.01 3 . F H: pancreatic cancer - Z80.0 We discussed pancreatic canc er today. We discussed various screening methods including MRI/MRCP versus invasive methods such as EUS. We discussed pros and cons of both today. We discussed false positives that may be seen on EUS and/or MRI. After shared decision making we recommended she undergo MRI initially and we will proceed from there. She will follow-up in 1 year. Today's visit was 30 minutes. Plan: * Treatment: * 2.?Genetic susceptibility to malignant neoplasm of breast?Imaging: MRI ABD W&WO CONTRAST* ColonBárbaran 11/04/2024 09: 45:18 AM EDT > faxed to CS for booking * 3.?FH: pancreatic cancer?Imaging: MRI ABD W&WO CONTRAST* ColonBárbaran 11/04/2024 09: 45:18 AM EDT > faxed to for booking * * Procedure Codes: 3 017F COLORECTAL CA SCREEN DOC REV, G9903 Pt scrn tbco id as non user, G8785 BP SCR NOT PRFRM REC REASON NOS * Follow Up: 1 Year * * Sign off status: Completed true * Provider: Cristian Jiménez MD Date: 0 11/04/2024 Generated for Liberty farias/Lizzette/Robbitting on: 0 01/06/2025 08:23 AM EDT History and Physical Notes * HPI (History of Present Illness) Category Sub-Category Detail Notes Category Not es New symptom(s) Genesis is a pleasant 54-year-old woman seen today in follow-up. She has a history of a BRCA1 gene mutation. This puts her at increased risk for multiple cancers including breast cancer. The major concern she is referred for today is because of pancreatic cancer increased risk. She has a family history of this in her mother who was diagnosed at age 61 and at age 63. Shelli has no symptoms of breast cancer, and denies jaundice, epigastric pain, or back pain at this time. 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 Examination Category Sub-Category Detail Notes Category Not es General Examination On exami nation today, she presents as a thin female in no acute distress. Skin is anicteric. Lungs are clear. Heart shows a regular rate and rhythm. Abdomen is soft without focal masses or tenderness. Extremities are without edema.
[2025-01-06 08:16] VITALS: BP 124/72; PULSE 51; BMI 22.7
--- NOTE | 2025-01-06 08:16 | A.OFFVIS_ITS ---
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 Echocardiogram had been performed because of cardiac murmur and that showed a bicuspid aortic valve. She also has a history of ascending aortic aneurysm. Otherwise, no known cardiovascular issues. She states she has had breast cancer and underwent bilateral mastectomy, radiation as well as chemotherapy in the past. Also has history of oral cancer but never smoked. She has had some nonexertional chest pains in the past but nothing recently. Brother- valve replacement at 40 but she states she is not in touch with him. Per patient, father had suspected fatal myocardial infarction in his late 40s. Since last seen, no new concerns. She states she feels well. No cardiac symptoms whatsoever. [facility] Medical History Ascending aortic aneurysm Bicuspid aortic valve Glaucoma, narrow-angle Heart burn Loose, teeth Hx of varicose veins Abdominal pain with radiation to back AV I (cervical intraepithelial neoplasia I) History of tongue cancer History of breast cancer Surgical History Hx of tooth extraction History of bunionectomy of left great toe Hx of bilateral breast biopsy Hx of colonoscopy History of bilateral salpingo-oophorectomy Hx of breast implants, bilateral History of bilateral mastectomy Family History Mother Liver cancer Pancreatic cancer Colon cancer Father Myocardial infarction Social History Alcohol intake: never Patient Tobacco Use Status: Never used Tobacco Sexual orientation: Straight/Heterosexual Female Reproductive History Menstrual Age of Menarche: 11 Review of Systems Const Denies chills, Denies fatigue, Denies fever(s), Denies frequent falls, Denies weakness, Denies weight gain and Denies weight loss ENT Denies dizziness Card Denies chest pain, Denies leg edema, Denies lightheadedness, Denies palpitations, Denies dyspnea and Denies dyspnea on exertion Resp Denies cough, Denies dyspnea and Denies dyspnea on exertion GI Denies hematochezia Musc Denies abnormal gait, Denies muscle weakness, Denies numbness, Denies radiating pain into limb and Denies tingling Neuro Denies abnormal gait, Denies dizziness, Denies frequent falls, Denies numbness, Denies tingling and Denies weakness Endo Denies fatigue and Denies palpitations Physical Exam Vital Signs: Last Vital Signs Pulse 51 01/06/25 08:16 BP 124/72 01/06/25 08:16 BMI result Body Mass Index 22.7 Const General: comfortable and no acute distress Orientation/consciousness: patient oriented x3 HEENT Other: Unremarkable Head: Yes normal to inspection Neck Neck: Yes normal visual inspection Chest Chest palpation & inspection: normal inspection of the chest Resp Auscultation: clear to auscultation bilaterally Cardio Palpation: normal PMI Heart sounds: S1 normal heart sound present, S2 normal heart sound present, no gallops, no murmurs and no rubs GI Palpation (GI): Soft to palpation Back/Spine/Pelvis Other: unremarkable Skin General skin exam: no rashes or lesions noted Neuro General: patient oriented x3 Extrem General: Yes normal to inspection Psych Mental Status: mental status grossly normal Office Procedures EKG Details: EKG with sinus bradycardia at 51/Min; right atrial enlargement; [place]. [address]-Nsqtgoheudnkpxrag, Complete Assessment & Plan Assessment & Plan (1) Bicuspid aortic valve: Code(s): Q23.1 - Congenital insufficiency of aortic valve Category: Medical (2) Ascending aortic aneurysm: Code(s): I71.21 - Aneurysm of the ascending aorta, without rupture Category: Medical (3) Hypertension: Code(s): I10 - Essential (primary) hypertension Category: Medical Plan Cardiac studies reviewed. In the recent echocardiogram preserved LVEF at 64%. Bicuspid aortic valve without any dysfunction. Ascending aortic size slightly more than last time at 4.3 cm. Previously measured at 4.1 cm. In the coronary CTA, no significant CAD. Ascending aortic size again 4.1 cm. At the current time, she seems quite stable. Mainly blood pressure management. Today's blood pressure is within acceptable range. With regard to the slight increase in ascending aortic size, we can recheck that in 6 months to ensure there is no progressive change. We discussed about this today. Follow up in 6 months with an echocardiogram. Orders: Orders CA Echo Limited 6 Months I71.21 - Aneurysm of the ascending aorta, without rupture Coding Level of Care Code Est Pt Level 4 (60975) Complex EM visit Add On G2211 Diagnoses Bicuspid aortic valve Q23.1 Ascending aortic aneurysm I71.21 Hypertension I10 CPT Codes EKG - CPT: 43874-Hpgsooqhqpitrjxko, Complete ([id number])
== END 2025-01-06 08:34 | disposition home or self-care (01) ==
LOC: HO.HCS 08:11
PROVIDERS: PCP Internal Medicine; Visit Provider Internal Medicine
DX: Q23.1 Congenital insufficiency of aortic valve (principal); I71.21 Aneurysm of the ascending aorta, without rupture; I10 Essential (primary) hypertension
CPT/HCPCS: 93010; 99214

== ENCOUNTER → 2025-01-06 08:10 | Outpatient (BNVA) | payer OTHER, SELFPAY | PROVIDERS: PCP Internal Medicine; Visit Provider Internal Medicine | DX: Q23.1 Congenital insufficiency of aortic valve (principal); I10 Essential (primary) hypertension; I27.21 Secondary pulmonary arterial hypertension | CPT/HCPCS: 93005 ==

== ENCOUNTER 2025-01-27 08:18 | Outpatient (AMB) | payer OTHER, SELFPAY ==
--- OUTSIDE RECORDS SUMMARY | 2025-01-27 08:24 | XMS_ITS | Patient Health Record ---
Author Organization [facility] Address [address] [place] [address] Care Team Providers Care Computer Engineering Professor Name Role Phone Zamzam Bauer Primary Care Provider Unavailab Lewis Bustillos Jr Unavailable [phone] Allergies No Known Allergies Results Component Value Reference Range Notes MR abdomen wo/w con Reviewed date:11/16/2024 08:01:27 AM Interpretation: Performing Lab: Notes/Report: [address] [address] Magnetic Resonance Report Signed Patient: Genesis Wilks MR#: [id number] : 1970 Acct:[id number] Age/Sex: 54 / F ADM Date: 11/12/24 Loc: .MRI Attending Dr: Lewis Jiménez MD Ordering Physician: Lewis Jiménez MD Date of Service: 11/12/24 Procedure(s): MR abdomen wo/w con Accession Number(s): [id number] cc: Zamzam Bauer MD; Lewis Jiménez MD [...] Steiner MD in OV> 11/12/24 1451 DD/ 145 TD/TT: 11/12/24 145 Inventory Clerk: Reason For Referral No Information Medications Medication [...] Problem Status W/U Status Risk Notes Problem 988634304 Colon cancer screening (Z12.11) Active confirmed Problem 217163427 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) Active confirmed Problem 31706653943699 Genetic susceptibility to other malignant neoplasm (Z15.09) Active confirmed Problem 730227599 Family history o f colon cancer (Z80.0) Active confirmed Problem 71693125 Dysphagia, unspecified type (R13.10) Active confirmed Problem 28363429 Diarrhea, unspecified type (R19.7) Active confirmed Problem 969944272 FH: pancreatic cancer (Z80.0) Active confirmed Vital Signs Temperature 96.9 degrees Fahrenheit 11/04/2024 Blood pressure diastolic 01 mm Hg 11/04/2024 Height 67 in 11/04/2024 Blood pressure systolic 001 mm Hg 11/04/2024 Weight 147.2 lbs 11/04/2024 BMI 23.05 kg/m2 11/04/2024 Encounters Encounter Location Date Provider Diagnosis [facility] [address] [place] [phone] 11/04/2024 Lewis Jiménez Jr Genetic susceptibility to other malignant neoplasm Z15.09 ; Genetic susceptibility to malignant neoplasm of breast Z15.01 and FH: pancreatic cancer Z80.0 [facility] [address] [place] [phone] 10/26/2024 Lewis Jiménez Jr [facility] [address] [place] [phone] 11/16/2024 Lewis Jiménez Jr Assessments Encounter Date [...] was 30 minutes. 11/04/2024 Genetic susceptibility to other malignant neoplasm [...] Name:Lewis bae , 11/03/2025 09:00:00 AM, [address] [facility] [address], [address], [place], [address], Insurance Providers Payer Name Payer Address Payer Phone Subscriber Number Group Number Insured Name Patient Relationship to Insured Coverage Start Date Coverage End Date [employer] [place] [address] [address] [place] [address] [id number] GENESIS MCKEON Self - patient is the insured Medical (General) History Medical History History ICD Code Colonoscopy 10/10, normal, 5-year follow- up for family history left breast cancer in 2002, lumpectomy n egative nodes breast cancer on the right i n 2005 lumpectomy and lymph node disection showing one posiitve node. Hypertension osteopenia Jessika's thyroiditis Abdominal aortic aneurysm Bicuspid aortic valve with ascending aor tic aneurysm Surgical History Surgery Date(Month/Year) future eye surgery aug tooth extraction radiation head and neck - [facility] april 2015 oral cancer on tongue T1, N0 - jul 2014 was dx (2) surguries-Dr. Chaz Piper 2016 lumpectomy in both breast bilateral salpingooophorectomy in 2007
--- OUTSIDE RECORDS SUMMARY | 2025-01-27 08:24 | XMS_ITS | Patient Health Record ---
Author [facility] Address [address] [place] [address] Care Team Providers Care Medical Communication Specialist Name Role Phone Zamzam Bauer Primary Care Provider Melissa Evans Unavailable [phone] Allergies No Known Allergies Reason For Referral No Information Medications Medication SIG (Take, Route, Frequency, Duration) Notes Start Date End Date Status Miacalcin Not-Taking Cephalexin 500 MG 1 capsule Orally shaunna ry 12 hrs; Duration: 10 day(s) Not-Garrick ing Lisinopril Active Levothyroxine Sodium Active Sertraline HCl Activ e Social History Tobacco use other than smoking: Question Answer Notes Are you an other tobacco user? No Problems Problem Type SNOMED Code ICD Code Onset Dates Problem Status W/U Status Risk Notes Problem Ingrowing nail (066505225) Ingrowing nail (L60.0) Active confirmed Problem Acquired hallux valgus (84988798) Hallux valgus (acquired), right foot (M20.11) Active confirmed Plan Of Treatment Pending Test Test Name Order Date X ray : Foot, left 3V 03/21/2011 18524-Ovfkjgpw Plate 12/27/2015 51939-Omwotuxk Plate 08/13/2016 39554- Debride <25 sq cm 09/03/2016 34049- Debride <25 sq cm 01/13/2016 34179 I&D ABSCESS- SIMPLE,SINGLE 016 Insurance Providers Payer Name Payer Address Payer Phone Subscriber Number Group Number Insured Name Patient Relationship to Insured Coverage Start Date Coverage End Date Blue Benefits [address] [address] [place] [address] [phone] [id number] Dayana camarena Sommer Self - patient is the insured Medical (General) History Medical History History ICD Code cancer thyroid disorder chicken pox hypertension headaches/migraines broken bones Anxiety Glaucoma Surgical History Surgery Date(Month/Year) dilatation and curettage lumpectomy 2003 + 2006 ovarian cyst resection colonoscopy 2009 bunionectomy 12/2010 salpingo-oophorectomy 2006 lymph node resection 2014
--- NOTE | 2025-01-27 08:39 | AM.OFFVISNUR ---
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 Denies any adverse reactions with previous injections Assessment & Plan Assessment & Plan Orders: Orders AMB Romosozumab Injection Patient Supplied Today M81.0 - Age-related osteoporosis without current pathological fracture Coding
== END 2025-01-27 08:38 | disposition home or self-care (01) ==
LOC: HO.RHE 08:18
PROVIDERS: PCP Internal Medicine; Visit Provider Student in an Organized Health Care Education/Training Program
DX: M81.0 Age-related osteoporosis without current pathological fracture (principal)

== ENCOUNTER → 2025-01-27 08:18 | Outpatient (BNVA) | payer OTHER, SELFPAY | PROVIDERS: PCP Internal Medicine; Visit Provider Student in an Organized Health Care Education/Training Program | DX: M81.0 Age-related osteoporosis without current pathological fracture (principal) | CPT/HCPCS: 96372; J3111 ==

== ENCOUNTER 2025-02-09 14:16 | Outpatient (REF) | payer OTHER, SELFPAY ==
[2025-02-09 14:30] LABS: MANUAL DIFF FLAG NO
[2025-02-09 15:00] LABS: Hematocrit 39.7 % (37.0-47.0); Hemoglobin 13.1 g/dl (12.0-16.0); Imm Gran Abs Auto 0.02 X10*3/uL (0.00-0.03); Imm Gran Pct Auto 0.4 % (0.0-0.4); Lymphocytes Absolute Auto 1.6 X10*3/uL (1.2-4.9); Mean Corpuscular HGB Conc 33.0 g/dl (31.0-35.0); Mean Corpuscular Hemoglobin 30.0 pg (27.0-33.0); Mean Corpuscular Volume 91.1 fL (80.0-98.0); NRBC Abs Auto 0.000 X10*3/uL (0.0-0.012); NRBC Pct Auto 0.0 /100WBC (0.0-0.2); Platelet Count 281 X10*3/uL (160-400); Red Blood Count 4.36 X10*6/uL (4.20-5.50); White Blood Count 5.4 X10*3/uL (4.8-10.8)
[2025-02-09 15:19] LABS: Alanine Aminotransferase 19 U/L (0-31); Albumin Level 4.8 g/dL (3.5-5.0); Alkaline Phosphatase 62 U/L (39-117); Anion Gap 12 (12-20); Aspartate Amino Transferase 26 U/L (5-31); Blood Urea Nitrogen 20 mg/dL (9-16); Calcium 9.5 mg/dL (8.4-10.2); Carbon Dioxide 30 mmol/L (22-29); Chloride 104 mmol/L (96-108); Cholesterol 216 mg/dL (<200); Estimated Glomerular Filt Rate > 60; HDL Cholesterol 90 mg/dL (>40); Potassium 3.9 mmol/L (3.3-5.1); Sodium 142 mmol/L (135-145); Total Protein 7.8 g/dL (6.5-8.0); Triglycerides 58 mg/dL (<150)
--- OUTSIDE RECORDS SUMMARY | 2025-02-09 15:30 | XMS_ITS | Patient Health Record ---
Author Organization [facility] Address [address] [place] [address] Care Team Providers Care Human Services Instructor Name Role Phone Zamzam Bauer Primary Care Provider Melissa Evans Unavailable [phone] Allergies No Known Allergies Reason For Referral [...] W/U Status Risk Notes Problem Ingrowing nail (L60.0) Active confirmed Problem Acquired hallux valgus (84814668) Hallux valgus (acquired), right foot (M20.11) Active confirmed Plan Of Treatment Pending Test Test Name Order Date X ray : Foot, left 3V 03/21/2011 28041-Xbagkcvz Plate 12/27/2015 51923-Zvpbonwj Plate 08/13/2016 12795- Debride <25 sq cm 09/03/2016 38183- Debride <25 sq cm 01/13/2016 63753 I&D ABSCESS- SIMPLE,SINGLE 016 Insurance Providers Payer Name Payer Address Payer Phone Subscriber Number Group Number Insured Name Patient Relationship to Insured Coverage Start Date Coverage End Date [employer] Benefits [address] [address] [place] [address] [id number] CervSommer melgar Self - patient is the insured Medical (General) History Medical History History ICD Code cancer thyroid disorder chicken pox hypertension headaches/migraines broken bones Anxiety Glaucoma Surgical History Surgery Date(Month/Year) dilatation and curettage lumpectomy 2003 + 2006 ovarian cyst resection colonoscopy 2009 bunionectomy 12/2010 salpingo-oophorectomy 2006 lymph node resection 2014
--- OUTSIDE RECORDS SUMMARY | 2025-02-09 15:31 | XMS_ITS | Data Portability ---
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 T1N0 suspected . excised at [facility] 10/13/14 12/15/14 elective neck dsxn and re-resect ion of tongue 0/22LN, negative residual in tongue. 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 77695648741 07 Active 2015 Leukoplak ia of oral mucosa, including tongue; Note: Date Diagnosed : 02/10/2016 4:29 PM (K13.21) Not Available [facility] 4 02:54:38 Disturban ce of salivary secretion 48917075 Active 2018 Xerostomi a; Note: Date Diagnosed : 01/29/2019 4:14 PM (K11.7) Not Available [facility] 4 02:54:34 Bilateral tinnitus 08194091418 02 Active 2018 Tinnitus, bilateral ; Note: Date Diagnosed : 05/25/2019 3:44 PM (H93.13) Not Available [facility] 4 02:54:37 Follow-up visit Active 2018 Encounter for follow-up examinati on after completed treatment for malignant neoplasm; Note: Date Diagnosed : 05/27/2019 3:07 PM (Z08) Not Available [facility] 4 02:54:34 History of malignant neoplasm of tongue 579225109 Active 2018 Tumor Location: Left tongue Tumor staging: T1N0 SCCA Treatment : excision @ [facility] 10/13/14, elective neck dsxn & re-resect ion of tongue 0/22LN 12/15/14, XRT Date of treatment completio n: 05/15/15 Oncology team: Dr. Ragland/Laurie PIPER MD [address] [place] [address], [facility] [place], [address] , [facility] - [facility] 4 21:32:55 Hypothyro idism 41447546 Active 2020 Hypothyro idism, unspecifi ed; Note: Date Diagnosed : 11/17/2020 10:12 AM (E03.9) Not Available [facility] 4 02:54:39 Respirato ry finding 040139634 Active 2020 Feeling of foreign body in throat; Note: Date Diagnosed : 09/16/2015 1:43 PM (R09.89) Not Available [facility] 4 02:54:36 Cardiovas cular finding 732506072 Active 2020 Feeling of foreign body in throat; Note: Date Diagnosed : 09/16/2015 1:43 PM (R09.89) Not Available [facility] 4 02:54:36 Dysphonia 64897391 Active 2021 Dysphonia ; Note: Date Diagnosed : 05/25/2022 10:11 AM (R49.0) Not Available [facility] 4 02:54:36 Problem Notes None recorded. Procedures Surgical History Date Name Laterality Status Provider Name and Address Organization Details Recorded Time 06/05/2024 FOL_DP completed CHAZ PIPER MD [address] [place] [address], [phone], [place] - [facility] 06/04/2024 21:35:13 Imaging Results None recorded. Procedure Notes None recorded. Medical Equipment None Reported. Medications Name Sig Start Date Stop Date Status Note LastModified by Organization Details LastModified Time Prescript ion - Prior Authoriza tion Request active Script Copy/Sandra or Auth^Scr ipt Copy/Sandra or Auth_201 [id number] Not Available Not Available Not Available nystatin 100,000 unit/mL oral suspensio n active Medicati on ID: [id number] P rescribe d By Name: Chaz Piper M.D. Bra nd Name: nystatin Send Method: E-Prescr ibed Sub s Allowed: subs OK Speci al Instruct ion: 5 ml swish and swallow four times daily x 2-4 weeks Me dication GenericN fannie: nystatin Not Available Not Available Not Available venlafaxi ne ER 75 mg capsule,e xtended release 24 hr active Medicati on ID: [id number] B rand Name: venlafax ine Send Method: E-Prescr ibed Sub s Allowed: subs OK Medic ationGen ericName : venlafax ine Not Available Not Available Not Available lisinopri l 20 mg-hydroc hlorothia zide 12.5 mg tablet active Medicati on ID: [id number] B rand Name: lisinopr il-hydro chloroth iazide S end Method: E-Prescr ibed Sub s Allowed: subs OK Medic ationGen ericName : lisinopr il-hydro chloroth iazide Not Available Not Available Not Available lisinopri l 20 mg tablet active Medicati on ID: [id number] B rand Name: lisinopr il Send Method: E-Prescr ibed Sub s Allowed: subs OK Medic ationGen ericName : lisinopr il Not Available Not Available Not Available Peridex 0.12 % mouthwash 02/09 completed Medicati on ID: [id number] Pr escribed By Name: Joel Chand nd Name: Peridex Send Method: E-Prescr ibed Sub s Allowed: subs OK Speci al Instruct ion: 10 ml swish and spit after meals for 2 week Med icationG enericNa me: Peridex Not Available Not Available Not Available oxycodone 5 mg/5 mL oral solution 5-10 ml by mouth 12/20 completed Medicati on ID: [id number] Du ration Value: 7 Prescri bed By [...] nasal spray 02/09 completed Medicati on ID: [id number] Du ration Value: 30 Reason: () Brand [...] by mouth 2018 active Medicati on ID: [id number] D uration Value: 30 Prescri bed By Name: Joel Chand nd Name: omeprazo le Send Method: E-Prescr ibed Sub s Allowed: subs OK Medic ationGen ericName : omeprazo le Not Available Not Available Not Available diclofena c sodium 75 mg tablet,de layed release 05/30 completed Medicati on ID: [id number] D uration Value: 30 Brand Name: diclofen ac sodium S end Method: E-Prescr ibed Sub s Allowed: subs OK Medic ationGen ericName : diclofen ac sodium Not Available Not Available Not Available mupirocin 2 % topical ointment 05/30 completed Medicati on ID: [id number] D uration Value: 5 Brand Name: mupiroci n Send Method: E-Prescr ibed Sub s Allowed: subs OK Medic ationGen ericName : mupiroci n Not Available Not Available Not Available Percocet 5 mg-325 mg tablet 2014 [place] ID: [id number] Du ration Value: 10 Prescri bed By [...] 50 mg tablet active Medicati on ID: [id number] B rand Name: sertrali ne Send Method: E-Prescr ibed Sub s Allowed: subs OK Medic ationGen ericName : sertrali ne Not Available Not Available Not Available lisinopri l 2.5 mg tablet 05/30 completed Medicati on ID: [id number] Du ration Value: 30 Brand Name: lisinopr il Send Method: E-Prescr ibed Sub s Allowed: subs OK Speci al Instruct ion: TAKE 1 TABLET BY MOUTH DAILY. Haider Almanza Name: lisinopr il Not Available Not Available Not Available doxycycli ne hyclate 100 mg tablet 05/30 completed Medicati on ID: [id number] D uration Value: 10 Brand Name: doxycycl ine hyclate Send Method: E-Prescr ibed Sub s Allowed: subs OK Speci al Instruct ion: TAKE 1 TABLET BY MOUTH EVERY 12 HOURS FOR 10 DAYS Med icationG enericNa me: doxycycl ine hyclate Not Available Not Available Not Available levothyro xine 112 mcg tablet 05/30 completed Medicati on ID: [id number] Du ration Value: 30 Brand Name: levothyr [...] Updated DateTime 06/05/2024 170.18 cm 22.7 kg/m2 85575.89 g Tara Hernandez [place] - [facility] 06/05/2024 09:11:23 Social History None recorded. Functional Status None recorded. Mental Status None recorded. Family History Nothing Reported. Medical History No medical history recorded. Gynecological HistoryNo gynecological history recorded. Obstetrics History GPAL:G 0 P 0 0 0 0 Past Encounters Encounter ID Performer Location Encounter Start Date Encounter Closed Date Diagnosis/Indication Diagnosis SNOMED-CT Code Diagnosis ICD10 Code Diagnosis Note [id number] CHAZ PIPER MD [facility] [address] [address] 06/05/2024 08:57:41 06/05/2024 09:29:44 History of malignant neoplasm of tongue 793784484 Z85.810 Health Concerns Section Related Observation LastModified by Organization Detai ls LastModified Time None Recorded Concern Status LastModified by Organization Details LastModified Time None Recorded Advance Directives Directive None Recorded Payers Insurance Date Sequence Insurance Name Policy Number Policy Rhoades Covered Member ID Rhoades Member ID Guarantor Name 06/05/2024 1 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 Ragland/Feliz staying busy with a second job at [employer] another tooth extraction early Dec CHAZ PIPER MD [address] [place] [address], [address], [facility] - [facility] 06/05/2024 09:27:49 OBGyn Episode No OBEpisode recorded.
--- OUTSIDE RECORDS SUMMARY | 2025-02-09 15:31 | XMS_ITS | Patient Health Record ---
Author Organization [facility] Address [address] [place] [address] Care Team Providers Care Associate Curator Name Role Phone Zamzam Bauer Primary Care Provider Unavailab Lewis Bustillos Jr Unavailable Allergies No Known Allergies Results Component Value Reference Range Notes MR abdomen wo/w con Reviewed date:11/16/2024 08:01:27 AM Interpretation: Performing Lab: Notes/Report: [address] [address] Magnetic Resonance Report Signed Patient: Genesis Wilks MR#: [id number] : 1970 Acct:[id number] Age/Sex: 54 / F ADM Date: 11/12/24 Loc: .MRI Attending Dr: Lewis Jiménez MD Ordering Physician: Lewis Jiménez MD Date of Service: 11/12/24 Procedure(s): MR abdomen wo/w con Accession Number(s): [id number] cc: Zamzam Bauer MD; Lewis Jiménez MD [...] 11/12/24 1451 DD/ 145 TD/TT: 11/12/24 145 Portal Administrator: Reason For Referral No Information Medications Medication [...] Problem Status W/U Status Risk Notes Problem 114385025 Colon cancer screening (Z12.11) Active confirmed Problem 286251337 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) Active confirmed Problem 43624883654028 Genetic susceptibility to other malignant neoplasm (Z15.09) Active confirmed Problem 103257742 Family history o f colon cancer (Z80.0) Active confirmed Problem 58921509 Dysphagia, unspecified type (R13.10) Active confirmed Problem 49069184 Diarrhea, unspecified type (R19.7) Active confirmed Problem 628955116 FH: pancreatic cancer (Z80.0) Active confirmed Vital Signs Temperature 96.9 degrees Fahrenheit 11/04/2024 Blood pressure diastolic 01 mm Hg 11/04/2024 Height 67 in 11/04/2024 Blood pressure systolic 001 mm Hg 11/04/2024 Weight 147.2 lbs 11/04/2024 BMI 23.05 kg/m2 11/04/2024 Encounters Encounter Location Date Provider Diagnosis [facility] [address] [place] [address] 11/04/2024 Lewis Jiménez Jr Genetic susceptibility to other malignant neoplasm Z15.09 ; Genetic susceptibility to malignant neoplasm of breast Z15.01 and FH: pancreatic cancer Z80.0 [facility] [address] [place] [phone] 10/26/2024 Lewis Jiménez Jr [facility] [address] [place] [address] 11/16/2024 Lewis Jiménez Jr Assessments Encounter Date [...] Name:Lewis bae , 11/03/2025 09:00:00 AM, [address] [facility], [address], [place], [address], Insurance Providers Payer Name Payer Address Payer Phone Subscriber Number Group Number Insured Name Patient Relationship to Insured Coverage Start Date Coverage End Date 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 Chaz Piper 2016 lumpectomy in both breast bilateral salpingooophorectomy in 2007
== END 2025-02-09 14:17 | disposition home or self-care (01) ==
LOC: HO.LAB 14:16
PROVIDERS: PCP Internal Medicine; Visit Provider Internal Medicine
DX: I10 Essential (primary) hypertension (principal); E03.9 Hypothyroidism, unspecified; K64.9 Unspecified hemorrhoids; L29.0 Pruritus ani
CPT/HCPCS: 36415; 80053; 80061; 84443; 85025

== ENCOUNTER 2025-03-02 14:05 | Outpatient (AMB) | payer OTHER, SELFPAY ==
--- NOTE | 2025-03-02 14:21 | AM.OFFVISNUR ---
Intake Visit Reasons: evenity#9 Allergies No Known Allergies (No Known Allergies*) Allergy (Verified 12/30/24 07:40) Office Meds romosozumab-aqqg 210 mg/2.34 mL(105 mg/1.17 mL x2)subcutaneous syringe Performing Provider: Anny Stephens MD Performing Location: [facility] Administered by: Tawana Alfaro RN on 03/02/25 14:21 Dose Route Admin Location Dispensed Lot Number Expiration Date [facility] Director [employer] 210 mg subcut 2.34 mL [id number] 04/20/27 83030-881-30 [employer] Total Dispensed Waste 2.34 mL 0 % Comments: Patient tolerated injection well. Denies reactions to previous injections. Assessment & Plan Assessment & Plan Orders: Orders AMB Romosozumab Injection Patient Supplied Today M81.0 - Age-related osteoporosis without current pathological fracture Coding
--- OUTSIDE RECORDS SUMMARY | 2025-03-02 15:04 | XMS_ITS | Patient Health Record ---
Author Organization [facility] Address [address] [place] [address] Care Team Providers Care Hose Coupling Joiner Name Role Phone Zamzam Bauer Primary Care Provider Melissa Evans Unavailable [phone] Allergies No Known Allergies Reason For Referral [...] W/U Status Risk Notes Problem Ingrowing nail (209580794) Ingrowing nail (L60.0) Active confirmed Problem Acquired hallux valgus (73675875) Hallux valgus (acquired), right foot (M20.11) Active confirmed Plan Of Treatment Pending Test Test Name Order Date X ray : Foot, left 3V 03/21/2011 57294-Cwstzzrt Plate 12/27/2015 10596-Cqptojfr Plate 08/13/2016 05265- Debride <25 sq cm 09/03/2016 49497- Debride <25 sq cm 01/13/2016 28117 I&D ABSCESS- SIMPLE,SINGLE 016 Insurance Providers Payer Name Payer Address Payer Phone Subscriber Number Group Number Insured Name Patient Relationship to Insured Coverage Start Date Coverage End Date Blue Benefits [address] [address] [place] [address] [phone] [id number] Dayana camarena Sommer Self - patient is the insured Medical (General) History Medical History History ICD Code cancer thyroid disorder chicken pox hypertension headaches/migraines broken bones Anxiety Glaucoma Surgical History Surgery Date(Month/Year) dilatation and curettage lumpectomy 2003 + 2006 ovarian cyst resection colonoscopy 2009 bunionectomy 12/2010 salpingo-oophorectomy 2006 lymph node resection 2014
--- OUTSIDE RECORDS SUMMARY | 2025-03-02 15:04 | XMS_ITS | Patient Health Record ---
Author Organization [facility] Address [address] [place] [address] Care Team Providers Care Donor Floor Technician Name Role Phone Zamzam Bauer Primary Care Provider Unavailab Lewis Bustillos Jr Unavailable Allergies No Known Allergies Results Component Value Reference Range Notes MR abdomen wo/w con Reviewed date:11/16/2024 08:01:27 AM Interpretation: Performing Lab: Notes/Report: [address] [address] Magnetic Resonance Report Signed Patient: Genesis Wilks MR#: [id number] : 1970 Acct:[id number] Age/Sex: 54 / F ADM Date: 11/12/24 Loc: .MRI Attending Dr: Lewis Jiménez MD Ordering Physician: Lewis Jiménez MD Date of Service: 11/12/24 Procedure(s): MR abdomen wo/w con Accession Number(s): [id number] cc: Zamzam Bauer MD; Lewis Jiménez MD [...] 11/12/24 1451 DD/ 145 TD/TT: 11/12/24 145 Felt Hat Mellowing Machine Operator: Reason For Referral No Information Medications Medication [...] Problem Status W/U Status Risk Notes Problem 838181075 Colon cancer screening (Z12.11) Active confirmed Problem 486241703 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) Active confirmed Problem 24255249665240 Genetic susceptibility to other malignant neoplasm (Z15.09) Active confirmed Problem 068852288 Family history o f colon cancer (Z80.0) Active confirmed Problem 36043842 Dysphagia, unspecified type (R13.10) Active confirmed Problem 33480049 Diarrhea, unspecified type (R19.7) Active confirmed Problem 888259837 FH: pancreatic cancer (Z80.0) Active confirmed Vital Signs Temperature 96.9 degrees Fahrenheit 11/04/2024 Blood pressure diastolic 01 mm Hg 11/04/2024 Height 67 in 11/04/2024 Blood pressure systolic 001 mm Hg 11/04/2024 Weight 147.2 lbs 11/04/2024 BMI 23.05 kg/m2 11/04/2024 Encounters Encounter Location Date Provider Diagnosis [facility] [address] [place] [address] 11/04/2024 Lewis Jiménez Jr Genetic susceptibility to other malignant neoplasm Z15.09 ; Genetic susceptibility to malignant neoplasm of breast Z15.01 and FH: pancreatic cancer Z80.0 [facility] [address] [place] [address] 10/26/2024 Lewis Jiménez Jr [facility] [address] [place] [address] 11/16/2024 Lewis Jiménez Jr Assessments Encounter Date [...] Name:Lewis bae , 11/03/2025 09:00:00 AM, [address] [facility], [address], [place], [address], Insurance Providers Payer Name Payer Address Payer Phone Subscriber Number Group Number Insured Name Patient Relationship to Insured Coverage Start Date Coverage End Date 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 Chaz Piper 2016 lumpectomy in both breast bilateral salpingooophorectomy in 2007
== END 2025-03-02 14:17 | disposition home or self-care (01) ==
LOC: HO.RHES 14:06
PROVIDERS: PCP Internal Medicine; Visit Provider Student in an Organized Health Care Education/Training Program
DX: M81.0 Age-related osteoporosis without current pathological fracture (principal)

== ENCOUNTER → 2025-03-02 14:05 | Outpatient (BNVA) | payer OTHER, SELFPAY | PROVIDERS: PCP Internal Medicine; Visit Provider Student in an Organized Health Care Education/Training Program | DX: M81.0 Age-related osteoporosis without current pathological fracture (principal) | CPT/HCPCS: 96372; J3111 ==

== ENCOUNTER → 2025-06-16 07:58 | Outpatient (REF) | payer OTHER, SELFPAY ==
--- NOTE | 2025-06-16 08:02 | CA_ITS ---
Transthoracic Echocardiogram Patient (Last, First, Middle): Sommer Bosch A Gender: F Date of : 1970 Age: 55 Procedure Date: 06/16/2025 Procedure Type: Transthoracic Echocardiogram Location: OP Height: 167.64 cm Weight: 65.77 kg BSA: 1.74 m2 Heart Rate: bpm BP: 118 / 78 mmHg Piped Pocket Machine Operator: TO Referring MD: Nestor Sanchez MD Symptoms: I71.21 - Aneurysm of the ascending aorta, without rupture Study Quality: Fair ECG Rhythm: Sinus Conclusions: - There is mild dilatation of the ascending aorta measuring 4.20 cm. Findings Great Vessels The aortic arch is normal in size. There is mild dilatation of the ascending aorta measuring 4.20 cm. Prior Study Comparison No significant change compared to prior study dated: 01/04/2025. Measurements Great Vessels Aorta Sinus of Valsalva: 3.53 2.0-3.[address] Ridge: 3.11 1.7-3.4 cm Ao Asc: 4.20 2.1-3.4 cm Ao Arch: 3.10 Updated in Other Vendor System with Status of Final Nestor Sanchez MD electronically signed on 06/16/2025 1:18:58 PM with status of Final
--- OUTSIDE RECORDS SUMMARY | 2025-06-16 08:07 | XMS_ITS | Patient Health Record ---
Author Organization [facility] Address [address] [place] [address] Care Team Providers Care Casing Finisher And Stuffer Name Role Phone Zamzam Bauer Primary Care Provider Melissa Evans Unavailable [phone] Allergies No Known Allergies Reason For Referral [...] W/U Status Risk Notes Problem Ingrowing nail (293799281) Ingrowing nail (L60.0) Active confirmed Problem Acquired hallux valgus (92901545) Hallux valgus (acquired), right foot (M20.11) Active confirmed Plan Of Treatment Pending Test Test Name Order Date X ray : Foot, left 3V 03/21/2011 47489-Ezsmnkck Plate 12/27/2015 97518-Oblzaldv Plate 08/13/2016 20053- Debride <25 sq cm 09/03/2016 33334- Debride <25 sq cm 01/13/2016 82358 I&D ABSCESS- SIMPLE,SINGLE 016 Insurance Providers Payer Name Payer Address Payer Phone Subscriber Number Group Number Insured Name Patient Relationship to Insured Coverage Start Date Coverage End Date Blue Benefits [address] [address] [place] [address] [phone] [id number] Dayana camarena Sommer Self - patient is the insured Medical (General) History Medical History History ICD Code cancer thyroid disorder chicken pox hypertension headaches/migraines broken bones Anxiety Glaucoma Surgical History Surgery Date(Month/Year) dilatation and curettage lumpectomy 2003 + 2006 ovarian cyst resection colonoscopy 2009 bunionectomy 12/2010 salpingo-oophorectomy 2006 lymph node resection 2014
--- OUTSIDE RECORDS SUMMARY | 2025-06-16 08:07 | XMS_ITS | Patient Health Record ---
Author Organization [facility] Address [address] [place] [phone] Care Team Providers Care Adjunct English Instructor Name Role Phone Zamzam Bauer Primary Care Provider Unavailab Lewis Bustillos Jr Unavailable Allergies No Known Allergies Results Component Value Reference Range Notes MR abdomen wo/w con Reviewed date:11/16/2024 08:01:27 AM Interpretation: Performing Lab: Notes/Report: [address] [address] Magnetic Resonance Report Signed Patient: Genesis Wilks MR#: [id number] : 1970 Acct:[id number] Age/Sex: 54 / F ADM Date: 11/12/24 Loc: .MRI Attending Dr: Lewis Jiménez MD Ordering Physician: Lewis Jiménez MD Date of Service: 11/12/24 Procedure(s): MR abdomen wo/w con Accession Number(s): [id number] cc: Zamzam Bauer MD; Lewis Jiménez MD [...] by Kodi Steiner MD in OV> 11/12/24 145 DD/ 49 TD/TT: 11/12/241449 Balance Truer: Reason For Referral No Information Medications Medication SIG (Take, Route, Frequency, Duration) Notes Start Date End Date Status Levothyroxine Sodium 137 MCG Tablet 1 tablet Orally Once a day Unknown Rufino-Mag 500-250 MG Tablet 1 tablet Orally Once a day/citrate not taking regularly Unknown Evenity 105 MG/1.17ML Solution Prefilled Syringe Subcutaneous; Duration: 28 Days Unknown Multi Vitamin/Minerals Tablet Orally not taking regularly Unknown Losartan Potassium-HCTZ 100-12.5 MG Tablet Oral; Duration: 90 Days Unknown Levothyroxine Sodium 125 MCG Tablet Oral; Duration: 90 Days Unknown Immunizations Vaccine Route Administration Date Status Comme nts Influenza Unknown 04/21/2021 Administered Influenza Unknown 03/10/2024 Administered Social History Social History Drugs/Alcohol: Social Info Question Answer Notes Alcohol Screen Did you have a drink containing alcohol in the past year? Yes How often did you have a drink containing alcohol in the past year? Monthly or less (1 point) How many drinks did you have on a typical day when you were drinking in the past year? 1 or 2 drinks (0 point) How often did you have 6 or more drinks on one occasion in the past year? 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) Active confirmed Problem Genetic predisposition (98109109) Genetic susceptibility to other malignant neoplasm (Z15.09) Active confirmed Problem Family History of Cancer of Colon (Situation) (307184510) Family history of colon cancer (Z80.0) Active confirmed Problem Dysphagia (80634428) Dysphagia, unspecified type (R13.10) Active confirmed Problem Diarrhea (65367877) Diarrhea, unspecified type (R19.7) Active confirmed Problem Family history of malignant neoplasm of gastrointestinal tract (737710091) FH: pancreatic cancer (Z80.0) Active confirmed Vital Signs Temperature 96.9 degrees Fahrenheit 11/04/2024 Blood pressure diastolic 01 mm Hg 11/04/2024 Height 67 in 11/04/2024 Blood pressure systolic 001 mm Hg 11/04/2024 Weight 147.2 lbs 11/04/2024 BMI 23.05 kg/m2 11/04/2024 Encounters Encounter Location Date Provider Diagnosis [facility] [address] [place] [phone] 11/04/2024 Lewis Jiménez Jr Genetic susceptibility to other malignant neoplasm Z15.09 ; Genetic susceptibility to malignant neoplasm of breast Z15.01 and FH: pancreatic cancer Z80.0 [facility] [address] [place] [phone] 10/26/2024 Lewis Jiménez Jr [facility] [address] [place] [phone] 11/04/2024 Lewis Jiménez Jr [facility] [address] [place] [phone] 11/16/2024 Lewis Jiménez Jr Assessments Encounter Date [...] Provider Name:Lewis bae , 11/03/2025 09:00:00 AM, [address] [place] [address], [address], [place], [address], Insurance Providers Payer Name Payer Address Payer Phone Subscriber Number Group Number Insured Name Patient Relationship to Insured Coverage Start Date Coverage End Date [employer] [address] [address] [place] [address] [id number] GENESIS MCKEON Self - patient is [...] aor tic aneurysm Surgical History Surgery Date(Month/Year) bilateral salpingooophorectomy in 2006 lumpectomy in both breast oral cancer on tongue T1, N0 - jul 2014 was dx (2) surguries-Dr. Chaz Piper 2016 radiation head and neck - [facility] april 2015 tooth extraction future eye surgery aug
== END ==
LOC: HO.CARD 07:58
PROVIDERS: PCP Internal Medicine; Visit Provider Internal Medicine
DX: I71.21 Aneurysm of the ascending aorta, without rupture (principal)
CPT/HCPCS: 93308

== ENCOUNTER → 2025-06-16 08:02 | Outpatient (BNV) | payer OTHER, SELFPAY | PROVIDERS: PCP Internal Medicine; Visit Provider Internal Medicine | DX: I77.810 Thoracic aortic ectasia (principal) | CPT/HCPCS: 93308 ==

== ENCOUNTER 2025-06-25 22:39 | Emergency (ER) | payer OTHER, SELFPAY ==
--- NOTE | ~2025-06-25 | CT_ITS ---
CLINICAL HISTORY: fall, pain CT cervical spine without contrast Comparison: None TECHNIQUE: Helical CT of the cervical spine with sagittal and coronal reconstructions. FINDINGS: Clivus and dens are normally aligned. Cervical alignment demonstrates anterolisthesis of C3 on C4. The left C2 and C3 articular facets are fused. Occipital condyles are intact. Anterior atlanto odontoid articulation is normally aligned. Cervical vertebral body heights are maintained. Articular facets are normally aligned. Severe facet arthropathy at right C3/4. Spinous processes and lamina are intact. No CT evidence of epidural hematoma. No high-grade spinal canal narrowing. C1/C2: Moderate degenerative changes at the anterior atlanto odontoid articulation. C2/C3: No spinal canal or foraminal narrowing. C3/C4: Posterior disc osteophyte complex and facet arthropathy contributing to mild left and moderate right foraminal narrowing. C4/C5: Posterior disc osteophyte complex and facet arthropathy contributing to mild left and moderate right foraminal narrowing. C5/C6: Mild bilateral foraminal narrowing. C6/C7: Posterior disc osteophyte complex and facet arthropathy contributing to moderate left and mild right foraminal narrowing. C7/T1: No spinal canal or foraminal narrowing. Prevertebral soft tissues are normal. No epidural hematoma. IMPRESSION: No acute fracture, subluxation, or static evidence of instability. Degenerative anterolisthesis of C3 on C4 This document has been electronically signed by: Justin Guerrero III, MD PHD on 06/26/2025 03:00:39
--- NOTE | ~2025-06-25 | CT_ITS ---
CLINICAL HISTORY: fall, NAPIER CT head without contrast Indication: Fall Comparison: None Findings: Brain is normal in volume and morphology. Ventricles are normal in size. Midbrain, richard, medulla, and cerebellum are normal. There is no focal loss of mullins-white differentiation No acute intracranial hemorrhage. No subdural or epidural hematoma. Suprasellar and basal cisterns are clear. There is no midline shift. Pituitary is normal. Orbits are normal. No acute calvarial fracture or diastasis. Mastoid air cells are normally aerated. Paranasal sinuses are clear. IMPRESSION: 1. No acute intracranial hemorrhage. 2. No loss of mullins-white differentiation This document has been electronically signed by: Justin Guerrero III, MD PHD on 06/26/2025 02:53:42
[2025-06-25 22:59] VITALS: BP 154/88; PULSE 64; RESP 20; TEMP 36.6; O2SAT 100; BMI 23.9
--- NOTE | 2025-06-26 01:28 | ED.HA ---
HPI - Headache General Chief Complaint: Headache Stated Complaint: Headache Time Seen by Provider: 06/26/25 01:12 Source: patient Mode of arrival: ambulatory Limitations: no limitations History of Present Illness ED Provider: Dr. Yeny Fields HPI Narrative: Patient comes to the emergency room complaining of a headache. Patient states that earlier today, she was in her breezeway at home, patient believes that she tripped and fell forward. Patient hit her head against something in the wall. Patient states that she did not lose consciousness but it hurt quite a bit. Very mild neck pain. Did not lose consciousness, does not take blood thinners. Denies vision changes. Patient has ongoing headache Related Data Home Medications ?Medication ?Instructions ?Recorded ?Confirmed losartan 100 1 tab PO DAILY 01/07/24 01/06/25 mg-hydrochlorothiazide 12.5 mg tablet levothyroxine 125 mcg tablet 125 mcg PO DAILY 05/28/24 01/06/25 Previous Rx's ?Medication ?Instructions ?Recorded romosozumab-aqqg 210 mg/2.34 210 mg (2.34 mL) subcut Q30D #2.34 07/02/24 mL(105 mg/1.17 mL x2)subcutaneous mL syringe (Evenity) Allergies Allergy/AdvReac Type Severity Reaction Status Date / Time No Known Allergies (No Known Allergy Verified 06/25/25 23:02 Allergies*) Review of Systems Review of Systems: Constitutional : No Weight loss, No Fever, No Chills, No Night Sweats, No Fatigue, No Malaise ENT/Mouth : No Hearing loss, No Ear Pain, No Nasal Congestion, No Sinus Pain, No Hoarseness, No sore throat, No Rhinorrhea, No Swallowing Difficulty Eyes: No Eye Pain, No Swelling, No Redness, No Foreign Body, No Discharge, No Vision Changes Cardiovascular : No Chest Pain, No SOB, No Dyspnea on Exertion, No Orthopnea, No Edema, No Palpitations Respiratory : No Cough, No Sputum, No Wheezing, No Smoke Exposure, No Dyspnea Gastrointestinal : No Nausea, No Vomiting, No Diarrhea, No Constipation, No abdominal Pain, No Hematochezia, No Melena Genitourinary : no irregular bleeding, No Dysuria, No Urinary Frequency, No Hematuria, No Urinary Incontinence, No Urgency, No Flank Pain, No Urinary Flow Changes, No Hesitancy Musculoskeletal : No joint pain, No Myalgias, No Joint Swelling Skin : No Skin Lesions, No rash Neuro : No Weakness, No Numbness, No Paresthesias, No Loss of Consciousness, No Dizziness, complaining of a headache that started after hitting her head while falling Psych : No Anxiety/Panic, No Depression, No SI/HI/AH/VH, No Social Issues, Heme/Lymph: No Bruising, No Bleeding,No Lymphadenopathy Endocrine : No Polyuria, No Polydipsia, No Temperature Intolerance [facility] Past Medical History Medical History Ascending aortic aneurysm Bicuspid aortic valve Glaucoma, narrow-angle Heart burn Loose, teeth Hx of varicose veins Abdominal pain with radiation to back AV I (cervical intraepithelial neoplasia I) History of tongue cancer History of breast cancer Surgical History Hx of tooth extraction History of bunionectomy of left great toe Hx of bilateral breast biopsy Hx of colonoscopy History of bilateral salpingo-oophorectomy Hx of breast implants, bilateral History of bilateral mastectomy Family History Family History Mother Liver cancer Pancreatic cancer Colon cancer Father Myocardial infarction Social History Social History Alcohol intake: current Alcohol intake frequency: holidays/special occasions only Patient Tobacco Use Status: Never used Tobacco Smoked in Last 30 Days: No Use of substances other than those prescribed or required for medical reasons: No Advance Directives: No Advance Directives Information Provided: No Patient : No Sexual orientation: Straight/Heterosexual Physical Exam Exam: Exam: Appearance: Alert. Oriented X3. No acute distress. Eyes: Pupils equal, round and reactive to light. ENT: Pharynx normal. Neck: Normal inspection. Neck supple. No lymph nodes noted. No crepitus CVS: Normal heart rate and rhythm. Pulses normal. Normal S1 and S2 Respiratory: No respiratory distress. Breath sounds normal. No Wheezing. No rales Abdomen: Soft and nontender. No rigidity. No distention. Skin: Skin warm and dry. Normal skin color. Normal skin turgor. No lacerations, small hematoma on the top of the scalp Extremities: No lower extremity edema. No Lacerations. No Rash Neuro: Oriented X 3. No motor deficit. No sensory deficit. Moving all extremities. No slurred speech. CN 2 through 12 grossly intact Psych: calm, cooperative, normal affect Vital Signs: Vital Signs: Last Vital Signs Temp 97.8 F 06/25/25 22:59 Pulse 64 06/25/25 22:59 Resp 16 06/26/25 02:41 BP 154/88 H 06/25/25 22:59 Pulse Ox 100 06/25/25 22:59 O2 Del Method Room Air 06/25/25 22:59 BMI result Body Mass Index 23.9 Course Course Course Narrative: Patient was given p.o. acetaminophen, declined any other medication. Head CT and cervical spine CT pending Medications Administered Discontinued Medications Generic Name Dose Route Start Last Admin Trade Name Freq PRN Reason Stop Dose Admin Acetaminophen 975 mg 06/26/25 01:19 06/26/25 01:41 Acetaminophen 325 Mg Tablet PO 06/26/25 01:20 975 mg ONCE ONE Administration Medical Decision Making Medical Decision Making [facility] Narrative: CT scan of the head and cervical spine did not show any acute abnormality. I discussed the above-mentioned with the patient Patient states that the headache nearly resolved. Patient feeling better, no visual changes, no nausea or vomiting. No dizziness Differential Diagnosis Differential Diagnoses: The differential diagnosis associated with the presentation includes (Concussion, intracranial bleed, cervical spine injury) Independent Interpretation I performed an independent interpretation of an: CT Scan Radiology Impression Discussion of test interpretation with radiology: I have reviewed the radiologist's reading. Radiologist Impression: Brain is normal in volume and morphology. Ventricles are normal in size. Midbrain, richard, medulla, and cerebellum are normal. There is no focal loss of mullins-white differentiation No acute intracranial hemorrhage. No subdural or epidural hematoma. Suprasellar and basal cisterns are clear. There is no midline shift. Pituitary is normal. Orbits are normal. No acute calvarial fracture or diastasis. Mastoid air cells are normally aerated. Paranasal sinuses are clear. Clivus and dens are normally aligned. Cervical alignment demonstrates anterolisthesis of C3 on C4. The left C2 and C3 articular facets are fused. Occipital condyles are intact. Anterior atlanto odontoid articulation is normally aligned. Cervical vertebral body heights are maintained. Articular facets are normally aligned. Severe facet arthropathy at right C3/4. Spinous processes and lamina are intact. No CT evidence of epidural hematoma. No high-grade spinal canal narrowing. C1/C2: Moderate degenerative changes at the anterior atlanto odontoid articulation. C2/C3: No spinal canal or foraminal narrowing. C3/C4: Posterior disc osteophyte complex and facet arthropathy contributing to mild left and moderate right foraminal narrowing. C4/C5: Posterior disc osteophyte complex and facet arthropathy contributing to mild left and moderate right foraminal narrowing. C5/C6: Mild bilateral foraminal narrowing. C6/C7: Posterior disc osteophyte complex and facet arthropathy contributing to moderate left and mild right foraminal narrowing. C7/T1: No spinal canal or foraminal narrowing. Prevertebral soft tissues are normal. No epidural hematoma. Discharge Plan Discharge Clinical Impression: Fall, Closed head injury, Concussion Patient Disposition: Home, Self-Care Instructions: Concussion (ED), Fall Prevention (ED) Additional Instructions: Please follow-up with your primary care physician tomorrow. If you have any worsening or new symptoms, please return to the emergency room or call 911 Prescriptions: No Action Evenity 210mg/2.34mL ( 105mg/1.17mLx2) syringe 210 mg subcut Q30D Qty: 2.34 11RF Rx Instructions: TO INJECTIN IN OFFICE losartan-hydrochlorothiazide 100-12.5 mg tablet 1 tab PO DAILY levothyroxine 125 mcg tablet 125 mcg PO DAILY Print Language: Hungarian
--- NOTE | 2025-06-26 01:47 | PC.NURSE ---
late entry - @ 2240 patient was triaged. this RN consulted with a providers and PA about if patient should have CT of head. both providers stated patient assessment did not sound as though CT would be necessary at that time.
--- OUTSIDE RECORDS SUMMARY | 2025-06-26 01:57 | XMS_ITS | Data Portability ---
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 [email or web address] Not available 06/05/2024 09:27:31 04/12/2025 04/12/2025 The patient has a 2 x 5 mm shallow ulceration on the posterior left side of the tongue that has been present for approximately four months. Given the persistence of the lesion and its associated symptoms, a biopsy was performed during today's visit. The biopsy involved numbing the area, excising a small circular sample, and managing bleeding with silver nitrate and gauze. The specimen will be sent for pathology, and results are expected within one to two weeks. The patient was advised to follow up for review of the pathology results. The patient was counseled on post-procedure care, including avoiding hard or spicy foods and sticking to softer options to minimize discomfort. She was informed about potential bleeding and was provided gauze for management. The importance of addressing the lesion promptly was emphasized, and the patient expressed understanding of the next steps. Positive thoughts were encouraged, and the patient was reassured that further treatment options would be discussed if the pathology results indicate a concerning diagnosis. Procedure Documentation: - Biopsy of the posterior left side of the tongue performed during today's visit. [email or web address] Not available 04/12/2025 11:36:56 04/23/2025 04/23/2025 The patient is reassured that the oral ulceration is benign and not cancerous. The provider anticipates improvement in the ulceration over time. The patient is advised that holistic topical treatments may be used if desired, provided they do not cause irritation. The provider discusses the necessity of radiographs for dental procedures and advises the patient to follow up with their dentist as needed. The next appointment with the provider is scheduled for approximately one year, and the provider cancels a previously scheduled follow-up in a few weeks. The patient is encouraged to call in a couple of months to set up the next appointment if needed. [email or web address] Not available 04/23/2025 16:19:57 Plan of Treatment Reminders Order Date Submit Date Provider Last Modified By Organization Details Last Modified Time Details Appointments Establish ed 15 2025 09:45A Haider PIPER MD Not available Not available Not available Lab surgical pathology study - left posterior floor mouth 2024 025 CHELI [facility] (Centralized Electronic Ordering - All Locations), Patient Can Go To The Location Of Their Choice, [id number] 04/16/2025 23:52:50 Referral None recorded. Procedures None recorded. Surgeries None recorded. Imaging None recorded. Medication Orders None recorded. Patient TargetsNo targets recorded. Patient Instructions Encounter Date Encounter Id Patient Instructions Last Modified By Organization Details Last Modified Time 04/12/2025 [id number] - Avoid hard or spicy foods and stick to softer options to minimize discomfort. - Monitor for bleeding and use gauze as needed. - Follow up in two weeks for pathology results. [email or web address] Not available 04/12/2025 11:35:46 Please note: Par ts of this encounter note have been generated by AI based on audio conversation. Patient consent was required prior to utilizing this technology. Content review was required prior to finalizing the note. [email or web address] Not available 04/12/2025 11:35:47 04/23/2025 [id number] The patient is advised to use holistic topical treatments if desired, ensuring they do not cause irritation. The patient is encouraged to follow up with their dentist for necessary dental procedures and radiographs. The next appointment with the provider is scheduled for approximately one year, and the patient is advised to call in a couple of months to set up the appointment if needed. [email or web address] Not available 04/23/2025 16:19:57 Please note: Par ts of this encounter note have been generated by AI based on audio conversation. Patient consent was required prior to utilizing this technology. Content review was required prior to finalizing the note. [email or web address] Not available 04/23/2025 16:19:57 Reason for Referral None Reported. Results Created Date Observation Date Name Description Value Unit Range Abnormal Flag Note LastModifiedBy Organization Detail LastModifiedTime Result Notes None recorded. 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 T1N0 suspected . excised at [facility] 10/13/14 12/15/14 elective neck dsxn and re-resect ion of tongue LN, negative residual in tongue. 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 15733766521 07 Active 2015 Leukoplak ia of oral mucosa, including tongue; Note: Date Diagnosed : 02/10/2016 4:29 PM (K13.21) CHAZ PIPER MD [address] [place] [address], [facility] [place], [address] , [facility] 5 16:20:12 Disturban ce of salivary secretion 36637109 Active 2018 Xerostomi a; Note: Date Diagnosed : 01/29/2019 4:14 PM (K11.7) CHAZ PIPER MD 100 [facility], [place], [address] , [facility] - [facility] 5 16:20:16 Bilateral tinnitus 26880655151 02 Active 2018 Tinnitus, bilateral ; Note: Date Diagnosed : 05/25/2019 3:44 PM (H93.13) Not Available [facility] 4 02:54:37 Follow-up visit Active 2018 Encounter for follow-up examinati on after completed treatment for malignant neoplasm; Note: Date Diagnosed : 05/27/2019 3:07 PM (Z08) Not Available [facility] 4 02:54:34 History of malignant neoplasm of tongue 856682491 Active 2018 Tumor Location: Left tongue Tumor staging: T1N0 SCCA Treatment : excision @ [facility] 10/13/14, elective neck dsxn & re-resect ion of tongue LN 12/15/14, XRT Date of treatment completio n: 05/15/15 Oncology team: Dr. Ragland/Laurie PIPER MD 100 [facility], [place], [address] , [facility] - [facility] 4 21:32:55 Hypothyro idism 98978246 Active 2020 Hypothyro idism, unspecifi ed; Note: Date Diagnosed : 11/17/2020 10:12 AM (E03.9) Not Available [facility] 4 02:54:39 Respirato ry finding 584460245 Active 2020 Feeling of foreign body in throat; Note: Date Diagnosed : 09/16/2015 1:43 PM (R09.89) Not Available [facility] 4 02:54:36 Cardiovas cular finding 918307107 Active 2020 Feeling of foreign body in throat; Note: Date Diagnosed : 09/16/2015 1:43 PM (R09.89) Not Available [facility] 4 02:54:36 Dysphonia 92560178 Active 2021 Dysphonia ; Note: Date Diagnosed : 05/25/2022 10:11 AM (R49.0) Not Available [facility] 4 02:54:36 Lesion of oral mucosa 97167649031 46284 Active 2024 CHAZ PIPER MD [address] [place] [address],[place] [address], [place], [address] , [facility] 11:28:19 Problem Notes None recorded. Procedures Surgical History Date Name Laterality Status Provider Name and Address Organization Details Recorded Time 04/12/2025 Biopsy Oral Cavity completed CHAZ PIPER MD [address] [place] [address],[place] [address], [place], [address], [facility] - [facility] 04/12/2025 11:27:36 06/05/2024 FOL_DP completed CHAZ PIPER MD [address] [place] [address],[place] [address], [place], [address], [facility] - [facility] 06/04/2024 21:35:13 Imaging Results None recorded. Procedure Notes None recorded. Medical Equipment None Reported. Medications Name Sig Start Date Stop Date Status Note LastModified by Organization Details LastModified Time Prescript ion - Prior Authoriza tion Request active Script Copy/Sandra or Auth^Scr ipt Copy/Sandra or Auth_201 [id number] Not Available Not Available Not Available nystatin 100,000 unit/mL oral suspensio n active Medicati on ID: [id number] P rescribe d By Name: Chaz Piper M.D. Bra nd Name: nystatin Send Method: E-Prescr ibed Sub s Allowed: subs OK Speci al Instruct ion: 5 ml swish and swallow four times daily x 2-4 weeks Me dication GenericN fannie: nystatin Not Available Not Available Not Available venlafaxi ne ER 75 mg capsule,e xtended release 24 hr 04/12 completed Medicati on ID: [id number] B rand Name: venlafax ine Send Method: E-Prescr ibed Sub s Allowed: subs OK Medic ationGen ericName : venlafax ine Not Available Not Available Not Available lisinopri l 20 mg-hydroc hlorothia zide 12.5 mg tablet 04/12 completed Medicati on ID: [id number] B rand Name: lisinopr il-hydro chloroth iazide S end Method: E-Prescr ibed Sub s Allowed: subs OK Medic ationGen ericName : lisinopr il-hydro chloroth iazide Not Available Not Available Not Available lisinopri l 20 mg tablet 04/12 completed Medicati on ID: [id number] B rand Name: lisinopr il Send Method: E-Prescr ibed Sub s Allowed: subs OK Medic ationGen ericName : lisinopr il Not Available Not Available Not Available Peridex 0.12 % mouthwash 02/09 completed Medicati on ID: [id number] Pr escribed By Name: Joel Chand nd Name: Peridex Send Method: E-Prescr ibed Sub s Allowed: subs OK Speci al Instruct ion: 10 ml swish and spit after meals for 2 week Med icationG enericNa me: Peridex Not Available Not Available Not Available oxycodone 5 mg/5 mL oral solution 5-10 ml by mouth 12/20 completed Medicati on ID: [id number] Du ration Value: 7 Prescri bed By Name: Joel Chand nd Name: oxycodon e Send Method: E-Prescr ibed Sub s Allowed: subs OK Medic ationGen ericName : oxycodon e Not Available Not Available Not Available sulfameth oxazole 800 mg-trimet hoprim 160 mg tablet active Not Available Not Available Not Available amoxicill in 875 mg tablet 04/12 completed Not Available Not Available Not Available calcitoni n (salmon) 200 unit/actu ation nasal spray 02/09 completed Medicati on ID: [id number] Du ration Value: 30 Reason: () Brand Name: calciton in (salmon) Send Method: E-Prescr ibed Sub s Allowed: subs OK Speci al Instruct ion: INHALE 1 SPRAY ALTERNAT ING NOSTRILS ONCE A DAY Medi cationGe nericNam e: calciton in (salmon) Not Available Not Available Not Available benzonata te 100 mg capsule 04/12 completed Not Available Not Available Not Available levothyro xine 125 mcg tablet active Not Available Not Available Not Available betametha sone dipropion ate 0.05 % topical cream active Not Available Not Available Not Available omeprazol e 20 mg capsule,d elayed release 1 capsule by mouth 04/12 completed Medicati on ID: [id number] D uration Value: 30 Prescri bed By Name: Joel Chand nd Name: omeprazo le Send Method: E-Prescr ibed Sub s Allowed: subs OK Medic ationGen ericName : omeprazo le Not Available Not Available Not Available diclofena c sodium 75 mg tablet,de layed release 05/30 completed Medicati on ID: [id number] D uration Value: 30 Brand Name: diclofen ac sodium S end Method: E-Prescr ibed Sub s Allowed: subs OK Medic ationGen ericName : diclofen ac sodium Not Available Not Available Not Available mupirocin 2 % topical ointment 05/30 completed Medicati on ID: [id number] D uration Value: 5 Brand Name: mupiroci n Send Method: E-Prescr ibed Sub s Allowed: subs OK Medic ationGen ericName : mupiroci n Not Available Not Available Not Available Percocet 5 mg-325 mg tablet 04/12 completed Medicati on ID: [id number] Du ration Value: 10 Prescri bed By Name: Joel Chand nd Name: Percocet Send Method: E-Prescr ibed Sub s Allowed: subs OK Speci al Instruct ion: 1-2 tablet PO every 4-6 hour PRN pain Med icationG enericNa me: Percocet Not Available Not Available Not Available clotrimaz ole 1 % topical cream active Not Available Not Available Not Available sertralin e 50 mg tablet 04/12 completed Medicati on ID: [id number] B rand Name: sertrali ne Send Method: E-Prescr ibed Sub s Allowed: subs OK Medic ationGen ericName : sertrali ne Not Available Not Available Not Available lisinopri l 2.5 mg tablet 05/30 completed Medicati on ID: [id number] Du ration Value: 30 Brand Name: lisinopr il Send Method: E-Prescr ibed Sub s Allowed: subs OK Speci al Instruct ion: TAKE 1 TABLET BY MOUTH DAILY. Haider Almanza Name: lisinopr il Not Available Not Available Not Available doxycycli ne hyclate 100 mg tablet 05/30 completed Medicati on ID: [id number] D uration Value: 10 Brand Name: doxycycl ine hyclate Send Method: E-Prescr ibed Sub s Allowed: subs OK Speci al Instruct ion: TAKE 1 TABLET BY MOUTH EVERY 12 HOURS FOR 10 DAYS Med icationG enericNa me: doxycycl ine hyclate Not Available Not Available Not Available levothyro xine 112 mcg tablet 05/30 completed Medicati on ID: [id number] Du ration Value: 30 Brand Name: levothyr oxine Se nd Method: E-Prescr ibed Sub s Allowed: subs OK Speci al Instruct ion: TAKE 1 TABLET EVERY DAY Medi cationGe nericNam e: levothyr oxine Not Available Not Available Not Available losartan 100 mg-hydroc hlorothia zide 12.5 mg tablet active Not Available Not Available No t Available Evenity active Not Available Not Avail able Not Available Sodium Fluoride 5000 Plus 1.1 % dental cream active Not Available Not Available Not Available Vitals Date Recorded Body height Body mass index (BMI) Body weight Provider Name and Address Organization Details Last Updated DateTime 04/12/2025 170.18 cm 22.6 kg/m2 51807.3 g [facility] - [facility] 04/12/2025 11:05:33 Date Recorded Body height Provider Name an d Address Organization Details Last Updated DateTime 04/23/2025 170.18 cm [facility] 04/23/2025 15:51:47 Date Recorded Body height Body mass index (BMI) Body weight Provider Name and Address Organization Details Last Updated DateTime 06/05/2024 170.18 cm 22.7 kg/m2 25034.89 g Tara Hernandez [place] [facility] 06/05/2024 09:11:23 Social History None recorded. Functional Status None recorded. Mental Status None recorded. Family History Nothing Reported. Medical History No medical history recorded. Gynecological HistoryNo gynecological history recorded. Obstetrics History GPAL:G 0 P 0 0 0 0 Past Encounters Encounter ID Performer Location Encounter Start Date Encounter Closed Date Diagnosis/Indication Diagnosis SNOMED-CT Code Diagnosis ICD10 Code Diagnosis IMO Codes Diagnosis Note [id number] CHAZ PIPER MD [facility] [address] [address] 06/05/2024 08:57:41 06/05/2024 09:29:44 History of malignant neoplasm of tongue 027398321 Z85.810 [id number] CHAZ PIPER MD [facility] [address] [address] 04/12/2025 10:47:00 04/12/2025 11:39:18 History of malignant neoplasm of tongue 919410405 Z85.810 Lesion of oral mucosa 10 19750485 088632 K13.70 4099568 [id number] CHAZ PIPER MD [facility] [address] [address] 04/23/2025 15:44:02 04/23/2025 16:22:43 Lesion of oral mucosa 1897809413 143141 K13.70 2893054 History of malignant neoplasm of tongue 153694372 Z85.810 Leukoplaki a of oral mucosa and tongue 2368633072 107 K13.21 Disturbanc e of salivary secretion 78175383 K11.7 Health Concerns Section Related Observation LastModified by Organization Detai ls LastModified Time None Recorded Concern Status LastModified by Organization Details LastModified Time None Recorded Advance Directives Directive None Recorded Payers Insurance Date Sequence Insurance Name Policy Number Policy Rhoades Covered Member ID Rhoades Member ID Guarantor Name 04/23/2025 1 [employer] [place] [id number] Sommer Wiggins [employer] [id number] Sommer Sorensononaycmigue Notes Date Note Type Note Provider Name and Address Organization Details Recorded Time 06/05/2024 text/html ROS as noted in the HPI Tumor Location: Left tongueTumor staging: T1N0 SCCATreatment[facility], elective neck dsxn & re-resection of tongue LN 12/15/14, XRTDate of treatment completion: 05/15/15Oncology team: Dr. Ragland/Feliz staying busy with a second job at [employer] Yanticipates another tooth extraction early Jun CHAZ PIPER MD [address] [facility], [place], [address], [place] - [facility] 06/05/2024 09:27:49 04/12/2025 text/html Tumor Location: Left tongue Tumor staging: T1N0 SCCA Treatment: excision @ [facility] 10/13/14, elective neck dsxn & re-resection of tongue 0/LN 12/15/14, XRT Date of treatment completion: 05/15/15 Oncology team: Dr. Ragland/Feliz staying busy with a second job at [employer] anticipates another tooth extraction early Jun noted a new white spot on tongue Sommer Bosch is a 54-year-old female who presents for evaluation of a lesion on the posterior left side of the tongue. The patient reports noticing the lesion approximately four months ago, around October or November, and describes it as bothersome, particularly when eating certain foods such as spicy items, meat, or chips. She notes difficulty seeing the lesion herself and mentions that her primary care physician, identified something in the area during a prior examination. The patient has a history of radiation treatment completed on 05/15/2015 for a prior condition. She reports dryness in her mouth, which she attributes to drooling at night, and occasional numbness in the tongue. Additionally, she has been referred to an oral surgeon for the removal of teeth on the left side, specifically teeth numbered 14 and 20. The patient expresses concern about the lesion and its persistence over the past months. CHAZ PIPER MD [address] [facility] [place], [place], [address], [place] [facility] 04/12/2025 11:37:04 04/23/2025 text/html Tumor Location: Left tongue Tumor staging: T1N0 SCCA Treatment: excision @ [facility] 10/13/14, elective neck dsxn & re-resection of tongue 0/LN 12/15/14, XRT Date of treatment completion: 05/15/15 Oncology team: Dr. Ragland/Feliz staying busy with a second job at [employer] anticipates another tooth extraction early 04/12/25 biopsy left floor mouth, path at [facility] benign reactive changes and ulceration Sommer Bosch is a 55-year-old female who presents for evaluation of a small ulceration in the oral cavity. The ulceration is noted to be causing pain and discomfort. The provider explains that the ulcer is benign and likely related to the fragility of the oral lining, which may have been affected by prior surgical treatments and healing processes. Potential contributing factors include trauma, viral causes, or localized tissue weakness. The patient reports undergoing dental procedures, including tooth extractions and bone grafting, which involved radiographs and bite-wing imaging. The provider notes that bite-wing imaging could have caused localized trauma contributing to the ulceration. The patient expresses concern about the ulceration and its persistence but is reassured that it is not cancerous and is expected to improve over time. CHAZ PIPER MD [address] [place] [address], [address], [facility] - [facility] 04/23/2025 16:20:57 OBGyn Episode No OBEpisode recorded.
--- OUTSIDE RECORDS SUMMARY | 2025-06-26 01:57 | XMS_ITS | Continuity of Care Document ---
Author Organization [place] - [facility], [facility] Address [address] [place] [address] Care Team Providers Care Brim Buster Name Role Phone PHILLIP CHIANG Primary Care Provider [phone] Assessment Encounter Date Assessment Date Assessment LastModified by Organization Details LastModified Time 04/23/2025 04/23/2025 The patient is reassured that [...] Details Appointments Establish ed 15 2025 09:45A M CHAZ PIPER MD Not available Not available Not available Lab None recorded. Referral None recorded. Procedures None recorded. Surgeries None recorded. Imaging None recorded. Medication Orders None recorded. Patient TargetsNo targets recorded. 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 T1N0 suspected . excised at [facility] 10/13/14 12/15/14 elective neck dsxn and re-resect ion of tongue 022LN, negative residual in tongue. 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 5 16:20:12 Disturban ce of salivary secretion 57197147 Active 2018 Xerostomi a; Note: Date Diagnosed : 01/29/2019 4:14 PM (K11.7) CHAZ PIPER MD [address] [facility] [address], [place], [address] , [facility] - [facility] 5 16:20:16 Bilateral tinnitus 71668211794 02 Active 2018 Tinnitus, bilateral ; Note: Date Diagnosed : 05/25/2019 3:44 PM (H93.13) Not Available [facility] 4 02:54:37 Follow-up visit Active 2018 Encounter for follow-up examinati on after completed treatment for malignant neoplasm; Note: Date Diagnosed : 05/27/2019 3:07 PM (Z08) Not Available [facility] 4 02:54:34 History of malignant neoplasm of tongue 289306947 Active 2018 Tumor Location: Left tongue Tumor staging: T1N0 SCCA Treatment : excision @ [facility] 10/13/14, elective neck dsxn & re-resect ion of tongue LN 12/15/14, XRT Date of treatment completio n: 05/15/15 Oncology team: Dr. Ragland/Laurie PIPER MD [address] [facility] [address], [place], [address] , [facility] - [facility] 4 21:32:55 Hypothyro idism 82066588 Active 2020 Hypothyro idism, unspecifi ed; Note: Date Diagnosed : 11/17/2020 10:12 AM (E03.9) Not Available [facility] 4 02:54:39 Respirato ry finding 719847181 Active 2020 Feeling of foreign body in throat; Note: Date Diagnosed : 09/16/2015 1:43 PM (R09.89) Not Available [facility] 4 02:54:36 Cardiovas cular finding 064955344 Active 2020 Feeling of foreign body in throat; Note: Date Diagnosed : 09/16/2015 1:43 PM (R09.89) Not Available [facility] 4 02:54:36 Dysphonia 93748349 Active 2021 Dysphonia ; Note: Date Diagnosed : 05/25/2022 10:11 AM (R49.0) Not Available [facility] 02:54:36 Lesion of oral mucosa 20032106441 43152 Active 2024 CHAZ PIPER MD [address] [place] [address],[place] [address], [place], [address] , [facility] - [facility] 11:28:19 Problem Notes None recorded. Procedures Surgical History Date Name Laterality Status Provider Name and Address Organization Details Recorded Time 04/12/2025 Biopsy Oral Cavity completed CHAZ PIPER MD [address] [place] [address],[place] [address], [place], [address], [facility] - [facility] 04/12/2025 11:27:36 06/05/2024 FOL_DP completed CHAZ PIPER MD [address] [place] [address],[place] [address], [place], [address], [facility] 06/04/2024 21:35:13 Imaging Results None recorded. Procedure Notes None recorded. Medical Equipment None Reported. Medications Name Sig Start Date Stop Date Status Note LastModified by Organization Details LastModified Time Prescript ion - Prior Authoriza tion Request active Script Copy/Sandra or Auth^Scr ipt Copy/Sandra or Auth_201 [id number] Not Available Not Available Not Available nystatin 100,000 unit/mL oral suspensio n active Medicati on ID: [id number] P rescribe d By Name: Chaz Piper M.D. Bra nd Name: nystatin Send Method: E-Prescr ibed Sub s Allowed: subs OK Speci al Instruct ion: 5 ml swish and swallow four times daily x 2-4 weeks Me dication GenericN fannie: nystatin Not Available Not Available Not Available venlafaxi ne ER 75 mg capsule,e xtended release 24 hr 04/12 completed Medicati on ID: [id number] B rand Name: venlafax ine Send Method: E-Prescr ibed Sub s Allowed: subs OK Medic ationGen ericName : venlafax ine Not Available Not Available Not Available lisinopri l 20 mg-hydroc hlorothia zide 12.5 mg tablet 04/12 completed Medicati on ID: [id number] B rand Name: lisinopr il-hydro chloroth iazide S end Method: E-Prescr ibed Sub s Allowed: subs OK Medic ationGen ericName : lisinopr il-hydro chloroth iazide Not Available Not Available Not Available lisinopri l 20 mg tablet 04/12 completed Medicati on ID: [id number] B rand Name: lisinopr il Send Method: E-Prescr ibed Sub s Allowed: subs OK Medic ationGen ericName : lisinopr il Not Available Not Available Not Available Peridex 0.12 % mouthwash 02/09 completed Medicati on ID: [id number] Pr escribed By Name: Joel Chand nd Name: Peridex Send Method: E-Prescr ibed Sub s Allowed: subs OK Speci al Instruct ion: 10 ml swish and spit after meals for 2 week Med icationG enericNa me: Peridex Not Available Not Available Not Available oxycodone 5 mg/5 mL oral solution 5-10 ml by mouth 12/20 completed Medicati on ID: [id number] Du ration Value: 7 Prescri bed By [...] nasal spray 02/09 completed Medicati on ID: [id number] Du ration Value: 30 Reason: () Brand [...] by mouth 04/12 completed Medicati on ID: [id number] D uration Value: 30 Prescri bed By Name: Joel Chand nd Name: omeprazo le Send Method: E-Prescr ibed Sub s Allowed: subs OK Medic ationGen ericName : omeprazo le Not Available Not Available Not Available diclofena c sodium 75 mg tablet,de layed release 05/30 completed Medicati on ID: [id number] D uration Value: 30 Brand Name: diclofen ac sodium S end Method: E-Prescr ibed Sub s Allowed: subs OK Medic ationGen ericName : diclofen ac sodium Not Available Not Available Not Available mupirocin 2 % topical ointment 05/30 completed Medicati on ID: [id number] D uration Value: 5 Brand Name: mupiroci n Send Method: E-Prescr ibed Sub s Allowed: subs OK Medic ationGen ericName : mupiroci n Not Available Not Available Not Available Percocet 5 mg-325 mg tablet 04/12 completed Medicati on ID: [id number] Du ration Value: 10 Prescri bed By [...] mg tablet 04/12 completed Medicati on ID: [id number] B rand Name: sertrali ne Send Method: E-Prescr ibed Sub s Allowed: subs OK Medic ationGen ericName : sertrali ne Not Available Not Available Not Available lisinopri l 2.5 mg tablet 05/30 completed Medicati on ID: [id number] Du ration Value: 30 Brand Name: lisinopr il Send Method: E-Prescr ibed Sub s Allowed: subs OK Speci al Instruct ion: TAKE 1 TABLET BY MOUTH DAILY. Haider Almanza Name: lisinopr il Not Available Not Available Not Available doxycycli ne hyclate 100 mg tablet 05/30 completed Medicati on ID: [id number] D uration Value: 10 Brand Name: doxycycl ine hyclate Send Method: E-Prescr ibed Sub s Allowed: subs OK Speci al Instruct ion: TAKE 1 TABLET BY MOUTH EVERY 12 HOURS FOR 10 DAYS Med icationG enericNa me: doxycycl ine hyclate Not Available Not Available Not Available levothyro xine 112 mcg tablet 05/30 completed Medicati on ID: [id number] Du ration Value: 30 Brand Name: levothyr [...] Not Available Vitals Date Recorded Body height Provider Name an d Address Organization Details Last Updated DateTime 04/23/2025 170.18 cm JEMMA CALIXTO [place] - [facility] 04/23/2025 15:51:47 Social History None recorded. Functional Status None recorded. Mental Status None recorded. Family History Nothing Reported. Medical History No medical history recorded. Gynecological HistoryNo gynecological history recorded. Obstetrics History GPAL:G 0 P 0 0 0 0 Past Encounters Encounter ID Performer Location Encounter Start Date Encounter Closed Date Diagnosis/Indication Diagnosis SNOMED-CT Code Diagnosis ICD10 Code Diagnosis IMO Codes Diagnosis Note [id number] CHAZ PIPER MD [facility] of [address] [address] 04/12/2025 10:47:00 04/12/2025 11:39:18 History of malignant neoplasm of tongue 287690211 Z85.810 Lesion of oral mucosa 10 31068817 691966 K13.70 [id number] CHAZ PIPER MD [facility] of [address] [address] 04/23/2025 15:44:02 04/23/2025 16:22:43 Lesion of oral mucosa 4029203752 448939 K13.70 4434390 History of malignant neoplasm of tongue 283120734 Z85.810 Leukoplaki a of oral mucosa and tongue 2536060709 107 K13.21 Disturbanc e of salivary secretion 26967050 K11.7 Health Concerns Section Related Observation LastModified by Organization Detai ls LastModified Time None Recorded Concern Status LastModified by Organization Details LastModified Time None Recorded Payers Encounter Date Sequence Insurance Name Policy Number Policy Rhoades Covered Member ID Rhoades Member ID Guarantor Name 04/23/2025 1 [employer] [place] [id number] Sommer Sorensononayco [id number] Sommer Rosalie [facility] Notes Date Note Type Note Provider Name and Address Organization Details Recorded Time 04/23/2025 text/html Tumor Location: Left tongue Tumor staging: T1N0 SCCA Treatment: excision @ [facility] 10/13/14, elective neck dsxn & re-resection of tongue LN 12/15/14, XRT Date of treatment completion: 05/15/15 Oncology team: Dr. Ragland/Feliz staying busy with a second job at [employer] anticipates another tooth extraction early 04/12/25 biopsy left floor mouth, path at [facility] benign reactive changes and ulceration Sommer oBsch is a 55-year-old female who presents for [...] to improve over time. CHAZ PIPER MD [address] [place] [address], [place], [address], [place] - [facility] 04/23/2025 16:20:57 OBGyn Episode No OBEpisode recorded.
--- OUTSIDE RECORDS SUMMARY | 2025-06-26 01:57 | XMS_ITS | Continuity of Care Document ---
Author Organization [place] - [facility], [facility] Address [address] [place] [address] Care Team Providers Care Carding Machine Feeder Name Role Phone PHILLIP CHIANG Primary Care Provider Assessment Encounter Date Assessment Date Assessment LastModified by Organization Details LastModified Time 04/12/2025 04/12/2025 The patient has a 2 [...] today's visit. [email or web address] Not available 04/12/2025 11:36:56 Plan of Treatment Reminders Order Date Submit Date Provider Last Modified By Organization Details Last Modified Time Details Appointments Establish ed 15 2025 09:45A Haider PIPER MD Not available Not available Not available Lab surgical pathology study - left posterior floor mouth 2024 025 CHELI [facility] (Centralized Electronic Ordering - All Locations), Patient Can Go To The Location Of Their Choice, [id number] 04/16/2025 23:52:50 Referral None recorded. Procedures None recorded. Surgeries None recorded. Imaging None recorded. Medication Orders None recorded. Patient TargetsNo targets recorded. Patient Instructions Encounter Date Encounter Id Patient Instructions Last Modified By Organization Details Last Modified Time 04/12/2025 [id number] - Avoid hard or spicy foods and stick to softer options to minimize discomfort. - Monitor for bleeding and use gauze as needed. - Follow up in two weeks for pathology results. [email or web address] Not available 04/12/2025 11:35:46 Please note: Parts of this encounter note have been generated by AI based on audio conversation. Patient consent was required prior to utilizing this technology. Content review was required prior to finalizing the note. [email or web address] Not available 04/12/2025 11:35:47 Reason for Referral None Reported. 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 T1N0 suspected . excised at [facility] 10/13/14 12/15/14 elective neck dsxn and re-resect ion of tongue LN, negative residual in tongue. 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 35729522702 07 Active 2015 Leukoplak ia of oral mucosa, including tongue; Note: Date Diagnosed : 02/10/2016 4:29 PM (K13.21) CHAZ PIPER MD 100 [facility] [address], [place], [address] , [place] - [facility] 5 16:20:12 Disturban ce of salivary secretion 40049231 Active 2018 Xerostomi a; Note: Date Diagnosed : 01/29/2019 4:14 PM (K11.7) CHAZ PIPER MD [address] [facility] [address], [place], [address] , [place] [facility] 5 16:20:16 Bilateral tinnitus 48515179298 02 Active 2018 Tinnitus, bilateral ; Note: Date Diagnosed : 05/25/2019 3:44 PM (H93.13) Not Available [facility] 4 02:54:37 Follow-up visit Active 2018 Encounter for follow-up examinati on after completed treatment for malignant neoplasm; Note: Date Diagnosed : 05/27/2019 3:07 PM (Z08) Not Available [facility] 4 02:54:34 History of malignant neoplasm of tongue 334617753 Active 2018 Tumor Location: Left tongue Tumor staging: T1N0 SCCA Treatment : excision @ [facility] 10/13/14, elective neck dsxn & re-resect ion of tongue LN 12/15/14, XRT Date of treatment completio n: 05/15/15 Oncology team: Dr. Ragland/Laurie PIPER MD [address] [facility] [address], [place], [address] , [place] - [facility] 4 21:32:55 Hypothyro idism 89098180 Active 2020 Hypothyro idism, unspecifi ed; Note: Date Diagnosed : 11/17/2020 10:12 AM (E03.9) Not Available [facility] 4 02:54:39 Respirato ry finding 522908250 Active 2020 Feeling of foreign body in throat; Note: Date Diagnosed : 09/16/2015 1:43 PM (R09.89) Not Available [facility] 4 02:54:36 Cardiovas cular finding 413402427 Active 2020 Feeling of foreign body in throat; Note: Date Diagnosed : 09/16/2015 1:43 PM (R09.89) Not Available [facility] 4 02:54:36 Dysphonia 72601065 Active 2021 Dysphonia ; Note: Date Diagnosed : 05/25/2022 10:11 AM (R49.0) Not Available [facility] 4 02:54:36 Lesion of oral mucosa 80466933923 27126 Active 2024 CHAZ PIPER MD [address] [place] [address], [address] , [facility] 5 11:28:19 Problem Notes None recorded. Procedures Surgical History Date Name Laterality Status Provider Name and Address Organization Details Recorded Time 04/12/2025 Biopsy Oral Cavity completed CHAZ PIPER MD [address] [place] [address], [phone], [facility] 04/12/2025 11:27:36 06/05/2024 FOL_DP completed CHAZ PIPER MD [address] [place] [address], [address], [facility] 06/04/2024 21:35:13 Imaging Results None recorded. Procedure Notes None recorded. Medical Equipment None Reported. Medications Name Sig Start Date Stop Date Status Note LastModified by Organization Details LastModified Time Prescript ion - Prior Authoriza tion Request active Script Copy/Sandra or Auth^Scr ipt Copy/Sandra or Auth_201 [id number] Not Available Not Available Not Available nystatin 100,000 unit/mL oral suspensio n active Medicati on ID: [id number] P rescribe d By Name: Chaz Piper M.D. Bra ernestina Name: nystatin Send Method: E-Prescr ibed Sub s Allowed: subs OK Speci al Instruct ion: 5 ml swish and swallow four times daily x 2-4 weeks Me dication GenericN fannie: nystatin Not Available Not Available Not Available venlafaxi ne ER 75 mg capsule,e xtended release 24 hr 04/12 completed Medicati on ID: [id number] B rand Name: venlafax ine Send Method: E-Prescr ibed Sub s Allowed: subs OK Medic ationGen ericName : venlafax ine Not Available Not Available Not Available lisinopri l 20 mg-hydroc hlorothia zide 12.5 mg tablet 04/12 completed Medicati on ID: [id number] B rand Name: lisinopr il-hydro chloroth iazide S end Method: E-Prescr ibed Sub s Allowed: subs OK Medic ationGen ericName : lisinopr il-hydro chloroth iazide Not Available Not Available Not Available lisinopri l 20 mg tablet 04/12 completed Medicati on ID: [id number] B rand Name: lisinopr il Send Method: E-Prescr ibed Sub s Allowed: subs OK Medic ationGen ericName : lisinopr il Not Available Not Available Not Available Peridex 0.12 % mouthwash 02/09 completed Medicati on ID: [id number] Pr escribed By Name: Joel Chand nd Name: Peridex Send Method: E-Prescr ibed Sub s Allowed: subs OK Speci al Instruct ion: 10 ml swish and spit after meals for 2 week Med icationG enericNa me: Peridex Not Available Not Available Not Available oxycodone 5 mg/5 mL oral solution 5-10 ml by mouth 12/20 completed Medicati on ID: [id number] Du ration Value: 7 Prescri bed By [...] nasal spray 02/09 completed Medicati on ID: [id number] Du ration Value: 30 Reason: () Brand [...] by mouth 04/12 completed Medicati on ID: [id number] D uration Value: 30 Prescri bed By Name: Joel Chand nd Name: omeprazo le Send Method: E-Prescr ibed Sub s Allowed: subs OK Medic ationGen ericName : omeprazo le Not Available Not Available Not Available diclofena c sodium 75 mg tablet,de layed release 05/30 completed Medicati on ID: [id number] D uration Value: 30 Brand Name: diclofen ac sodium S end Method: E-Prescr ibed Sub s Allowed: subs OK Medic ationGen ericName : diclofen ac sodium Not Available Not Available Not Available mupirocin 2 % topical ointment 05/30 completed Medicati on ID: [id number] D uration Value: 5 Brand Name: mupiroci n Send Method: E-Prescr ibed Sub s Allowed: subs OK Medic ationGen ericName : mupiroci n Not Available Not Available Not Available Percocet 5 mg-325 mg tablet 04/12 completed Medicati on ID: [id number] Du ration Value: 10 Prescri bed By [...] mg tablet 04/12 completed Medicati on ID: [id number] B rand Name: sertrali ne Send Method: E-Prescr ibed Sub s Allowed: subs OK Medic ationGen ericName : sertrali ne Not Available Not Available Not Available lisinopri l 2.5 mg tablet 05/30 completed Medicati on ID: [id number] Du ration Value: 30 Brand Name: lisinopr il Send Method: E-Prescr ibed Sub s Allowed: subs OK Speci al Instruct ion: TAKE 1 TABLET BY MOUTH DAILY. Haider Danielingridic Name: lisinopr il Not Available Not Available Not Available doxycycli ne hyclate 100 mg tablet 05/30 completed Medicati on ID: [id number] D uration Value: 10 Brand Name: doxycycl ine hyclate Send Method: E-Prescr ibed Sub s Allowed: subs OK Speci al Instruct ion: TAKE 1 TABLET BY MOUTH EVERY 12 HOURS FOR 10 DAYS Med icationG enericNa me: doxycycl ine hyclate Not Available Not Available Not Available levothyro xine 112 mcg tablet 05/30 completed Medicati on ID: [id number] Du ration Value: 30 Brand Name: levothyr oxine Se nd Method: E-Prescr ibed Sub s Allowed: subs OK Speci al Instruct ion: TAKE 1 TABLET EVERY DAY Medi cation nericNam e: levothyr oxine Not Available Not [...] Updated DateTime 04/12/2025 170.18 cm 22.6 kg/m2 81576.3 g JEMMA CALIXTO [place] - [facility] 04/12/2025 11:05:33 Social History None recorded. Functional Status None recorded. Mental Status None recorded. Family History Nothing Reported. Medical History No medical history recorded. Gynecological HistoryNo gynecological history recorded. Obstetrics History GPAL:G 0 P 0 0 0 0 Past Encounters Encounter ID Performer Location Encounter Start Date Encounter Closed Date Diagnosis/Indication Diagnosis SNOMED-CT Code Diagnosis ICD10 Code Diagnosis IMO Codes Diagnosis Note [id number] CHAZ PIPER MD [facility] of [address] [address] 04/12/2025 10:47:00 04/12/2025 11:39:18 History of malignant neoplasm of tongue 271299823 Z85.810 Lesion of oral mucosa 10 89471994 028695 K13.70 2077696 Health Concerns Section Related Observation LastModified by Organization Detai ls LastModified Time None Recorded Concern Status LastModified by Organization Details LastModified Time None Recorded Payers Encounter Date Sequence Insurance Name Policy Number Policy Rhoades Covered Member ID Rhoades Member ID Guarantor Name 04/12/2025 1 [employer] [place] ([facility]) [id number] Sommer Sorensononayco [id number] Sommer Wiggins C[employer] Notes Date Note Type Note Provider Name and Address Organization Details Recorded Time 04/12/2025 text/html Tumor Location: Left tongue Tumor staging: T1N0 SCCA Treatment: excision @ [facility] 10/13/14, elective neck dsxn & re-resection of tongue LN 12/15/14, XRT Date of treatment completion: 05/15/15 Oncology team: Dr. Ragland/Feliz staying busy with a second job at [employer] anticipates another tooth extraction early Dec noted a new white spot on tongue [...] over the past months. CHAZ PIPER MD [address] [place] [address], [phone], [place] - [facility] 04/12/2025 11:37:04 OBGyn Episode No OBEpisode recorded.
[2025-06-26 02:41] VITALS: RESP 16
[2025-06-26 03:38] VITALS: BP 138/79; PULSE 59; RESP 16; TEMP 36.7; O2SAT 98
[2025-06-26 03:47] VITALS: BP 138/79; PULSE 59; RESP 16; TEMP 36.7; O2SAT 98
== END 2025-06-26 03:48 | disposition home or self-care (01) ==
PROVIDERS: Emergency Provider Emergency Medicine; PCP Internal Medicine
DX: S06.0X0A Concussion without loss of consciousness, initial encounter (principal); W18.30XA Fall on same level, unspecified, initial encounter; Y93.9 Activity, unspecified; Y92.009 Unspecified place in unspecified non-institutional (private) residence as the place of occurrence of the external cause; M54.2 Cervicalgia; R51.9 Headache, unspecified
CPT/HCPCS: 70450; 72125; 99284

== ENCOUNTER → 2025-06-26 01:19 | Outpatient (BNV) | payer OTHER, SELFPAY | PROVIDERS: Emergency Provider Emergency Medicine; PCP Internal Medicine; Visit Provider Radiology Diagnostic Radiology | DX: M54.2 Cervicalgia (principal); M43.12 Spondylolisthesis, cervical region; R51.9 Headache, unspecified; Z04.3 Encounter for examination and observation following other accident | CPT/HCPCS: 70450; 72125 ==

== ENCOUNTER 2025-06-29 12:55 | Outpatient (REF) | payer OTHER, SELFPAY ==
[2025-06-29 15:19] LABS: Alanine Aminotransferase 16 U/L (0-31); Albumin Level 4.4 g/dL (3.5-5.0); Alkaline Phosphatase 77 U/L (39-117); Anion Gap 8 (12-20); Aspartate Amino Transferase 20 U/L (5-31); Blood Urea Nitrogen 30 mg/dL (9-16); Calcium 9.7 mg/dL (8.4-10.2); Carbon Dioxide 31 mmol/L (22-29); Chloride 106 mmol/L (96-108); Estimated Glomerular Filt Rate > 60; Potassium 3.8 mmol/L (3.3-5.1); Sodium 141 mmol/L (135-145); Total Protein 7.5 g/dL (6.5-8.0)
[2025-06-29 15:42] LABS: Thyroid Stimulating Hormone 0.75 uIU/mL (0.32-4.0)
== END 2025-06-29 12:56 | disposition home or self-care (01) ==
LOC: HO.LAB 12:55
PROVIDERS: Absent Provider Student in an Organized Health Care Education/Training Program; PCP Internal Medicine; Visit Provider Internal Medicine
DX: Z00.00 Encounter for general adult medical examination without abnormal findings (principal); I10 Essential (primary) hypertension; M81.0 Age-related osteoporosis without current pathological fracture; E55.9 Vitamin D deficiency, unspecified; E03.9 Hypothyroidism, unspecified; I71.9 Aortic aneurysm of unspecified site, without rupture
CPT/HCPCS: 36415; 80053; 82306; 84443

== ENCOUNTER 2025-07-01 07:33 | Outpatient (AMB) | payer OTHER, SELFPAY ==
--- OUTSIDE RECORDS SUMMARY | 2025-07-01 07:36 | XMS_ITS | Patient Health Record ---
[facility] Address [address] [place] [address] Care Team Providers Care Bid Writer Name Role Phone Zamzam aBuer Primary Care Provider Melissa Evans Unavailable [phone] Allergies No Known Allergies Reason For Referral [...] W/U Status Risk Notes Problem Ingrowing nail (631145653) Ingrowing nail (L60.0) Active confirmed Problem Acquired hallux valgus (38407772) Hallux valgus (acquired), right foot (M20.11) Active confirmed Plan Of Treatment Pending Test Test Name Order Date X ray : Foot, left 3V 03/21/2011 92608-Waxxwzcj Plate 12/27/2015 40726-Qzhdspqn Plate 08/13/2016 55398- Debride <25 sq cm 09/03/2016 76388- Debride <25 sq cm 01/13/2016 34956 I&D ABSCESS- SIMPLE,SINGLE 016 Insurance Providers Payer Name Payer Address Payer Phone Subscriber Number Group Number Insured Name Patient Relationship to Insured Coverage Start Date Coverage End Date Blue Benefits [address] [address] [place] [address] [id number] Dayana camarena Sommer Self - patient is the insured Medical (General) History Medical History History ICD Code cancer thyroid disorder chicken pox hypertension headaches/migraines broken bones Anxiety Glaucoma Surgical History Surgery Date(Month/Year) dilatation and curettage lumpectomy 2003 + 2006 ovarian cyst resection colonoscopy 2009 bunionectomy 12/2010 salpingo-oophorectomy 2006 lymph node resection 2014
--- OUTSIDE RECORDS SUMMARY | 2025-07-01 07:36 | XMS_ITS | Continuity of Care Document ---
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 T1N0 suspected . excised at [facility] 10/13/14 12/15/14 elective neck dsxn and re-resect ion of tongue 022LN, negative residual in tongue. 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 39646340350 07 Active 2015 Leukoplak ia of oral mucosa, including tongue; Note: Date Diagnosed : 02/10/2016 4:29 PM (K13.21) CHAZ PIPER MD [address] [place] [address], [facility] [place], [address] , [facility] - [facility] 5 16:20:12 Disturban ce of salivary secretion 97572869 Active 2018 Xerostomi a; Note: Date Diagnosed : 01/29/2019 4:14 PM (K11.7) CHAZ PIPER MD [address] [facility] [address], [place], [address] , [facility] - [facility] 5 16:20:16 Bilateral tinnitus 43180661130 02 Active 2018 Tinnitus, bilateral ; Note: Date Diagnosed : 05/25/2019 3:44 PM (H93.13) Not Available [facility] 4 02:54:37 Follow-up visit Active 2018 Encounter for follow-up examinati on after completed treatment for malignant neoplasm; Note: Date Diagnosed : 05/27/2019 3:07 PM (Z08) Not Available [facility] 4 02:54:34 History of malignant neoplasm of tongue 917139479 Active 2018 Tumor Location: Left tongue Tumor staging: T1N0 SCCA Treatment : excision @ [facility] 10/13/14, elective neck dsxn & re-resect ion of tongue LN 12/15/14, XRT Date of treatment completio n: 05/15/15 Oncology team: Dr. Ragland/Laurie PIPER MD [address] [facility] [address], [place], [address] , [facility] - [facility] 4 21:32:55 Hypothyro idism 49072761 Active 2020 Hypothyro idism, unspecifi ed; Note: Date Diagnosed : 11/17/2020 10:12 AM (E03.9) Not Available [facility] 4 02:54:39 Respirato ry finding 416126410 Active 2020 Feeling of foreign body in throat; Note: Date Diagnosed : 09/16/2015 1:43 PM (R09.89) Not Available [facility] 4 02:54:36 Cardiovas cular finding 045961188 Active 2020 Feeling of foreign body in throat; Note: Date Diagnosed : 09/16/2015 1:43 PM (R09.89) Not Available [facility] 4 02:54:36 Dysphonia 13473173 Active 2021 Dysphonia ; Note: Date Diagnosed : 05/25/2022 10:11 AM (R49.0) Not Available [facility] 02:54:36 Lesion of oral mucosa 53709853693 91389 Active 2024 CHAZ PIPER MD [address] [place] [address],[place] [address], [place], [address] , [facility] - [facility] 11:28:19 Problem Notes None recorded. Procedures Surgical History Date Name Laterality Status Provider Name and Address Organization Details Recorded Time 04/12/2025 Biopsy Oral Cavity completed CHAZ PIPER MD [address] [place] [address],[place] [address], [place], [address], [facility] - [facility] 04/12/2025 11:27:36 06/05/2024 FOL_DP completed CHAZ PIPER MD [address] [place] [address],[place] [address], [place], [address], [facility] 06/04/2024 21:35:13 Imaging Results None recorded. Procedure Notes None recorded. Medical Equipment None Reported. Medications Name Sig Start Date Stop Date Status Note LastModified by Organization Details LastModified Time Prescript ion - Prior Authoriza tion Request active Script Copy/Sandra or Auth^Scr ipt Copy/Sandra or Auth_201 [id number] Not Available Not Available Not Available nystatin 100,000 unit/mL oral suspensio n active Medicati on ID: [id number] P rescribe d By Name: Chaz Piper M.D. Bra nd Name: nystatin Send Method: E-Prescr ibed Sub s Allowed: subs OK Speci al Instruct ion: 5 ml swish and swallow four times daily x 2-4 weeks Me dication GenericN fannie: nystatin Not Available Not Available Not Available venlafaxi ne ER 75 mg capsule,e xtended release 24 hr 04/12 completed Medicati on ID: [id number] B rand Name: venlafax ine Send Method: E-Prescr ibed Sub s Allowed: subs OK Medic ationGen ericName : venlafax ine Not Available Not Available Not Available lisinopri l 20 mg-hydroc hlorothia zide 12.5 mg tablet 04/12 completed Medicati on ID: [id number] B rand Name: lisinopr il-hydro chloroth iazide S end Method: E-Prescr ibed Sub s Allowed: subs OK Medic ationGen ericName : lisinopr il-hydro chloroth iazide Not Available Not Available Not Available lisinopri l 20 mg tablet 04/12 completed Medicati on ID: [id number] B rand Name: lisinopr il Send Method: E-Prescr ibed Sub s Allowed: subs OK Medic ationGen ericName : lisinopr il Not Available Not Available Not Available Peridex 0.12 % mouthwash 02/09 completed Medicati on ID: [id number] Pr escribed By Name: Joel Chand nd Name: Peridex Send Method: E-Prescr ibed Sub s Allowed: subs OK Speci al Instruct ion: 10 ml swish and spit after meals for 2 week Med icationG enericNa me: Peridex Not Available Not Available Not Available oxycodone 5 mg/5 mL oral solution 5-10 ml by mouth 12/20 completed Medicati on ID: [id number] Du ration Value: 7 Prescri bed By [...] nasal spray 02/09 completed Medicati on ID: [id number] Du ration Value: 30 Reason: () Brand [...] by mouth 04/12 completed Medicati on ID: [id number] D uration Value: 30 Prescri bed By Name: Joel Chand nd Name: omeprazo le Send Method: E-Prescr ibed Sub s Allowed: subs OK Medic ationGen ericName : omeprazo le Not Available Not Available Not Available diclofena c sodium 75 mg tablet,de layed release 05/30 completed Medicati on ID: [id number] D uration Value: 30 Brand Name: diclofen ac sodium S end Method: E-Prescr ibed Sub s Allowed: subs OK Medic ationGen ericName : diclofen ac sodium Not Available Not Available Not Available mupirocin 2 % topical ointment 05/30 completed Medicati on ID: [id number] D uration Value: 5 Brand Name: mupiroci n Send Method: E-Prescr ibed Sub s Allowed: subs OK Medic ationGen ericName : mupiroci n Not Available Not Available Not Available Percocet 5 mg-325 mg tablet 04/12 completed Medicati on ID: [id number] Du ration Value: 10 Prescri bed By [...] mg tablet 04/12 completed Medicati on ID: [id number] B rand Name: sertrali ne Send Method: E-Prescr ibed Sub s Allowed: subs OK Medic ationGen ericName : sertrali ne Not Available Not Available Not Available lisinopri l 2.5 mg tablet 05/30 completed Medicati on ID: [id number] Du ration Value: 30 Brand Name: lisinopr il Send Method: E-Prescr ibed Sub s Allowed: subs OK Speci al Instruct ion: TAKE 1 TABLET BY MOUTH DAILY. Haider Almanza Name: lisinopr il Not Available Not Available Not Available doxycycli ne hyclate 100 mg tablet 05/30 completed Medicati on ID: [id number] D uration Value: 10 Brand Name: doxycycl ine hyclate Send Method: E-Prescr ibed Sub s Allowed: subs OK Speci al Instruct ion: TAKE 1 TABLET BY MOUTH EVERY 12 HOURS FOR 10 DAYS Med icationG enericNa me: doxycycl ine hyclate Not Available Not Available Not Available levothyro xine 112 mcg tablet 05/30 completed Medicati on ID: [id number] Du ration Value: 30 Brand Name: levothyr [...] [place] [facility] 04/23/2025 15:51:47 Social History None recorded. Functional Status None recorded. Mental Status None recorded. Family History Nothing Reported. Medical History No medical history recorded. Gynecological HistoryNo gynecological history recorded. Obstetrics History GPAL:G 0 P 0 0 0 0 Past Encounters Encounter ID Performer Location Encounter Start Date Encounter Closed Date Diagnosis/Indication Diagnosis SNOMED-CT Code Diagnosis ICD10 Code Diagnosis IMO Codes Diagnosis Note [id number] CHAZ PIPER MD [facility] [address] [address] 04/12/2025 10:47:00 04/12/2025 11:39:18 History of malignant neoplasm of tongue 253462747 Z85.810 Lesion of oral mucosa 10 88672708 963764 K13.70 2812565 [id number] CHAZ PIPER MD [facility] [address] [address] 04/23/2025 15:44:02 04/23/2025 16:22:43 Lesion of oral mucosa 4475399616 315245 K13.70 7880002 History of malignant neoplasm of tongue 975448390 Z85.810 Leukoplaki a of oral mucosa and tongue 7832747943 107 K13.21 Disturbanc e of salivary secretion 74770544 K11.7 Health Concerns Section Related Observation LastModified by Organization Detai ls LastModified Time None Recorded Concern Status LastModified by Organization Details LastModified Time None Recorded Payers Encounter Date Sequence Insurance Name Policy Number Policy Rhoades Covered Member ID Rhoades Member ID Guarantor Name 04/23/2025 1 [employer] [place] [id number] Sommer Sorensononayco [id number] Sommer [facility] Notes Date Note Type Note Provider Name and Address Organization Details Recorded Time 04/23/2025 text/html Tumor Location: Left tongue Tumor staging: T1N0 SCCA Treatment: excision @ [facility] 10/13/14, elective neck dsxn & re-resection of tongue LN 12/15/14, XRT Date of treatment completion: 05/15/15 Oncology team: Dr. Ragland/Feliz staying busy with a second job at [employer] anticipates another tooth extraction early 04/12/25 biopsy left floor mouth, path at [facility] benign reactive changes and ulceration Sommer Bosch [...] to improve over time. CHAZ PIPER MD [address] [place] [address], [place], [address], [place] [facility] 04/23/2025 16:20:57 OBGyn Episode No OBEpisode recorded.
--- OUTSIDE RECORDS SUMMARY | 2025-07-01 07:36 | XMS_ITS | Patient Health Record ---
Author Organization [facility] Address [address] [place] [address] Care Team Providers Care Clinical Trial Educator Name Role Phone Zamzam Bauer Primary Care Provider Unavailab Lewis Bustillos Jr Unavailable [phone] Allergies No Known Allergies Results Component Value Reference Range Notes MR abdomen wo/w con Reviewed date:11/16/2024 08:01:27 AM Interpretation: Performing Lab: Notes/Report: [address] [address] Magnetic Resonance Report Signed Patient: Genesis Wilks MR#: [id number] : 1970 Acct:[id number] Age/Sex: 54 / F ADM Date: 11/12/24 Loc: .MRI Attending Dr: Lewis Jiménez MD Ordering Physician: Lewis Jiménez MD Date of Service: 11/12/24 Procedure(s): MR abdomen wo/w con Accession Number(s): [id number] cc: Zamzam Bauer MD; Lewis Jiménez MD [...] OV> 11/12/24 145 DD/ 49 TD/TT: 11/12/241449 Automation Application Engineer: Reason For Referral No Information Medications Medication [...] Info Options Details Miscellaneous: Marital 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: 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 [place] [facility] [facility] Problems Problem Type SNOMED Code ICD Code Onset Dates Problem Status W/U Status Risk Notes Problem Colon cancer screening (259326230) Colon cancer screening (Z12.11) Active confirmed Problem Breast cancer genetic marker of susceptibility positive (631443797) 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) Active confirmed Problem Genetic predisposition (28936793) Genetic susceptibility to other malignant neoplasm (Z15.09) Active confirmed Problem Family History of Cancer of Colon (Situation) (345842842) Family history of colon cancer (Z80.0) Active confirmed Problem Dysphagia (04280347) Dysphagia, unspecified type (R13.10) Active confirmed Problem Diarrhea (21490700) Diarrhea, unspecified type (R19.7) Active confirmed Problem Family history of malignant neoplasm of gastrointestinal tract (383355489) FH: pancreatic cancer (Z80.0) Active confirmed Vital Signs Temperature 96.9 degrees Fahrenheit 11/04/2024 Blood pressure diastolic 01 mm Hg 11/04/2024 Height 67 in 11/04/2024 Blood pressure systolic 001 mm Hg 11/04/2024 Weight 147.2 lbs 11/04/2024 BMI 23.05 kg/m2 11/04/2024 Encounters Encounter Location Date Provider Diagnosis [facility] [address] [place] [phone] 11/04/2024 Lewis Jiménez Jr Genetic susceptibility to other malignant neoplasm Z15.09 ; Genetic susceptibility to malignant neoplasm of breast Z15.01 and FH: pancreatic cancer Z80.0 [facility] [address] [place] [phone] 10/26/2024 Lewis Jiménez Jr [facility] [address] [place] [phone] 11/04/2024 Lewis Jiménez Jr [facility] [address] [place] [phone] 11/16/2024 Lewis Jiménez Jr Assessments Encounter Date [...] Provider Name:Lewis bae , 11/03/2025 09:00:00 AM, [address] [place] [address], [address], [place], [address], Insurance Providers Payer Name Payer Address Payer Phone Subscriber Number Group Number Insured Name Patient Relationship to Insured Coverage Start Date Coverage End Date [employer] [address] [address] [place] [address] [id number] GENESIS MCKEON Self - patient is [...] Piper 2016 radiation head and neck - [facility] april 2015 tooth extraction future eye surgery aug
--- OUTSIDE RECORDS SUMMARY | 2025-07-01 07:36 | XMS_ITS | Continuity of Care Document ---
Author Organization [place] - [facility], [facility] Address [address] [place] [address] Care Team Providers Care Oracle Soa Developer Name Role Phone PHILLIP CHIANG Primary Care Provider [phone] Assessment Encounter Date Assessment Date Assessment LastModified [...] Go To The Location Of Their Choice, [id number] 04/16/2025 23:52:50 Referral None recorded. Procedures None recorded. Surgeries None recorded. Imaging None recorded. Medication Orders None recorded. Patient TargetsNo targets recorded. 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 T1N0 suspected . excised at [facility] 10/13/14 12/15/14 elective neck dsxn and re-resect ion of tongue LN, negative residual in tongue. 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 30684246100 07 Active 2015 Leukoplak ia of oral mucosa, including tongue; Note: Date Diagnosed : 02/10/2016 4:29 PM (K13.21) CHAZ PIPER MD 100 [facility] 100, [place], [address] , [place] - [facility] 5 16:20:12 Disturban ce of salivary secretion 87087280 Active 2018 Xerostomi a; Note: Date Diagnosed : 01/29/2019 4:14 PM (K11.7) CHAZ PIPER MD 100 [facility] 100, [place], [address] , [place] [facility] 5 16:20:16 Bilateral tinnitus 38008098466 02 Active 2018 Tinnitus, bilateral ; Note: Date Diagnosed : 05/25/2019 3:44 PM (H93.13) Not Available [facility] 4 02:54:37 Follow-up visit Active 2018 Encounter for follow-up examinati on after completed treatment for malignant neoplasm; Note: Date Diagnosed : 05/27/2019 3:07 PM (Z08) Not Available [facility] 4 02:54:34 History of malignant neoplasm of tongue 058872955 Active 2018 Tumor Location: Left tongue Tumor staging: T1N0 SCCA Treatment : excision @ [facility] 10/13/14, elective neck dsxn & re-resect ion of tongue LN 12/15/14, XRT Date of treatment completio n: 05/15/15 Oncology team: Dr. Ragland/Laurie PIPER MD 100 [facility] 100, [place], [address] , [place] - [facility] 4 21:32:55 Hypothyro idism 57855711 Active 2020 Hypothyro idism, unspecifi ed; Note: Date Diagnosed : 11/17/2020 10:12 AM (E03.9) Not Available [facility] 4 02:54:39 Respirato ry finding 363362452 Active 2020 Feeling of foreign body in throat; Note: Date Diagnosed : 09/16/2015 1:43 PM (R09.89) Not Available [facility] 4 02:54:36 Cardiovas cular finding 160586923 Active 2020 Feeling of foreign body in throat; Note: Date Diagnosed : 09/16/2015 1:43 PM (R09.89) Not Available [facility] 4 02:54:36 Dysphonia 44880196 Active 2021 Dysphonia ; Note: Date Diagnosed : 05/25/2022 10:11 AM (R49.0) Not Available [facility] 4 02:54:36 Lesion of oral mucosa 46320776181 03723 Active 2024 CHAZ PIPER MD [address] [place] [address], [phone] , [facility] 5 11:28:19 Problem Notes None recorded. Procedures Surgical History Date Name Laterality Status Provider Name and Address Organization Details Recorded Time 04/12/2025 Biopsy Oral Cavity completed CHAZ PIPER MD [address] [place] [address], [phone], [facility] 04/12/2025 11:27:36 06/05/2024 FOL_DP completed CHAZ PIPER MD [address] [place] [address], [address], [facility] 06/04/2024 21:35:13 Imaging Results None recorded. Procedure Notes None recorded. Medical Equipment None Reported. Medications Name Sig Start Date Stop Date Status Note LastModified by Organization Details LastModified Time Prescript ion - Prior Authoriza tion Request active Script Copy/Sandra or Auth^Scr ipt Copy/Sandra or Auth_201 [id number] Not Available Not Available Not Available nystatin 100,000 unit/mL oral suspensio n active Medicati on ID: [id number] P rescribe d By Name: Chaz Piper M.D. Bra ernestina Name: nystatin Send Method: E-Prescr ibed Sub s Allowed: subs OK Speci al Instruct ion: 5 ml swish and swallow four times daily x 2-4 weeks Me dication GenericN fannie: nystatin Not Available Not Available Not Available venlafaxi ne ER 75 mg capsule,e xtended release 24 hr 04/12 completed Medicati on ID: [id number] B rand Name: venlafax ine Send Method: E-Prescr ibed Sub s Allowed: subs OK Medic ationGen ericName : venlafax ine Not Available Not Available Not Available lisinopri l 20 mg-hydroc hlorothia zide 12.5 mg tablet 04/12 completed Medicati on ID: [id number] B rand Name: lisinopr il-hydro chloroth iazide S end Method: E-Prescr ibed Sub s Allowed: subs OK Medic ationGen ericName : lisinopr il-hydro chloroth iazide Not Available Not Available Not Available lisinopri l 20 mg tablet 04/12 completed Medicati on ID: [id number] B rand Name: lisinopr il Send Method: E-Prescr ibed Sub s Allowed: subs OK Medic ationGen ericName : lisinopr il Not Available Not Available Not Available Peridex 0.12 % mouthwash 02/09 completed Medicati on ID: [id number] Pr escribed By Name: Joel Chand nd Name: Peridex Send Method: E-Prescr ibed Sub s Allowed: subs OK Speci al Instruct ion: 10 ml swish and spit after meals for 2 week Med icationG enericNa me: Peridex Not Available Not Available Not Available oxycodone 5 mg/5 mL oral solution 5-10 ml by mouth 12/20 completed Medicati on ID: [id number] Du ration Value: 7 Prescri bed By [...] nasal spray 02/09 completed Medicati on ID: [id number] Du ration Value: 30 Reason: () Brand [...] by mouth 04/12 completed Medicati on ID: [id number] D uration Value: 30 Prescri bed By Name: Joel Chand nd Name: omeprazo le Send Method: E-Prescr ibed Sub s Allowed: subs OK Medic ationGen ericName : omeprazo le Not Available Not Available Not Available diclofena c sodium 75 mg tablet,de layed release 05/30 completed Medicati on ID: [id number] D uration Value: 30 Brand Name: diclofen ac sodium S end Method: E-Prescr ibed Sub s Allowed: subs OK Medic ationGen ericName : diclofen ac sodium Not Available Not Available Not Available mupirocin 2 % topical ointment 05/30 completed Medicati on ID: [id number] D uration Value: 5 Brand Name: mupiroci n Send Method: E-Prescr ibed Sub s Allowed: subs OK Medic ationGen ericName : mupiroci n Not Available Not Available Not Available Percocet 5 mg-325 mg tablet 04/12 completed Medicati on ID: [id number] Du ration Value: 10 Prescri bed By [...] mg tablet 04/12 completed Medicati on ID: [id number] B rand Name: sertrali ne Send Method: E-Prescr ibed Sub s Allowed: subs OK Medic ationGen ericName : sertrali ne Not Available Not Available Not Available lisinopri l 2.5 mg tablet 05/30 completed Medicati on ID: [id number] Du ration Value: 30 Brand Name: lisinopr il Send Method: E-Prescr ibed Sub s Allowed: subs OK Speci al Instruct ion: TAKE 1 TABLET BY MOUTH DAILY. Haider Danielingridic Name: lisinopr il Not Available Not Available Not Available doxycycli ne hyclate 100 mg tablet 05/30 completed Medicati on ID: [id number] D uration Value: 10 Brand Name: doxycycl ine hyclate Send Method: E-Prescr ibed Sub s Allowed: subs OK Speci al Instruct ion: TAKE 1 TABLET BY MOUTH EVERY 12 HOURS FOR 10 DAYS Med icationG enericNa me: doxycycl ine hyclate Not Available Not Available Not Available levothyro xine 112 mcg tablet 05/30 completed Medicati on ID: [id number] Du ration Value: 30 Brand Name: levothyr [...] Updated DateTime 04/12/2025 170.18 cm 22.6 kg/m2 05136.3 g JEMMA CALIXTO [place] - [facility] 04/12/2025 11:05:33 Social History None recorded. Functional Status None recorded. Mental Status None recorded. Family History Nothing Reported. Medical History No medical history recorded. Gynecological HistoryNo gynecological history recorded. Obstetrics History GPAL:G 0 P 0 0 0 0 Past Encounters Encounter ID Performer Location Encounter Start Date Encounter Closed Date Diagnosis/Indication Diagnosis SNOMED-CT Code Diagnosis ICD10 Code Diagnosis IMO Codes Diagnosis Note [id number] CHAZ PIPER MD [facility] of [address] [address] 04/12/2025 10:47:00 04/12/2025 11:39:18 History of malignant neoplasm of tongue 172393343 Z85.810 Lesion of oral mucosa 10 45987464 475981 K13.70 [id number] Health Concerns Section Related Observation LastModified by Organization Detai ls LastModified Time None Recorded Concern Status LastModified by Organization Details LastModified Time None Recorded Payers Encounter Date Sequence Insurance Name Policy Number Policy Rhoades Covered Member ID Rhoades Member ID Guarantor Name 04/12/2025 1 [employer] [place]) [id number] Sommer Sorensononayco [id number] Sommer Wiggins Cervonayco Notes Date Note Type Note Provider Name and Address Organization Details Recorded Time 04/12/2025 text/html Tumor Location: Left tongue Tumor staging: T1N0 SCCA Treatment: excision @ [facility] 10/13/14, elective neck dsxn & re-resection of tongue LN 12/15/14, XRT Date of treatment completion: 05/15/15 Oncology team: Dr. Ragland/Feliz staying busy with a second job at [employer] anticipates another tooth extraction early Dec [...] over the past months. CHAZ PIPER MD [address] [place] [address], [address], [place] - [facility] 04/12/2025 11:37:04 OBGyn Episode No OBEpisode recorded.
--- OUTSIDE RECORDS SUMMARY | 2025-07-01 07:36 | XMS_ITS | Data Portability ---
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 Procedures None recorded. Surgeries None recorded. Imaging None recorded. Medication Orders None recorded. Patient TargetsNo targets recorded. Patient Instructions Encounter Date Encounter Id Patient Instructions Last Modified By Organization Details Last Modified Time 04/12/2025 [id number] - Avoid hard or spicy foods and [...] note. [email or web address] Not available 04/12/2025 11:35:47 04/23/2025 [id number] The patient is advised to use holistic [...] malignant neoplasm of ventral surface of tongue 63748850 Active 2015 Malignant neoplasm of tongue: Ventral surface of tongue; Note: dx with Dr Terrazas 08/19/14. T1N0 suspected . excised at [facility] 10/13/14 12/15/14 elective neck dsxn and re-resect ion of tongue LN, negative residual in tongue. 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 40907785680 07 Active 2015 Leukoplak ia of oral mucosa, including tongue; Note: Date Diagnosed : 02/10/2016 4:29 PM (K13.21) CHAZ PIPER MD [address] [place] [address], [facility] [place], [address] , [facility] 5 16:20:12 Disturban ce of salivary secretion 13183445 Active 2018 Xerostomi a; Note: Date Diagnosed : 01/29/2019 4:14 PM (K11.7) CHAZ PIPER MD 100 [facility] 100, [place], [address] , [facility] - [facility] 5 16:20:16 Bilateral tinnitus 98791646146 02 Active 2018 Tinnitus, bilateral ; Note: Date Diagnosed : 05/25/2019 3:44 PM (H93.13) Not Available [facility] 4 02:54:37 Follow-up visit Active 2018 Encounter for follow-up examinati on after completed treatment for malignant neoplasm; Note: Date Diagnosed : 05/27/2019 3:07 PM (Z08) Not Available [facility] 4 02:54:34 History of malignant neoplasm of tongue 157444355 Active 2018 Tumor Location: Left tongue Tumor staging: T1N0 SCCA Treatment : excision @ [facility] 10/13/14, elective neck dsxn & re-resect ion of tongue LN 12/15/14, XRT Date of treatment completio n: 05/15/15 Oncology team: Dr. Ragland/Laurie PIPER MD 100 [facility] 100, [place], [address] , [facility] - [facility] 4 21:32:55 Hypothyro idism 36773939 Active 2020 Hypothyro idism, unspecifi ed; Note: Date Diagnosed : 11/17/2020 10:12 AM (E03.9) Not Available [facility] 4 02:54:39 Respirato ry finding 780240572 Active 2020 Feeling of foreign body in throat; Note: Date Diagnosed : 09/16/2015 1:43 PM (R09.89) Not Available [facility] 4 02:54:36 Cardiovas cular finding 473027999 Active 2020 Feeling of foreign body in throat; Note: Date Diagnosed : 09/16/2015 1:43 PM (R09.89) Not Available [facility] 4 02:54:36 Dysphonia 96275260 Active 2021 Dysphonia ; Note: Date Diagnosed : 05/25/2022 10:11 AM (R49.0) Not Available [facility] 4 02:54:36 Lesion of oral mucosa 04578082911 94107 Active 2024 CHAZ PIPER MD [address] [place] [address],[place] [address], [place], [address] , [facility] 11:28:19 Problem Notes None recorded. Procedures Surgical History Date Name Laterality Status Provider Name and Address Organization Details Recorded Time 04/12/2025 Biopsy Oral Cavity completed CHAZ PIPER MD [address] [place] [address],[place] [address], [place], [address], [facility] - [facility] 04/12/2025 11:27:36 06/05/2024 FOL_DP completed CHAZ PIPER MD [address] [place] [address],[place] [address], [place], [address], [facility] - [facility] 06/04/2024 21:35:13 Imaging Results None recorded. Procedure Notes None recorded. Medical Equipment None Reported. Medications Name Sig Start Date Stop Date Status Note LastModified by Organization Details LastModified Time Prescript ion - Prior Authoriza tion Request active Script Copy/Sandra or Auth^Scr ipt Copy/Sandra or Auth_201 [id number] Not Available Not Available Not Available nystatin 100,000 unit/mL oral suspensio n active Medicati on ID: [id number] P rescribe d By Name: Chaz Piper M.D. Bra nd Name: nystatin Send Method: E-Prescr ibed Sub s Allowed: subs OK Speci al Instruct ion: 5 ml swish and swallow four times daily x 2-4 weeks Me dication GenericN fannie: nystatin Not Available Not Available Not Available venlafaxi ne ER 75 mg capsule,e xtended release 24 hr 04/12 completed Medicati on ID: [id number] B rand Name: venlafax ine Send Method: E-Prescr ibed Sub s Allowed: subs OK Medic ationGen ericName : venlafax ine Not Available Not Available Not Available lisinopri l 20 mg-hydroc hlorothia zide 12.5 mg tablet 04/12 completed Medicati on ID: [id number] B rand Name: lisinopr il-hydro chloroth iazide S end Method: E-Prescr ibed Sub s Allowed: subs OK Medic ationGen ericName : lisinopr il-hydro chloroth iazide Not Available Not Available Not Available lisinopri l 20 mg tablet 04/12 completed Medicati on ID: [id number] B rand Name: lisinopr il Send Method: E-Prescr ibed Sub s Allowed: subs OK Medic ationGen ericName : lisinopr il Not Available Not Available Not Available Peridex 0.12 % mouthwash 02/09 completed Medicati on ID: [id number] Pr escribed By Name: Joel Chand nd Name: Peridex Send Method: E-Prescr ibed Sub s Allowed: subs OK Speci al Instruct ion: 10 ml swish and spit after meals for 2 week Med icationG enericNa me: Peridex Not Available Not Available Not Available oxycodone 5 mg/5 mL oral solution 5-10 ml by mouth 12/20 completed Medicati on ID: [id number] Du ration Value: 7 Prescri bed By [...] nasal spray 02/09 completed Medicati on ID: [id number] Du ration Value: 30 Reason: () Brand [...] by mouth 04/12 completed Medicati on ID: [id number] D uration Value: 30 Prescri bed By Name: Joel Chand nd Name: omeprazo le Send Method: E-Prescr ibed Sub s Allowed: subs OK Medic ationGen ericName : omeprazo le Not Available Not Available Not Available diclofena c sodium 75 mg tablet,de layed release 05/30 completed Medicati on ID: [id number] D uration Value: 30 Brand Name: diclofen ac sodium S end Method: E-Prescr ibed Sub s Allowed: subs OK Medic ationGen ericName : diclofen ac sodium Not Available Not Available Not Available mupirocin 2 % topical ointment 05/30 completed Medicati on ID: [id number] D uration Value: 5 Brand Name: mupiroci n Send Method: E-Prescr ibed Sub s Allowed: subs OK Medic ationGen ericName : mupiroci n Not Available Not Available Not Available Percocet 5 mg-325 mg tablet 04/12 completed Medicati on ID: [id number] Du ration Value: 10 Prescri bed By [...] mg tablet 04/12 completed Medicati on ID: [id number] B rand Name: sertrali ne Send Method: E-Prescr ibed Sub s Allowed: subs OK Medic ationGen ericName : sertrali ne Not Available Not Available Not Available lisinopri l 2.5 mg tablet 05/30 completed Medicati on ID: [id number] Du ration Value: 30 Brand Name: lisinopr il Send Method: E-Prescr ibed Sub s Allowed: subs OK Speci al Instruct ion: TAKE 1 TABLET BY MOUTH DAILY. Haider Almanza Name: lisinopr il Not Available Not Available Not Available doxycycli ne hyclate 100 mg tablet 05/30 completed Medicati on ID: [id number] D uration Value: 10 Brand Name: doxycycl ine hyclate Send Method: E-Prescr ibed Sub s Allowed: subs OK Speci al Instruct ion: TAKE 1 TABLET BY MOUTH EVERY 12 HOURS FOR 10 DAYS Med icationG enericNa me: doxycycl ine hyclate Not Available Not Available Not Available levothyro xine 112 mcg tablet 05/30 completed Medicati on ID: [id number] Du ration Value: 30 Brand Name: levothyr [...] Updated DateTime 04/12/2025 170.18 cm 22.6 kg/m2 90992.3 g [facility] 04/12/2025 11:05:33 Date Recorded Body height Provider Name an d Address Organization Details Last Updated DateTime 04/23/2025 170.18 [facility] 04/23/2025 15:51:47 Date Recorded Body height Body mass index (BMI) Body weight Provider Name and Address Organization Details Last Updated DateTime 06/05/2024 170.18 cm 22.7 kg/m2 75490.89 g Tara Hernandez [place] - [facility] 06/05/2024 09:11:23 Social History None recorded. Functional Status None recorded. Mental Status None recorded. Family History Nothing Reported. Medical History No medical history recorded. Gynecological HistoryNo gynecological history recorded. Obstetrics History GPAL:G 0 P 0 0 0 0 Past Encounters Encounter ID Performer Location Encounter Start Date Encounter Closed Date Diagnosis/Indication Diagnosis SNOMED-CT Code Diagnosis ICD10 Code Diagnosis IMO Codes Diagnosis Note [id number] CHAZ PIPER MD [facility] [address] [address] 06/05/2024 08:57:41 06/05/2024 09:29:44 History of malignant neoplasm of tongue 082702095 Z85.810 [id number] CHAZ PIPER MD [facility] [address] [address] 04/12/2025 10:47:00 04/12/2025 11:39:18 History of malignant neoplasm of tongue 350975461 Z85.810 Lesion of oral mucosa 10 30504292 307341 K13.70 5544949 [id number] CHAZ PIPER MD [facility] [address] [address] 04/23/2025 15:44:02 04/23/2025 16:22:43 Lesion of oral mucosa 4461209217 724073 K13.70 4072068 History of malignant neoplasm of tongue 329272301 Z85.810 Leukoplaki a of oral mucosa and tongue 9199903131 107 K13.21 Disturbanc e of salivary secretion 97523403 K11.7 Health Concerns Section Related Observation LastModified by Organization Detai ls LastModified Time None Recorded Concern Status LastModified by Organization Details LastModified Time None Recorded Advance Directives Directive None Recorded Payers Insurance Date Sequence Insurance Name Policy Number Policy Rhoades Covered Member ID Rhoades Member ID Guarantor Name 04/23/2025 1 [employer] [place] [id number] Sommer Wiggins Cervonayco [id number] Sommer Sorensononaycmigue Notes Date Note Type Note Provider Name and Address Organization Details Recorded Time 06/05/2024 text/html ROS as noted in the HPI Tumor Location: Left tongueTumor staging: T1N0 SCCATreatment: [facility] 10/13/14, elective neck dsxn & re-resection of tongue LN 12/15/14, XRTDate of treatment completion: 05/15/15Oncology team: Dr. Ragland/Feliz staying busy with a second job at [employer] Y[facility]icipates another tooth extraction early Jun CHAZ PIPER MD [facility] [address], [address], [place] - [facility] 06/05/2024 09:27:49 04/12/2025 text/html Tumor Location: Left tongue Tumor staging: T1N0 SCCA Treatment: excision @ [facility] 10/13/14, elective neck dsxn & re-resection of tongue 0/LN 12/15/14, XRT Date of treatment completion: 05/15/15 Oncology team: Dr. Ragland/Feliz staying busy with a second job at [employer] anticipates another tooth extraction early Jun [...] the past months. CHAZ PIPER MD [address] [facility] [address], [place], [address], [place] - [facility] 04/12/2025 11:37:04 04/23/2025 text/html Tumor Location: Left tongue Tumor staging: T1N0 SCCA Treatment: excision @ [facility] 10/13/14, elective neck dsxn & re-resection of tongue 0/LN 12/15/14, XRT Date of treatment completion: 05/15/15 Oncology team: Dr. Ragland/Feliz staying busy with a second job at [employer] anticipates another tooth extraction early 04/12/25 biopsy left floor mouth, path at [facility] benign reactive changes and ulceration Sommer Bosch [...] to improve over time. CHAZ PIPER MD [address] [place] [address], [address], [facility] - [facility] 04/23/2025 16:20:57 OBGyn Episode No OBEpisode recorded.
--- NOTE | 2025-07-01 07:39 | A.OFFVIS_ITS ---
Vital Signs 07/01/25 07:46 Height 5 ft 6 in Weight 151 lb 10.848 oz BMI 24.5 BP 132/80 Blood Pressure Location Lt brachial Position Sitting Pulse 59 Pulse Source Pulse Oximeter Pulse Oximetry (%) 98 Oxygen Delivery Method Room Air Intake Visit Reasons: f/u osteoporosis Intake Note: Patient presents today for Osteoporosis follow up and test results. Data Entry Required: No Information Interpreted: non-clinical & clinical Accompanied by: Self / Same As Patient Allergies No Known Allergies (No Known Allergies*) Allergy (Verified 07/01/25 07:44) Medication List - Last Reconciled 07/01/25 by Anny Stephens MD cholecalciferol (vitamin D3) 50 mcg PO DAILY levothyroxine 125 mcg PO DAILY losartan-hydrochlorothiazide 100-12.5 mg 1 tab PO DAILY multivitamin 1 tab PO DAILY romosozumab-aqqg (Evenity) 210 mg (2.34 mL) subcut Q30D HPI Comments Details: Patient is a 55-year-old female with history of breast cancer history of tongue cancer,, hypertension, hyperlipidemia complicated by ascending aortic aneurysm, hypothyroidism and osteoporosis here today for follow up Interval History: Patient last seen 12/30/2024 with me. - On Evenity 210mg SC every month - She was started on Evenity 07/2024 based on her age, significant osteoporosis risk factors and hx of T12 compression fracture. - Doing well overall without any side effects. No falls or fractures since the last visit. Currently being evaluated for dental work Today - On Evenity 210mg SC every month - Her last Evenity injection for osteoporosis was in February, and treatment is currently on hold as she is awaiting multiple tooth extractions (teeth #14, #19, and #30, plus another problematic tooth). - She reports delays in scheduling the procedure with her current dental provider. - Approximately one week ago, the patient visited the emergency room after a fall at home where she hit her head, resulting in a concussion. - She did not lose consciousness and underwent a CT scan of her head and neck, w [facility] revealed significant degenerative disease in her neck. - She reports experiencing neck cracking and plans to discuss this with her primary care provider in August. - The patient reports pain, a locking sensation, and morning numbness in her right middle finger. - She also notes becoming short of breath while doing yard work, specifically when using a push mower, and has an appointment with Dr. Sanchez to address this. - She reports intermittent lower abdominal pain. - Regarding exercise, she has 5-pound weights at home and attempts to do squats, but is not consistent. - She enjoys yoga but understands it is insufficient for bone-building. Rheumatologic History: Started Evenity 06/2024 Initial history: This is a 54-year-old female with osteoporosis who presents for follow-up. Patient has history of multiple cancers. She has had recurrent breast cancers, in 2017 she had bilateral salpingo-oophorectomy. Received radiation when she was 37. This was around the time she had menopause. Menopause was attributed to chemotherapy at that time. She also has history of tongue cancer treated with surgery and radiation. She has a family history of p ancreatic cancer. She denies any history of falls or fractures recently. She states that she broke her arm when she was a child. Patient also has loose teeth. Her gums are receding and believes that she will need multiple dental extractions done in the near future. 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 She has history of recurrent breast cancer s/p bilateral mastectomy and salpingo oophorectomy. She also has history of tongue cancer s/p surgery and radiation therapy. Strong family history of cancers. Her DEXA scan shows osteoporosis, lowest T-score is-3.1 at the L-spine. She is up with high-risk of subsequent fractures. Needs treatment for osteoporosis. It would be best if we start with an anabolic agent such as Romosuzumab for about a year and consolidate with an antiresorptive agents such as Reclast. Current Rheumatology Medication(s): Evenity 210mg SC every 30 days (on hold) [facility] Medical History Ascending aortic aneurysm Bicuspid aortic valve Glaucoma, narrow-angle Heart burn Loose, teeth Hx of varicose veins Abdominal pain with radiation to back AV I (cervical intraepithelial neoplasia I) History of tongue cancer History of breast cancer Surgical History Hx of tooth extraction History of bunionectomy of left great toe Hx of bilateral breast biopsy Hx of colonoscopy History of bilateral salpingo-oophorectomy Hx of breast implants, bilateral History of bilateral mastectomy Family History Mother Liver cancer Pancreatic cancer Colon cancer Father Myocardial infarction Social History Alcohol intake: current Alcohol intake frequency: holidays/special occasions only Patient Tobacco Use Status: Never used Tobacco Sexual orientation: Straight/Heterosexual Female Reproductive History Menstrual Age of Menarche: 11 Review of Systems Narrative Review of Systems - Neurological: Reports a recent concussion after a fall. Reports numbness in the right middle finger, especially in the mornings. Denies loss of consciousne ss during the fall. - Musculoskeletal: Reports cracking sensations in the neck. Reports pain and a locking sensation in her right middle finger. - Respiratory: Reports dyspnea on exertion, particularly when cutting grass with a push mower. - Gastrointestinal: Reports intermittent pain in the lower abdomen. - Dental: Reports requiring multiple tooth extractions. All other systems reviewed and are unremarkable except noted above Physical Exam Exam Exam: Vital signs reviewed Physical Examination CONSTITUITIONAL Patient alert and cooperative. Well appearing and in no apparent painful distress HEENT Conjunctiva and sclera clear. No lymphadenopathy. MSK Hands * Right Hand: Able to make a fist. No swelling or tenderness to palpation of the MCPs, PIPs or DIPs. * Left Hand: Able to make a fist. No swelling or tenderness to palpation of the MCPs, PIPs or DIPs. * Herbedens nodes noted bilaterally Wrists * Right Wrist: Full ROM to flexion and extension. No swelling or TTP * Left Wrist: Full ROM to flexion and extension. No swelling or TTP Elbows * Right Elbow: Full ROM. No swelling or TTP. No TTP of the medial epicondyle. No TTP of the lateral epicondyle * Left Elbow: Full ROM. No swelling or TTP. No TTP of the medial epicondyle. No TTP of the lateral epicondyle Shoulders * Right shoulder: Full ROM. No swelling noted. No TTP of the AC joint. No TTP of the subacromial bursa. No TTP of the posterior shoulder * Left shoulder: Full ROM. No swelling noted. No TTP of the AC joint. No TTP of the subacromial bursa. No TTP of the posterior shoulder Knees * Right knee: Full ROM. No swelling noted. No TTP of the knee joint line. No TTP of pes anserine bursa * Left knee: Full ROM. No swelling noted. No TTP of the knee joint line. No TTP of pes anserine bursa. Ankles * Right ankle: Good ankle dorsiflexion and plantar flexion. No swelling. No TTP of the ankle joint * Left ankle: Good ankle dorsiflexion and plantar flexion. No swelling. No TTP of the ankle joint Feet * Right foot: Negative squeeze test * Left foot: Negative squeeze test Tender points? * No tenderness to palpation of the bilateral trapezius, supraspinatus, anterior costochondral junctions, bilateral suboccipital muscle insertions SKIN No rashes Vital Signs: Last Vital Signs Pulse 59 07/01/25 07:46 BP 132/80 07/01/25 07:46 Pulse Ox 98 07/01/25 07:46 Oxygen Delivery Method Room Air 07/01/25 07:46 BMI result Body Mass Index 24.5 Results Reviewed Results Reviewed: Laboratory Tests 06/29/25 13:18 Sodium 141 Potassium 3.8 Chloride 106 Carbon Dioxide 31 H BUN 30 H Creatinine 0.65 AST 20 ALT 16 25-OH Vitamin D Total 46.3 DEXA 01/2024 FINDINGS: LEFT FEMUR, NECK: Current: BMD 0.726 g/cm2, Z-score -1.3, T-score -2.2, osteopenia. Prior: BMD 0.774 g/cm2. Baseline: BMD 0.862 g/cm2. LEFT FEMUR, TOTAL: Current: BMD 0.824 g/cm2, Z-score -0.8, T-score -1.5, osteopenia, 0.0% no change from previous, 7.1% decrease from baseline (<5% change is not significant). Prior: BMD 0.824 g/cm2. Baseline: BMD 0.887 g/cm2. AP SPINE L1-L4: Current: BMD 0.808 g/cm2, Z-score -2.4, T-score -3.1, osteoporosis, 2.1% increase from previous, 14.2% decrease from baseline (<5% change is not significant). Prior: BMD 0.791 g/cm2. Baseline: BMD 0.942 g/cm2. Assessment & Plan Assessment & Plan (1) Osteoporosis: Comment: DEXA 01/2024: AP Spine -3.1, Left femur neck -2.2, Left femur total -1.5 T12 compression fracture Code(s): M81.0 - Age-related osteoporosis without current pathological fracture Category: Medical Qualifiers: Osteoporosis type: age-related Presence of current pathological fracture: without current pathological fracture Qualified Code(s): M81.0 - Age- related osteoporosis without current pathological fracture Plan: #Osteoporosis Patient is a 55-year-old female with osteoporosis. Risk factors include early menopause secondary to bilateral salpingo- oophorectomy and radiation treatment at 37 for oral cancer. Due to T12 compression fracture and her young age she was started on evenity for anabolic agent 07/2024 The patient's osteoporosis treatment with Evenity is currently on hold pending necessary dental extractions. The plan is to resume Evenity for the remaining four doses after the dental procedures are completed, with a recommended waiting period of at least two weeks post-extraction. The patient was counseled on the importance of muscle-building exercises using weights, as yoga alone is not sufficient for improving bone density. It was recommended that she start with her current 5-pound weights for 1-2 months and then progressively increase the weight to 8 pounds or more as the exercises become easier. A follow-up is scheduled in six months. Plan - Evenity 210mg SC every 30days to complete the series - Vit D 2000-5000U daily (OTC) - RTC 6 months - Labs prior to visit: CMP and Vit D (2) Encounter for ongoing osteoporosis non-bisphosphonate therapy: Code(s): M81.0 - Age-related osteoporosis without current pathological fracture; Z79.899 - Other correction (current) drug therapy Plan: #Long-term Use of Evenity Risks and benefits of romosuzumab in the management of osteoporosis Benefits include improved bone density, decreased fracture risk Risks include atypical femoral fractures, osteonecrosis of the jaw, injection site reactions, joint pain and headache Advised that patient should time any major dental work to 30 days after last injection and hold the injection for another 30 days Keep vitamin-D at least 35 ng/mL Plan I spent 25 minutes reviewing the record and labs, taking a history, examining the patient, discussing the treatment plan, ordering diagnostic work up and documenting in the medical record Orders: Orders Vitamin D 25-OH Total 6 Months E55.9 - Vitamin D deficiency, unspecified, M81.0 - Age-related osteoporosis without current pathological fracture Comprehensive Met. Panel 6 Months E55.9 - Vitamin D deficiency, unspecified, M81.0 - Age-related osteoporosis without current pathological fracture Coding Level of Care Code Est Pt Level 3 (79812) Add On Problem Visit Only Diagnoses Age-related osteoporosis without current pathological fracture M81.0 Osteoporosis type: age-related Presence of current pathological fracture: without current pathological fracture Encounter for ongoing osteoporosis non-bisphosphonate therapy M81.0; Z79.899
[2025-07-01 07:46] VITALS: BP 132/80; PULSE 59; O2SAT 98; BMI 24.5
== END 2025-07-01 08:24 | disposition home or self-care (01) ==
LOC: HO.RHES 07:33
PROVIDERS: PCP Internal Medicine; Visit Provider Student in an Organized Health Care Education/Training Program
DX: M81.0 Age-related osteoporosis without current pathological fracture (principal); Z79.899 Other long term (current) drug therapy
CPT/HCPCS: 99213

== ENCOUNTER 2025-07-12 09:28 | Outpatient (AMB) | payer OTHER, SELFPAY ==
[2025-07-12 09:32] VITALS: BP 120/62; PULSE 64; BMI 23.5
--- NOTE | 2025-07-12 09:32 | MHC.OFFVIS ---
Vital Signs 07/12/25 09:32 Height 5 ft 6 in Weight 145 lb 8.081 oz BMI 23.5 BP 120/62 Blood Pressure Location Lt brachial Position Sitting Pulse 64 Pulse Source Pulse Oximeter Intake Visit Reasons: 6 mth f/up Allergies No Known Allergies (No Known Allergies*) Allergy (Verified 07/01/25 07:44) Medication List - Last Reconciled 07/12/25 by Nestor Sanchez MD cholecalciferol (vitamin D3) 50 mcg PO DAILY levothyroxine 125 mcg PO DAILY losartan-hydrochlorothiazide 100-12.5 mg 1 tab PO DAILY multivitamin 1 tab PO DAILY romosozumab-aqqg (Evenity) 210 mg (2.34 mL) subcut Q30D HPI Comments Details: Sommer returns for follow-up regarding bicuspid aortic valve and dilated aorta. Echocardiogram had been performed because of cardiac murmur and that showed a bicuspid aortic valve. She also has a history of ascending aortic aneurysm. Otherwise, no known cardiovascular issues. She states she has had breast cancer and underwent bilateral mastectomy, radiation as well as chemotherapy in the past. Also has history of oral cancer but never smoked. Brother- valve replacement at 40 but she states she is not in touch with him. Per patient, father had suspected fatal myocardial infarction in his late 40s. Overall, she feels well. No clear-cut cardiac concerns. Intermittent leg swelling which could be related to venous insufficiency. [facility] Medical History Ascending aortic aneurysm Bicuspid aortic valve Glaucoma, narrow-angle Heart burn Loose, teeth Hx of varicose veins Abdominal pain with radiation to back AV I (cervical intraepithelial neoplasia I) History of tongue cancer History of breast cancer Surgical History Hx of tooth extraction History of bunionectomy of left great toe Hx of bilateral breast biopsy Hx of colonoscopy History of bilateral salpingo-oophorectomy Hx of breast implants, bilateral History of bilateral mastectomy Family History Mother Liver cancer Pancreatic cancer Colon cancer Father Myocardial infarction Social History Alcohol intake: current Alcohol intake frequency: holidays/special occasions only Patient Tobacco Use Status: Never used Tobacco Sexual orientation: Straight/Heterosexual Female Reproductive History Menstrual Age of Menarche: 11 Review of Systems Const Denies weakness ENT Denies dizziness Card Denies chest pain, Denies chest pain with activity, Denies syncope, Denies rapid heart rate, Denies pedal edema, Denies edema, Denies leg edema, Denies lightheadedness, Denies palpitations, Denies dyspnea, Denies dyspnea on exertion and Denies orthopnea Resp Denies cough, Denies dyspnea and Denies dyspnea on exertion GI Denies hematochezia and Denies change in stool character Musc Denies abnormal gait, Reports joint swelling, Denies muscle cramps, Denies muscle weakness, Denies numbness, Denies radiating pain into limb and Denies tingling Neuro Denies abnormal gait, Denies dizziness, Denies syncope, Denies numbness, Denies tingling and Denies weakness Endo Denies palpitations Physical Exam Vital Signs: Last Vital Signs Pulse 64 07/12/25 09:32 BP 120/62 07/12/25 09:32 BMI result Body Mass Index 23.5 Const General: comfortable and no acute distress Orientation/consciousness: patient oriented x3 HEENT Other: Unremarkable Head: Yes normal to inspection Neck Neck: Yes normal visual inspection Chest Chest palpation & inspection: normal inspection of the chest Resp Auscultation: clear to auscultation bilaterally Cardio Palpation: normal PMI Heart sounds: S1 normal heart sound present, S2 normal heart sound present, no gallops, no murmurs and no rubs GI Palpation (GI): Soft to palpation Back/Spine/Pelvis Other: unremarkable Skin General skin exam: no rashes or lesions noted Neuro General: patient oriented x3 Extrem General: Yes normal to inspection Psych Mental Status: mental status grossly normal Assessment & Plan Assessment & Plan (1) Bicuspid aortic valve: Code(s): Q23.1 - Congenital insufficiency of aortic valve Category: Medical (2) Ascending aortic aneurysm: Code(s): I71.21 - Aneurysm of the ascending aorta, without rupture Category: Medical (3) Hypertension: Code(s): I10 - Essential (primary) hypertension Category: Medical Plan Cardiac studies reviewed. In the echocardiogram preserved LVEF at 64%. Bicuspid aortic valve without any dysfunction. Ascending aortic size 4.2cm. In the coronary CTA, no significant CAD. Ascending aortic size again 4.1 cm. With regard to the bicuspid aortic valve, there is no valvular dysfunction hence we will need to monitor this by echocardiogram for any stenosis or regurgitation in the future. With regard to the ascending aortic size, we will continue to monitor. Blood pressure stable on current regimen. Follow up in one year with an echocardiogram. Orders: Orders CA echo transthoracic complete 1 Year I71.21 - Aneurysm of the ascending aorta, without rupture, Q23.1 - Congenital insufficiency of aortic valve Coding Level of Care Code Est Pt Level 4 (15506) Add On Problem Visit Only Diagnoses Bicuspid aortic valve Q23.1 Ascending aortic aneurysm I71.21 Hypertension I10
--- OUTSIDE RECORDS SUMMARY | 2025-07-12 10:46 | XMS_ITS | Continuity of Care Document ---
Author Organization [place] - [facility], ENTS 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 T1N0 suspected . excised at [facility] 10/13/14 12/15/14 elective neck dsxn and re-resect ion of tongue 022LN, negative residual in tongue. 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 - [facility] 5 16:20:12 Disturban ce of salivary secretion 69199227 Active 2018 Xerostomi a; Note: Date Diagnosed : 01/29/2019 4:14 PM (K11.7) CHAZ PIPER MD [address] [facility] [address], [place], [address] , [facility] - [facility] 5 16:20:16 Bilateral tinnitus 59100055687 02 Active 2018 Tinnitus, bilateral ; Note: Date Diagnosed : 05/25/2019 3:44 PM (H93.13) Not Available [facility] 4 02:54:37 Follow-up visit Active 2018 Encounter for follow-up examinati on after completed treatment for malignant neoplasm; Note: Date Diagnosed : 05/27/2019 3:07 PM (Z08) Not Available [facility] 4 02:54:34 History of malignant neoplasm of tongue 493239652 Active 2018 Tumor Location: Left tongue Tumor staging: T1N0 SCCA Treatment : excision @ [facility] 10/13/14, elective neck dsxn & re-resect ion of tongue LN 12/15/14, XRT Date of treatment completio n: 05/15/15 Oncology team: Dr. Ragland/Laurie PIPER MD 100 [facility], [place], [address] , 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 Active 2020 Hypothyro idism, unspecifi ed; Note: Date Diagnosed : 11/17/2020 10:12 AM (E03.9) Not Available [facility] 4 02:54:39 Respirato ry finding 151486761 Active 2020 Feeling of foreign body in throat; Note: Date Diagnosed : 09/16/2015 1:43 PM (R09.89) Not Available [facility] 4 02:54:36 Cardiovas cular finding 883218873 Active 2020 Feeling of foreign body in throat; Note: Date Diagnosed : 09/16/2015 1:43 PM (R09.89) Not Available [facility] 4 02:54:36 Dysphonia 49832804 Active 2021 Dysphonia ; Note: Date Diagnosed : 05/25/2022 10:11 AM (R49.0) Not Available [facility] 02:54:36 Lesion of oral mucosa 49664254149 88715 Active 2024 CHAZ PIPER MD [address] [place] [address],[place] [address], [place], [address] , [facility] - [facility] 11:28:19 Problem Notes None recorded. Procedures Surgical History Date Name Laterality Status Provider Name and Address Organization Details Recorded Time 04/12/2025 Biopsy Oral Cavity completed CHAZ PIPER MD [address] [place] [address],[place] [address], [place], [address], [facility] - [facility] 04/12/2025 11:27:36 06/05/2024 FOL_DP completed CHAZ PIPER MD [address] [place] [address],[place] [address], [place], [address], [facility] 06/04/2024 21:35:13 Imaging Results None recorded. Procedure Notes None recorded. Medical Equipment None Reported. Medications Name Sig Start Date Stop Date Status Note LastModified by Organization Details LastModified Time Prescript ion - Prior Authoriza tion Request active Script Copy/Sandra or Auth^Scr ipt Copy/Sandra or Auth_201 43386 Not Available Not Available Not Available nystatin 100,000 unit/mL oral suspensio n active Medicati on ID: [id number] P rescribe d By Name: Chaz Piper M.D. Bra nd Name: nystatin Send Method: E-Prescr ibed Sub s Allowed: subs OK Speci al Instruct ion: 5 ml swish and swallow four times daily x 2-4 weeks Me dication GenericN fannie: nystatin Not Available Not Available Not Available venlafaxi ne ER 75 mg capsule,e xtended release 24 hr 04/12 completed Medicati on ID: [id number] B rand Name: venlafax ine Send Method: E-Prescr ibed Sub s Allowed: subs OK Medic ationGen ericName : venlafax ine Not Available Not Available Not Available lisinopri l 20 mg-hydroc hlorothia zide 12.5 mg tablet 04/12 completed Medicati on ID: [id number] B rand Name: lisinopr il-hydro chloroth iazide S end Method: E-Prescr ibed Sub s Allowed: subs OK Medic ationGen ericName : lisinopr il-hydro chloroth iazide Not Available Not Available Not Available lisinopri l 20 mg tablet 04/12 completed Medicati on ID: [id number] B rand Name: lisinopr il Send Method: E-Prescr ibed Sub s Allowed: subs OK Medic ationGen ericName : lisinopr il Not Available Not Available Not Available Peridex 0.12 % mouthwash 02/09 completed Medicati on ID: [id number] Pr escribed By Name: Joel Chand nd Name: Peridex Send Method: E-Prescr ibed Sub s Allowed: subs OK Speci al Instruct ion: 10 ml swish and spit after meals for 2 week Med icationG enericNa me: Peridex Not Available Not Available Not Available oxycodone 5 mg/5 mL oral solution 5-10 ml by mouth 12/20 completed Medicati on ID: [id number] Du ration Value: 7 Prescri bed By [...] nasal spray 02/09 completed Medicati on ID: [id number] Du ration Value: 30 Reason: () Brand [...] by mouth 04/12 completed Medicati on ID: [id number] D uration Value: 30 Prescri bed By Name: Joel Chand nd Name: omeprazo le Send Method: E-Prescr ibed Sub s Allowed: subs OK Medic ationGen ericName : omeprazo le Not Available Not Available Not Available diclofena c sodium 75 mg tablet,de layed release 05/30 completed Medicati on ID: [id number] D uration Value: 30 Brand Name: diclofen ac sodium S end Method: E-Prescr ibed Sub s Allowed: subs OK Medic ationGen ericName : diclofen ac sodium Not Available Not Available Not Available mupirocin 2 % topical ointment 05/30 completed Medicati on ID: [id number] D uration Value: 5 Brand Name: mupiroci n Send Method: E-Prescr ibed Sub s Allowed: subs OK Medic ationGen ericName : mupiroci n Not Available Not Available Not Available Percocet 5 mg-325 mg tablet 04/12 [place] ID: [id number] Du ration Value: 10 Prescri bed By [...] mg tablet 04/12 completed Medicati on ID: [id number] B rand Name: sertrali ne Send Method: E-Prescr ibed Sub s Allowed: subs OK Medic ationGen ericName : sertrali ne Not Available Not Available Not Available lisinopri l 2.5 mg tablet 05/30 completed Medicati on ID: [id number] Du ration Value: 30 Brand Name: lisinopr il Send Method: E-Prescr ibed Sub s Allowed: subs OK Speci al Instruct ion: TAKE 1 TABLET BY MOUTH DAILY. Haider Almanza Name: lisinopr il Not Available Not Available Not Available doxycycli ne hyclate 100 mg tablet 05/30 completed Medicati on ID: [id number] D uration Value: 10 Brand Name: doxycycl ine hyclate Send Method: E-Prescr ibed Sub s Allowed: subs OK Speci al Instruct ion: TAKE 1 TABLET BY MOUTH EVERY 12 HOURS FOR 10 DAYS Med icationG enericNa me: doxycycl ine hyclate Not Available Not Available Not Available levothyro xine 112 mcg tablet 05/30 completed Medicati on ID: [id number] Du ration Value: 30 Brand Name: levothyr [...] [place] - [facility] 04/23/2025 15:51:47 Social History None recorded. Functional Status None recorded. Mental Status None recorded. Family History Nothing Reported. Medical History No medical history recorded. Gynecological HistoryNo gynecological history recorded. Obstetrics History GPAL:G 0 P 0 0 0 0 Past Encounters Encounter ID Performer Location Encounter Start Date Encounter Closed Date Diagnosis/Indication Diagnosis SNOMED-CT Code Diagnosis ICD10 Code Diagnosis IMO Codes Diagnosis Note [id number] CHAZ PIPER MD [facility]NT[facility] of [address] [address] 04/12/2025 10:47:00 04/12/2025 11:39:18 History of malignant neoplasm of tongue 334831430 Z85.810 Lesion of oral mucosa 10 47469806 798765 K13.70 [id number] CHAZ PIPER MD [facility] of [address] [address] 04/23/2025 15:44:02 04/23/2025 16:22:43 Lesion of oral mucosa 7667491279 285768 K13.70 8094312 History of malignant neoplasm of tongue 388685365 Z85.810 Leukoplaki a of oral mucosa and tongue 1748232993 107 K13.21 Disturbanc e of salivary secretion 78073808 K11.7 Health Concerns Section Related Observation LastModified by Organization Detai ls LastModified Time None Recorded Concern Status LastModified by Organization Details LastModified Time None Recorded Payers Encounter Date Sequence Insurance Name Policy Number Policy Rhoades Covered Member ID Rhoades Member ID Guarantor Name 04/23/2025 1 [employer] [place] [id number] Sommer Sorensononayco [id number] Sommer [facility] Notes Date Note Type Note Provider Name and Address Organization Details Recorded Time 04/23/2025 text/html Tumor Location: Left tongue Tumor staging: T1N0 SCCA Treatment: excision @ [facility] 10/13/14, elective neck dsxn & re-resection of tongue LN 12/15/14, XRT Date of treatment completion: 05/15/15 Oncology team: Dr. Ragland/Feliz staying busy with a second job at [employer] anticipates another tooth extraction early 04/12/25 biopsy left floor mouth, path at [facility] benign reactive changes and ulceration Sommer Bosch [...] to improve over time. CHAZ PIPER MD [address] [place] [address], [place], [address], [place] - [facility] 04/23/2025 16:20:57 OBGyn Episode No OBEpisode recorded.
--- OUTSIDE RECORDS SUMMARY | 2025-07-12 10:47 | XMS_ITS | Continuity of Care Document ---
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 Procedures None recorded. Surgeries None recorded. Imaging None recorded. Medication Orders None recorded. Patient TargetsNo targets recorded. 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 T1N0 suspected . excised at [facility] 10/13/14 12/15/14 elective neck dsxn and re-resect ion of tongue LN, negative residual in tongue. 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 03948104170 07 Active 2015 Leukoplak ia of oral mucosa, including tongue; Note: Date Diagnosed : 02/10/2016 4:29 PM (K13.21) CHAZ PIPER MD 100 [facility] 100, [place], [address] , [place] - [facility] 5 16:20:12 Disturban ce of salivary secretion 40880484 Active 2018 Xerostomi a; Note: Date Diagnosed : 01/29/2019 4:14 PM (K11.7) CHAZ PIPER MD 100 [facility], [place], [address] , [place] - [facility] 5 16:20:16 Bilateral tinnitus 23888179354 02 Active 2018 Tinnitus, bilateral ; Note: Date Diagnosed : 05/25/2019 3:44 PM (H93.13) Not Available [facility] 4 02:54:37 Follow-up visit Active 2018 Encounter for follow-up examinati on after completed treatment for malignant neoplasm; Note: Date Diagnosed : 05/27/2019 3:07 PM (Z08) Not Available [facility] 4 02:54:34 History of malignant neoplasm of tongue 041738629 Active 2018 Tumor Location: Left tongue Tumor staging: T1N0 SCCA Treatment : excision @ [facility] 10/13/14, elective neck dsxn & re-resect ion of tongue LN 12/15/14, XRT Date of treatment completio n: 05/15/15 Oncology team: Dr. Ragland/Laurie PIPER MD [address] [facility], [place], [address] , [place] - [facility] 4 21:32:55 Hypothyro idism 49969444 Active 2020 Hypothyro idism, unspecifi ed; Note: Date Diagnosed : 11/17/2020 10:12 AM (E03.9) Not Available [facility] 4 02:54:39 Respirato ry finding 212136095 Active 2020 Feeling of foreign body in throat; Note: Date Diagnosed : 09/16/2015 1:43 PM (R09.89) Not Available [facility] 4 02:54:36 Cardiovas cular finding 544621553 Active 2020 Feeling of foreign body in throat; Note: Date Diagnosed : 09/16/2015 1:43 PM (R09.89) Not Available [facility] 4 02:54:36 Dysphonia 58785187 Active 2021 Dysphonia ; Note: Date Diagnosed : 05/25/2022 10:11 AM (R49.0) Not Available [facility] 4 02:54:36 Lesion of oral mucosa 57192663366 19501 Active 2024 CHAZ PIPER MD [address] [place] [address], [address] , [facility] 5 11:28:19 Problem Notes None recorded. Procedures Surgical History Date Name Laterality Status Provider Name and Address Organization Details Recorded Time 04/12/2025 Biopsy Oral Cavity completed CHAZ PIPER MD [address] [place] [address], [phone], [facility] 04/12/2025 11:27:36 06/05/2024 FOL_DP completed CHAZ PIPER MD [address] [place] [address], [address], [facility] 06/04/2024 21:35:13 Imaging Results None recorded. Procedure Notes None recorded. Medical Equipment None Reported. Medications Name Sig Start Date Stop Date Status Note LastModified by Organization Details LastModified Time Prescript ion - Prior Authoriza tion Request active Script Copy/Sandra or Auth^Scr ipt Copy/Sandra or Auth_201 [id number] Not Available Not Available Not Available nystatin 100,000 unit/mL oral suspensio n active Medicati on ID: [id number] P rescribe d By Name: Chaz Piper M.D. Bra ernestina Name: nystatin Send Method: E-Prescr ibed Sub s Allowed: subs OK Speci al Instruct ion: 5 ml swish and swallow four times daily x 2-4 weeks Me dication GenericN fannie: nystatin Not Available Not Available Not Available venlafaxi ne ER 75 mg capsule,e xtended release 24 hr 04/12 completed Medicati on ID: [id number] B rand Name: venlafax ine Send Method: E-Prescr ibed Sub s Allowed: subs OK Medic ationGen ericName : venlafax ine Not Available Not Available Not Available lisinopri l 20 mg-hydroc hlorothia zide 12.5 mg tablet 04/12 completed Medicati on ID: [id number] B rand Name: lisinopr il-hydro chloroth iazide S end Method: E-Prescr ibed Sub s Allowed: subs OK Medic ationGen ericName : lisinopr il-hydro chloroth iazide Not Available Not Available Not Available lisinopri l 20 mg tablet 04/12 completed Medicati on ID: [id number] B rand Name: lisinopr il Send Method: E-Prescr ibed Sub s Allowed: subs OK Medic ationGen ericName : lisinopr il Not Available Not Available Not Available Peridex 0.12 % mouthwash 02/09 completed Medicati on ID: [id number] Pr escribed By Name: Joel Chand nd Name: Peridex Send Method: E-Prescr ibed Sub s Allowed: subs OK Speci al Instruct ion: 10 ml swish and spit after meals for 2 week Med icationG enericNa me: Peridex Not Available Not Available Not Available oxycodone 5 mg/5 mL oral solution 5-10 ml by mouth 12/20 completed Medicati on ID: [id number] Du ration Value: 7 Prescri bed By [...] nasal spray 02/09 completed Medicati on ID: [id number] Du ration Value: 30 Reason: () Brand [...] by mouth 04/12 completed Medicati on ID: [id number] D uration Value: 30 Prescri bed By Name: Joel Chand nd Name: omeprazo le Send Method: E-Prescr ibed Sub s Allowed: subs OK Medic ationGen ericName : omeprazo le Not Available Not Available Not Available diclofena c sodium 75 mg tablet,de layed release 05/30 completed Medicati on ID: [id number] D uration Value: 30 Brand Name: diclofen ac sodium S end Method: E-Prescr ibed Sub s Allowed: subs OK Medic ationGen ericName : diclofen ac sodium Not Available Not Available Not Available mupirocin 2 % topical ointment 05/30 completed Medicati on ID: [id number] D uration Value: 5 Brand Name: mupiroci n Send Method: E-Prescr ibed Sub s Allowed: subs OK Medic ationGen ericName : mupiroci n Not Available Not Available Not Available Percocet 5 mg-325 mg tablet 04/12 completed Medicati on ID: [id number] Du ration Value: 10 Prescri bed By [...] mg tablet 04/12 completed Medicati on ID: [id number] B rand Name: sertrali ne Send Method: E-Prescr ibed Sub s Allowed: subs OK Medic ationGen ericName : sertrali ne Not Available Not Available Not Available lisinopri l 2.5 mg tablet 05/30 completed Medicati on ID: [id number] Du ration Value: 30 Brand Name: lisinopr il Send Method: E-Prescr ibed Sub s Allowed: subs OK Speci al Instruct ion: TAKE 1 TABLET BY MOUTH DAILY. Haider Danielingridic Name: lisinopr il Not Available Not Available Not Available doxycycli ne hyclate 100 mg tablet 05/30 completed Medicati on ID: [id number] D uration Value: 10 Brand Name: doxycycl ine hyclate Send Method: E-Prescr ibed Sub s Allowed: subs OK Speci al Instruct ion: TAKE 1 TABLET BY MOUTH EVERY 12 HOURS FOR 10 DAYS Med icationG enericNa me: doxycycl ine hyclate Not Available Not Available Not Available levothyro xine 112 mcg tablet 05/30 completed Medicati on ID: [id number] Du ration Value: 30 Brand Name: levothyr [...] Updated DateTime 04/12/2025 170.18 cm 22.6 kg/m2 02491.3 g JEMMA CALIXTO [place] - [facility] 04/12/2025 11:05:33 Social History None recorded. Functional Status None recorded. Mental Status None recorded. Family History Nothing Reported. Medical History No medical history recorded. Gynecological HistoryNo gynecological history recorded. Obstetrics History GPAL:G 0 P 0 0 0 0 Past Encounters Encounter ID Performer Location Encounter Start Date Encounter Closed Date Diagnosis/Indication Diagnosis SNOMED-CT Code Diagnosis ICD10 Code Diagnosis IMO Codes Diagnosis Note [id number] CHAZ PIPER MD [facility] of [address] [address] 04/12/2025 10:47:00 04/12/2025 11:39:18 History of malignant neoplasm of tongue 005297023 Z85.810 Lesion of oral mucosa 10 94797409 655750 K13.70 8561953 Health Concerns Section Related Observation LastModified by Organization Detai ls LastModified Time None Recorded Concern Status LastModified by Organization Details LastModified Time None Recorded Payers Encounter Date Sequence Insurance Name Policy Number Policy Rhoades Covered Member ID Rhoades Member ID Guarantor Name 04/12/2025 1 [employer] [place] ([facility]) [id number] Sommer Sorensononayco [id number] Sommer Wiggins Cervonayco Notes Date Note Type Note Provider Name and Address Organization Details Recorded Time 04/12/2025 text/html Tumor Location: Left tongue Tumor staging: T1N0 SCCA Treatment: excision @ [facility] 10/13/14, elective neck dsxn & re-resection of tongue LN 12/15/14, XRT Date of treatment completion: 05/15/15 Oncology team: Dr. Ragland/Feliz staying busy with a second job at [employer] anticipates another tooth extraction early Dec [...] the past months. CHAZ PIPER MD [address] [place] [address], [phone], [place] - [facility] 04/12/2025 11:37:04 OBGyn Episode No OBEpisode recorded.
--- OUTSIDE RECORDS SUMMARY | 2025-07-12 10:47 | XMS_ITS | Patient Health Record ---
Author Organization [facility] Address [address] [place] [address] Care Team Providers Care Receiver Dispatcher Name Role Phone Zamzam Bauer Primary Care Provider Melissa Evans Unavailable [phone] Allergies No Known Allergies Reason For Referral [...] W/U Status Risk Notes Problem Ingrowing nail (364848202) Ingrowing nail (L60.0) Active confirmed Problem Acquired hallux valgus (21978208) Hallux valgus (acquired), right foot (M20.11) Active confirmed Plan Of Treatment Pending Test Test Name Order Date X ray : Foot, left 3V 03/21/2011 [id number] Plate 12/27/2015 67981-Hfbglkgr Plate 08/13/2016 05576- Debride <25 sq cm 09/03/2016 83593- Debride <25 sq cm 01/13/2016 33617 I&D ABSCESS- SIMPLE,SINGLE 016 Insurance Providers Payer Name Payer Address Payer Phone Subscriber Number Group Number Insured Name Patient Relationship to Insured Coverage Start Date Coverage End Date Blue Benefits [address] [address] [place] [address] [phone] [id number] Dayana camarena Sommer Self - patient is the insured Medical (General) History Medical History History ICD Code cancer thyroid disorder chicken pox hypertension headaches/migraines broken bones Anxiety Glaucoma Surgical History Surgery Date(Month/Year) dilatation and curettage lumpectomy 2003 + 2006 ovarian cyst resection colonoscopy 2009 bunionectomy 12/2010 salpingo-oophorectomy 2006 lymph node resection 2014
--- OUTSIDE RECORDS SUMMARY | 2025-07-12 10:47 | XMS_ITS | Data Portability ---
Author Organization [place] - [facility], Allergy Address [address] [address] Care Team Providers Care Petroleum Engineering Teacher Name Role Phone PHILLIP CHIANG Primary Care [...] Go To The Location Of Their Choice, [id number] 04/16/2025 23:52:50 Referral None recorded. Procedures None recorded. Surgeries None recorded. Imaging None recorded. Medication Orders None recorded. Patient TargetsNo targets recorded. Patient Instructions Encounter Date Encounter Id Patient Instructions Last Modified By Organization Details Last Modified Time 04/12/2025 [id number] - Avoid hard or spicy foods and [...] note. 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 T1N0 suspected . excised at [facility] 10/13/14 12/15/14 elective neck dsxn and re-resect ion of tongue LN, negative residual in tongue. 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 46361378632 07 Active 2015 Leukoplak ia of oral mucosa, including tongue; Note: Date Diagnosed : 02/10/2016 4:29 PM (K13.21) CHAZ PIPER MD [address] [place] [address], [facility] [place], [address] , [facility] 5 16:20:12 Disturban ce of salivary secretion 66225908 Active 2018 Xerostomi a; Note: Date Diagnosed : 01/29/2019 4:14 PM (K11.7) CHAZ PIPER MD 100 [facility] 100, [place], [address] , [facility] - [facility] 5 16:20:16 Bilateral tinnitus 65812123287 02 Active 2018 Tinnitus, bilateral ; Note: Date Diagnosed : 05/25/2019 3:44 PM (H93.13) Not Available [facility] 4 02:54:37 Follow-up visit Active 2018 Encounter for follow-up examinati on after completed treatment for malignant neoplasm; Note: Date Diagnosed : 05/27/2019 3:07 PM (Z08) Not Available [facility] 4 02:54:34 History of malignant neoplasm of tongue 368160336 Active 2018 Tumor Location: Left tongue Tumor staging: T1N0 SCCA Treatment : excision @ [facility] 10/13/14, elective neck dsxn & re-resect ion of tongue LN 12/15/14, XRT Date of treatment completio n: 05/15/15 Oncology team: Dr. Ragland/Laurie PIPER MD 100 [facility] 100, [place], [address] , [facility] - [facility] 4 21:32:55 Hypothyro idism 86008598 Active 2020 Hypothyro idism, unspecifi ed; Note: Date Diagnosed : 11/17/2020 10:12 AM (E03.9) Not Available [facility] 4 02:54:39 Respirato ry finding 822946978 Active 2020 Feeling of foreign body in throat; Note: Date Diagnosed : 09/16/2015 1:43 PM (R09.89) Not Available [facility] 4 02:54:36 Cardiovas cular finding 579586076 Active 2020 Feeling of foreign body in throat; Note: Date Diagnosed : 09/16/2015 1:43 PM (R09.89) Not Available [facility] 4 02:54:36 Dysphonia 60543946 Active 2021 Dysphonia ; Note: Date Diagnosed : 05/25/2022 10:11 AM (R49.0) Not Available [facility] 4 02:54:36 Lesion of oral mucosa 51025294605 27584 Active 2024 CHAZ PIPER MD [address] [place] [address],[place] [address], [place], [address] , [facility] 11:28:19 Problem Notes None recorded. Procedures Surgical History Date Name Laterality Status Provider Name and Address Organization Details Recorded Time 04/12/2025 Biopsy Oral Cavity completed CHAZ PIPER MD [address] [place] [address],[place] [address], [place], [address], [facility] - [facility] 04/12/2025 11:27:36 06/05/2024 FOL_DP completed CHAZ PIPER MD [address] [place] [address],[place] [address], [place], [address], [facility] - [facility] 06/04/2024 21:35:13 Imaging Results None recorded. Procedure Notes None recorded. Medical Equipment None Reported. Medications Name Sig Start Date Stop Date Status Note LastModified by Organization Details LastModified Time Prescript ion - Prior Authoriza tion Request active Script Copy/Sandra or Auth^Scr ipt Copy/Sandra or Auth_201 [id number] Not Available Not Available Not Available nystatin 100,000 unit/mL oral suspensio n active Medicati on ID: [id number] P rescribe d By Name: Chaz Piper M.D. Bra nd Name: nystatin Send Method: E-Prescr ibed Sub s Allowed: subs OK Speci al Instruct ion: 5 ml swish and swallow four times daily x 2-4 weeks Me dication GenericN fannie: nystatin Not Available Not Available Not Available venlafaxi ne ER 75 mg capsule,e xtended release 24 hr 04/12 completed Medicati on ID: [id number] B rand Name: venlafax ine Send Method: E-Prescr ibed Sub s Allowed: subs OK Medic ationGen ericName : venlafax ine Not Available Not Available Not Available lisinopri l 20 mg-hydroc hlorothia zide 12.5 mg tablet 04/12 completed Medicati on ID: [id number] B rand Name: lisinopr il-hydro chloroth iazide S end Method: E-Prescr ibed Sub s Allowed: subs OK Medic ationGen ericName : lisinopr il-hydro chloroth iazide Not Available Not Available Not Available lisinopri l 20 mg tablet 04/12 completed Medicati on ID: [id number] B rand Name: lisinopr il Send Method: E-Prescr ibed Sub s Allowed: subs OK Medic ationGen ericName : lisinopr il Not Available Not Available Not Available Peridex 0.12 % mouthwash 02/09 completed Medicati on ID: [id number] Pr escribed By Name: Joel Chand nd Name: Peridex Send Method: E-Prescr ibed Sub s Allowed: subs OK Speci al Instruct ion: 10 ml swish and spit after meals for 2 week Med icationG enericNa me: Peridex Not Available Not Available Not Available oxycodone 5 mg/5 mL oral solution 5-10 ml by mouth 12/20 completed Medicati on ID: [id number] Du ration Value: 7 Prescri bed By [...] nasal spray 02/09 completed Medicati on ID: [id number] Du ration Value: 30 Reason: () Brand [...] by mouth 04/12 completed Medicati on ID: [id number] D uration Value: 30 Prescri bed By Name: Joel Chand nd Name: omeprazo le Send Method: E-Prescr ibed Sub s Allowed: subs OK Medic ationGen ericName : omeprazo le Not Available Not Available Not Available diclofena c sodium 75 mg tablet,de layed release 05/30 completed Medicati on ID: [id number] D uration Value: 30 Brand Name: diclofen ac sodium S end Method: E-Prescr ibed Sub s Allowed: subs OK Medic ationGen ericName : diclofen ac sodium Not Available Not Available Not Available mupirocin 2 % topical ointment 05/30 completed Medicati on ID: [id number] D uration Value: 5 Brand Name: mupiroci n Send Method: E-Prescr ibed Sub s Allowed: subs OK Medic ationGen ericName : mupiroci n Not Available Not Available Not Available Percocet 5 mg-325 mg tablet 04/12 completed Medicati on ID: [id number] Du ration Value: 10 Prescri bed By [...] mg tablet 04/12 completed Medicati on ID: [id number] B rand Name: sertrali ne Send Method: E-Prescr ibed Sub s Allowed: subs OK Medic ationGen ericName : sertrali ne Not Available Not Available Not Available lisinopri l 2.5 mg tablet 05/30 completed Medicati on ID: [id number] Du ration Value: 30 Brand Name: lisinopr il Send Method: E-Prescr ibed Sub s Allowed: subs OK Speci al Instruct ion: TAKE 1 TABLET BY MOUTH DAILY. Haider Almanza Name: lisinopr il Not Available Not Available Not Available doxycycli ne hyclate 100 mg tablet 05/30 completed Medicati on ID: [id number] D uration Value: 10 Brand Name: doxycycl ine hyclate Send Method: E-Prescr ibed Sub s Allowed: subs OK Speci al Instruct ion: TAKE 1 TABLET BY MOUTH EVERY 12 HOURS FOR 10 DAYS Med icationG enericNa me: doxycycl ine hyclate Not Available Not Available Not Available levothyro xine 112 mcg tablet 05/30 completed Medicati on ID: [id number] Du ration Value: 30 Brand Name: levothyr [...] Updated DateTime 04/12/2025 170.18 cm 22.6 kg/m2 75926.3 g [facility] 04/12/2025 11:05:33 Date Recorded Body height Provider Name an d Address Organization Details Last Updated DateTime 04/23/2025 170.18 cm [facility] 04/23/2025 15:51:47 Date Recorded Body height Body mass index (BMI) Body weight Provider Name and Address Organization Details Last Updated DateTime 06/05/2024 170.18 cm 22.7 kg/m2 36820.89 g Tara Hernandez [place] - [facility] 06/05/2024 09:11:23 Social History None recorded. Functional Status None recorded. Mental Status None recorded. Family History Nothing Reported. Medical History No medical history recorded. Gynecological HistoryNo gynecological history recorded. Obstetrics History GPAL:G 0 P 0 0 0 0 Past Encounters Encounter ID Performer Location Encounter Start Date Encounter Closed Date Diagnosis/Indication Diagnosis SNOMED-CT Code Diagnosis ICD10 Code Diagnosis IMO Codes Diagnosis Note [id number] CHAZ PIPER MD [facility] [address] [address] 06/05/2024 08:57:41 06/05/2024 09:29:44 History of malignant neoplasm of tongue 351651851 Z85.810 [id number] CHAZ PIPER MD [facility] [address] [address] 04/12/2025 10:47:00 04/12/2025 11:39:18 History of malignant neoplasm of tongue 575128907 Z85.810 Lesion of oral mucosa 10 58967639 619901 K13.70 7931744 [id number] CHAZ PIPER MD [facility] [address] [address] 04/23/2025 15:44:02 04/23/2025 16:22:43 Lesion of oral mucosa 2890707648 239267 K13.70 3090407 History of malignant neoplasm of tongue 681933191 Z85.810 Leukoplaki a of oral mucosa and tongue 3287569761 107 K13.21 Disturbanc e of salivary secretion 17155566 K11.7 Health Concerns Section Related Observation LastModified by Organization Detai ls LastModified Time None Recorded Concern Status LastModified by Organization Details LastModified Time None Recorded Advance Directives Directive None Recorded Payers Insurance Date Sequence Insurance Name Policy Number Policy Rhoades Covered Member ID Rhoades Member ID Guarantor Name 04/23/2025 1 [employer] [place] [id number] Sommer Wiggins Cervonayco [id number] Sommer Sorensononaycmigue Notes Date Note Type Note Provider Name and Address Organization Details Recorded Time 06/05/2024 text/html ROS as noted in the HPI Tumor Location: Left tongueTumor staging: T1N0 SCCATreatment[facility], elective neck dsxn & re-resection of tongue LN 12/15/14, XRTDate of treatment completion: 05/15/15Oncology team: Dr. Ragland/Feliz staying busy with a second job at [employer] Yanticipates another tooth extraction early Jun CHAZ PIPER MD [facility] [place] [address], [address], [place] - [facility] 06/05/2024 09:27:49 04/12/2025 text/html Tumor Location: Left tongue Tumor staging: T1N0 SCCA Treatment: excision @ [facility] 10/13/14, elective neck dsxn & re-resection of tongue 0/LN 12/15/14, XRT Date of treatment completion: 05/15/15 Oncology team: Dr. Ragland/Feliz staying busy with a second job at [employer] Y anticipates another tooth extraction early Jun [...] the past months. CHAZ PIPER MD [facility] [place],[address], [place], [address], [place] - [facility] 04/12/2025 11:37:04 04/23/2025 text/html Tumor Location: Left tongue Tumor staging: T1N0 SCCA Treatment: excision @ [facility] 10/13/14, elective neck dsxn & re-resection of tongue 0/LN 12/15/14, XRT Date of treatment completion: 05/15/15 Oncology team: Dr. Ragland/Feliz staying busy with a second job at [employer] Y anticipates another tooth extraction early 04/12/25 biopsy left floor mouth, path at [facility] benign reactive changes and ulceration Sommer Bosch [...] to improve over time. CHAZ PIPER MD [address] [place] [address], [address], [facility] - [facility] 04/23/2025 16:20:57 OBGyn Episode No OBEpisode recorded.
--- OUTSIDE RECORDS SUMMARY | 2025-07-12 10:47 | XMS_ITS | Patient Health Record ---
Author Organization [facility] Address [address] [place] [address] Care Team Providers Care Director Of Public Works Name Role Phone Zamzam Bauer Primary Care Provider Unavailab Lewis Bustillos Jr Unavailable Allergies No Known Allergies Results Component Value Reference Range Notes MR abdomen wo/w con Reviewed date:11/16/2024 08:01:27 AM Interpretation: Performing Lab: Notes/Report: [address] [address] Magnetic Resonance Report Signed Patient: Genesis Wilks MR#: [id number] : 1970 Acct:[id number] Age/Sex: 54 / F ADM Date: 11/12/24 Loc: .MRI Attending Dr: Lewis Jiménez MD Ordering Physician: Lewis Jiménez MD Date of Service: 11/12/24 Procedure(s): MR abdomen wo/w con Accession Number(s): [id number] cc: Zamzam Bauer MD; Lewis Jiménez MD [...] OV> 11/12/24 145 DD/ 49 TD/TT: 11/12/241449 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: Reason For Referral No Information Medications Medication [...] Options Details Miscellaneous: Marital status: 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 [employer] Problems Problem Type SNOMED Code ICD Code Onset Dates Problem Status W/U Status Risk Notes Problem Colon cancer screening (129404305) Colon cancer screening (Z12.11) Active confirmed Problem Breast cancer genetic marker of susceptibility positive (727730104) 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) Active confirmed Problem Genetic predisposition (52812436) Genetic susceptibility to other malignant neoplasm (Z15.09) Active confirmed Problem Family History of Cancer of Colon (Situation) (854705610) Family history of colon cancer (Z80.0) Active confirmed Problem Dysphagia (66643888) Dysphagia, unspecified type (R13.10) Active confirmed Problem Diarrhea (26580725) Diarrhea, unspecified type (R19.7) Active confirmed Problem Family history of malignant neoplasm of gastrointestinal tract (520321403) FH: pancreatic cancer (Z80.0) Active confirmed Vital Signs Temperature 96.9 degrees Fahrenheit 11/04/2024 Blood pressure diastolic 01 mm Hg 11/04/2024 Height 67 in 11/04/2024 Blood pressure systolic 001 mm Hg 11/04/2024 Weight 147.2 lbs 11/04/2024 BMI 23.05 kg/m2 11/04/2024 Encounters Encounter Location Date Provider Diagnosis [facility] [address] [place] [address] 11/04/2024 Lewis Jiménez Jr Genetic susceptibility to other malignant neoplasm Z15.09 ; Genetic susceptibility to malignant neoplasm of breast Z15.01 and FH: pancreatic cancer Z80.0 [facility] [address] [place] [phone] 10/26/2024 Lewis Jiménez Jr [facility] [address] [place] [phone] 11/04/2024 Lewis Jiménez Jr [facility] [address] [place] [phone] 11/16/2024 Lewis Jiménez Jr Assessments Encounter Date [...] Name:Lewis bae , 11/03/2025 09:00:00 AM, [address] [place] [address], [address], [place], [address], Insurance Providers Payer Name Payer Address Payer Phone Subscriber Number Group Number Insured Name Patient Relationship to Insured Coverage Start Date Coverage End Date [employer]UE [employer]ATION CLAIM REPRESENTATIVE S [employer] [address] [address] [place] [address] [id number] GENESIS MCKEON Self - patient is [...] Piper 2016 radiation head and neck - [facility] april 2015 tooth extraction [facility] surgery aug
== END 2025-07-12 09:46 | disposition home or self-care (01) ==
LOC: HO.HCS 09:28
PROVIDERS: PCP Internal Medicine; Visit Provider Internal Medicine
DX: Q23.1 Congenital insufficiency of aortic valve (principal); I71.21 Aneurysm of the ascending aorta, without rupture; I10 Essential (primary) hypertension
CPT/HCPCS: 99214